=== PATIENT | male | born 1955 | race Caucasian/White ===

== ENCOUNTER 2021-03-26 06:19 | Outpatient (REF) | payer SELFPAY ==
[2021-03-26 07:21] LABS: Estimated Average Glucose 123 mg/dL; Hemoglobin A1c % 5.9 %
[2021-03-26 07:29] LABS: Alanine Aminotransferase 40 U/L (0-40); Albumin Level 4.6 g/dL (3.5-5.0); Alkaline Phosphatase 67 U/L (39-117); Anion Gap 14 (12-20); Aspartate Amino Transferase 27 U/L (5-37); Bilirubin Total 0.7 mg/dL (0.0-1.0); Blood Urea Nitrogen 27 mg/dL (9-16); Calcium 9.9 mg/dL (8.4-10.2); Carbon Dioxide 25 mmol/L (22-29); Chloride 106 mmol/L (96-108); Cholesterol 186 mg/dL; Estimated Glomerular Filt Rate > 60; Glucose Fasting 123 mg/dL (60-99); HDL Cholesterol 43 mg/dL; LDL Cholesterol Calculated 71 mg/dl; Potassium 4.5 mmol/L (3.3-5.1); Sodium 140 mmol/L (135-145); Total Protein 7.2 g/dL (6.5-8.0); Triglycerides 362 mg/dL
== END 2021-03-26 06:20 | disposition home or self-care (01) ==
LOC: HO.LAB 06:19
PROVIDERS: PCP Family Medicine; Visit Provider Family Medicine
DX: Z00.00 Encounter for general adult medical examination without abnormal findings (principal); R73.01 Impaired fasting glucose
CPT/HCPCS: 36415; 80053; 80061; 83036; 84443

== ENCOUNTER 2021-08-06 06:06 | Outpatient (REF) | payer OTHER, SELFPAY ==
[2021-08-06 07:59] LABS: Alanine Aminotransferase 39 U/L (0-40); Albumin Level 4.6 g/dL (3.5-5.0); Alkaline Phosphatase 79 U/L (39-117); Anion Gap 15 (12-20); Aspartate Amino Transferase 29 U/L (5-37); Bilirubin Total 0.3 mg/dL (0.0-1.0); Blood Urea Nitrogen 30 mg/dL (9-16); Calcium 10.2 mg/dL (8.4-10.2); Carbon Dioxide 24 mmol/L (22-29); Chloride 105 mmol/L (96-108); Cholesterol 193 mg/dL; Estimated Glomerular Filt Rate 56; Glucose Fasting 115 mg/dL (60-99); HDL Cholesterol 44 mg/dL; Sodium 139 mmol/L (135-145); Total Protein 6.9 g/dL (6.5-8.0); Triglycerides 540 mg/dL
[2021-08-06 08:12] LABS: Estimated Average Glucose 123 mg/dL; Hemoglobin A1c % 5.9 %
== END 2021-08-06 06:07 | disposition home or self-care (01) ==
LOC: HO.LAB 06:06
PROVIDERS: PCP Family Medicine; Visit Provider Family Medicine
DX: Z00.00 Encounter for general adult medical examination without abnormal findings (principal); R73.01 Impaired fasting glucose
CPT/HCPCS: 36415; 80053; 80061; 83036

== ENCOUNTER 2021-10-08 06:08 | Outpatient (REF) | payer OTHER, SELFPAY ==
[2021-10-08 07:33] LABS: Cholesterol 194 mg/dL; HDL Cholesterol 43 mg/dL; LDL Cholesterol Calculated 84 mg/dl; Triglycerides 338 mg/dL
== END 2021-10-08 06:09 | disposition home or self-care (01) ==
LOC: HO.LAB 06:08
PROVIDERS: PCP Family Medicine; Visit Provider Family Medicine
DX: Z00.00 Encounter for general adult medical examination without abnormal findings (principal); E78.5 Hyperlipidemia, unspecified
CPT/HCPCS: 36415; 80061

== ENCOUNTER 2022-02-14 06:09 | Outpatient (REF) | payer OTHER, SELFPAY ==
[2022-02-14 08:12] LABS: Cholesterol 189 mg/dL; HDL Cholesterol 41 mg/dL; Triglycerides 404 mg/dL
== END 2022-02-14 06:10 | disposition home or self-care (01) ==
LOC: HO.LAB 06:09
PROVIDERS: PCP Family Medicine; Visit Provider Family Medicine
DX: Z00.00 Encounter for general adult medical examination without abnormal findings (principal); E78.5 Hyperlipidemia, unspecified
CPT/HCPCS: 36415; 80061

== ENCOUNTER 2022-05-27 06:06 | Outpatient (REF) | payer OTHER, SELFPAY ==
[2022-05-27 08:35] LABS: Cholesterol 178 mg/dL; HDL Cholesterol 43 mg/dL; LDL Cholesterol Calculated 94 mg/dl; Triglycerides 206 mg/dL
== END 2022-05-27 06:07 | disposition home or self-care (01) ==
LOC: HO.LAB 06:06
PROVIDERS: PCP Family Medicine; Visit Provider Family Medicine
DX: Z00.00 Encounter for general adult medical examination without abnormal findings (principal); E78.5 Hyperlipidemia, unspecified
CPT/HCPCS: 36415; 80061

== ENCOUNTER 2022-10-07 06:05 | Outpatient (REF) | payer OTHER, SELFPAY ==
[2022-10-07 06:16] LABS: MANUAL DIFF FLAG NO
[2022-10-07 07:41] LABS: Basophils Absolute Auto 0.1 X10*3/uL (0.0-0.2); Basophils Percent Auto 0.9 % (0-2); Eosinophils Absolute Auto 0.2 X10*3/uL (0.0-0.4); Eosinophils Percent Auto 2.8 % (0-4); Hematocrit 36.4 % (42.0-52.0); Hemoglobin 12.1 g/dl (14.0-18.0); Imm Gran Abs Auto 0.04 X10*3/uL (0.00-0.03); Imm Gran Pct Auto 0.6 % (0.0-0.4); Lymphocytes Absolute Auto 1.1 X10*3/uL (1.2-4.9); Lymphocytes Percent Auto 16.1 % (20-40); Mean Corpuscular HGB Conc 33.2 g/dl (31.0-36.0); Mean Corpuscular Hemoglobin 31.8 pg (27.0-33.0); Mean Corpuscular Volume 95.5 fL (80.0-98.0); Mean Platelet Volume 10.4 fL (9.4-12.4); Monocytes Absolute Auto 0.6 X10*3/uL (0.1-1.2); Monocytes Percent Auto 8.1 % (2-11); Neutrophils Absolute Auto 4.8 x10*3/uL (2.0-8.3); Neutrophils Percent Auto 71.5 % (45-73); Platelet Count 291 X10*3/uL (160-400); Red Blood Count 3.81 X10*6/uL (4.60-5.80); Red Cell Distribution Width 12.7 % (11.0-16.0); White Blood Count 6.8 X10*3/uL (4.8-10.8)
[2022-10-07 08:11] LABS: Alanine Aminotransferase 30 U/L (0-40); Albumin Level 4.5 g/dL (3.5-5.0); Alkaline Phosphatase 42 U/L (39-117); Anion Gap 18 (12-20); Aspartate Amino Transferase 28 U/L (5-37); Bilirubin Total 0.3 mg/dL (0.0-1.0); Blood Urea Nitrogen 38 mg/dL (9-16); Carbon Dioxide 18 mmol/L (22-29); Chloride 111 mmol/L (96-108); Cholesterol 197 mg/dL (<200); Estimated Glomerular Filt Rate 39; Glucose Fasting 119 mg/dL (60-99); HDL Cholesterol 46 mg/dL (>40); LDL Cholesterol Calculated 109 mg/dL (<100); Potassium 4.7 mmol/L (3.3-5.1); Sodium 142 mmol/L (135-145); Total Protein 6.9 g/dL (6.5-8.0); Triglycerides 210 mg/dL (<150)
[2022-10-07 08:17] LABS: TSH reflex Free T4 1.59 uIU/mL (0.32-4.0)
[2022-10-07 08:19] LABS: Prostate Specific Antigen Scr 1.55 ng/mL (<0.05-4.0)
[2022-10-07 12:14] LABS: Appearance Urine Clear; Color Urine Dark Yellow; Glucose Urine UA Negative (Negative); Leukocyte Esterase Urine Negative (Negative); Nitrite Urine Negative (Negative); PH 5.5 (5.0-9.0); Urine Blood Negative (Negative); Urine Ketones Negative (Negative); Urine Protein Negative (Neg-Trace)
[2022-10-07 13:04] LABS: Microalbum/Creatinine Ratio Ur 8.5 ug/mg cr (<30)
== END 2022-10-07 06:06 | disposition home or self-care (01) ==
LOC: HO.LAB 06:05
PROVIDERS: PCP Family Medicine; Visit Provider Family Medicine
DX: Z00.00 Encounter for general adult medical examination without abnormal findings (principal); Z12.5 Encounter for screening for malignant neoplasm of prostate; I10 Essential (primary) hypertension
CPT/HCPCS: 36415; 80053; 80061; 81003; 82043; 82570; 84153; 84443; 85025

== ENCOUNTER 2022-10-13 08:25 | Outpatient (AMB) | payer OTHER, SELFPAY ==
--- NOTE | 2022-10-13 08:30 | MHC.OFFVIS ---
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 Pt reports sleep disturbance. He does not have difficultly falling asleep but wakes up frequently at night. He can't sleep 4 hours straight. Pt reports family hx of sleep apnea. He drinks 2 cans of beer in the evening almost every day. He has left shoulder pain and it also bothersome and it wakes him too. He uses Aleve or PM tylenol sometimes. Sleep questionnaire: Have you ever been diagnosed with a sleep disorder? No. Have you ever had a sleep study in the past? No. Have you ever been treated for a sleep disorder? No. Do you take medications for a sleep disorder? Tried melatonin and OTC sleep aids. but did not help him maintaining sleep and made him groggy and dry mouth in the morning. He tried lunesta and ambien as needed. Do you snore? Yes. Do you wake up gasping at night? No. Do you have episodes of apneas? No. If yes, are they witnessed? No. Do you have episodes of nocturnal chest pain or dyspnea? No. Do you have difficulty initiating sleep? No. Do you have difficulty maintaining sleep? Yes. Do you wake up tired? Yes. Do you have headaches upon awakening? No. Do you wake up with dry mouth or throat? Yes. Do you have GERD? No. Do you have nocturia? Yes, 2-3 times. Do you have nocturnal leg cramps? No. Do you have symptoms of restless legs? No. Do you act out your dreams? No. Sleep hygiene questionnaire: What is your usual sleep routine? Usual bedtime is at 10 pm; Usual wake up time is at 6 am. Do you take naps? No. Is your sleep environment cool, dark, and quiet? Yes. Do you exercise? No. Do you take caffeine or other stimulants? 2 cups of coffee in the morning. Do you use electronics in bed? Yes. What is your work schedule? 7 am to 6 pm. Hypersomnolence questionnaire: Do you have daytime tiredness or fatigue? Yes. Do you easily fall asleep when inactive? No. Have you ever had episodes of sudden weakness? No. Have you ever had episodes of sudden weakness associated with strong emotions? No. PFSH Surgical History History of hernia repair Family History (Updated 10/13/22 @ 08:35 by Catrina Quick [facility]) Father Kidney failure Mother Congenital heart disease Brother No problems noted. Sister No problems noted. Sister No problems noted. Sister No problems noted. Son No problems noted. Daughter No problems noted. Social History (Updated 10/13/22 @ 08:36 by Cartina Quick [facility]) Housing: House Alcohol intake: current Alcohol intake frequency: 0-2 drinks per day Patient Tobacco Use Status: Former Tobacco user Quit Date: 2020 service: No Current occupational status: employed Cognitive needs: No Hearing needs: No Vision needs: Yes Review of Systems Const All systems reviewed & are unremarkable except as noted in HPI and below ENT Reports Normal hearing present Neuro Reports Normal hearing present Physical Exam Vital Signs: Last Vital Signs Pulse 62 10/13/22 08:36 BP 130/86 10/13/22 08:36 Pulse Ox 98 10/13/22 08:36 Oxygen Delivery Method Room Air 10/13/22 08:36 BMI result Body Mass Index 34.9 Const General: cooperative Nutritional Appearance: obese Orientation/consciousness: patient oriented x3 Limitations: no limitations Neck Neck: Yes full ROM Resp Effort & Inspection: normal respiratory effort and able to speak in complete sentences Neuro General: patient oriented x3, gait normal and moves all extremities Cranial nerves: Yes Bilaterally intact EOM present, Yes Normal facial strength present, Yes Midline tongue present, Yes Normal gag reflex present, Yes Symmetric palate elevation present, Yes Normal hearing present, Yes Ability to bilaterally rotate head present and Yes Ability to bilaterally elevate shoulders present Cognition (Neuro): normal cognition Gait exam (Neuro): Normal gait present Motor exam (neuro): 5/5 motor strength present throughout, Pronator motor function not present and no tremor noted Psych Appearance: grossly normal Mental Status: mental status grossly normal Speech and movement: Normal speech and movement present Affect: normal affect Attitude: cooperative Assessment & Plan Assessment & Plan (1) Hypersomnia: Code(s): G47.10 - Hypersomnia, unspecified (2) Difficulty sleeping: Code(s): G47.9 - Sleep disorder, unspecified (3) Snoring: Code(s): R06.83 - Snoring Plan Pt is advised to undergo in lab sleep study to assess for sleep apnea. Will f/u with pt after study to discuss results and appropriate treatment options. Sleep hygiene education provided. Advised patient to reduce alcohol intake in the evening, and limit screen time before bedtime. Pt to call with any worsening concerns or questions. Orders: Orders RT PSG in-lab sleep study Today E66.9 - Obesity, unspecified, G47.00 - Insomnia, unspecified, G47.10 - Hypersomnia, unspecified, I10 - Essential (primary) hypertension, R73.01 - Impaired fasting glucose Coding Level of Care Code New Pt Level 4 (82300) Diagnoses Hypersomnia G47.10 Difficulty sleeping G47.9 Snoring R06.83
[2022-10-13 08:36] VITALS: BP 130/86; PULSE 62; O2SAT 98; BMI 34.9
== END 2022-10-13 09:16 | disposition home or self-care (01) ==
PROVIDERS: PCP Family Medicine; Visit Provider Nurse Practitioner Family
DX: G47.10 Hypersomnia, unspecified (principal); G47.9 Sleep disorder, unspecified; R06.83 Snoring
CPT/HCPCS: 99204

== ENCOUNTER → 2022-10-13 08:25 | Outpatient (BNVA) | payer OTHER, SELFPAY | PROVIDERS: PCP Family Medicine; Visit Provider Nurse Practitioner Family ==

== ENCOUNTER 2022-10-14 15:50 | Outpatient (AMB) | payer OTHER, SELFPAY ==
--- NOTE | 2022-10-14 15:46 | MHC.PC.OV ---
Vital Signs 10/14/22 16:03 10/14/22 16:34 Height 5 ft 10 in Weight 242 lb BMI 34.7 BP 98/64 124/72 Blood Pressure Location Rt brachial Rt brachial Position Sitting Sitting Respiration 12 Pulse 92 Pulse Source Pulse Oximeter Temp 97.9 F Temp Source Temporal Artery Scan Pulse Oximetry (%) 98 Oxygen Delivery Method Room Air Intake Visit Reasons: CPE with f/u labs and health maint Intake Note: Patient states that he may have liquid in ear and sometimes he hears the crackle. 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 Allergies vitamin E (d-alpha tocopherol) Allergy (Unknown, Verified 10/14/22 16:08) rash Medication List - Last Reconciled 10/14/22 by Ricky Iverson MD amlodipine-benazepril 5-40 mg 1 cap PO DAILY 90 days aspirin (Adult Aspirin Regimen) 81 mg PO DAILY atorvastatin 80 mg PO DAILY ezetimibe 10 mg PO DAILY fenofibrate 160 mg PO DAILY 30 days hydrochlorothiazide 25 mg PO DAILY spironolactone 25 mg PO DAILY Tobacco use date assessed: 07/15/22 Fall risk assessment: No Falls in past year Last assessed Fall Risk: 10/14/22 Dental Screening Dental Screen Date: 10/14/22 Did you have a dental visit in the last 12 months?: Yes Did you have a dental problem in the last 6 months where you did not have access to dental care?: No Was dental information given to patient?: Patient has dentist HPI CPE with f/u labs and health maint HPI Details 67 y/o male presents for a CPE with f/u labs and health maintenance. Labs were drawn 10/07/22. Reviewed labs with pt. Mild anemia. Elevated creatinine of 1.77. Elevated triglycerides 210. TC 197. LDL 109. HDL 46. Blood pressure today is 98/64. He is on hydrochlorothiazide 25mg and spirinolactone 25mg daily. A1c today 10/14/22 is 6.2% and had risen. [facility] Medical History No pertinent past medical history Surgical History History of hernia repair Family History Father Kidney failure Mother Congenital heart disease Brother No problems noted. Sister No problems noted. Sister No problems noted. Sister No problems noted. Son No problems noted. Daughter No problems noted. Social History Housing: House Alcohol intake: current Alcohol intake frequency: 0-2 drinks per day Patient Tobacco Use Status: Former Tobacco user Quit Date: 2020 e-Cigarette/Vaping Use: Never Used service: No Current occupational status: employed Cognitive needs: No Hearing needs: No Vision needs: Yes Questionnaire PHQ-9 Over the last 2 weeks, how often have you been bothered by any of the following problems? 1. Little interest or pleasure in doing things: several days 2. Feeling down, depressed, or hopeless: not at all 3. Trouble falling or staying asleep, or sleeping too much: more than half the days 4. Feeling tired or having little energy: several days 5. Poor appetite or overeating: several days 6. Feeling bad about yourself - or that you are a failure or have let yourself or your family down: not at all 7. Trouble concentrating on things, such as reading the newspaper or watching television: not at all 8. Moving or speaking so slowly that other people could have noticed. Or the opposite - being so fidgety or restless that you have been moving around a lot more than usual: not at all 9. Thoughts that you would be better off or of hurting yourself in some way: not at all Total score: 5 Depression Screening Interpretation: Positive Source: Developed by Drs. Leopoldo Pacheco, Skye Clarke, Charlie Funk and colleagues, with an educational baldomero from [employer]. Thrive Questionnaire Date Thrive assessed: 10/14/22 I am a: Patient What is your living situation today?: I have a steady place to live Within the past 12 months, did the food you bought not last and you didn't have the money to get more?: Never true Within the past 12 months, did you worry whether your food would run out before you got money to buy more?: Never true Do you have trouble paying for medicines?: No Do you have trouble getting transportation to medical appointments?: No Do you have trouble paying your heating and electricity bill?: No Do you have trouble taking care of your child, family member or friend?: No Do you have trouble with day-to-day activities such as bathing, preparing meals, shopping, managing finances, etc.?: No Are you currently unemployed and looking for a job?: No Are you interested in more education?: No Please select the resources that you would like help with: None Currently or been in a relationship where the following occur: no concerns reported AUDIT C Alcohol Use Questionnaire (AUDIT-C) 1. How often do you have a drink containing alcohol?: 4 or more times a week 2. How many drinks containing alcohol do you have on a typical day when you are drinking?: 1 or 2 3. How often do you have six or more drinks on one occasion?: Never Total Score: 4 TONA-7 AMB Questionnaire TONA-7 Date TONA - 7 assessed: 10/14/22 Feeling nervous, anxious, or on edge: 0 = Not at all Not being able to stop or control worryin = Not at all Worrying too much about different things: 0 = Not at all Trouble relaxin = Not at all Being so restless that it is hard to sit still: 0 = Not at all Becoming easily annoyed or irritable: 1 = Several days Feeling afraid as if something awful might happen: 0 = Not at all Total TONA-7 score (0-4 normal; 5-9 mild; 10-14 moderate; 15-21 severe): 1 Source: Developed by Drs. Leopoldo Pahceco, Skye Clarke, Cahrlie Funk and colleagues, with an educational baldomero from [employer]. Review of Systems Const Denies chills, Denies fatigue, Denies fever(s), Denies headache(s) and Denies weakness Eyes Denies change in vision ENT Denies dizziness and Denies headache(s) Card Denies chest pain, Denies lightheadedness, Denies dyspnea and Denies other (Palpitations) Resp Denies cough, Denies dyspnea, Denies wheezing and Denies other ( shortness of breath) GI Denies abdominal pain, Denies melena, Denies hematochezia, Denies change in bowel habits, Denies dyspepsia and Denies nausea Denies hematuria and Denies dysuria Musc Denies numbness and Denies tingling Skin/Breast Denies rash, Denies unusual bruising and Denies wounds Neuro Denies dizziness, Denies headache(s), Denies numbness, Denies Sensory deficit (Neuro), Denies tingling, Denies paresthesias and Denies weakness Psych Denies anxiety and Denies depression Endo Denies fatigue Eugene/Lymph Denies easy bleeding and Denies easy bruising Aller/Immun Denies wheezing Physical exam (Primary Care) Vital Signs: Last Vital Signs Temp 97.9 F 10/14/22 16:03 Pulse 92 10/14/22 16:03 Resp 12 10/14/22 16:03 BP 98/64 10/14/22 16:03 Pulse Ox 98 10/14/22 16:03 Oxygen Delivery Method Room Air 10/14/22 16:03 BMI result Body Mass Index 34.7 Tobacco/Smoking Status: Tobacco use Status Tobacco use date assessed 07/15/22 10/14/22 15:46 Patient Tobacco Use Status Former Tobacco user 10/14/22 15:46 e-Cigarette/Vaping Use Never Used 10/14/22 16:14 PHQ-9: PHQ-9 Score PHQ-9: Total score 5 10/14/22 16:32 Depression Screening Interpretation: Positive Thrive Assessment: Date of Thrive Assessment Date Thrive assessed 10/14/22 10/14/22 16:18 Currently or been in a relationship where the following occur: no concerns reported Const General: no acute distress and well developed Nutritional Appearance: well nourished Orientation/consciousness: patient oriented x3 HENMT Head: Yes normocephalic and Yes atraumatic Ears: hearing grossly normal bilaterally and TM's normal bilaterally General nose exam: Normal external nose present and Normal nares present Mouth: Normal oral and palatal mucosa present and moist mucous membranes Teeth and gingiva: dentition normal Throat: Yes posterior oropharynx normal Eyes General: appearance normal, both eyes and all related structures Pupils: Equal, round and reactive pupils present EOM: EOMs intact bilaterally Neck Neck: Yes normal visual inspection, Yes no lymphadenopathy and Yes trachea midline Thyroid: Thyroid normal Carotids: no bruits Lymphatic: no lymphadenopathy noted Chest Chest palpation & inspection: normal inspection of the chest Resp Effort & Inspection: normal respiratory effort Auscultation: clear to auscultation bilaterally Cardio Rate: regular rate Rhythm: regular rhythm Heart sounds: S1 normal heart sound present, S2 normal heart sound present, no gallops, no murmurs and no rubs Bruits: no abdominal aortic bruits and no carotid bruits GI Palpation (GI): No Abdominal aortic bruit present, Soft to palpation, nontender, No hepatosplenomegaly present and No Rebound tenderness present Auscultation: normal bowel sounds General: Yes no CVA tenderness Back/Spine/Pelvis Back: no CVA tenderness Cervical Spine: cervical ROM normal and No Cervical spine tenderness Thoracic/Lumbar Spine: thoraco-lumbar ROM normal, No pain with thoraco-lumbar ROM, No thoracic spinal tenderness and No lumbar spinal tenderness Skin Other: .75 by .5 cm melanotic macule on the R side of his neck with irregular borders Rashes: no rashes Trauma: no lacerations or abrasions Wounds: no wounds Nails: normal Neuro General: patient oriented x3 and gait normal Cranial nerves: Yes Equal, round and reactive pupils present Cognition (Neuro): normal cognition Gait exam (Neuro): Normal gait present Motor exam (neuro): 5/5 motor strength present throughout Sensory Exam: No Sensory deficit (Neuro) Deep tendon reflexes (DTR's): Right patellar reflex intensity grade: 2+ and Left patellar reflex intensity grade: 2+ Extrem General: Yes normal to inspection and No edema Psych Appearance: grossly normal Affect: normal affect Attitude: cooperative Thought process: Normal thought process present Results AMB Hemoglobin A1c AMB Hemoglobin A1c 6.2 % Last Edit by Sharmin Talbert on 10/14/22 16:33 Assessment and Plan Assessment & Plan (1) Annual physical exam: Code(s): Z00.00 - Encounter for general adult medical examination without abnormal findings Plan: 67-year-old male presents for complete physical exam Encouraged healthy diet with active lifestyle and plenty of exercise (2) Essential hypertension: Code(s): I10 - Essential (primary) hypertension Plan: Blood pressure is controlled. Goal is less than 140/90 However, patient's creatinine level has risen significantly so I am discontinuing his hydrochlorothiazide and will use metoprolol No other changes to his blood pressure medications at this time (3) Elevated serum creatinine: Code(s): R79.89 - Other specified abnormal findings of blood chemistry Plan: As above, significantly elevated creatinine level Stop hydrochlorothiazide Will repeat creatinine level and follow-up next week Hydrate well (4) Hyperlipidemia: Code(s): E78.5 - Hyperlipidemia, unspecified Plan: Encouraged a diet lower in saturated fats and cholesterol (5) Anemia: Code(s): D64.9 - Anemia, unspecified Plan: Mild anemia Repeat labs (6) Screening for colon cancer: Code(s): Z12.11 - Encounter for screening for malignant neoplasm of colon Plan: Colonoscopy this year in February. Recommended follow-up in 5 years. He has a history of polyps. Up today (7) Pre-diabetes: Code(s): R73.03 - Prediabetes Plan: A1c has risen and now at 6.2%. Encouraged diet lower in sugars and starches Encouraged exercise (8) Ear discomfort: Code(s): H92.09 - Otalgia, unspecified ear Plan: Likely some mild eustachian tube dysfunction He can use Flonase (9) Screening for prostate cancer: Code(s): Z12.5 - Encounter for screening for malignant neoplasm of prostate Plan: Her PSA was within normal limits (10) Neoplasm of uncertain behavior of skin: Code(s): D48.5 - Neoplasm of uncertain behavior of skin Plan: Melanotic macule on the right side of his neck with irregular borders and mild caller irregularity Referred to Dermatology Orders: Orders Comprehensive Met. Panel Today R79.89 - Other specified abnormal findings of blood chemistry Complete Blood Count Auto Diff Today D64.9 - Anemia, unspecified, Z00.00 - Encounter for general adult medical examination without abnormal findings Reticulocyte Count Today D64.9 - Anemia, unspecified IRON PROFILE Today D64.9 - Anemia, unspecified Vitamin B12 and Folate Today D64.9 - Anemia, unspecified Medications: New metoprolol succinate ER 25 mg PO DAILY 30 days 30 tabs 1RF fluticasone propionate 50 mcg/actuation (Flonase Allergy Relief) administer into each nostril 1 spray intranasal Q12H 30 days 16 grams 2RF D64.9 - Anemia, unspecified Coding Level of Care Code Est Pt Level 3 (24549) Est Pt Prev Care >65y(07194) Diagnoses Annual physical exam Z00.00 Essential hypertension I10 Elevated serum creatinine R79.89 Hyperlipidemia E78.5 Anemia D64.9 Screening for colon cancer Z12.11 Pre-diabetes R73.03 Ear discomfort H92.09 Screening for prostate cancer Z12.5 Neoplasm of uncertain behavior of skin D48.5
[2022-10-14 16:03] VITALS: BP 98/64; PULSE 92; RESP 12; TEMP 36.6; O2SAT 98; BMI 34.7
[2022-10-14 16:34] VITALS: BP 124/72
== END 2022-10-14 16:55 ==
PROVIDERS: PCP Family Medicine; Visit Provider Family Medicine
DX: Z00.00 Encounter for general adult medical examination without abnormal findings (principal); R73.03 Prediabetes; I10 Essential (primary) hypertension; E78.5 Hyperlipidemia, unspecified; R79.89 Other specified abnormal findings of blood chemistry; D64.9 Anemia, unspecified; H92.09 Otalgia, unspecified ear; D48.5 Neoplasm of uncertain behavior of skin
CPT/HCPCS: 99397

== ENCOUNTER 2022-10-18 06:14 | Outpatient (REF) | payer OTHER, SELFPAY ==
[2022-10-18 06:27] LABS: MANUAL DIFF FLAG NO
[2022-10-18 06:58] LABS: Basophils Absolute Auto 0.1 X10*3/uL (0.0-0.2); Basophils Percent Auto 0.9 % (0-2); Eosinophils Absolute Auto 0.2 X10*3/uL (0.0-0.4); Eosinophils Percent Auto 2.8 % (0-4); Hematocrit 36.7 % (42.0-52.0); Hemoglobin 12.4 g/dl (14.0-18.0); Imm Gran Abs Auto 0.05 X10*3/uL (0.00-0.03); Imm Gran Pct Auto 0.7 % (0.0-0.4); Immature Retic Fraction 12.7 % (2.3-13.4); Lymphocytes Absolute Auto 1.4 X10*3/uL (1.2-4.9); Mean Corpuscular HGB Conc 33.8 g/dl (31.0-36.0); Mean Corpuscular Hemoglobin 32.1 pg (27.0-33.0); Mean Corpuscular Volume 95.1 fL (80.0-98.0); Mean Platelet Volume 10.3 fL (9.4-12.4); Monocytes Absolute Auto 0.5 X10*3/uL (0.1-1.2); Monocytes Percent Auto 7.2 % (2-11); Neutrophils Absolute Auto 4.5 x10*3/uL (2.0-8.3); Neutrophils Percent Auto 67.4 % (45-73); Platelet Count 303 X10*3/uL (160-400); Red Blood Count 3.86 X10*6/uL (4.60-5.80); Red Cell Distribution Width 12.7 % (11.0-16.0); Retic HGB Equivalent 37.3 pg (30.0-35.0); Reticulocytes Absolute 0.078 X10*6/uL (0.026-0.095); White Blood Count 6.7 X10*3/uL (4.8-10.8)
[2022-10-18 07:21] LABS: Alanine Aminotransferase 24 U/L (0-40); Albumin Level 4.6 g/dL (3.5-5.0); Alkaline Phosphatase 40 U/L (39-117); Anion Gap 14 (12-20); Aspartate Amino Transferase 22 U/L (5-37); Bilirubin Total 0.4 mg/dL (0.0-1.0); Blood Urea Nitrogen 32 mg/dL (9-16); Calcium 10.4 mg/dL (8.4-10.2); Carbon Dioxide 22 mmol/L (22-29); Chloride 111 mmol/L (96-108); Estimated Glomerular Filt Rate 33; Glucose Random 127 mg/dL (60-115); Iron 85 mcg/dL (45-160); Percent Iron Saturation 23 % (15-50); Potassium 5.2 mmol/L (3.3-5.1); Sodium 142 mmol/L (135-145); Total Iron Binding Capacity 362 mcg/dL (228-428); Total Protein 7.3 g/dL (6.5-8.0); Unsaturated Iron Binding 277 ug/dL
[2022-10-18 07:53] LABS: Vitamin B12 > 2000 pg/mL (200-900)
== END 2022-10-18 06:15 | disposition home or self-care (01) ==
LOC: HO.LAB 06:14
PROVIDERS: PCP Family Medicine; Visit Provider Family Medicine
DX: Z00.00 Encounter for general adult medical examination without abnormal findings (principal); R79.89 Other specified abnormal findings of blood chemistry; D64.9 Anemia, unspecified
CPT/HCPCS: 36415; 80053; 82607; 82746; 83540; 85025; 85045

== ENCOUNTER → 2022-10-30 19:30 | Outpatient (REF) | payer OTHER, SELFPAY | LOC: HO.SL 19:30 | PROVIDERS: PCP Family Medicine; Visit Provider Nurse Practitioner Family | DX: G47.33 Obstructive sleep apnea (adult) (pediatric) (principal); G47.10 Hypersomnia, unspecified; G47.00 Insomnia, unspecified; I10 Essential (primary) hypertension; R73.01 Impaired fasting glucose; E66.9 Obesity, unspecified | CPT/HCPCS: 95810 ==

== ENCOUNTER → 2022-10-30 22:42 | Outpatient (BNV) | payer OTHER, SELFPAY | PROVIDERS: PCP Family Medicine; Visit Provider Psychiatry & Neurology Neurology | DX: G47.33 Obstructive sleep apnea (adult) (pediatric) (principal) | CPT/HCPCS: 95810 ==

== ENCOUNTER 2022-11-30 14:38 | Outpatient (AMB) | payer MEDICARE, SELFPAY ==
[2022-11-30 14:46] VITALS: BP 124/76; PULSE 84; RESP 13; TEMP 36.6; O2SAT 99; BMI 35.5
--- NOTE | 2022-11-30 14:46 | MHC.PC.OV ---
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 Have discontinued his hydrochlorothiazide and replaced it with metoprolol. Labs were drawn 10/18/22. Reviewed labs with pt. Anemia. Creatinine level worsened from 1.77 to 2.01. Blood pressure today 124/76. He is on amlodipine-benazepril 5-40mg PFSH Medical History No pertinent past medical history Surgical History History of hernia repair Family History Father Kidney failure Mother Congenital heart disease Brother No problems noted. Sister No problems noted. Sister No problems noted. Sister No problems noted. Son No problems noted. Daughter No problems noted. 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 Leopoldo Pacheco, Skye Clarke, Charlie Funk and colleagues, with an educational baldomero from [employer]. Review of Systems Const Denies chills, Denies fatigue, Denies fever(s), Denies headache(s) and Denies weakness ENT Denies dizziness and Denies headache(s) Card Denies dyspnea Resp Denies cough, Denies dyspnea, Denies wheezing and Denies other (shortness of breath) Musc Denies numbness and Denies tingling Neuro Denies dizziness, Denies headache(s), Denies numbness, Denies tingling and Denies weakness Psych Denies anxiety and Denies depression Endo Denies fatigue Aller/Immun Denies wheezing Physical exam (Primary Care) Vital Signs: Last Vital Signs Temp 98 F 11/30/22 14:46 Pulse 84 11/30/22 14:46 Resp 13 11/30/22 14:46 BP 124/76 11/30/22 14:46 Pulse Ox 99 11/30/22 14:46 Oxygen Delivery Method Room Air 11/30/22 14:46 BMI result Body Mass Index 35.5 Tobacco/Smoking Status: Tobacco use Status Tobacco use date assessed 07/15/22 11/30/22 14:57 Patient Tobacco Use Status Former Tobacco user 11/30/22 14:57 e-Cigarette/Vaping Use Never Used 11/30/22 14:57 Thrive Assessment: Date of Thrive Assessment Date Thrive assessed 10/14/22 11/30/22 14:57 Const General: well developed; No acute distress Nutritional Appearance: well nourished Orientation/consciousness: patient oriented x3 [facility]: Yes normocephalic and Yes atraumatic Eyes General: appearance normal, both eyes and all related structures Pupils: Equal, round and reactive pupils present EOM: EOMs intact bilaterally Resp Effort & Inspection: normal respiratory effort Auscultation: clear to auscultation bilaterally Cardio Rate: regular rate Rhythm: regular rhythm Heart sounds: S1 normal heart sound present, S2 normal heart sound present, no gallops, no murmurs and no rubs Neuro General: patient oriented x3 and gait normal Cranial nerves: Yes Equal, round and reactive pupils present Psych Affect: normal affect Assessment and Plan Assessment & Plan (1) Essential hypertension: Code(s): I10 - Essential (primary) hypertension Plan: Blood?pressure?is?controlled. Had?started?him?on?metoprolol?and?continued?spironolactone?and?his?amlodipine-benazepril?as?prescribed.??Had?discontinued?hydrochlorothiazide?as?possible?culprit?of?his?creatinine?elevations,?however?patient?notes?today?that?he?had?already?been?off?t his?medication. For?now?he?will?continue?metoprolol,?spironolactone?and?amlodipine-benazepril Will?follow-up?on?kidney?function-see?below (2) Elevated serum creatinine: Code(s): R79.89 - Other specified abnormal findings of blood chemistry Plan: Creatinine?level?has?been?rising Had?intended?to?discontinue?his?hydrochlorothiazide?as?a?possible?culprit?but?patient?notes?today?that?he?had?already?been?off?this?medicine He?will?get?his?renal?function?lab?work?repeated?and?we?will?follow-up?in?a?week?or?2 Advised?he?hydrate?well. If?creatinine?level?has?risen?further?or?is?the?same?and?not?lower,?will?consider?discontinuing?spironolactone?or?benazepril?in?his?combo?pill?and?increasing?metoprolol?to?accommodate?this Would?also?refer?him?to?Nephrology Orders: Orders Comprehensive Met. Panel Today R79.89 - Other specified abnormal findings of blood chemistry Coding Level of Care Code Est Pt Level 3 (70768) Diagnoses Essential hypertension I10 Elevated serum creatinine R79.89
== END 2022-11-30 15:41 | disposition home or self-care (01) ==
PROVIDERS: PCP Family Medicine; Visit Provider Family Medicine
DX: I10 Essential (primary) hypertension (principal); R79.89 Other specified abnormal findings of blood chemistry; Z23 Encounter for immunization
CPT/HCPCS: 90471; 90686; 99213

== ENCOUNTER 2022-12-13 06:11 | Outpatient (REF) | payer MEDICARE, SELFPAY ==
[2022-12-13 07:43] LABS: Alanine Aminotransferase 26 U/L (0-40); Albumin Level 4.6 g/dL (3.5-5.0); Alkaline Phosphatase 38 U/L (39-117); Anion Gap 14 (12-20); Aspartate Amino Transferase 26 U/L (5-37); Bilirubin Total 0.4 mg/dL (0.0-1.0); Blood Urea Nitrogen 42 mg/dL (9-16); Calcium 9.6 mg/dL (8.4-10.2); Carbon Dioxide 21 mmol/L (22-29); Chloride 111 mmol/L (96-108); Estimated Glomerular Filt Rate 30; Glucose Random 113 mg/dL (60-115); Potassium 5.7 mmol/L (3.3-5.1); Sodium 140 mmol/L (135-145); Total Protein 7.2 g/dL (6.5-8.0)
== END 2022-12-13 06:12 | disposition home or self-care (01) ==
LOC: HO.LAB 06:11
PROVIDERS: PCP Family Medicine; Visit Provider Family Medicine
DX: R79.89 Other specified abnormal findings of blood chemistry (principal)
CPT/HCPCS: 36415; 80053

== ENCOUNTER 2022-12-15 09:38 | Outpatient (AMB) | payer MEDICARE, SELFPAY ==
--- NOTE | 2022-12-15 09:48 | MHC.PC.OV ---
Vital Signs 12/15/22 09:49 Height 5 ft 10 in Weight 245 lb BMI 35.2 BP 130/68 Blood Pressure Location Lt brachial Position Sitting Pulse 111 H Pulse Source Pulse Oximeter Pulse Oximetry (%) 98 Oxygen Delivery Method Room Air Intake Visit Reasons: f/u labs Intake Note: Patient is here to follow up on labs today. Allergies vitamin E (d-alpha tocopherol) Allergy (Unknown, Verified 12/15/22 09:50) rash Tobacco use date assessed: 12/15/22 Fall risk assessment: No Falls in past year Last assessed Fall Risk: 12/15/22 HPI f/u labs HPI Details 67 y/o male presents to f/u rising creatinine levels. Creatinine level had been rising. Pt had discontinued hydrochlorothiazide. Labs were drawn 12/13/22. Reviewed labs with pt. Creatinine level worsened from 2.01 to 2.18. Blood pressure today 130/68. He is on metorpolol 25mg, spironolactone 25mg daily. Pt reports he has not been emptying his bladder well. [facility] Medical History No pertinent past medical history Surgical History History of hernia repair Family History Father Kidney failure Mother Congenital heart disease Brother No problems noted. Sister No problems noted. Sister No problems noted. Sister No problems noted. Son No problems noted. Daughter No problems noted. 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 Leopoldo Pacheco, Skye Clarke, Charlie Funk and colleagues, with an educational baldomero from [employer] Review of Systems Const Denies chills, Denies fatigue, Denies fever(s), Denies headache(s) and Denies weakness ENT Denies dizziness and Denies headache(s) Card Denies dyspnea Resp Denies cough, Denies dyspnea, Denies wheezing and Denies other (shortness of breath) Musc Denies numbness and Denies tingling Neuro Denies dizziness, Denies headache(s), Denies numbness, Denies tingling and Denies weakness Psych Denies anxiety and Denies depression Endo Denies fatigue Aller/Immun Denies wheezing Physical exam (Primary Care) Vital Signs: Last Vital Signs Pulse 111 H 12/15/22 09:49 BP 130/68 12/15/22 09:49 Pulse Ox 98 12/15/22 09:49 Oxygen Delivery Method Room Air 12/15/22 09:49 BMI result Body Mass Index 35.2 Tobacco/Smoking Status: Tobacco use Status Tobacco use date assessed 12/15/22 12/15/22 09:56 Patient Tobacco Use Status Former Tobacco user 12/15/22 09:56 e-Cigarette/Vaping Use Never Used 12/15/22 09:56 Thrive Assessment: Date of Thrive Assessment Date Thrive assessed 10/14/22 12/15/22 09:56 Const General: well developed; No acute distress Nutritional Appearance: well nourished Orientation/consciousness: [facility]3 [facility]: Yes normocephalic and Yes atraumatic Eyes General: appearance normal, both eyes and all related structures Pupils: Equal, round and reactive pupils present EOM: EOMs intact bilaterally Resp Effort & Inspection: normal respiratory effort Auscultation: clear to auscultation bilaterally Cardio Rate: regular rate Rhythm: regular rhythm Heart sounds: S1 normal heart sound present, S2 normal heart sound present, no gallops, no murmurs and no rubs Neuro General: patient oriented x3 and gait normal Cranial nerves: Yes Equal, round and reactive pupils present Psych Affect: normal affect Assessment and Plan Assessment & Plan (1) Renal failure: Code(s): N19 - Unspecified kidney failure Plan: Ongoing?renal?failure?with?rising?creatinine?level Will?decrease?benazepril?in?his,?pill?and?increase?metoprolol?to?compensate?for?blood?pressure?control. Will?likely?need?to?further?decrease?benazepril?or?discontinue?it. Will?continue?to?watch?his?renal?function?and?consider?decreasing/discontinuing?benazepril?as?well?as?spironolactone?as?needed. I?am?referring?him?to?Nephrology He?also?notes?some?urinary?hesitancy?and?I?am?referring?him?to?urology.??Doubt?that?renal?failure?is?due?to?urinary?obstruction?but?he?is?symptomatic?so?this?is?possible. (2) Essential hypertension: Code(s): I10 - Essential (primary) hypertension Plan: Decreasing?benazepril?and?increasing?metoprolol. Patient's?heart?rate?is?mildly?elevated?and?metoprolol?will?help?to?control?this?as?well. Followed?by?cardiology?in?[place]?and?I?have?requested?there?note (3) Feeling of incomplete bladder emptying: Code(s): R39.14 - Feeling of incomplete bladder emptying Plan: As?above,?referred?to?Urology. He?can?also?trial?tamsulosin Orders: Referrals Nephrology Referral N19 - Unspecified kidney failure Urology Referral N19 - Unspecified kidney failure, R39.14 - Feeling of incomplete bladder emptying Medications: New amlodipine-benazepril 5-20 mg 1 cap PO DAILY 30 caps 1RF 30 days tamsulosin 0.4 mg PO DAILY 30 caps 0RF 30 days Changed From metoprolol succinate ER 25 mg PO DAILY 30 days 30 tabs 1RF To metoprolol succinate ER 50 mg PO DAILY 30 tabs 1RF 30 days Discontinued amlodipine-benazepril 5-40 mg Discontinued Reason: Doctor's Order 1 cap PO DAILY 90 caps 3RF 90 days Coding Level of Care Code Est Pt Level 4 (93611) Diagnoses Renal failure N19 Essential hypertension I10 Feeling of incomplete bladder emptying R39.14
[2022-12-15 09:49] VITALS: BP 130/68; PULSE 111; O2SAT 98; BMI 35.2
== END 2022-12-15 10:31 | disposition home or self-care (01) ==
PROVIDERS: PCP Family Medicine; Visit Provider Family Medicine
DX: N19 Unspecified kidney failure (principal); I10 Essential (primary) hypertension; R39.14 Feeling of incomplete bladder emptying
CPT/HCPCS: 99214

== ENCOUNTER 2022-12-16 10:54 | Outpatient (AMB) | payer MEDICARE, SELFPAY ==
[2022-12-16 10:56] VITALS: BP 118/60; PULSE 113; BMI 35.4
--- NOTE | 2022-12-16 10:56 | HO.NEPHOV ---
HPI HPI Comments History of Present Illness Details Suzan is a pleasant middle-aged man with a history of hypertension for more than 30 years. Overall blood pressure has been well controlled. He was on amlodipine benazepril 5/40 once a day. He was on hydrochlorothiazide which was discontinued about a year ago. He is still on spironolactone 25 mg a day. In August 2021 serum creatinine was 1.29 mg/dL and this was probably his baseline. In October of 2022 serum creatinine was 1.77 and a repeat creatinine was 2.01 and further increased to 2.18 Amlodipine-benazepril has been decreased to 5/20 once a day as of 12/15/2022 and has been referred for further evaluation. Of note he was also found to have hyperkalemia depression 5.7. Suzan tells me that his blood pressure has been well controlled he has no specific complaints today. He has had difficulty urination for quite some time. Last digital examination of the prostate was few years ago. He has been recently diagnosed with obstructive sleep apnea and he uses CPAP. He does wake up in the middle of the night once or twice to urinate. No hematuria. No line pain. No shortness of breath. No cough no hemoptysis. No diarrhea constipation. No rash no fever no weight loss. No joint pain or swelling. [facility] Medical History No pertinent past medical history Surgical History History of hernia repair Family History Father Kidney failure Mother Congenital heart disease Brother No problems noted. Sister No problems noted. Sister No problems noted. Sister No problems noted. Son No problems noted. Daughter No problems noted. 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 Cognitive needs: No Hearing needs: No Vision needs: Yes Vital Signs 12/16/22 10:56 Height 5 ft 10 in Weight 246 lb 8 oz BMI 35.4 BP 118/60 Blood Pressure Location Rt brachial Position Sitting Pulse 113 H Pulse Source Pulse Oximeter Physical Exam Vital Signs: Last Vital Signs Pulse 113 H 12/16/22 10:56 BP 118/60 12/16/22 10:56 BMI result Body Mass Index 35.4 Const General: comfortable Nutritional Appearance: well nourished and obese Orientation/consciousness: patient oriented x3 HEENT Head: No normal to inspection Mouth: moist mucous membranes Neck Neck: Yes supple and Yes no JVD Resp Auscultation: clear to auscultation bilaterally, no rales and rub present Cardio Jugular venous distension: no JVD Palpation: no palpable S3 and no palpable S4 Heart sounds: no rubs GI Palpation (GI): Soft to palpation and nontender Percussion: No Fluid wave present General: Yes no CVA tenderness Back/Spine/Pelvis Back: no CVA tenderness Skin General skin exam: no rashes or lesions noted Neuro General: patient oriented x3 Extrem General: Yes no pedal edema and No clubbing Results Reviewed Results Reviewed: Labs Stephen on 08/28 sodium 140 potassium 5.7 BUN 42 creatinine 2.18. Calcium 9.6 Hemoglobin 12.4 Urinalysis did not reveal any blood or protein back in October 2022. Assessment & Plan Assessment & Plan (1) Renal failure: Code(s): N19 - Unspecified kidney failure Plan: Middle-aged man with acute kidney injury superimposed on chronic kidney disease. Suzan has chronic kidney disease with a baseline creatinine 1.29 with a EGFR of 56 mL/minute as of August 2021. No lab results are available between August 2021 and October 2022. However he has sustained acute kidney injury with the creatinine bumping up to 2.18. The differential diagnosis for acute kidney injury would include Hypoperfusion, vs obstruction. No reason to believe he has any active glomerular or interstitial disease at this time based on the bland urinary sediments. Plan Agree with lowering benazepril-amlodipine to 5/20. Hold off on diuretics. Check renal ultrasonogram to rule out obstruction. Increase p.o. fluid intake Workup as outlined below including urine studies. Repeat renal panel in the next few days. Further workup will be based on the outcome of the above baseline investigations. (2) Hyperkalemia: Code(s): E87.5 - Hyperkalemia Plan: Significant Hyperkalemia in the setting of acute kidney injury while he was on an JOSSELYN inhibitor and spironolactone. Clearly obstructive uropathy should be ruled out. Plan is to discontinue spironolactone. Discussed low-potassium diet. Recheck serum potassium in the next few days and if there is no improvement I will order Lokelma. (3) Anemia: Code(s): D64.9 - Anemia, unspecified Plan: Mild anemia. This may be related to CKD. Other causes need to be ruled out. Shall watch hemoglobin for now. (4) HTN (hypertension): Code(s): I10 - Essential (primary) hypertension Plan: Blood pressure is well controlled. Stay on low-sodium diet. Agree with current medications. Discussed weight loss. Orders: Orders Blood Urea Nitrogen 2 Days E87.5 - Hyperkalemia, N19 - Unspecified kidney failure UA and rflx microscopic 2 Days E87.5 - Hyperkalemia, N19 - Unspecified kidney failure US renal BI 2 Days E87.5 - Hyperkalemia, N19 - Unspecified kidney failure Electrolytes 2 Days E87.5 - Hyperkalemia, N19 - Unspecified kidney failure Creatinine 2 Days E87.5 - Hyperkalemia, N19 - Unspecified kidney failure Calcium 2 Days E87.5 - Hyperkalemia, N19 - Unspecified kidney failure Creatinine Urine 2 Days E87.5 - Hyperkalemia, N19 - Unspecified kidney failure Total Protein Urine Random 2 Days E87.5 - Hyperkalemia, N19 - Unspecified kidney failure Coding Level of Care Code Est Pt Level 5 (98056) Diagnoses Renal failure N19 Hyperkalemia E87.5 Anemia D64.9 HTN (hypertension) I10
== END 2022-12-16 11:29 | disposition home or self-care (01) ==
PROVIDERS: PCP Family Medicine; Visit Provider Internal Medicine Hypertension Specialist
DX: N17.9 Acute kidney failure, unspecified (principal); I12.9 Hypertensive chronic kidney disease with stage 1 through stage 4 chronic kidney disease, or unspecified chronic kidney disease; N18.2 Chronic kidney disease, stage 2 (mild); D63.1 Anemia in chronic kidney disease; E87.5 Hyperkalemia
CPT/HCPCS: 99204

== ENCOUNTER → 2022-12-16 10:54 | Outpatient (BNVA) | payer MEDICARE, SELFPAY | PROVIDERS: PCP Family Medicine; Visit Provider Internal Medicine Hypertension Specialist | DX: N19 Unspecified kidney failure (principal); I10 Essential (primary) hypertension; D64.9 Anemia, unspecified; E87.5 Hyperkalemia | CPT/HCPCS: 99202 ==

== ENCOUNTER 2022-12-19 06:11 | Outpatient (REF) | payer MEDICARE, SELFPAY ==
--- NOTE | ~2022-12-19 | US_ITS ---
EXAMINATION: US RETROPERITONEAL LIMITED (RENAL ONLY) CLINICAL INFORMATION: Unspecified kidney failure. COMPARISON: None available. TECHNIQUE: Real-time imaging of the kidneys. FINDINGS: RIGHT KIDNEY: 10.9 x 5.8 x 7.2 cm (SAG x AP x TRV). The kidney is normal in size, contour, and echogenicity. Renal cortical thickness is normal. No renal calculi or hydronephrosis. There are multiple small simple cysts, the largest include a 1.5 x 1.6 x 1.6 cm upper pole and 1.7 x 1.7 x 1.7 cm lower pole cyst. No imaging follow-up is recommended. LEFT KIDNEY: 12.1 x 5.5 x 5.3 cm (SAG x AP x TRV). The kidney is normal in size, contour, and echogenicity. Renal cortical thickness is normal. No renal calculi or hydronephrosis. There are multiple small simple cysts throughout the kidney, the largest include a 2.9 x 2.8 x 3.0 cm lower pole exophytic cyst, 1.4 x 1.8 x 1.5 cm mid renal exophytic cyst, 1.7 x 1.7 x 1.6 cm upper pole exophytic cyst and 2.4 x 2.3 x 2.4 cm upper pole partially exophytic cyst. No imaging follow-up is recommended. US/US renal BI IMPRESSION: No significant abnormality of the kidneys.
[2022-12-19 08:07] LABS: Anion Gap 12 (12-20); Blood Urea Nitrogen 42 mg/dL (9-16); Calcium 9.9 mg/dL (8.4-10.2); Carbon Dioxide 23 mmol/L (22-29); Chloride 110 mmol/L (96-108); Estimated Glomerular Filt Rate 27; Potassium 5.2 mmol/L (3.3-5.1); Sodium 140 mmol/L (135-145)
[2022-12-19 09:43] LABS: Appearance Urine Clear; Color Urine Yellow; Glucose Urine UA Negative (Negative); Leukocyte Esterase Urine Negative (Negative); Nitrite Urine Negative (Negative); PH 5.5 (5.0-9.0); Urine Blood Negative (Negative); Urine Ketones Negative (Negative); Urine Protein Negative (Neg-Trace)
[2022-12-19 09:51] LABS: Creatinine Urine 149.73 mg/dL; Total Protein Urine Random < 7 mg/dL (<12)
== END 2022-12-19 06:12 | disposition home or self-care (01) ==
LOC: HO.US 06:11
PROVIDERS: PCP Family Medicine; Visit Provider Internal Medicine Hypertension Specialist
DX: N19 Unspecified kidney failure (principal); E87.5 Hyperkalemia
CPT/HCPCS: 36415; 76775; 80051; 81003; 82310; 82565; 82570; 84156; 84520

== ENCOUNTER 2022-12-28 11:42 | Outpatient (AMB) | payer MEDICARE, SELFPAY ==
--- NOTE | 2022-12-28 12:00 | HO.NEPHOV_ITS ---
HPI HPI Comments History of Present Illness Details Suzan is a pleasant middle-aged man with a history of hypertension for more than 30 years. Overall blood pressure has been well controlled. He was on amlodipine benazepril 5/40 once a day. He was on hydrochlorothiazide which was discontinued about a year ago. He is still on spironolactone 25 mg a day. In August 2021 serum creatinine was 1.29 mg/dL and this was probably his baseline. In October of 2022 serum creatinine was 1.77 and a repeat creatinine was 2.01 and further increased to 2.18 Amlodipine-benazepril has been decreased to 5/20 once a day as of 12/15/2022 and has been referred for further evaluation. Of note he was also found to have hyperkalemia depression 5.7. Suzan tells me that his blood pressure has been well controlled he has no specific complaints today. He has had difficulty urination for quite some time. Last digital examination of the prostate was few years ago. He has been recently diagnosed with obstructive sleep apnea and he uses CPAP. He does wake up in the middle of the night once or twice to urinate. No hematuria. No line pain. No shortness of breath. No cough no hemoptysis. No diarrhea constipation. No rash no fever no weight loss. No joint pain or swelling. 12/28/2022 During his last visit spironolactone was discontinued due to hyperkalemia. He is on a lower dose of benazepril amlodipine. He had a renal ultrasonogram which was unremarkable except for some simple cysts bilaterally and no further reviewed radiological follow-up was recommended. There was no obstruction. Today he is feeling fine without any complaints no shortness of breath no nausea vomiting no urinary symptoms no edema. [facility] Medical History No pertinent past medical history Surgical History History of hernia repair Family History Father Kidney failure Mother Congenital heart disease Brother No problems noted. Sister No problems noted. Sister No problems noted. Sister No problems noted. Son No problems noted. Daughter No problems noted. 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 Cognitive needs: No Hearing needs: No Vision needs: Yes Vital Signs 12/28/22 12:06 Height 5 ft 10 in Weight 256 lb BMI 36.7 BP 126/78 Blood Pressure Location Lt brachial Position Sitting Pulse 87 Pulse Source Pulse Oximeter Pulse Oximetry (%) 96 Oxygen Delivery Method Room Air Physical Exam Vital Signs: Last Vital Signs Pulse 87 12/28/22 12:06 BP 126/78 12/28/22 12:06 Pulse Ox 96 12/28/22 12:06 Oxygen Delivery Method Room Air 12/28/22 12:06 BMI result Body Mass Index 36.7 Const General: comfortable Nutritional Appearance: well nourished Orientation/consciousness: patient oriented x3 HEENT Head: No normal to inspection Mouth: moist mucous membranes Neck Neck: Yes supple and Yes no JVD Resp Auscultation: clear to auscultation bilaterally, no rales and rub present Cardio Jugular venous distension: no JVD Palpation: no palpable S3 and no palpable S4 Heart sounds: no rubs GI Palpation (GI): Soft to palpation and nontender Percussion: No Fluid wave present General: Yes no CVA tenderness Back/Spine/Pelvis Back: no CVA tenderness Skin General skin exam: no rashes or lesions noted Neuro General: patient oriented x3 Extrem General: No clubbing and Yes edema (Trace lower extremity- bilaterally) Results Reviewed Results Reviewed: Renal ultrasonogram was reviewed. Bilateral cysts were seen. No hydronephrosis no calculi. Recent creatinine was still 2.3 Assessment & Plan Assessment & Plan (1) Renal failure: Code(s): N19 - Unspecified kidney failure Plan: Middle-aged man with acute kidney injury superimposed on chronic kidney disease. Suzan has chronic kidney disease with a baseline creatinine 1.29 with a EGFR of 56 mL/minute as of August 2021. No lab results are available between August 2021 and October 2022. However he has sustained acute kidney injury with the creatinine bumping up to 2.18 and 2.3. The differential diagnosis for acute kidney injury would include Hypoperfusion, No evidence of obstruction based on renal ultrasonogram. No evidence of any active glomerular or interstitial disease at this time based on the bland urinary sediments. Plan Keep on lower dose of benazepril-amlodipine to 06/25. Continue to Hold off on diuretics. Increase p.o. fluid intake Repeat renal panel ordered for today. Expect creatinine and potassium to improve. (2) Hyperkalemia: Code(s): E87.5 - Hyperkalemia Plan: Hyperkalemia in the setting of acute kidney injury while he was on an JOSSELYN inhibitor and spironolactone. Continue to hold spironolactone. Discussed low-potassium diet. Recheck serum potassium -ordered (3) Anemia: Code(s): D64.9 - Anemia, unspecified Plan: Mild anemia. This may be related to CKD. Shall watch hemoglobin for now. (4) HTN (hypertension): Code(s): I10 - Essential (primary) hypertension Plan: Blood pressure is well controlled this time. We will continue to monitor blood pressure and if possible I would lower antihypertensive is based on the blood pressure. I encouraged him to stand low-sodium diet. Discussed weight loss. Orders: Orders Electrolytes 2 Days N17.9 - Acute kidney failure, unspecified, N18.9 - Chronic kidney disease, unspecified Blood Urea Nitrogen 2 Days N17.9 - Acute kidney failure, unspecified, N18.9 - Chronic kidney disease, unspecified Calcium 2 Days N17.9 - Acute kidney failure, unspecified, N18.9 - Chronic kidney disease, unspecified Creatinine 2 Days N17.9 - Acute kidney failure, unspecified, N18.9 - Chronic kidney disease, unspecified Medications: Discontinued spironolactone Discontinued Reason: Doctor's Order 25 mg PO DAILY 30 tabs 0RF Coding Level of Care Code Est Pt Level 4 (88699) Diagnoses Renal failure N19 Hyperkalemia E87.5 Anemia D64.9 HTN (hypertension) I10
[2022-12-28 12:06] VITALS: BP 126/78; PULSE 87; O2SAT 96; BMI 36.7
== END 2022-12-28 12:30 | disposition home or self-care (01) ==
PROVIDERS: PCP Family Medicine; Visit Provider Internal Medicine Hypertension Specialist
DX: N17.9 Acute kidney failure, unspecified (principal); I12.9 Hypertensive chronic kidney disease with stage 1 through stage 4 chronic kidney disease, or unspecified chronic kidney disease; N18.31 Chronic kidney disease, stage 3a; E87.5 Hyperkalemia; D63.1 Anemia in chronic kidney disease
CPT/HCPCS: 99214

== ENCOUNTER → 2022-12-28 11:42 | Outpatient (BNVA) | payer MEDICARE, SELFPAY | PROVIDERS: PCP Family Medicine; Visit Provider Internal Medicine Hypertension Specialist | DX: I12.9 Hypertensive chronic kidney disease with stage 1 through stage 4 chronic kidney disease, or unspecified chronic kidney disease (principal); N19 Unspecified kidney failure; E87.5 Hyperkalemia; D64.9 Anemia, unspecified | CPT/HCPCS: 99212 ==

== ENCOUNTER 2022-12-30 09:29 | Outpatient (REF) | payer MEDICARE, SELFPAY ==
[2022-12-30 10:22] LABS: Anion Gap 11 (12-20); Blood Urea Nitrogen 28 mg/dL (9-16); Calcium 9.6 mg/dL (8.4-10.2); Carbon Dioxide 27 mmol/L (22-29); Chloride 110 mmol/L (96-108); Estimated Glomerular Filt Rate 35; Potassium 4.7 mmol/L (3.3-5.1); Sodium 143 mmol/L (135-145)
== END 2022-12-30 09:30 | disposition home or self-care (01) ==
LOC: HO.LAB 09:29
PROVIDERS: PCP Family Medicine; Visit Provider Internal Medicine Hypertension Specialist
DX: N17.9 Acute kidney failure, unspecified (principal); N18.9 Chronic kidney disease, unspecified
CPT/HCPCS: 36415; 80051; 82310; 82565; 84520

== ENCOUNTER 2023-02-02 09:23 | Outpatient (AMB) | payer MEDICARE, SELFPAY ==
--- NOTE | 2023-02-02 09:27 | MHC.PC.OV ---
Vital Signs 02/02/23 09:28 Height 5 ft 10 in Weight 254 lb BMI 36.4 BP 158/80 H Blood Pressure Location Lt brachial Position Sitting Respiration 13 Pulse 96 Pulse Source Pulse Oximeter Pulse Oximetry (%) 96 Oxygen Delivery Method Room Air Intake Visit Reasons: f/u renal failure and hypertension Intake Note: Patient is here to follow up with renal failure and hypertension. Patient has an upcoming appointment with urology on 02/13/23. Patient has seen nephrology twice in December. Patient believes his blood pressure is not his normal today. Patient reports he has been battling a cold x7 days and he feels like his ears have been affected by this cold. 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 Blood pressure today 158/80. He is on amlodipine-benazepril 5-20mg. Pt notes he has been taking pseudofed the last couple days for a cold. Pt also reports ear discomfort. Labs drawn 12/30/22. Creatinine level improved from 2.39 to 1.93. [facility] Medical History No pertinent past medical history Surgical History History of hernia repair Family History Father Kidney failure Mother Congenital heart disease Brother No problems noted. Sister No problems noted. Sister No problems noted. Sister No problems noted. Son No problems noted. Daughter No problems noted. 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 1. Little interest or pleasure in doing things: not at all 2. Feeling down, depressed, or hopeless: not at all 3. Trouble falling or staying asleep, or sleeping too much: nearly every day 4. Feeling tired or having little energy: not at all 5. Poor appetite or overeating: not at all 6. Feeling bad about yourself - or that you are a failure or have let yourself or your family down: not at all 7. Trouble concentrating on things, such as reading the newspaper or watching television: not at all 8. Moving or speaking so slowly that other people could have noticed. Or the opposite - being so fidgety or restless that you have been moving around a lot more than usual: not at all 9. Thoughts that you would be better off or of hurting yourself in some way: not at all Total score: 3 Depression Screening Interpretation: Negative (Patient is stable) Depression Screening Done: Yes 71739 - PHQ-9 Billing: Yes Source: Developed by Drs. Leopoldo Pacheco, Skye Clarke, Charlie Funk and colleagues, with an educational baldomero from [employer]. Thrive Questionnaire Date Thrive assessed: 10/14/22 TONA-7 AMB Questionnaire TONA-7 Date TONA - 7 assessed: 10/14/22 Source: Developed by Drs. Leopoldo Pacheco, Skye Clarke, Charlie Funk and colleagues, with an educational baldomero from [employer]. Physical exam (Primary Care) Vital Signs: Last Vital Signs Pulse 96 02/02/23 09:28 Resp 13 02/02/23 09:28 BP 158/80 H 02/02/23 09:28 Pulse Ox 96 02/02/23 09:28 Oxygen Delivery Method Room Air 02/02/23 09:28 BMI result Body Mass Index 36.4 Tobacco/Smoking Status: Tobacco use Status Tobacco use date assessed 12/15/22 02/02/23 09:27 Patient Tobacco Use Status Former Tobacco user 02/02/23 09:27 e-Cigarette/Vaping Use Never Used 02/02/23 09:27 PHQ-9: PHQ-9 Score PHQ-9: Total score 3 02/02/23 10:09 Depression Screening Interpretation: Negative (Patient is stable) Thrive Assessment: Date of Thrive Assessment Date Thrive assessed 10/14/22 02/02/23 09:27 Office Procedures Cerumen Removal Details: 2 chunks of cerumen removed, ears cleaned, bilaterally. From which ear canal was the cerumen removed: bilateral Removal: irrigation Notes: patient tolerated procedure well and no complications [id number] Irrigation/Lavage Assessment and Plan Assessment & Plan (1) HTN (hypertension): Code(s): I10 - Essential (primary) hypertension Plan: Blood?pressure?is?high?today?but?he?has?been?dealing?with?a?cold?and?has?used?some?pseudoephedrine. He?says?the?pseudoephedrine?has?not?helped?much?so?he?is?going?to?discontinue?this. Taking?his?antihypertensive?medications?as?prescribed Will?give?him?a?script?for?a?blood?pressure?cuff?so?he?can?check?his?blood?pressures?at?home?and?if?he?is?running?consistently?high?he?will?let?me?know. No?changes?to?his?blood?pressure?medications?today. (2) CKD (chronic kidney disease): Code(s): N18.9 - Chronic kidney disease, unspecified Plan: Has?seen?Nephrology?and?creatinine?baseline?considered?around?1.86. Most?recent?creatinine?level?1.93; close?to?baseline Nephrology?felt?there?is?some?acute?kidney?injury?from?prior?medications?superimposed?on?chronic?renal?disease?and?agreed?with?decreasing?benazepril?and?stopping?diuretic. No?changes?to?his?medications?today?and?I?encouraged?good?hydration. Will?follow-up?in?about?3?months (3) Ear discomfort: Code(s): H92.09 - Otalgia, unspecified ear Plan: Had?tried?pseudoephedrine?without?improvement?and?he?has?discontinued?this. Has?some?cerumen?impaction. After?ear?lavage _ Orders: Orders AMB Cerumen Removal Today H61.23 - Impacted cerumen, bilateral Comprehensive Met. Panel Today N18.9 - Chronic kidney disease, unspecified Medications: New blood pressure monitor Automatic, Digital. Dx: I10. Daily As directed, 999 days/lifetime 1 ea 0RF I10 - Essential (primary) hypertension Coding Level of Care Code Est Pt Level 3 (44940) Diagnoses HTN (hypertension) I10 CKD (chronic kidney disease) N18.9 Ear discomfort H92.09 CPT Codes Office Procedure - CPT: 91997-Zuf Irrigation/Lavage ([id number])
[2023-02-02 09:28] VITALS: BP 158/80; PULSE 96; RESP 13; O2SAT 96; BMI 36.4
== END 2023-02-02 10:29 | disposition home or self-care (01) ==
PROVIDERS: PCP Family Medicine; Visit Provider Family Medicine
DX: I12.9 Hypertensive chronic kidney disease with stage 1 through stage 4 chronic kidney disease, or unspecified chronic kidney disease (principal); N18.9 Chronic kidney disease, unspecified; H92.03 Otalgia, bilateral; H61.23 Impacted cerumen, bilateral
CPT/HCPCS: 69209; 99213

== ENCOUNTER → 2023-02-13 10:53 | Outpatient (BNVA) | payer MEDICARE, SELFPAY | PROVIDERS: PCP Family Medicine; Visit Provider Urology ==

== ENCOUNTER 2023-02-15 09:43 | Outpatient (AMB) | payer OTHER, SELFPAY ==
--- NOTE | 2023-02-15 09:45 | MHC.OFFVIS ---
Intake Vital Signs 02/15/23 09:49 Height 5 ft 10 in Weight 254 lb 8 oz BMI 36.5 BP 150/90 H Blood Pressure Location Lt brachial Position Sitting Pulse 97 Pulse Source Pulse Oximeter Pulse Oximetry (%) 97 Oxygen Delivery Method Room Air Intake Visit Reasons: 4m follow up Hypersomnia-VM not set up Allergies No Known Allergies Allergy (Verified 02/15/23 09:52) HPI HPI Comments History of Present Illness Details 67 y/o male patient presents for follow up of sleep study. Pt underwent split night sleep study. The baseline portion of the study was significant for a severe degree of sleep apnea. The AHI was 33/hr and oxygen lakshmi was 87%. Pt tried CPAP at 4-11 cmH2O and the breathing and oxygenation stabilized with CPAP at [id number]. He started CPAP at [id number]. Pt states that he still has hard time to get used to it. It wakes him up in the middle of night, needs to adjust the mask. He also had a cold and could not use some days. The CPAP compliance and therapy response (12/01/22-02/15/23) reviewed. The usage days 88% and the average usage hours 4 hrs. The residual AHI was 5.4 /hr. [facility] Medical History No pertinent past medical history Surgical History History of hernia repair Family History Father Kidney failure Mother Congenital heart disease Brother No problems noted. Sister No problems noted. Sister No problems noted. Sister No problems noted. Son No problems noted. Daughter No problems noted. 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 Cognitive needs: No Hearing needs: No Vision needs: Yes Review of Systems Const All systems reviewed & are unremarkable except as noted in HPI and below ENT Reports Normal hearing present Neuro Reports Normal hearing present Physical Exam Vital Signs: Last Vital Signs Pulse 97 02/15/23 09:49 BP 150/90 H 02/15/23 09:49 Pulse Ox 97 02/15/23 09:49 Oxygen Delivery Method Room Air 02/15/23 09:49 BMI result Body Mass Index 36.5 Const General: cooperative Nutritional Appearance: obese Orientation/consciousness: patient oriented x3 Limitations: no limitations Neck Neck: Yes full ROM Resp Effort & Inspection: normal respiratory effort and able to speak in complete sentences Neuro General: patient oriented x3, gait normal and moves all extremities Cranial nerves: Yes Bilaterally intact EOM present, Yes Normal facial strength present, Yes Midline tongue present, Yes Normal gag reflex present, Yes Symmetric palate elevation present, Yes Normal hearing present, Yes Ability to bilaterally rotate head present and Yes Ability to bilaterally elevate shoulders present Cognition (Neuro): normal cognition Gait exam (Neuro): Normal gait present Motor exam (neuro): 5/5 motor strength present throughout, Pronator motor function not present and no tremor noted Psych Appearance: grossly normal Mental Status: mental status grossly normal Speech and movement: Normal speech and movement present Affect: normal affect Attitude: cooperative Assessment & Plan Assessment & Plan (1) ANJALI on CPAP: Comment: Severe degree of sleep apnea. The AHI was 33/hr and oxygen lakshmi was 87%. Code(s): G47.33 - Obstructive sleep apnea (adult) (pediatric) (2) Obese: Code(s): E66.9 - Obesity, unspecified Plan Advised patient to continue to use CPAP at [id number]. Stressed compliance, use CPAP nightly and more than 4hrs. Wt reduction advised and refer patient to wt management for consultaion. Orders: Referrals Medical Weight Management Referral E66.9 - Obesity, unspecified, G47.33 - Obstructive sleep apnea (adult) (pediatric) Coding Level of Care Code Est Pt Level 4 (90339) Diagnoses ANJALI on CPAP G47.33 Obese E66.9
[2023-02-15 09:49] VITALS: BP 150/90; PULSE 97; O2SAT 97; BMI 36.5
== END 2023-02-15 10:19 | disposition home or self-care (01) ==
PROVIDERS: PCP Family Medicine; Visit Provider Nurse Practitioner Family
DX: G47.33 Obstructive sleep apnea (adult) (pediatric) (principal); E66.9 Obesity, unspecified
CPT/HCPCS: 99214

== ENCOUNTER → 2023-02-15 09:43 | Outpatient (BNVA) | payer OTHER, SELFPAY | PROVIDERS: PCP Family Medicine; Visit Provider Nurse Practitioner Family | DX: G47.10 Hypersomnia, unspecified (principal); G47.00 Insomnia, unspecified; I10 Essential (primary) hypertension; R73.01 Impaired fasting glucose; E66.9 Obesity, unspecified ==

== ENCOUNTER 2023-03-01 11:03 | Outpatient (AMB) | payer MEDICARE, SELFPAY ==
--- NOTE | 2023-03-01 11:13 | HO.NEPHOV ---
HPI HPI Comments History of Present Illness Details Suzan is a pleasant middle-aged man with a history of hypertension for more than 30 years. Overall blood pressure has been well controlled. He was on amlodipine benazepril 5/40 once a day. He was on hydrochlorothiazide which was discontinued about a year ago. He is still on spironolactone 25 mg a day. In August 2021 serum creatinine was 1.29 mg/dL and this was probably his baseline. In October of 2022 serum creatinine was 1.77 and a repeat creatinine was 2.01 and further increased to 2.18 Amlodipine-benazepril has been decreased to 5/20 once a day as of 12/15/2022 and has been referred for further evaluation. Of note he was also found to have hyperkalemia depression 5.7. Suzan tells me that his blood pressure has been well controlled he has no specific complaints today. He has had difficulty urination for quite some time. Last digital examination of the prostate was few years ago. He has been recently diagnosed with obstructive sleep apnea and he uses CPAP. He does wake up in the middle of the night once or twice to urinate. No hematuria. No line pain. No shortness of breath. No cough no hemoptysis. No diarrhea constipation. No rash no fever no weight loss. No joint pain or swelling. 12/28/2022 During his last visit spironolactone was discontinued due to hyperkalemia. He is on a lower dose of benazepril amlodipine. He had a renal ultrasonogram which was unremarkable except for some simple cysts bilaterally and no further reviewed radiological follow-up was recommended. There was no obstruction. Today he is feeling fine without any complaints no shortness of breath no nausea vomiting no urinary symptoms no edema. 03/01/2023. Doing well today Complained of sinus issues [facility] Medical History No pertinent past medical history Surgical History History of hernia repair Family History Father Kidney failure Mother Congenital heart disease Brother No problems noted. Sister No problems noted. Sister No problems noted. Sister No problems noted. Son No problems noted. Daughter No problems noted. 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 Cognitive needs: No Hearing needs: No Vision needs: Yes Vital Signs 03/01/23 11:14 Height 5 ft 10 in Weight 254 lb BMI 36.4 BP 122/70 Blood Pressure Location Lt brachial Position Sitting Pulse 93 Pulse Source Pulse Oximeter Pulse Oximetry (%) 97 Oxygen Delivery Method Room Air Physical Exam Vital Signs: Last Vital Signs Pulse 93 03/01/23 11:14 BP 122/70 03/01/23 11:14 Pulse Ox 97 03/01/23 11:14 Oxygen Delivery Method Room Air 03/01/23 11:14 BMI result Body Mass Index 36.4 Const General: comfortable Nutritional Appearance: well nourished Orientation/consciousness: patient oriented x3 HEENT Head: No normal to inspection Mouth: moist mucous membranes Neck Neck: Yes supple and Yes no JVD Resp Auscultation: clear to auscultation bilaterally, no rales and rub present Cardio Jugular venous distension: no JVD Palpation: no palpable S3 and no palpable S4 Heart sounds: no rubs GI Palpation (GI): Soft to palpation and nontender Percussion: No Fluid wave present General: Yes no CVA tenderness Back/Spine/Pelvis Back: no CVA tenderness Skin General skin exam: no rashes or lesions noted Neuro General: patient oriented x3 Extrem General: Yes no pedal edema and No clubbing Assessment & Plan Assessment & Plan (1) Renal failure: Code(s): N19 - Unspecified kidney failure Plan: Middle-aged man with acute kidney injury superimposed on chronic kidney disease. Suzan has chronic kidney disease with a baseline creatinine 1.29 with a EGFR of 56 mL/minute as of August 2021. No lab results are available between August 2021 and October 2022. However he has sustained acute kidney injury with the creatinine bumping up to 2.18 and 2.3. The differential diagnosis for acute kidney injury would include Hypoperfusion, No evidence of obstruction based on renal ultrasonogram. No evidence of any active glomerular or interstitial disease at this time based on the bland urinary sediments. Plan Keep on lower dose of benazepril-amlodipine to 06/25. Continue to Hold off on diuretics. Increase p.o. fluid intake (2) Hyperkalemia: Code(s): E87.5 - Hyperkalemia Plan: Hyperkalemia in the setting of acute kidney injury while he was on an JOSSELYN inhibitor and spironolactone. Continue to hold spironolactone. Discussed low-potassium diet. (3) Anemia: Code(s): D64.9 - Anemia, unspecified Plan: Mild anemia. This may be related to CKD. Shall watch hemoglobin for now. (4) HTN (hypertension): Code(s): I10 - Essential (primary) hypertension Plan: Blood pressure is well controlled this time. We will continue to monitor blood pressure and if possible I would lower antihypertensive is based on the blood pressure. I encouraged him to stand low-sodium diet. Discussed weight loss. Plan At his request I will refer him to weight loss clinic as well as ENT evaluation. Orders: Referrals Ear/Nose/Throat Referral H92.09 - Otalgia, unspecified ear Medical Weight Management Referral E66.9 - Obesity, unspecified Coding Level of Care Code Est Pt Level 4 (43068) Diagnoses Renal failure N19 Hyperkalemia E87.5 Anemia D64.9 HTN (hypertension) I10 Results Reviewed Nephrology Results: Sodium 143 mmol/L (135-145) 12/30/22 Potassium 4.7 mmol/L (3.3-5.1) 12/30/22 Chloride 110 mmol/L (96-108) H 12/30/22 Carbon Dioxide 27 mmol/L (22-29) 12/30/22 BUN 28 mg/dL (9-16) H 12/30/22 Creatinine 1.93 mg/dL (0.5-1.4) H 12/30/22 Calcium 9.6 mg/dL (8.4-10.2) 12/30/22 Urine Protein Negative mg/dL (Neg-Trace) 12/19/22 Urine Creatinine 149.73 mg/dL 12/19/22 Renal US 12/19/22
[2023-03-01 11:14] VITALS: BP 122/70; PULSE 93; O2SAT 97; BMI 36.4
== END 2023-03-01 11:28 | disposition home or self-care (01) ==
PROVIDERS: PCP Family Medicine; Visit Provider Internal Medicine Hypertension Specialist
DX: N19 Unspecified kidney failure (principal); E87.5 Hyperkalemia; D64.9 Anemia, unspecified; I10 Essential (primary) hypertension
CPT/HCPCS: 99214

== ENCOUNTER → 2023-03-01 11:03 | Outpatient (BNVA) | payer MEDICARE, SELFPAY | PROVIDERS: PCP Family Medicine; Visit Provider Internal Medicine Hypertension Specialist | DX: N19 Unspecified kidney failure (principal); E87.5 Hyperkalemia; D64.9 Anemia, unspecified; I10 Essential (primary) hypertension | CPT/HCPCS: 99212 ==

== ENCOUNTER 2023-04-07 10:39 | Outpatient (REF) | payer MEDICARE, SELFPAY ==
[2023-04-07 11:56] LABS: Alanine Aminotransferase 21 U/L (0-40); Albumin Level 4.4 g/dL (3.5-5.0); Alkaline Phosphatase 43 U/L (39-117); Anion Gap 14 (12-20); Aspartate Amino Transferase 20 U/L (5-37); Bilirubin Total 0.4 mg/dL (0.0-1.0); Blood Urea Nitrogen 24 mg/dL (9-16); Calcium 10.1 mg/dL (8.4-10.2); Carbon Dioxide 27 mmol/L (22-29); Chloride 109 mmol/L (96-108); Estimated Glomerular Filt Rate 40; Glucose Random 110 mg/dL (60-115); Potassium 4.9 mmol/L (3.3-5.1); Sodium 145 mmol/L (135-145); Total Protein 6.9 g/dL (6.5-8.0)
== END 2023-04-07 10:40 | disposition home or self-care (01) ==
LOC: HO.LAB 10:39
PROVIDERS: PCP Family Medicine; Visit Provider Family Medicine
DX: N18.9 Chronic kidney disease, unspecified (principal)
CPT/HCPCS: 36415; 80053

== ENCOUNTER 2023-04-13 14:25 | Outpatient (AMB) | payer MEDICARE, SELFPAY ==
[2023-04-13 14:32] VITALS: BP 124/80; PULSE 74; O2SAT 98; BMI 36.6
--- NOTE | 2023-04-13 14:32 | MHC.PC.OV ---
Vital Signs 04/13/23 14:32 Height 5 ft 10 in Weight 255 lb BMI 36.6 BP 124/80 Blood Pressure Location Lt brachial Position Sitting Pulse 74 Pulse Source Pulse Oximeter Pulse Oximetry (%) 98 Oxygen Delivery Method Room Air Intake Visit Reasons: f/u hypertension, CRF Intake Note: Patient is here to follow up with hypertension, and CRF. Allergies No Known Allergies Allergy (Verified 04/13/23 14:34) Medication List - Last Reconciled 04/13/23 by Ricky Iverson MD amlodipine-benazepril 5-20 mg 1 cap PO DAILY 30 days aspirin (Adult Aspirin Regimen) 81 mg PO DAILY atorvastatin 80 mg PO DAILY blood pressure monitor Automatic, Digital. Dx: I10. Daily As directed, 999 days/lifetime ezetimibe 10 mg PO DAILY fenofibrate 160 mg PO DAILY 30 days fluticasone propionate 50 mcg/actuation (Flonase Allergy Relief) 1 spray intranasal Q12H 30 days metoprolol succinate ER 50 mg PO DAILY 30 days tamsulosin 0.4 mg PO DAILY 30 days Tobacco use date assessed: 04/13/23 Dental Screening Dental Screen Date: 04/13/23 Did you have a dental visit in the last 12 months?: Yes Did you have a dental problem in the last 6 months where you did not have access to dental care?: No Was dental information given to patient?: Patient has dentist HPI f/u hypertension, CRF HPI Details 67 y/o male presents to f/u hypertension, CRF. Blood pressure today 124/80. He is on amlodipine-benazepril 5-20mg, metoprolol 50mg daily. Labs were drawn 04/07/23. Reviewed labs with pt. Creatinine improved from 1.93 to 1.71. He follows up with nephrology. Potassium levels within the normal limits. Pt reports L shoulder pain. Pt has complaints of ear discomfort. Recurrent cerumen impaction. Pt notes he is on a CPAP machine for sleep apnea but states it does not seem to do much for him. [facility] Medical History No pertinent past medical history Surgical History History of hernia repair Family History Father Kidney failure Mother Congenital heart disease Brother No problems noted. Sister No problems noted. Sister No problems noted. Sister No problems noted. Son No problems noted. Daughter No problems noted. 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 Leopoldo Pacheco, Skye Clarke, Charlie Funk and colleagues, with an educational baldomero from [employer]. Review of Systems Const Denies chills, Denies fatigue, Denies fever(s), Denies headache(s) and Denies weakness ENT Denies dizziness and Denies headache(s) Card Denies chest pain, Denies lightheadedness, Denies dyspnea and Denies other (Palpitations) Resp Denies cough, Denies dyspnea, Denies wheezing and Denies other ( shortness of breath) Musc Denies numbness and Denies tingling Neuro Denies dizziness, Denies headache(s), Denies numbness, Denies tingling, Denies paresthesias and Denies weakness Psych Denies anxiety and Denies depression Endo Denies fatigue Aller/Immun Denies wheezing Physical exam (Primary Care) Vital Signs: Last Vital Signs Pulse 74 04/13/23 14:32 BP 124/80 04/13/23 14:32 Pulse Ox 98 04/13/23 14:32 Oxygen Delivery Method Room Air 04/13/23 14:32 BMI result Body Mass Index 36.6 Tobacco/Smoking Status: Tobacco use Status Tobacco use date assessed 04/13/23 04/13/23 14:36 Patient Tobacco Use Status Former Tobacco user 04/13/23 14:36 e-Cigarette/Vaping Use Never Used 04/13/23 14:36 Thrive Assessment: Date of Thrive Assessment Date Thrive assessed 10/14/22 04/13/23 14:36 Const General: no acute distress and well developed Nutritional Appearance: well nourished Orientation/consciousness: patient oriented x3 HENMT Other: Cerumen R ear canal Head: Yes normocephalic and Yes atraumatic Eyes General: appearance normal, both eyes and all related structures Pupils: Equal, round and reactive pupils present EOM: EOMs intact bilaterally Resp Effort & Inspection: normal respiratory effort Auscultation: clear to auscultation bilaterally Cardio Rate: regular rate Rhythm: regular rhythm Heart sounds: S1 normal heart sound present, S2 normal heart sound present, no gallops, no murmurs and no rubs Neuro General: patient oriented x3 and gait normal Cranial nerves: Yes Equal, round and reactive pupils present Psych Affect: normal affect Assessment and Plan Assessment & Plan (1) Left shoulder pain: Code(s): M25.512 - Pain in left shoulder Plan: Start?physical?therapy (2) Cerumen impaction: Code(s): H61.20 - Impacted cerumen, unspecified ear Plan: Referred?to?ENT?for?recurrent?cerumen?impactions (3) Mild anemia: Code(s): D64.9 - Anemia, unspecified Plan: Likely?secondary?to?CRF (4) Obese: Code(s): E66.9 - Obesity, unspecified Plan: Encouraged?weight?loss He?has?begun?a?weight?loss?program (5) Otitis media: Code(s): H66.90 - Otitis media, unspecified, unspecified ear Plan: Right?otitis?media Amoxicillin?b.i.d. (6) Sleep apnea: Code(s): G47.30 - Sleep apnea, unspecified Plan: Follow-up?with?sleep?medicine?as?recommended (7) HTN (hypertension): Code(s): I10 - Essential (primary) hypertension Plan: Blood?pressure?is?controlled Continue?current?medication?regimen Orders: Orders PT Evaluation and Treatment Today M25.512 - Pain in left shoulder Coding Level of Care Code Est Pt Level 4 (67542) Diagnoses Left shoulder pain M25.512 Cerumen impaction H61.20 Mild anemia D64.9 Obese E66.9 Otitis media H66.90 Sleep apnea G47.30 HTN (hypertension) I10
== END 2023-04-13 15:18 | disposition home or self-care (01) ==
PROVIDERS: PCP Family Medicine; Visit Provider Family Medicine
DX: M25.512 Pain in left shoulder (principal); E66.9 Obesity, unspecified; H61.21 Impacted cerumen, right ear; Z68.36 Body mass index [BMI] 36.0-36.9, adult; D64.9 Anemia, unspecified; H66.91 Otitis media, unspecified, right ear; G47.30 Sleep apnea, unspecified; I10 Essential (primary) hypertension
CPT/HCPCS: 99214

== ENCOUNTER → 2023-04-25 10:54 | Outpatient (BNVA) | payer MEDICARE, SELFPAY | PROVIDERS: PCP Family Medicine; Visit Provider Physician Assistant Surgical ==

== ENCOUNTER 2023-05-08 13:54 | Outpatient (AMB) | payer MEDICARE, SELFPAY ==
--- NOTE | 2023-05-08 13:55 | MHC.OFFVISWM ---
Intake VS Expanded 05/08/23 14:02 BP 177/88 H Blood Pressure Location Rt brachial Blood Pressure Position Sitting Pulse 80 Pulse Source Pulse Oximeter Temp 97.9 F Temperature Source Temporal Artery Scan Pulse Oximetry 94 Oxygen Delivery Method Room Air Height 5 ft 9.5 in Weight 252 lb 9.6 oz BMI 36.8 Body Fat % 30.9 Body Fat Mass 78.0 Fat Free Mass 174.4 Visceral Fat Rating 20.0 Body Water % 51.3 Body Water Mass 129.4 Muscle Mass/Score 165.8 Basal Metabolic Rate/Score 2,360 Intake Visit Reasons: (OV) PRECISE WINDER BMI 36.6 MWL Allergies No Known Allergies Allergy (Verified 05/08/23 14:00) HPI HPI Comments History of Present Illness Details Pt is here to start the [facility] loss program. 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 His goal is to lose weight and achieve a healthy lifestyle as well as to improve, if not resolve, obesity related medical conditions, including htn, soraida. He reports first being concerned about his weight 10 years, highest weight to date was 252. Current weight is 252.6 pounds with a BMI of 36.8. He has tried multiple methods of weight loss including fad diets without permanent results. He lives with his and son. He does not work He wakes at:?7am, and goes to bed at?9 pm. Dinner is at 6 pm. Breakfast: 1 egg sandwich on rye or grenadian muffin +/- cheese or bauer or cheerios or oatmeal AM snack: skip Lunch: skip or sandwich or leftovers PM snack: chips and salsa Dinner: pasta, chicken, pork chops, hamburger, potato, rice, veggies After dinner: skip Other snacks: rare ice cream Liquids: 32 oz water, no soda, 1 c OJ, cranberry juice on weekends. Alcohol/marijuana/tobacco intake: 2 beers daily, 1 nip whiskey daily, no cannabis, no tobacco Exercise: waking outside, joined [employer]. GERD score: 0 JOSSELYN score: 0 ESS score: 2 QOL score: 34 PFSH Medical History No pertinent past medical history Surgical History History of hernia repair Family History Father Kidney failure Mother Congenital heart disease Brother No problems noted. Sister No problems noted. Sister No problems noted. Sister No problems noted. Son No problems noted. Daughter No problems noted. 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 ? Adequate sleep of 7-8 hours per night discussed, awakening at 7 am and going to bed at 9 pm ? Purchase body composition analyzer scale (Renmarikao recommended) and check weight weekly. The best time to do this is first thing in the morning after going to the bathroom. 1. Nutritional counseling: Be sure to careful read the number of scoops per shake Start with 2 Celebrate rebuild shakes ([facility] Etohum, [employer], Sphere 3d) First shake (2 scoops in 12 oz unsweetened almond milk) at 8am-10am, Second shake (1 scoop in 8 oz unsweetened almond milk) at 11am-1pm 2 protein bars ([employer] bars at [facility] Etohum, [employer], Sphere 3d) First bar at 2pm-4pm. Dinner at 6pm (9 forks of protein and 9 forks of salad/vegetables). Meal to include lean meat (beef, fish, pork, turkey, chicken), cooked vegetables or a salad with olive oil and/or fruits (berries, pears, apples, kiwi). Avoid salt, breads, potatoes, rice, pasta, desserts. Second bar at 7pm-9pm. Try to drink 64 oz of water daily and avoid soda and juices. ?2. Each shake would be drunk slowly, like coffee in a period of 2 hours. ?3. Cut each bar in 4 pieces and eat each piece in 30 min ?to make each bar last 2 hours. ?4. I emphasized the importance of measuring accurately the food portion and measure it carefully when serving the food on the plate ?5. The meal portions include 9 full-size forks of meat and 9 full-size forks of salad. You always eat the meat portion but you can replace up to half of the forks of salad/vegetables with rice, potatoes or pasta, or a fruit ?if you like. The less you do it the better weight loss will be. ?6. One full-size fork is what can be scooped on the fork without falling aside and not what can be bit with the fork. Use regular forks like those you find in a typical restaurant. ?7.? Please send me weight measurements as soon as possible and then once a week. Always include your diet and exercise plan. Alternatively come weekly at the office for weight checks and send me the measurements. ?8. Exercise counseling: Begin by watching a stretching for beginners video. Start slowly and begin to stretch your muscles. You should do this before and after each exercise session to prevent injury. Please go to [facility] [facility] gym near your home. Ask the manager perioperative or one of the trainers how to use the machines if you are unfamiliar with them. Start elliptical with a resistance of 1. Increase resistance by 1 every 3 min to your most comfortable resistance with a max resistance of 6. Reduce the resistance by 1 every 3 minutes back down to 1 and repeat cycles for 300 calories. Alternatively, start treadmill with a speed of 2.8 and incline of 0, increasing incline by 1 every 3 minutes to the highest comfortable level (max 6 for now) then decrease in the same fashion. Repeat process to a goal of 300 calories. Goal of 2000 calories burned or more weekly. You may also consider use of the stationary bike. The easiest would be to chose the fat-burn or interval training program on the machine and do this until you reach the 300 calorie goal. Alternatively, you can manually adjust the resistance in a similar fashion as mentioned above, (resistance of 2-8 with a goal speed of 12 mph). Tracking calories is essential. 9. Alternatively start walking outside daily, tracking calories with a goal of 300 calories per day, daily. You can download the [employer] which can track your time, distance and calories while walking outside. You press start in the delmar when you start and then stop when you are finished. 10.? It is important to communicate by text weekly with your weight and if you are having any problems with plans. 11. Discussed and answered all questions regarding?obtained consent to participate in the [place] [facility]?Registry. 12. Please follow the diet plan exactly, without any change. If you do not like something about the plan or you feel hungry, you need to communicate with me so I can help you revise the plan. You should not change the plan yourself. Text me at [phone] 13. Goal is to lose at least 8-10 pounds in the first month Patient is morbidly obese and is not considered stable at this time.?I spent a total of 70 minutes reviewing/updating records, examining the patient and counseling the patient on weight management as detailed above. Coding Level of Care Code New Pt Level 5 (54970) Diagnoses Obesity (BMI 30-39.9) E66.9 Time Spent (min) 70
[2023-05-08 14:02] VITALS: BP 177/88; PULSE 80; TEMP 36.6; O2SAT 94; BMI 36.8
== END 2023-05-08 17:21 | disposition home or self-care (01) ==
PROVIDERS: PCP Family Medicine; Visit Provider Physician Assistant Surgical
DX: E66.9 Obesity, unspecified (principal); Z68.36 Body mass index [BMI] 36.0-36.9, adult
CPT/HCPCS: 99205

== ENCOUNTER → 2023-05-08 13:54 | Outpatient (BNVA) | payer MEDICARE, SELFPAY | PROVIDERS: PCP Family Medicine; Visit Provider Physician Assistant Surgical | DX: E66.9 Obesity, unspecified (principal); Z68.36 Body mass index [BMI] 36.0-36.9, adult | CPT/HCPCS: 99202 ==

== ENCOUNTER 2023-05-31 09:33 | Outpatient (AMB) | payer OTHER, SELFPAY ==
--- NOTE | 2023-05-31 09:35 | MHC.OFFVIS ---
Vital Signs 05/31/23 09:43 Height 5 ft 9.5 in Weight 237 lb 2 oz BMI 34.5 BP 134/64 Blood Pressure Location Lt brachial Position Sitting Pulse 43 L Pulse Source Pulse Oximeter Pulse Oximetry (%) 97 Oxygen Delivery Method Room Air Intake Visit Reasons: 4 mnts f/u ANJALI on CPAP-CONF Intake Note: Patient presents for 4 month f/u. Allergies No Known Allergies Allergy (Verified 05/31/23 09:42) HPI Comments Details: 67 y/o male patient presents for follow up of ANJALI on CPAP. The CPAP compliance and therapy response (03/02/23-05/30/23) reviewed. He is on CPAP at [id number]. The usage days 100% and the average usage hours 5 hrs. The residual AHI was 3.3/hr. He sleeps better, not waking up in the middle of night. However, the CPAP mask is very uncomfortable, getting moisture inside of mask, causes skin irritation, and it keep moving. He cut down alcohol to once a week, and goes to gym. He lost about 20 lb. [facility] Medical History No pertinent past medical history Surgical History History of hernia repair Family History Father Kidney failure Mother Congenital heart disease Brother No problems noted. Sister No problems noted. Sister No problems noted. Sister No problems noted. Son No problems noted. Daughter No problems noted. 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 Cognitive needs: No Hearing needs: No Vision needs: Yes Review of Systems Const All systems reviewed & are unremarkable except as noted in HPI and below ENT Reports Normal hearing present Neuro Reports Normal hearing present Physical Exam Vital Signs: Last Vital Signs Pulse 43 L 05/31/23 09:43 BP 134/64 05/31/23 09:43 Pulse Ox 97 05/31/23 09:43 Oxygen Delivery Method Room Air 05/31/23 09:43 BMI result Body Mass Index 34.5 Const General: cooperative Nutritional Appearance: obese Orientation/consciousness: patient oriented x3 Limitations: no limitations Neck Neck: Yes full ROM Resp Effort & Inspection: normal respiratory effort and able to speak in complete sentences Neuro General: patient oriented x3, gait normal and moves all extremities Cranial nerves: Yes Bilaterally intact EOM present, Yes Normal facial strength present, Yes Midline tongue present, Yes Normal gag reflex present, Yes Symmetric palate elevation present, Yes Normal hearing present, Yes Ability to bilaterally rotate head present and Yes Ability to bilaterally elevate shoulders present Cognition (Neuro): normal cognition Gait exam (Neuro): Normal gait present Motor exam (neuro): 5/5 motor strength present throughout, Pronator motor function not present and no tremor noted Psych Appearance: grossly normal Mental Status: mental status grossly normal Speech and movement: Normal speech and movement present Affect: normal affect Attitude: cooperative Assessment & Plan Assessment & Plan (1) ANJALI on CPAP: Comment: Severe degree of sleep apnea. The AHI was 33/hr and oxygen lakshmi was 87%. Code(s): G47.33 - Obstructive sleep apnea (adult) (pediatric) Category: Medical (2) Obese: Code(s): E66.9 - Obesity, unspecified Category: Medical Plan Advised patient to continue to use CPAP at [id number] as patient experiences good clinical effects. Stressed compliance, use CPAP nightly and more than 4hrs. Advised patient to try different CPAP mask. CPAP mask fitting prescription given to patient with C walk in information. Continue to practice good sleep hygiene. Coding Level of Care Code Est Pt Level 3 (07540) Diagnoses ANJALI on CPAP G47.33 Obese E66.9
[2023-05-31 09:43] VITALS: BP 134/64; PULSE 43; O2SAT 97; BMI 34.5
== END 2023-05-31 10:12 | disposition home or self-care (01) ==
PROVIDERS: PCP Family Medicine; Visit Provider Nurse Practitioner Family
DX: G47.33 Obstructive sleep apnea (adult) (pediatric) (principal); E66.9 Obesity, unspecified
CPT/HCPCS: 99213

== ENCOUNTER → 2023-05-31 09:33 | Outpatient (BNVA) | payer OTHER, SELFPAY | PROVIDERS: PCP Family Medicine; Visit Provider Nurse Practitioner Family ==

== ENCOUNTER 2023-06-06 08:00 | Outpatient (RCR) | payer MEDICARE, SELFPAY | END 2023-12-18 07:45 | disposition home or self-care (01) | LOC: HO.PTWFD 08:00 | PROVIDERS: PCP Family Medicine; Visit Provider Family Medicine | DX: M25.512 Pain in left shoulder (principal) | CPT/HCPCS: 97110; 97140; 97161 ==

== ENCOUNTER 2023-06-12 14:15 | Outpatient (AMB) | payer MEDICARE, SELFPAY ==
--- NOTE | 2023-06-12 14:18 | MHC.OFFVISWM ---
VS Expanded 06/12/23 14:26 BP 129/77 Blood Pressure Location Rt brachial Blood Pressure Position Sitting Pulse 90 Pulse Source Pulse Oximeter Temp 96.6 F L Temperature Source Tympanic Pulse Oximetry 98 Oxygen Delivery Method Room Air Height 5 ft 9.5 in Weight 228 lb 9.6 oz BMI 33.3 Body Fat % 29.1 Body Fat Mass 66.4 Fat Free Mass 162.0 Visceral Fat Rating 18.0 Body Water % 50.4 Body Water Mass 115.0 Muscle Mass/Score 154.2 Basal Metabolic Rate/Score 2,167 Intake Visit Reasons: (ov) f/u MWL Allergies No Known Allergies Allergy (Verified 06/12/23 14:31) HPI Comments Details: 67-year-old male returns to the office today in follow-up for the medical weight loss program. He was initially seen on 05/08/2023 with a weight of 252.6 lb and a BMI of 36.8. Weight today is 228.6 lb with a BMI of 33.3. He has lost 24 lb to date or 9.5% total body weight loss. He states that he had made some minor adjustments to the meal plan from time to time. He additionally did not exercise as much over the last week or so as he had been doing a lot of outdoor yd work. He returned to exercise this morning. He states he would skip the second shake over the last 2 weeks. skips the second bar 5/7 days of the week. Meal plan: 2 Celebrate rebuild shakes First shake (2 scoops in 12 oz unsweetened almond milk) at 8am-10am, Second shake (1 scoop in 8 oz unsweetened almond milk) at 11am-1pm 2 protein bars (Celebrate bars) First bar at 2pm-4pm. Dinner at 6pm (9 forks of protein and 9 forks of salad/vegetables). Second bar at 7pm-9pm. Exercise plan: gym 3 x per week treadmill and bike, 300 calories total walking outside 2 x per week, not tracking calories. [facility] Medical History No pertinent past medical history Surgical History History of hernia repair Family History Father Kidney failure Mother Congenital heart disease Brother No problems noted. Sister No problems noted. Sister No problems noted. Sister No problems noted. Son No problems noted. Daughter No problems noted. 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 Celebrate rebjesus manuelld, 2 scoops in 12 oz of almond milk Meal 9 forks of protein and 9 forks of vegetables x2 Increase exercise, 5 days per week, 350 calories to 400 calories per session. Return to office 1 month
[2023-06-12 14:26] VITALS: BP 129/77; PULSE 90; TEMP 35.9; O2SAT 98; BMI 33.3
== END 2023-06-12 14:52 | disposition home or self-care (01) ==
PROVIDERS: PCP Family Medicine; Visit Provider Physician Assistant Surgical
DX: E66.9 Obesity, unspecified (principal); Z68.33 Body mass index [BMI] 33.0-33.9, adult
CPT/HCPCS: 99213

== ENCOUNTER → 2023-06-12 14:15 | Outpatient (BNVA) | payer MEDICARE, SELFPAY | PROVIDERS: PCP Family Medicine; Visit Provider Physician Assistant Surgical | DX: E66.9 Obesity, unspecified (principal); Z68.33 Body mass index [BMI] 33.0-33.9, adult | CPT/HCPCS: 99212 ==

== ENCOUNTER 2023-07-13 11:27 | Outpatient (AMB) | payer MEDICARE, SELFPAY ==
[2023-07-13 11:33] VITALS: BP 128/80; PULSE 62; O2SAT 98; BMI 33.5
--- NOTE | 2023-07-13 11:33 | A.OFFPC_ITS ---
Vital Signs 07/13/23 11:33 Height 5 ft 9.5 in Weight 230 lb 6 oz BMI 33.5 BP 128/80 Blood Pressure Location Rt brachial Position Sitting Pulse 62 Pulse Source Pulse Oximeter Pulse Oximetry (%) 98 Oxygen Delivery Method Room Air Intake Visit Reasons: f/u hypertension Allergies No Known Allergies Allergy (Verified 06/12/23 14:31) Medication List - Last Reconciled 07/13/23 by Ricky Iverson MD amlodipine-benazepril 5-20 mg 1 cap PO DAILY 30 days aspirin (Adult Aspirin Regimen) 81 mg PO DAILY atorvastatin 80 mg PO DAILY blood pressure monitor Automatic, Digital. Dx: I10. Daily As directed, 999 days/lifetime ezetimibe 10 mg PO DAILY fenofibrate 160 mg PO DAILY 30 days fluticasone propionate 50 mcg/actuation (Flonase Allergy Relief) 1 spray intranasal Q12H 30 days metoprolol succinate ER 50 mg PO DAILY 30 days tamsulosin 0.4 mg PO DAILY 30 days trazodone 50 mg PO BEDTIME PRN 30 days Tobacco use date assessed: 07/13/23 Dental Screening Dental Screen Date: 07/13/23 HPI f/u hypertension HPI Details 68 y/o male presents to f/u hypertension . Blood pressure today 128/80. He is on amlodipine-benazepril 5-20mg daily, metoprolol 50mg daily. A1c today 07/13/23 6.3%. Pt notes he has been working on watching his sugars and exercising daily. Pt reports some anxiety. REPLACED BY [facility] Medical History No pertinent past medical history Surgical History History of hernia repair Family History Father Kidney failure Mother Congenital heart disease Brother No problems noted. Sister No problems noted. Sister No problems noted. Sister No problems noted. Son No problems noted. Daughter No problems noted. 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 Leopoldo Pacheco, Skye Clarke, Charlie Funk and colleagues, with an educational baldomero from [employer]. Review of Systems Const Denies chills, Denies fatigue, Denies fever(s), Denies headache(s) and Denies weakness ENT Denies dizziness and Denies headache(s) Card Denies dyspnea Resp Denies cough, Denies dyspnea, Denies wheezing and Denies other (shortness of breath) Musc Denies numbness and Denies tingling Neuro Denies dizziness, Denies headache(s), Denies numbness, Denies tingling and Denies weakness Psych Reports anxiety Endo Denies fatigue Aller/Immun Denies wheezing Physical exam (Primary Care) Vital Signs: Last Vital Signs Pulse 62 07/13/23 11:33 BP 128/80 07/13/23 11:33 Pulse Ox 98 07/13/23 11:33 Oxygen Delivery Method Room Air 07/13/23 11:33 BMI result Body Mass Index 33.5 Tobacco/Smoking Status: Tobacco use Status Tobacco use date assessed 07/13/23 07/13/23 11:41 Patient Tobacco Use Status Former Tobacco user 07/13/23 11:37 e-Cigarette/Vaping Use Never Used 07/13/23 11:37 Thrive Assessment: Date of Thrive Assessment Date Thrive assessed 10/14/22 07/13/23 11:37 Const General: well developed; No acute distress Nutritional Appearance: well nourished Orientation/consciousness: patient oriented x3 HENMT Head: Yes normocephalic and Yes atraumatic Eyes General: appearance normal, both eyes and all related structures Pupils: Equal, round and reactive pupils present EOM: EOMs intact bilaterally Resp Effort & Inspection: normal respiratory effort Neuro General: patient oriented x3 and gait normal Cranial nerves: Yes Equal, round and reactive pupils present Psych Affect: normal affect Results AMB Hemoglobin A1c AMB Hemoglobin A1c 6.3 % Last Edit by Rowena Amaya CMA on 07/13/23 12:35 Results Reviewed Results Reviewed: Laboratory Last Values Hgb A1c (Clinic) 6.3 % (4.0-6.0) H 07/13/23 12:34 Assessment and Plan Assessment & Plan (1) Essential hypertension: Code(s): I10 - Essential (primary) hypertension Plan: Blood?pressure?is?controlled.??Goal?is?less?than?130/80 Continue?current?medication?regimen.??He?has?no?longer?on?s pironolactone?and?renal?function?has?improved?somewhat?as?well?as?blood?pressure ?is?still?okay?and?that?is?largely?due?to?weight?loss Continue?weight?loss?and?watch?salt/sodium Avoid?NSAIDs (2) Pre-diabetes: Code(s): R73.03 - Prediabetes Plan: A1c?has?risen?against?slightly?despite?significant?weight?loss?and?healthy?diet Continue?to?work?at?diet?and?we?will?continue?to?monitor (3) CKD (chronic kidney disease): Code(s): N18.9 - Chronic kidney disease, unspecified Plan: Creatinine?level?had?risen?to?as?high?as?2.39?and?is?now?down?to?1.71?which?is?l ikely?baseline Continue?to?control?blood?pressure,?blood?sugar?and?lipids Avoid?NSAIDs Low-salt?diet Follow-up?with?nephrology (4) Anxiety: Code(s): F41.9 - Anxiety disorder, unspecified Plan: Patient?notes?increased?frustration?and?anxiety?and?stressors Referred?to?the?nurse?navigator?to?connect?him?with?a?therapist Orders: Orders Comprehensive [place]. Panel Fast Today Z00.00 - Encounter for general adult medical examination without abnormal findings Complete Blood Count Auto Diff Today Z00.00 - Encounter for general adult medical examination without abnormal findings Microalbumin, Random (w Creat) Today I10 - Essential (primary) hypertension Lipid Panel Today Z00.00 - Encounter for general adult medical examination without abnormal findings Prostate Specific Antigen Scr Today Z12.5 - Encounter for screening for malignant neoplasm of prostate TSH reflex Free T4 Today Z00.00 - Encounter for general adult medical examination without abnormal findings UA and rflx microscopic Today Z00.00 - Encounter for general adult medical examination without abnormal findings AMB Hemoglobin A1c Today Z13.9 - Encounter for screening, unspecified Referrals Nurse Navigator Referral F41.9 - Anxiety disorder, unspecified Coding Level of Care Code Est Pt Level 4 (72174) Diagnoses Essential hypertension I10 Pre-diabetes R73.03 CKD (chronic kidney disease) N18.9 Anxiety F41.9
== END 2023-07-13 14:07 | disposition home or self-care (01) ==
PROVIDERS: PCP Family Medicine; Visit Provider Family Medicine
DX: I12.9 Hypertensive chronic kidney disease with stage 1 through stage 4 chronic kidney disease, or unspecified chronic kidney disease (principal); R73.03 Prediabetes; N18.9 Chronic kidney disease, unspecified; F41.9 Anxiety disorder, unspecified
CPT/HCPCS: 83036; 99214

== ENCOUNTER 2023-08-01 09:58 | Outpatient (REF) | payer MEDICARE, SELFPAY ==
[2023-08-01 18:01] LABS: MANUAL DIFF FLAG NO
[2023-08-01 18:30] LABS: Alanine Aminotransferase 21 U/L (0-40); Albumin Level 4.4 g/dL (3.5-5.0); Alkaline Phosphatase 45 U/L (39-117); Anion Gap 12 (12-20); Aspartate Amino Transferase 21 U/L (5-37); Bilirubin Total 0.4 mg/dL (0.0-1.0); Blood Urea Nitrogen 23 mg/dL (9-16); Calcium 9.7 mg/dL (8.4-10.2); Carbon Dioxide 25 mmol/L (22-29); Chloride 110 mmol/L (96-108); Estimated Glomerular Filt Rate 50; Glucose Random 111 mg/dL (60-115); Potassium 4.7 mmol/L (3.3-5.1); Sodium 142 mmol/L (135-145); Total Protein 6.7 g/dL (6.5-8.0)
[2023-08-01 18:50] LABS: Basophils Absolute Auto 0.1 X10*3/uL (0.0-0.2); Basophils Percent Auto 1.1 % (0-2); Eosinophils Absolute Auto 0.2 X10*3/uL (0.0-0.4); Eosinophils Percent Auto 2.5 % (0-4); Hematocrit 34.8 % (42.0-52.0); Hemoglobin 11.8 g/dl (14.0-18.0); Imm Gran Abs Auto 0.02 X10*3/uL (0.00-0.03); Imm Gran Pct Auto 0.3 % (0.0-0.4); Lymphocytes Percent Auto 15.7 % (20-40); Mean Corpuscular HGB Conc 33.9 g/dl (31.0-36.0); Mean Corpuscular Hemoglobin 31.9 pg (27.0-33.0); Mean Corpuscular Volume 94.1 fL (80.0-98.0); Mean Platelet Volume 10.7 fL (9.4-12.4); Monocytes Absolute Auto 0.4 X10*3/uL (0.1-1.2); Monocytes Percent Auto 7.2 % (2-11); Neutrophils Absolute Auto 4.5 x10*3/uL (2.0-8.3); Neutrophils Percent Auto 73.2 % (45-73); Platelet Count 292 X10*3/uL (160-400); Red Cell Distribution Width 13.6 % (11.0-16.0); White Blood Count 6.1 X10*3/uL (4.8-10.8)
== END 2023-08-01 09:59 | disposition home or self-care (01) ==
LOC: HO.HKASLDS 09:58
PROVIDERS: Visit Provider Internal Medicine Hypertension Specialist
DX: I10 Essential (primary) hypertension (principal)
CPT/HCPCS: 36415; 80053; 85025

== ENCOUNTER 2023-08-02 08:45 | Outpatient (AMB) | payer MEDICARE, SELFPAY ==
--- NOTE | 2023-08-02 08:47 | HO.NEPHOV_ITS ---
Vital Signs 08/02/23 08:48 Height 5 ft 9.5 in Weight 233 lb BMI 33.9 BP 146/88 H Blood Pressure Location Lt brachial Position Sitting Pulse 76 Pulse Source Pulse Oximeter Pulse Oximetry (%) 96 Oxygen Delivery Method Room Air Intake Visit Reasons: July follow up/ Conf Accompanied by: Self / Same As Patient Allergies No Known Allergies Allergy (Verified 08/02/23 08:50) Medication List - Last Reconciled 08/02/23 by Bill Lopez MD amlodipine-benazepril 5-20 mg 1 cap PO DAILY 30 days aspirin (Adult Aspirin Regimen) 81 mg PO DAILY atorvastatin 80 mg PO DAILY blood pressure monitor Automatic, Digital. Dx: I10. Daily As directed, 999 days/lifetime ezetimibe 10 mg PO DAILY fenofibrate 160 mg PO DAILY 30 days fluticasone propionate 50 mcg/actuation (Flonase Allergy Relief) 1 spray intranasal Q12H 30 days metoprolol succinate ER 50 mg PO DAILY 30 days HPI Comments Details: Suzan is a pleasant middle-aged man with a history of hypertension for more than 30 years. Overall blood pressure has been well controlled. He was on amlodipine benazepril 5/40 once a day. He was on hydrochlorothiazide which was discontinued about a year ago. He is still on spironolactone 25 mg a day. In August 2021 serum creatinine was 1.29 mg/dL and this was probably his baseline. In October of 2022 serum creatinine was 1.77 and a repeat creatinine was 2.01 and further increased to 2.18 Amlodipine-benazepril has been decreased to 5/20 once a day as of 12/15/2022 and has been referred for further evaluation. Of note he was also found to have hyperkalemia depression 5.7. Suzan tells me that his blood pressure has been well controlled he has no specific complaints today. He has had difficulty urination for quite some time. Last digital examination of the prostate was few years ago. He has been recently diagnosed with obstructive sleep apnea and he uses CPAP. He does wake up in the middle of the night once or twice to urinate. No hematuria. No line pain. No shortness of breath. No cough no hemoptysis. No diarrhea constipation. No rash no fever no weight loss. No joint pain or swelling. 12/28/2022 During his last visit spironolactone was discontinued due to hyperkalemia. He is on a lower dose of benazepril amlodipine. He had a renal ultrasonogram which was unremarkable except for some simple cysts bilaterally and no further reviewed radiological follow-up was recommended. There was no obstruction. Today he is feeling fine without any complaints no shortness of breath no nausea vomiting no urinary symptoms no edema. 03/01/2023. Doing well today ;Complained of sinus issues 08/02/2023. From renal standpoint he is doing well. Spironolactone has been restarted. No specific issues today. He is lost about 25 lb with dieting. [facility] Medical History No pertinent past medical history Surgical History History of hernia repair Family History Father Kidney failure Mother Congenital heart disease Brother No problems noted. Sister No problems noted. Sister No problems noted. Sister No problems noted. Son No problems noted. Daughter No problems noted. 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 Cognitive needs: No Hearing needs: No Vision needs: Yes Physical Exam Vital Signs: Last Vital Signs Pulse 76 08/02/23 08:48 BP 146/88 H 08/02/23 08:48 Pulse Ox 96 08/02/23 08:48 Oxygen Delivery Method Room Air 08/02/23 08:48 BMI result Body Mass Index 33.9 Const General: comfortable Nutritional Appearance: well nourished Orientation/consciousness: patient oriented x3 HEENT Head: No normal to inspection Mouth: moist mucous membranes Eyes General: appearance normal, both eyes and all related structures Visual Maddox: normal visual maddox by confrontation Neck Neck: Yes supple and Yes no JVD Resp Effort & Inspection: normal respiratory effort and respiratory effort not decreased Auscultation: clear to auscultation bilaterally, no rales and rub present Cardio Jugular venous distension: no JVD Palpation: no palpable S3 and no palpable S4 Heart sounds: no rubs GI Inspection: Yes normal to inspection Palpation (GI): Soft to palpation and nontender Percussion: No Fluid wave present Auscultation: normal bowel sounds General: Yes no CVA tenderness Back/Spine/Pelvis Back: no CVA tenderness Skin General skin exam: no rashes or lesions noted Neuro General: patient oriented x3 Extrem General: Yes no pedal edema and No clubbing Results Reviewed Nephrology Results: Hgb 11.8 g/dl (14.0-18.0) L 08/01/23 WBC 6.1 X10*3/uL (4.8-10.8) 08/01/23 Plt Count 292 X10*3/uL (160-400) 08/01/23 Sodium 142 mmol/L (135-145) 08/01/23 Potassium 4.7 mmol/L (3.3-5.1) 08/01/23 Chloride 110 mmol/L (96-108) H 08/01/23 Carbon Dioxide 25 mmol/L (22-29) 08/01/23 BUN 23 mg/dL (9-16) H 08/01/23 Creatinine 1.40 mg/dL (0.5-1.4) 08/01/23 Calcium 9.7 mg/dL (8.4-10.2) 08/01/23 Assessment & Plan Assessment & Plan (1) Renal failure: Code(s): N19 - Unspecified kidney failure Category: Medical Plan: Middle-aged man with acute kidney injury superimposed on chronic kidney disease. Suzan has chronic kidney disease with a baseline creatinine 1.29 with a EGFR of 56 mL/minute as of August 2021. No lab results are available between August 2021 and October 2022. However he has sustained acute kidney injury with the creatinine bumping up to 2.18 and 2.3. The differential diagnosis for acute kidney injury would include Hypoperfusion, No evidence of obstruction based on renal ultrasonogram. No evidence of any active glomerular or interstitial disease at this time based on the bland urinary sediments. Creatinine has improved Plan Keep on lower dose of benazepril-amlodipine to 5/20. Increase p.o. fluid intake (2) Hyperkalemia: Code(s): E87.5 - Hyperkalemia Category: Medical Plan: Hyperkalemia in the setting of acute kidney injury while he was on an JOSSELYN inhibitor and spironolactone. Potassium is under control Discussed low-potassium diet. (3) Anemia: Code(s): D64.9 - Anemia, unspecified Category: Medical Plan: Mild anemia. This may be related to CKD. Shall watch hemoglobin for now. (4) HTN (hypertension): Code(s): I10 - Essential (primary) hypertension Category: Medical Plan: Blood pressure is well controlled this time. We will continue to monitor blood pressure and if possible I would lower antihypertensive is based on the blood pressure. I encouraged him to stand low-sodium diet. Discussed weight loss. Orders: Orders Complete Blood Count Auto Diff 4 Months I10 - Essential (primary) hypertension, N18.9 - Chronic kidney disease, unspecified Comprehensive Met. Panel 4 Months I10 - Essential (primary) hypertension, N18.9 - Chronic kidney disease, unspecified Coding Level of Care Code Est Pt Level 4 (38428) Diagnoses Renal failure N19 Hyperkalemia E87.5 Anemia D64.9 HTN (hypertension) I10
[2023-08-02 08:48] VITALS: BP 146/88; PULSE 76; O2SAT 96; BMI 33.9
== END 2023-08-02 09:05 | disposition home or self-care (01) ==
PROVIDERS: PCP Family Medicine; Visit Provider Internal Medicine Hypertension Specialist
DX: N19 Unspecified kidney failure (principal); E87.5 Hyperkalemia; D64.9 Anemia, unspecified; I10 Essential (primary) hypertension
CPT/HCPCS: 99214

== ENCOUNTER → 2023-08-02 08:45 | Outpatient (BNVA) | payer MEDICARE, SELFPAY | PROVIDERS: PCP Family Medicine; Visit Provider Internal Medicine Hypertension Specialist | DX: I12.9 Hypertensive chronic kidney disease with stage 1 through stage 4 chronic kidney disease, or unspecified chronic kidney disease (principal); E87.5 Hyperkalemia; N18.9 Chronic kidney disease, unspecified; D63.1 Anemia in chronic kidney disease | CPT/HCPCS: 99212 ==

== ENCOUNTER 2023-10-31 09:32 | Outpatient (REF) | payer MEDICARE, SELFPAY ==
[2023-10-31 18:06] LABS: MANUAL DIFF FLAG NO
[2023-10-31 18:38] LABS: Basophils Absolute Auto 0.1 X10*3/uL (0.0-0.2); Eosinophils Absolute Auto 0.2 X10*3/uL (0.0-0.4); Eosinophils Percent Auto 2.9 % (0-4); Hematocrit 38.6 % (42.0-52.0); Hemoglobin 13.6 g/dl (14.0-18.0); Imm Gran Abs Auto 0.03 X10*3/uL (0.00-0.03); Imm Gran Pct Auto 0.4 % (0.0-0.4); Lymphocytes Absolute Auto 1.1 X10*3/uL (1.2-4.9); Lymphocytes Percent Auto 16.4 % (20-40); Mean Corpuscular HGB Conc 35.2 g/dl (31.0-36.0); Mean Corpuscular Hemoglobin 32.3 pg (27.0-33.0); Mean Corpuscular Volume 91.7 fL (80.0-98.0); Monocytes Absolute Auto 0.5 X10*3/uL (0.1-1.2); Monocytes Percent Auto 6.9 % (2-11); Neutrophils Absolute Auto 4.9 x10*3/uL (2.0-8.3); Neutrophils Percent Auto 72.4 % (45-73); Platelet Count 261 X10*3/uL (160-400); Red Blood Count 4.21 X10*6/uL (4.60-5.80); Red Cell Distribution Width 12.6 % (11.0-16.0); White Blood Count 6.8 X10*3/uL (4.8-10.8)
[2023-10-31 18:46] LABS: Creatinine Urine 140.91 mg/dL; Microalbum/Creatinine Ratio Ur 87.2 ug/mg cr (<30)
[2023-10-31 18:56] LABS: Alanine Aminotransferase 22 U/L (0-40); Albumin Level 4.5 g/dL (3.5-5.0); Alkaline Phosphatase 47 U/L (39-117); Anion Gap 12 (12-20); Aspartate Amino Transferase 20 U/L (5-37); Bilirubin Total 0.4 mg/dL (0.0-1.0); Blood Urea Nitrogen 29 mg/dL (9-16); Carbon Dioxide 24 mmol/L (22-29); Chloride 109 mmol/L (96-108); Cholesterol 200 mg/dL (<200); Estimated Glomerular Filt Rate 47; Glucose Fasting 118 mg/dL (60-99); Glucose Random 117 mg/dL (60-115); HDL Cholesterol 54 mg/dL (>40); LDL Cholesterol Calculated 103 mg/dL (<100); Potassium 4.1 mmol/L (3.3-5.1); Sodium 141 mmol/L (135-145); Triglycerides 215 mg/dL (<150)
[2023-10-31 19:08] LABS: Prostate Specific Antigen Scr 1.97 ng/mL (<0.05-4.0)
[2023-10-31 19:10] LABS: Appearance Urine Cloudy; Color Urine Yellow; Glucose Urine UA Negative (Negative); Leukocyte Esterase Urine Negative (Negative); Nitrite Urine Negative (Negative); UMIC TRIGGER UA YES; Urine Blood Negative (Negative); Urine Ketones Negative (Negative); Urine Protein 30 (1+) mg/dL (Neg-Trace)
[2023-10-31 19:14] LABS: Bacteria Urine None Seen (None Seen); Hyaline Casts Urine 0-2 /LPF (0-2); RBC Urine 0-2 /HPF (0-2); Squamous Epithelial Cell Urine 0-2 /HPF (0-2); WBC Urine 0-5 /HPF (0-5)
[2023-10-31 19:15] LABS: TSH reflex Free T4 1.77 uIU/mL (0.32-4.0)
== END 2023-10-31 09:33 | disposition home or self-care (01) ==
LOC: HO.HKASLDS 09:32
PROVIDERS: Visit Provider Family Medicine
DX: Z00.00 Encounter for general adult medical examination without abnormal findings (principal); I10 Essential (primary) hypertension; Z12.5 Encounter for screening for malignant neoplasm of prostate
CPT/HCPCS: 36415; 80053; 80061; 81001; 81003; 82043; 82570; 84153; 84443; 85025

== ENCOUNTER 2023-11-03 15:56 | Outpatient (AMB) | payer MEDICARE, SELFPAY ==
--- NOTE | 2023-11-03 16:11 | MHC.PC.OV ---
Vital Signs 11/03/23 16:15 Height 5 ft 9.5 in Weight 249 lb BMI 36.2 BP 150/60 H Blood Pressure Location Lt brachial Position Sitting Respiration 12 Pulse 84 Pulse Source Pulse Oximeter Temp 98.9 F Temp Source Oral Pulse Oximetry (%) 97 Oxygen Delivery Method Room Air Intake Visit Reasons: CPE plus labs and health maintenance Intake Note: CPE Allergies No Known Allergies Allergy (Verified 11/03/23 16:12) Medication List - Last Reconciled 11/03/23 by Ricky Iverson MD amlodipine-benazepril 5-20 mg 1 cap PO DAILY 30 days aspirin (Adult Aspirin Regimen) 81 mg PO DAILY atorvastatin 80 mg PO DAILY blood pressure monitor Automatic, Digital. Dx: I10. Daily As directed, 999 days/lifetime ezetimibe 10 mg PO DAILY fenofibrate 160 mg PO DAILY 30 days fluticasone propionate 50 mcg/actuation (Flonase Allergy Relief) 1 spray intranasal Q12H 90 days metoprolol succinate ER 50 mg PO DAILY 30 days Tobacco use date assessed: 07/13/23 Dental Screening Dental Screen Date: 07/13/23 HPI CPE plus labs and health maintenance HPI Details 68 y/o male presents for an extended exam with f/u labs and health maintenance. Labs drawn 10/31/23. Reviewed labs with pt. Ongoing mild anemia, improving. Creatinine level worsened from 1.40 to 1.48. Triglycerides 215. TC 200. LDL 103. HDL 54. Blood pressure today 150/60, 84p. He is on amlodipine-benazepril 5-20mg, metoprolol 50mg daily. He notes he thinks colonoscopy was with [facility]. He is unsure of the details. Notes of an ongoing umbilical hernia. HPI Comments History of Present Illness Details Documentation assistance for Ricky Iverson MD, was provided by Colin Luu,? Paediatrician on 11/03/2023 at 5:00 PM EST. I, Dr. Iverson, have read, observed, and verified documentation. [facility] Medical History No pertinent past medical history Surgical History History of hernia repair Family History Father Kidney failure Mother Congenital heart disease Brother No problems noted. Sister No problems noted. Sister No problems noted. Sister No problems noted. Son No problems noted. Daughter No problems noted. 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 1. Little interest or pleasure in doing things: not at all 2. Feeling down, depressed, or hopeless: not at all 3. Trouble falling or staying asleep, or sleeping too much: more than half the days 4. Feeling tired or having little energy: not at all 5. Poor appetite or overeating: not at all 6. Feeling bad about yourself - or that you are a failure or have let yourself or your family down: not at all 7. Trouble concentrating on things, such as reading the newspaper or watching television: not at all 8. Moving or speaking so slowly that other people could have noticed. Or the opposite - being so fidgety or restless that you have been moving around a lot more than usual: not at all 9. Thoughts that you would be better off or of hurting yourself in some way: not at all Total score: 2 Depression Screening Interpretation: Negative Depression Screening Done: Yes 31589 - PHQ-9 Billing: Yes Source: Developed by Drs. Leopoldo Pacheco, Skye Clarke, Charlie Funk and colleagues, with an educational baldomero from [employer]. Thrive Questionnaire Date Thrive assessed: 11/03/23 I am a: Patient What is your living situation today?: I have a steady place to live Within the past 12 months, did the food you bought not last and you didn't have the money to get more?: Never true Within the past 12 months, did you worry whether your food would run out before you got money to buy more?: Never true Do you have trouble paying for medicines?: No Do you have trouble getting transportation to medical appointments?: No Do you have trouble paying your heating and electricity bill?: No Do you have trouble taking care of your child, family member or friend?: No Do you have trouble with day-to-day activities such as bathing, preparing meals, shopping, managing finances, etc.?: No Are you currently unemployed and looking for a job?: No Are you interested in more education?: No Please select the resources that you would like help with: None Currently or been in a relationship where the following occur: No concerns reported THRIVE Score: 0 AUDIT C Alcohol Use Questionnaire (AUDIT-C) 1. How often do you have a drink containing alcohol?: 2-3 times a week 2. How many drinks containing alcohol do you have on a typical day when you are drinking?: 1 or 2 3. How often do you have six or more drinks on one occasion?: Less than monthly Total Score: 4 TONA-7 AMB Questionnaire TONA-7 Date TONA - 7 assessed: 11/03/23 Feeling nervous, anxious, or on edge: 0 = Not at all Not being able to stop or control worryin = Not at all Worrying too much about different things: 0 = Not at all Trouble relaxin = Not at all Being so restless that it is hard to sit still: 0 = Not at all Becoming easily annoyed or irritable: 0 = Not at all Feeling afraid as if something awful might happen: 0 = Not at all Total TONA-7 score (0-4 normal; 5-9 mild; 10-14 moderate; 15-21 severe): 0 Source: Developed by Drs. Leopoldo Pacheco, Skye Clarke, Charlie Funk and colleagues, with an educational baldomero from [employer]. TONA-7 Assessment Billing TONA-7 Assessment Tool: TONA-7 Assessment 48646 Review of Systems Const Denies chills, Denies fatigue, Denies fever(s), Denies headache(s) and Denies weakness Eyes Denies change in vision ENT Denies dizziness, Denies headache(s), Denies hearing loss, Denies nasal congestion, Denies sinus pain, Denies sinus pressure and Denies sore throat Card Denies chest pain, Denies lightheadedness, Denies dyspnea and Denies other (palpitations) Resp Denies cough, Denies dyspnea and Denies wheezing GI Denies abdominal pain, Denies melena, Denies hematochezia, Denies change in bowel habits, Denies dyspepsia and Denies nausea Denies hematuria and Denies dysuria Musc Denies abnormal gait, Denies myalgias, Denies arthralgias, Denies numbness and Denies tingling Skin/Breast Denies rash, Denies unusual bruising and Denies wounds Neuro Denies abnormal gait, Denies dizziness, Denies headache(s), Denies memory loss, Denies numbness, Denies Sensory deficit (Neuro), Denies tingling and Denies weakness Psych Denies anxiety, Denies depression and Denies memory loss Endo Denies cold intolerance, Denies fatigue, Denies heat intolerance, Denies polydipsia and Denies polyuria Eugene/Lymph Denies easy bleeding and Denies easy bruising Aller/Immun Denies wheezing Physical exam (Primary Care) Vital Signs: Last Vital Signs Temp 98.9 F 11/03/23 16:15 Pulse 84 11/03/23 16:15 Resp 12 11/03/23 16:15 BP 150/60 H 11/03/23 16:15 Pulse Ox 97 11/03/23 16:15 Oxygen Delivery Method Room Air 11/03/23 16:15 BMI result Body Mass Index 36.2 Tobacco/Smoking Status: Tobacco use Status Tobacco use date assessed 07/13/23 11/03/23 16:19 Patient Tobacco Use Status Former Tobacco user 11/03/23 16:19 e-Cigarette/Vaping Use Never Used 11/03/23 16:19 PHQ-9: PHQ-9 Score PHQ-9: Total score 2 11/03/23 16:31 Depression Screening Interpretation: Negative Thrive Assessment: Date of Thrive Assessment Date Thrive assessed 11/03/23 11/03/23 16:19 Currently or been in a relationship where the following occur: No concerns reported Const General: no acute distress, well developed, alert and awake Nutritional Appearance: well nourished and obese Orientation/consciousness: patient oriented x3 HENMT Head: Yes normocephalic and Yes atraumatic Ears: hearing grossly normal bilaterally and TM's normal bilaterally General nose exam: Normal external nose present and Normal nares present Mouth: Normal oral and palatal mucosa present and moist mucous membranes Teeth and gingiva: dentition normal Throat: Yes posterior oropharynx normal Eyes General: appearance normal, both eyes and all related structures Pupils: Equal, round and reactive pupils present and Pupil accommodation reflex normal EOM: EOMs intact bilaterally Neck Neck: Yes normal visual inspection, Yes no lymphadenopathy and Yes trachea midline Thyroid: Thyroid normal Carotids: no bruits Lymphatic: no lymphadenopathy noted Chest Chest palpation & inspection: normal inspection of the chest Resp Effort & Inspection: normal respiratory effort Auscultation: clear to auscultation bilaterally Cardio Rate: regular rate Rhythm: regular rhythm Heart sounds: S1 normal heart sound present, S2 normal heart sound present, no gallops, no murmurs and no rubs Bruits: no abdominal aortic bruits and no carotid bruits GI Palpation (GI): No Abdominal aortic bruit present, Soft to palpation, nontender, No hepatosplenomegaly present and No Rebound tenderness present Auscultation: normal bowel sounds General: Yes no CVA tenderness Back/Spine/Pelvis Back: no CVA tenderness Cervical Spine: cervical ROM normal and No Cervical spine tenderness Thoracic/Lumbar Spine: thoraco-lumbar ROM normal, No pain with thoraco-lumbar ROM, No thoracic spinal tenderness and No lumbar spinal tenderness Skin Lesions: no lesions Rashes: no rashes Trauma: no lacerations or abrasions Wounds: no wounds Nails: normal Neuro General: patient oriented x3 Cranial nerves: Yes Equal, round and reactive pupils present Cognition (Neuro): normal cognition Gait exam (Neuro): Normal gait present Motor exam (neuro): 5/5 motor strength present throughout Sensory Exam: No Sensory deficit (Neuro) Deep tendon reflexes (DTR's): Right patellar reflex intensity grade: 2+ and Left patellar reflex intensity grade: 2+ Extrem General: Yes normal to inspection and No edema Psych Appearance: grossly normal Affect: normal affect Attitude: cooperative Thought process: Normal thought process present Assessment and Plan Assessment & Plan (1) Hyperlipidemia: Code(s): E78.5 - Hyperlipidemia, unspecified Plan: LDL?cholesterol?is?a?little?above?goal?of?less?than?100 Encouraged?diet?exercise?and?weight?loss Continue?atorvastatin?and?Zetia (2) Essential hypertension: Code(s): I10 - Essential (primary) hypertension Plan: Blood?pressure?is?too?high. Will?increase?the?amlodipine?in?his?amlodipine-benazepril?combo?pill. Renal?recommending?continuing?a?small?dose?of?benazepril?but?would?not?increase. Continue?metoprolol (3) CKD (chronic kidney disease): Code(s): N18.9 - Chronic kidney disease, unspecified Plan: Doing?fairly?well,?per?Nephrology. Recent?microalbumin?is?rather?high.??He?is?on?benazepril. Encouraged?improve?blood?pressure?control?with?diet?exercise?and?weight?loss?and?I?am?increasing?his?amlodipine?as?above Encouraged?good?hydration Avoid?NSAIDs Follow-up?with?nephrology?as?recommended (4) Pre-diabetes: Code(s): R73.03 - Prediabetes Plan: A1c?has?been?rising?though?still?in?pre?diabetes?range?at?last?check?a?few?months?ago. Will?recheck?this?at?his?next?visit Encouraged?diet?exercise?weight?loss?and?encouraged?decreasing?sugars?and?starches (5) Screening for prostate cancer: Code(s): Z12.5 - Encounter for screening for malignant neoplasm of prostate Plan: PSA?within?normal?range Continue?annual?screening (6) Hernia: Code(s): K46.9 - Unspecified abdominal hernia without obstruction or gangrene Plan: Umbilical?hernia He?can?let?me?know?if?he?wants?a?referral?to?surgery?for?correction. Discussed?with?patient?that?if?he?is?having?pain,?nausea,?vomiting,?anorexia?or?other?concerning?symptoms?he?should?be?seen?immediately. (7) Screening for colon cancer: Code(s): Z12.11 - Encounter for screening for malignant neoplasm of colon Plan: Patient?says?prior?colonoscopy?was?likely?at?[facility].??Somewhat?vague Will?try?to?get?records?so?I?can?advise?patient?when?he?should?have?follow-up. (8) Adult general medical exam: Code(s): Z00.00 - Encounter for general adult medical examination without abnormal findings Medications: New amlodipine-benazepril 10-20 mg 1 cap PO DAILY 90 caps 0RF zolpidem (Ambien) 5 mg PO BEDTIME 30 days PRN 12 tabs 0RF sleep Discontinued amlodipine-benazepril 5-20 mg Discontinued Reason: Doctor's Order 1 cap PO DAILY 30 days 30 caps 1RF Coding Level of Care Code Est Pt Level 4 (77235) Diagnoses Hyperlipidemia E78.5 Essential hypertension I10 CKD (chronic kidney disease) N18.9 Pre-diabetes R73.03 Screening for prostate cancer Z12.5 Hernia K46.9 Screening for colon cancer Z12.11 Adult general medical exam Z00.00 Additional Codes TONA-7 Assessment Billing - TONA-7 Assessment Tool: TOAN-7 Assessment 19011 ([id number])
[2023-11-03 16:15] VITALS: BP 150/60; PULSE 84; RESP 12; TEMP 37.2; O2SAT 97; BMI 36.2
== END 2023-11-03 16:58 | disposition home or self-care (01) ==
PROVIDERS: PCP Family Medicine; Visit Provider Family Medicine
DX: E78.5 Hyperlipidemia, unspecified (principal); I12.9 Hypertensive chronic kidney disease with stage 1 through stage 4 chronic kidney disease, or unspecified chronic kidney disease; N18.9 Chronic kidney disease, unspecified; R73.03 Prediabetes; Z12.5 Encounter for screening for malignant neoplasm of prostate; K46.9 Unspecified abdominal hernia without obstruction or gangrene; Z12.11 Encounter for screening for malignant neoplasm of colon; Z00.00 Encounter for general adult medical examination without abnormal findings

== ENCOUNTER → 2023-11-03 15:56 | Outpatient (BNVA) | payer MEDICARE, SELFPAY | PROVIDERS: PCP Family Medicine; Visit Provider Family Medicine | DX: I12.9 Hypertensive chronic kidney disease with stage 1 through stage 4 chronic kidney disease, or unspecified chronic kidney disease (principal); N18.9 Chronic kidney disease, unspecified; E78.5 Hyperlipidemia, unspecified; R73.03 Prediabetes; K46.9 Unspecified abdominal hernia without obstruction or gangrene | CPT/HCPCS: 96127; 99212 ==

== ENCOUNTER 2023-12-06 09:00 | Outpatient (AMB) | payer OTHER, SELFPAY ==
--- NOTE | 2023-12-06 09:11 | A.OFFVIS_ITS ---
Vital Signs 12/06/23 09:14 Height 5 ft 9.5 in Weight 251 lb BMI 36.5 Intake Visit Reasons: 6 month F/U Intake Note: Patient presents for 6 month. Allergies No Known Allergies Allergy (Verified 12/06/23 09:14) Medication List - Last Reconciled 12/19/23 by FREIDA Echevarria amlodipine-benazepril 10-20 mg 1 cap PO DAILY aspirin (Adult Aspirin Regimen) 81 mg PO DAILY atorvastatin 80 mg PO DAILY blood pressure monitor Automatic, Digital. Dx: I10. Daily As directed, 999 days/lifetime ezetimibe 10 mg PO DAILY fenofibrate 160 mg PO DAILY 30 days fluticasone propionate 50 mcg/actuation (Flonase Allergy Relief) 1 spray intranasal Q12H 90 days metoprolol succinate ER 50 mg PO DAILY 30 days zolpidem (Ambien) 5 mg PO BEDTIME PRN 30 days HPI Comments Details: 67 year old male with h/o HTN and ANJALI presents today for a 6 mos f/u visit. He says sleep has improved averaging 5-6 hours per night, feeling more restful in the mornings. Denies trouble falling asleep, wakes up to use the bathroom, and goes back to sleep. Denies fogginess, forgetfulness, headaches, snoring, parasomnias, vision changes. He does report burning, tingling sensation in his legs bilaterally however after moving his legs it subsides. He is active and works in the yard, but trying to get back into the gym to lose weight. He uses the CPAP nightly as tolerable, stopped using it when he started having some seasonal allergy issues with cold like symptoms, sometimes he pulls off the mask in his sleep unconsciously. He drinks 2 beers per night, 3x a week, and is mindful of his alcohol intake. CPAP compliance: Average use is >4 hours a night = 69% Average usage for days used = 5 hours and 21 minutes Pressure autoset to [id number] EPR daytime babysitter at level 2 AHI is 2.3 Leaks 3.5 to 45.2 PFSH Medical History No pertinent past medical history Surgical History History of hernia repair Family History Father Kidney failure Mother Congenital heart disease Brother No problems noted. Sister No problems noted. Sister No problems noted. Sister No problems noted. Son No problems noted. Daughter No problems noted. 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 Cognitive needs: No Hearing needs: No Vision needs: Yes Review of Systems Const Details: General: Cooperative Reports as per HPI Physical Exam Vital Signs: BMI result Body Mass Index 36.5 Const General: cooperative, healthy appearing and no acute distress Nutritional Appearance: average body habitus Orientation/consciousness: patient oriented x3 HEENT Head: Yes normal to inspection Neck Neck: Yes full ROM Resp Effort & Inspection: normal respiratory effort and able to speak in complete sentences Neuro General: patient oriented x3 and moves all extremities Gait exam (Neuro): Normal gait present Psych Appearance: grossly normal Speech and movement: Normal speech and movement present Affect: normal affect Attitude: cooperative Assessment & Plan Assessment & Plan (1) Sleep apnea: Code(s): G47.30 - Sleep apnea, unspecified Category: Medical Qualifiers: Sleep apnea type: obstructive Qualified Code(s): G47.33 - Obstructive sleep apnea (adult) (pediatric) (2) Muscle cramps: Code(s): R25.2 - Cramp and spasm Category: Medical Plan ANJALI on CPAP Reviewed Compliance Report, advised patient to wear mask at night daily for over 4 hours at minimum or more as tolerable. Clean and wash mask and tubing daily. Use only distilled water to avoid contamination of filter and reservoir. Use Pressurized Saline Rinse as needed for allergies and colds to avoid infections. For leg cramps at night, can take OTC magnesium 200mg at bedtime, if cramps worsen follow up with us. Monitor night time RLS like activity such as restless legs, cramping, burning or tingling. Magnesium 200 mg at bedtime for relaxation of muscles. Pt seen by Pat [facility]SE in coordination w/ myself FREIDA Echevarria- BC, I agree with the above documentation and plan. Coding Level of Care Code Est Pt Level 3 (27634) Diagnoses Obstructive sleep apnea syndrome G47.33 Sleep apnea type: obstructive Muscle cramps R25.2
[2023-12-06 09:14] VITALS: BMI 36.5
== END 2023-12-06 10:31 | disposition home or self-care (01) ==
LOC: HO.HSMS 09:01
PROVIDERS: PCP Family Medicine; Visit Provider Nurse Practitioner Family
DX: G47.33 Obstructive sleep apnea (adult) (pediatric) (principal); R25.2 Cramp and spasm
CPT/HCPCS: 99213

== ENCOUNTER → 2023-12-06 09:00 | Outpatient (BNVA) | payer OTHER, SELFPAY | PROVIDERS: PCP Family Medicine; Visit Provider Nurse Practitioner Family ==

== ENCOUNTER 2024-01-16 09:45 | Outpatient (REF) | payer OTHER, SELFPAY ==
[2024-01-16 09:56] LABS: MANUAL DIFF FLAG NO
[2024-01-16 11:15] LABS: Appearance Urine Clear; Color Urine Yellow; Glucose Urine UA Negative (Negative); Leukocyte Esterase Urine Negative (Negative); Nitrite Urine Negative (Negative); Urine Blood Negative (Negative); Urine Ketones Negative (Negative); Urine Protein Trace mg/dL (Neg-Trace)
[2024-01-16 11:19] LABS: Basophils Absolute Auto 0.1 X10*3/uL (0.0-0.2); Basophils Percent Auto 0.8 % (0-2); Eosinophils Absolute Auto 0.3 X10*3/uL (0.0-0.4); Eosinophils Percent Auto 4.2 % (0-4); Hematocrit 37.9 % (42.0-52.0); Hemoglobin 12.9 g/dl (14.0-18.0); Imm Gran Abs Auto 0.03 X10*3/uL (0.00-0.03); Imm Gran Pct Auto 0.5 % (0.0-0.4); Lymphocytes Absolute Auto 1.2 X10*3/uL (1.2-4.9); Mean Corpuscular Hemoglobin 32.4 pg (27.0-33.0); Mean Corpuscular Volume 95.2 fL (80.0-98.0); Mean Platelet Volume 10.3 fL (9.4-12.4); Monocytes Absolute Auto 0.5 X10*3/uL (0.1-1.2); Monocytes Percent Auto 8.1 % (2-11); Neutrophils Absolute Auto 4.1 x10*3/uL (2.0-8.3); Neutrophils Percent Auto 66.4 % (45-73); Platelet Count 305 X10*3/uL (160-400); Red Blood Count 3.98 X10*6/uL (4.60-5.80); Red Cell Distribution Width 13.3 % (11.0-16.0); White Blood Count 6.2 X10*3/uL (4.8-10.8)
[2024-01-16 11:46] LABS: Alanine Aminotransferase 31 U/L (0-40); Albumin Level 4.4 g/dL (3.5-5.0); Alkaline Phosphatase 45 U/L (39-117); Anion Gap 16 (12-20); Aspartate Amino Transferase 38 U/L (5-37); Bilirubin Total 0.5 mg/dL (0.0-1.0); Blood Urea Nitrogen 22 mg/dL (9-16); Calcium 9.2 mg/dL (8.4-10.2); Carbon Dioxide 26 mmol/L (22-29); Chloride 107 mmol/L (96-108); Estimated Glomerular Filt Rate 47; Glucose Random 103 mg/dL (60-115); Potassium 4.6 mmol/L (3.3-5.1); Sodium 144 mmol/L (135-145); Total Protein 6.9 g/dL (6.5-8.0)
[2024-01-16 11:48] LABS: Creatinine Urine 134.55 mg/dL; Microalbum/Creatinine Ratio Ur 63.1 ug/mg cr (<30)
--- OUTSIDE RECORDS SUMMARY | 2024-01-17 19:33 | XMS_ITS | Continuity of Care Document ---
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 He has tympanic membrane retraction affecting the right ear greater than left. Given the chronicity of the patient's eustachian tube dysfunction, patient is a good candidate for balloon dilation of the bilateral eustachian tube. Alternative treatment options including continued observation and myringotomy with tube placement were discussed as well. I explained the procedure in detail. We discussed the 70-75% success rate in improving or reversing eustachian tube dysfunction. We discussed that there is good three year data showing the valve mechanic success as well. We discussed the risks of surgery, including bleeding, infection, anesthetic risks, patulous eustachian tube, and the small potential for damage to the carotid artery. Nasopharyngoscopy today has ruled out any intranasal or nasopharyngeal contraindications to balloon dilation on either side. After full discussion, the patient would like to proceed with bilateral balloon dilation of eustachian tube with concurrent placement of pressure equalization tube bilaterally. After full discussion, the patient would like to proceed with surgery. I have provided patient with the contact information for my certified surgical assistant. We will begin the scheduling process and see the patient back at the time of surgery. Patient will not require medical clearance from their primary care provider preoperatively. [email or web address] Not available 12/07/2023 13:53:21 Plan of Treatment Reminders Order Date Submit Date Provider Last Modified By Organization Details Last Modified Time Details Appointments Hearing Test 2023 02:30P M Hearing Test Not available Not available Not available Establish ed 30 2023 03:00P M KIM DRUMMOND PA-C Not available Not available Not available Establish ed 60 2024 02:00P M KIM DRUMMOND PA-C Not available Not available Not available Lab None recorded. Referral None recorded. Procedures None recorded. Surgeries nasophary ngoscopy, surgical, with dilation of eustachia n tube; bilateral (SURG) 2023 024 [email or web address] Not available 12/07/2023 16:27:18 Imaging None recorded. Medication Orders None recorded. Patient TargetsNo targets recorded. Patient InstructionsNo instructions recorded. Reason for Referral None Reported. Problems Name Problem SNOMED Code Status Onset Date Resolution Date Notes Provider Name and Address Organization Details Recorded Time Impacted cerumen of bilateral ears [id number] 96619 Active 2018 Impacted cerumen, bilateral ; Note: Date Diagnosed : 07/31/2018 10:13 AM (H61.23) Not Available [facility] 4 02:47:52 Otitis externa of right ear 95526768265 52925 Active 2016 Other otitis externa, right ear; Note: Date Diagnosed : 7 9:51 AM (H60.8X1) Not Available [facility] 4 02:47:48 Acute sinusitis 44345999 Active 2017 Acute sinusitis , unspecifi ed; Note: Date Diagnosed : 12/12/2017 9:57 AM (J01.90) Not Available [facility] 4 02:47:45 Impacted cerumen in left ear 45633338934 02082 Active 2016 Impacted cerumen, left ear; Note: Date Diagnosed : 04/05/2016 11:17 AM (H61.22) Not Available [facility] 4 02:47:52 Disorder of left Eustachia n tube 71415269402 67895 Active 2016 Other specified disorders of Eustachia n tube, left ear; Note: Date Diagnosed : 03/08/2016 10:00 AM (H69.82) Not Available [facility] 4 02:47:47 Bilateral disorder of Eustachia n tubes 32152241471 78587 Active 2018 Other specified disorders of Eustachia n tube, bilateral ; Note: Date Diagnosed : 07/31/2018 10:14 AM (H69.83) Not Available [facility] 4 02:47:53 Snoring 15061338 Active 2016 Snoring; Note: Date Diagnosed : 7 10:09 AM (R06.83) Not Available [facility] 4 02:47:52 Abnormal auditory perceptio n 76733543 Active 2018 Other abnormal auditory perceptio ns, bilateral ; Note: Date Diagnosed : 07/31/2018 10:15 AM (H93.293) Not Available [facility] 4 02:47:45 Mixed conductiv e and sensorine ural hearing loss, bilateral 083056291 Active 2023 SHARON HOOD [address] [address], [facility] [place], [address] , [facility] - [facility] 4 12:05:14 Bilateral adhesive otitis media of middle ears 98605414275 97886 Active 2023 KATI OBANDO MD [address] [place] [address], [place], [address] , [facility] - [facility] 4 13:46:05 Sensorine ural hearing loss of bilateral ears 339472299 Active 2023 Paola walters [place] - [facility] 4 15:09:55 Problem Notes None recorded. Procedures Surgical History Date Name Laterality Status Provider Name and Address Organization Details Recorded Time Comp Audio with Tymps (46160 & 45104) completed Paola Ramsay [place] - [facility] 01/17/2024 15:09:47 NASOPHARYNGOSCOPY, SURGICAL, WITH DILATION OF EUSTACHIAN TUBE; BILATERAL (SURG) completed Philip Nance [place] - [facility] 12/22/2023 15:46:47 10/31/2 024 Fiberoptic Nasopharyngoscopy completed KATI OBANDO MD [address] [facility], [place], [address], [facility] 12/07/2023 13:52:03 024 Comp Audio with Tymps (69202 & 23469) completed SHARON HOOD [address] [facility], [place], [address], [facility] - [facility] 09/20/2023 12:04:29 024 Cerumen removal without microscope bilat completed SHAYE GUIDRY PA-C [address] [facility], [place], [address], [facility] 09/20/2023 11:33:24 Imaging Results None recorded. Procedure Notes None recorded. Medical Equipment None Reported. Allergies No known drug allergies Medications Name Sig Start Date Stop Date Status Note LastModified by Organization Details LastModified Time atorvasta tin 80 mg tablet TAKE 1 TABLET BY MOUTH DAILY active Not Available Not Available No t Available trazodone 50 mg tablet TAKE 1 TABLET BY MOUTH AT BEDTIME NEEDED FOR SLEEP FOR 30 DAYS 09/19 completed Not Available Not Available Not Available ofloxacin 0.3 % eye drops PLACE 10 DROPS IN AFFECTED EAR DAILY 09/19 completed Not Available Not Available Not Available metoprolo l succinate ER 50 mg tablet,ex tended release 24 hr TAKE 1 TABLET BY MOUTH EVERY DAY active Not Available Not Available No t Available Medrol (Corey) 4 mg tablets in a dose pack 07/31 completed Medicati on ID: [id number] Cassandra shaw By Name: Adi Ewing nd Name: Medrol (Corey) Se nd Method: E-Prescr ibed Sub s Allowed: subs OK Speci al Instruct ion: take as instruct ed Medic ationGen ericName : Medrol (Corey) Not Available Not Available Not Available bisoprolo l 5 mg-hydroc hlorothia zide 6.25 mg tablet 12/12 completed Medicati on ID: [id number] D uration Value: 90 Reason: () Brand Name: bisoprol ol-hydro chloroth iazide S end Method: E-Prescr ibed Sub s Allowed: subs OK Medic ationGen ericName : bisoprol ol-hydro chloroth iazide Not Available Not Available Not Available Ciloxan 0.3 % eye drops 09/19 completed Medicati on ID: [id number] D uration Value: 5 Prescri bed By Name: Adi Ewing nd Name: Ciloxan Send Method: E-Prescr ibed Sub s Allowed: subs OK Speci al Instruct ion: Instill 4 drops twice a day into the affected ear Medi cationGe nericNam e: Ciloxan Not Available Not Available Not Available spironola ctone 25 mg tablet TAKE 1 TABLET BY MOUTH DAILY 09/19 completed Not Available Not Available Not Available amoxicill in 500 mg tablet TAKE 1 TABLET BY MOUTH EVERY 12 HOURS FOR 10 DAYS 09/19 completed Not Available Not Available Not Available ofloxacin 0.3 % ear drops INSTILL 4 DROPS INTO BOTH EARS TWICE A DAY FOR 3 DAYS 01/16 completed Not Available Not Available Not Available tamsulosi n 0.4 mg capsule TAKE 1 CAPSULE BY MOUTH DAILY FOR 30 DAYS 09/19 completed Not Available Not Available Not Available amlodipin e 5 mg-benaze pril 20 mg capsule TAKE 1 CAPSULE BY MOUTH EVERY DAY 12/06 completed Not Available Not Available Not Available moexipril 15 mg tablet 12/06 completed Medicati on ID: [id number] D uration Value: 90 Reason: () Brand Name: moexipri l Send Method: E-Prescr ibed Sub s Allowed: subs OK Medic ationGen ericName : moexipri l Not Available Not Available Not Available clotrimaz ole 1 % topical solution 12/12 completed Medicati on ID: [id number] P wilbert d By Name: Adi Ewing nd Name: clotriarmond Neri d Method: E-Prescr ibed Sub s Allowed: subs OK Speci al Instruct ion: 5 drops to affected ear twice a day Medi cationGe nericNam e: clotrima zole Not Available Not Available Not Available hydrochlo rothiazid e 25 mg tablet 09/19 completed Medicati on ID: [id number] D uration Value: 30 Brand Name: hydrochl orothiaz leonardo Send Method: E-Prescr ibed Sub s Allowed: subs OK Medic ationGen ericName : hydrochl orothiaz leonardo Not Available Not Available Not Available zolpidem 5 mg tablet TAKE 1 TABLET BY MOUTH AT BEDTIME NEEDED FOR SLEEP (TO LAST 30 DAYS) active Not Available Not Available No t Available metoprolo l succinate ER 25 mg tablet,ex tended release 24 hr TAKE 1 TABLET BY MOUTH DAILY 09/19 completed Not Available Not Available Not Available Aspir-81 mg tablet,de layed release 2016 active Medicati on ID: [id number] B rand Name: Aspir-81 Send Method: E-Prescr ibed Sub s Allowed: subs OK Medic ationGen ericName : Aspir-81 Not Available Not Available Not Available fluticaso ne propionat e 50 mcg/actua tion nasal spray,ghislaine pension SPRAY 1 SPRAY INTO EACH NOSTRIL EVERY 12 HOURS active Not Available Not Available No t Available amlodipin e 10 mg-benaze pril 20 mg capsule TAKE 1 CAPSULE BY MOUTH EVERY DAY active Not Available Not Available No t Available ezetimibe 10 mg tablet TAKE 1 TABLET BY MOUTH DAILY active Not Available Not Available No t Available fenofibra te 160 mg tablet TAKE 1 TABLET BY MOUTH EVERY DAY active Not Available Not Available No t Available amlodipin e 5 mg-benaze pril 40 mg capsule 09/19 completed Medicati on ID: [id number] D uration Value: 90 Brand Name: amlodipi ne-benaz epril Se nd Method: E-Prescr ibed Sub s Allowed: subs OK Speci al Instruct ion: TAKE 1 CAPSULE BY MOUTH ONCE DAILY Me dication GenericN zaki: amlodipi ne-benaz epril Not Available Not Available Not Available icosapent ethyl 1 gram capsule 09/19 completed Not Available Not Available Not Available Vitals Date Recorded Body height Body weight Body mass index (BMI) Provider Name and Address Organization Details Last Updated DateTime 12/07/2023 177.8 cm 454490.25 g 33 kg/m2 Nayla Mckinney [place] - [facility] 12/07/2023 13:03:59 Social History None recorded. Functional Status None recorded. Mental Status None recorded. Family History Nothing Reported. Medical History Condition Response Hypertension Y Past Encounters Encounter ID Performer Location Encounter Start Date Encounter Closed Date Diagnosis/Indication Diagnosis SNOMED-CT Code Diagnosis ICD10 Code [id number] KATI OBANDO MD [facility] [address] [address] 12/07/2023 12:56:27 12/07/2023 13:54:32 Bilateral disorder of Eustachian tubes [id number] 970519 H69.83 Bilateral adhesive otitis media of middle ears 5322208353 318929 H74.13 Health Concerns Section Related Observation LastModified by Organization Detai ls LastModified Time None Recorded Concern Status LastModified by Organization Details LastModified Time None Recorded Payers Encounter Date Sequence Insurance Name Policy Number Policy Murillo Covered Member ID Murillo Member ID Guarantor Name 12/07/2023 1 [employer] - MEDICARE ADVANTAGE PLAN (MEDICARE REPLACEMENT HMO) [id number] Suzan Min [id number] Suzan Min Notes Date Note Type Note Provider Name and Address Organization Details Recorded Time 4 text/html 60-year-old male, former patient of Dr. Gunn who underwent left-sided tympanostomy tube placement with her in the past T-tube placed in the office twice in 2017 which extruded in late 2017. Patient recently seen by Shaye Guidry PA-C who noted tympanic membrane retraction bilaterally so he was sent to me for further evaluation. Patient has a hearing aid evaluation coming up in January. Recent audiometric testing showed bilateral mixed hearing loss in the presence of somewhat abnormal tympanometryPatient reports having many years of chronic issues with his ears becoming blocked up with middle ear effusions. He will be particularly symptomatic in the springtime, and after upper respiratory infections. He has not had any recent pain or discharge. Patient has tried fluticasone nasal spray in the past without any improvement in symptoms. KATI OBANDO MD [address] [place] [address], [phone], [facility] - [facility] 12/07/2023 13:54:37
--- OUTSIDE RECORDS SUMMARY | 2024-01-17 19:33 | XMS_ITS | Data Portability ---
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 On examination he has cerumen bilaterally which was removed. He has mild centralized retraction of the left drum and appears to have well aerated middle ear space on that side. The right side however has more significant centralized retraction, worse near the attic. No debris collection or sign of active cholesteatoma. Appears to be fluid in the middle ear space as well. Recommended updated audiometric testing today. Results show mixed hearing loss bilaterally, interestingly worse on the left side than on the right. He may benefit from tube placement or eustachian tube dilation. Will make referral to Dr. Obando for evaluation. In the meantime, he would be an excellent candidate for amplification. Was provided a copy of his hearing test and clearance for bilateral aids. Will arrange for hearing aid evaluation. All questions were answered. [email or web address] Not available 09/20/2023 12:21:08 12/07/2023 12/07/2023 Both ears are showing signs [...] is good three year data showing the fdc success as well. We discussed the risks [...] patient with the contact information for my surgical assist. We will begin the scheduling process and see the patient back at the time of surgery. Patient will not require medical clearance from their primary care provider preoperatively. [email or web address] Not available 12/07/2023 13:53:21 01/17/2024 01/17/2024 68 year old male presents s/p BMT with bilateral balloon dilation with Dr. Obando on 12/20/2023. Physical exam demonstrates well placed and patent PE tubes. Confirmed with tympanometry. Audiometric testing demonstrates symmetric SNHL hearing loss bilaterally. He is in the process of getting hearing aids. Reviewed that tubes remain in place 6-18 months on average and we will check the ears every six months until they extrude. When the tubes do extrude, we will re-examine to determine whether the tympanic membrane healed and whether or not the fluid re-accumulated. Recommend follow up in 6 months for tube check. [email or web address] Not available 01/17/2024 15:42:08 Plan of Treatment Reminders Order Date Submit [...] eustachia n tube; bilateral (SURG) 2023 024 [email or web address] Not available 12/07/2023 16:27:18 Imaging None recorded. Medication Orders None recorded. Patient TargetsNo targets recorded. Patient InstructionsNo instructions recorded. Reason for Referral None Reported. Results Created Date Observation Date Name Description Value Unit Range Abnormal Flag Note LastModifiedBy Organization Detail LastModifiedTime 09/21/19 24 audio gram No observ ation record ed. BARCODE Not Available 2023 12:23:19 Result Notes None recorded. Problems Name Problem SNOMED Code Status Onset Date Resolution Date Notes Provider Name and Address Organization Details Recorded Time Impacted cerumen of bilateral ears 47289726209 60574 Active 2018 Impacted cerumen, bilateral ; Note: Date Diagnosed : 07/31/2018 10:13 AM (H61.23) Not Available [facility] 4 02:47:52 Otitis externa of right ear 08634752799 09442 Active 2016 Other otitis externa, right ear; Note: Date Diagnosed : 7 9:51 AM (H60.8X1) Not Available [facility] 4 02:47:48 Acute sinusitis 60103588 Active 2017 Acute sinusitis , unspecifi ed; Note: Date Diagnosed : 12/12/2017 9:57 AM (J01.90) Not Available [facility] 4 02:47:45 Impacted cerumen in left ear 54912310999 91156 Active 2016 Impacted cerumen, left ear; Note: Date Diagnosed : 04/05/2016 11:17 AM (H61.22) Not Available [facility] 4 02:47:52 Disorder of left Eustachia n tube 06097001311 30589 Active 2016 Other specified disorders of Eustachia n tube, left ear; Note: Date Diagnosed : 03/08/2016 10:00 AM (H69.82) Not Available [facility] 4 02:47:47 Bilateral disorder of Eustachia n tubes 41858641680 13154 Active 2018 Other specified disorders of Eustachia n tube, bilateral ; Note: Date Diagnosed : 07/31/2018 10:14 AM (H69.83) Not Available [facility] 4 02:47:53 Snoring 87970637 Active 2016 Snoring; Note: Date Diagnosed : 7 10:09 AM (R06.83) Not Available [facility] 4 02:47:52 Abnormal auditory perceptio n 26878846 Active 2018 Other abnormal auditory perceptio ns, bilateral ; Note: Date Diagnosed : 07/31/2018 10:15 AM (H93.293) Not Available [facility] 4 02:47:45 Mixed conductiv e and sensorine ural hearing loss, bilateral 542602384 Active 2023 KIA TOPETE, SHARON 100 [facility] [address],[place] [address], [facility] [place], [address] , [place] - [facility] 4 12:05:14 Bilateral adhesive otitis media of middle ears 83277509307 42768 Active 2023 KATI OBANDO MD 100 [facility],[place] [facility] [place], [address] , [place] - [facility] 4 13:46:05 Sensorine ural hearing loss of bilateral ears 296475964 Active 2023 Paola walters [place] - [facility] 4 15:09:55 Problem Notes None recorded. Procedures Surgical History Date Name Laterality Status Provider Name and Address Organization Details Recorded Time Comp Audio with Tymps (63512 & 39178) completed Paola Ramsay [place] - [facility] 01/17/2024 15:09:47 NASOPHARYNGOSCOPY, SURGICAL, WITH DILATION OF EUSTACHIAN TUBE; BILATERAL (SURG) completed Philip Nance [place] - [facility] 12/22/2023 15:46:47 Fiberoptic Nasopharyngoscopy completed KATI OBANDO MD [address], [place], [address], [place] - [facility] 12/07/2023 13:52:03 Comp Audio with Tymps (13345 & 22922) completed KIA TOPETE, SHARON 100 [facility],[address], [place], [address], [facility] - [facility] 09/20/2023 12:04:29 024 Cerumen removal without microscope bilat completed SHAYE GUIDRY PA-C 100 [facility], [place], [address], [facility] - [facility] 09/20/2023 11:33:24 Imaging Results Imaging Date Name Status LastModified by Organiz ation Details LastModified Time 09/21/2023 audiogram completed BARCODE Information no t available 09/21/2023 12:23:19 Procedure Notes None recorded. Medical Equipment None [...] dose pack 07/31 completed Medicati on ID: [id number] P rescribe d By Name: Enid Gunn M.D. Bra nd Name: Medrol (Corey) Se nd Method: E-Prescr ibed Sub s Allowed: subs OK Speci al Instruct ion: take as instruct ed Medic ationGen ericName : Medrol (Corey) Not Available Not Available Not Available bisoprolo l 5 mg-hydroc hlorothia zide 6.25 mg tablet 12/12 completed Medicati on ID: [id number] D uration Value: 90 Reason: () Brand Name: bisoprol ol-hydro chloroth iazide S end Method: E-Prescr ibed Sub s Allowed: subs OK Medic ationGen ericName : bisoprol ol-hydro chloroth iazide Not Available Not Available Not Available Ciloxan 0.3 % eye drops 09/19 completed Medicati on ID: [id number] D uration Value: 5 Prescri bed By [...] mg tablet 12/06 completed Medicati on ID: [id number] D uration Value: 90 Reason: () Brand Name: moexipri l Send Method: E-Prescr ibed Sub s Allowed: subs OK Medic ationGen ericName : moexipri l Not Available Not Available Not Available clotrimaz ole 1 % topical solution 12/12 completed Medicati on ID: [id number] P rescribe d By Name: Adi Ewing nd Name: clotrima zol[place] Sen d Method: E-Prescr ibed Sub s Allowed: subs OK Speci al Instruct ion: 5 drops to affected ear twice a day Medi cationGe nericNam e: clotrima zole Not Available Not Available Not Available hydrochlo rothiazid e 25 mg tablet 09/19 completed Medicati on ID: [id number] D uration Value: 30 Brand Name: hydrochl [...] layed release 2016 active Medicati on ID: [id number] B rand Name: Aspir-81 Send Method: E-Prescr [...] mg capsule 09/19 completed Medicati on ID: [id number] D uration Value: 90 Brand Name: amlodipi ne-benaz epril Se nd Method: E-Prescr ibed Sub s Allowed: subs OK Speci al Instruct ion: TAKE 1 CAPSULE BY MOUTH ONCE DAILY Me dication GenericN zaki: amlodipi ne-benaz epril Not Available Not Available Not Available icosapent ethyl 1 gram capsule 09/19 completed Not Available Not Available Not Available Vitals Date Recorded Body height Body mass index (BMI) Body weight Provider Name and Address Organization Details Last Updated DateTime 09/20/2023 177.8 cm 33.3 kg/m2 818644.43 g Teri Ferrer [place] - [facility] 09/20/2023 11:08:31 Date Recorded Body height Body weight Body mass index (BMI) Provider Name and Address Organization Details Last Updated DateTime 12/07/2023 177.8 cm 484695.25 g 33 kg/m2 Nayla Hnak [place] - [facility] 12/07/2023 13:03:59 Date Recorded Body height Body mass index (BMI) Body weight Provider Name and Address Organization Details Last Updated DateTime 01/17/2024 177.8 cm 36.2 kg/m2 565967.28 g Joanie Krishnamurthyrenée [place] - [facility] 01/17/2024 15:21:34 Social History None recorded. Functional Status None recorded. Mental Status None recorded. Family History Nothing Reported. Medical History Condition Response Hypertension Y Past Encounters Encounter ID Performer Location Encounter Start Date Encounter Closed Date Diagnosis/Indication Diagnosis SNOMED-CT Code Diagnosis ICD10 Code [id number] SHAYE GUIDRY PA-C [facility] [address] [address] 09/20/2023 10:45:58 09/20/2023 12:16:15 Bilateral disorder of Eustachian tubes [id number] 042106 H69.83 Impacted c erumen of bilateral ears 5755096546 649561 H61.23 Mixed cond uctive and sensorineural hearing loss, bilateral 429372031 H90.6 [id number] KATI OBANDO MD [facility] [address] [address] 12/07/2023 12:56:27 12/07/2023 13:54:32 Bilateral disorder of Eustachian tubes 0614173857 124463 H69.83 Bilateral adhesive otitis media of middle ears 5202765731 373603 H74.13 [id number] SHARON GEE [place] [facility] [place] [address] [place] [address] [address] 12/29/2023 09:05:09 01/01/2024 06:57:56 Mixed conductive and sensorineural hearing loss, bilateral 790472308 H90.6 [id number] MIKAEL JACQUES MD [facility] [address] [address] 01/17/2024 14:22:08 01/17/2024 16:27:24 Bilateral disorder of Eustachian tubes 2760953031 464764 H69.83 Sensorineu ral hearing loss of bilateral ears 970304600 H90.3 Health Concerns Section Related Observation LastModified by Organization Detai ls LastModified Time None Recorded Concern Status LastModified by Organization Details LastModified Time None Recorded Advance Directives Directive None Recorded Payers Encounter Date Sequence Insurance Name Policy Number Policy Murillo Covered Member ID Murillo Member ID Guarantor Name 09/20/2023 1 [employer] MEDICARE ADVANTAGE PLAN (MEDICARE REPLACEMENT HMO) [id number] [employer] [id number] Suzan [place] 12/07/2023 1 [employer] MEDICARE ADVANTAGE PLAN (MEDICARE REPLACEMENT HMO) [id number] Suzan [place]ster [employer] [id number] Suzan [employer] 12/29/2023 1 [employer] MED[employer] ADVANTAGE PLAN (MEDICARE REPLACEMENT HMO) [id number] Suzan Winchester [employer] [id number] Suzan Winchester [employer] 01/17/2024 1 [employer] MEDIC[employer] ADVANTAGE PLAN (MEDICARE REPLACEMENT HMO) [id number] Suzan [employer] [id number] [employer]an[employer]velens Notes Date Note Type Note Provider Name and Address Organization Details Recorded Time 4 text/html 68-year-old male presents for evaluation of blocked ears. Longstanding history of eustachian tube dysfunction with prior BMT with Dr. Gunn. 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 More recently he has been having occasional yellow to clear drainage from his right ear which comes and goes. He has been having blocked hearing on that side as well that responds fairly well to auto insufflation. The left ear has also been bothersome but not as much. SHAYE GUIDRY PA-C [address] [place] [address], [address], [facility] - [facility] 09/20/2023 12:21:42 4 text/html 60-year-old male, former patient of Dr. Gunn who underwent left-sided tympanostomy tube placement with her in the past T-tube placed in the office twice in 2017 which extruded in late 2018. Patient recently seen by Shaye Guidry PA-C [...] any improvement in symptoms. KATI OBANDO MD 100 [facility],[address], [address], [facility] 12/07/2023 13:54:37 4 text/html Pt is {{a* an}} {{new* experienced}} user of hearing aids. Here today due to difficulty {{ with muffled hearing. Recently had tubes placed, feels his ears may be worse but he is getting a HT again January 17 along with seeing hte doctor. Would want an updated test before fitting the hearing aids.#}} Lifestyle: {{ He is retired and mainly does projects around the house. He will go out with friends occasionally but in small groups. He also enjoys family gatherings.#}} Discussed type, technology levels, and manufacturers of hearing aids. Understands that his insurance is through [employer] and that he cannot use his benefit at this office. Continuing here would mean that he will be paying out of pocket and will not be reimbursed. Type of phone: {{iphone android (galaxy) android (off brand) no smart phone no smart phone. But is about to get a smartphone. Informed him of the different types of phones and connectivity levels that come with it.#}} If continueing through this office he will be ordering:{{Oticon phonak * Widex}} {{ or #}}[employer]: {{ 2M#}}Domes: {{ medium open#}} He need sto do some research, but will let me know what he would like to do. SHARON GEE 100 [facility],[address], [address], [facility] - [facility] 12/29/2023 10:28:21 4 text/html 68 year old male presents s/p BMT with bilateral balloon dilation with Dr. Obando on 12/20/2023. He is doing well post-operatively without concerns. He denies otalgia, otorrhea, or hearing changes. He did have a hearing aid consult with one of our audiologists and is in the process of getting amplification. MIKAEL MCKEON MD [address] [place] [address], [address], [facility] - [facility] 01/17/2024 16:43:22
--- OUTSIDE RECORDS SUMMARY | 2024-01-17 19:33 | XMS_ITS ---
Author Name [facility] Organization Unknown History of Medication Use Medication Directions Dispensed Refills Start Date End Date Stat bisoprolol-hydroCHLORO thiazide (ZIAC) 5-6.25 MG per tablet Take 1 tablet by mouth 2 (two) times a day. 2023 aborted Magnesium Oxide 400 (241.3 Mg) MG TABS tablet Take 1 tablet (400 mg total) by mouth daily. 2023 aborted aspirin EC 81 MG tablet Take 1 tablet (81 mg total) by mouth daily. 06/10/2023 active fenofibrate (TRIGLIDE) 160 MG tablet Take 1 tablet (160 mg total) by mouth daily. 06/10/2023 active traZODone (DESYREL) 100 MG tablet Take 1 tablet (100 mg total) by mouth every night at bedtime as needed. for sleepo 06/10/2023 aborted Misc Natural Products (GLUCOSAMINE CHOND COMPLEX/MSM PO) Take by mouth daily. 06/10/2023 active atorvastatin (LIPITOR) tablet 80 mg TAKE 1 TABLET BY MOUTH AT BEDTIME 06/10/2023 active Coenzyme Q10 100 MG capsule Take 200 mg by mouth daily. 06/10/2023 active spironolactone (ALDACTONE) tablet 25 mg Take 1 tablet (25 mg total) by mouth daily. 06/10/2023 active metoprolol succinate (TOPROL-XL) 24 hr tablet 25 mg Take 1 tablet (25 mg total) by mouth daily. 06/10/2023 active ezetimibe (ZETIA) tablet 10 mg take 1 tablet by mouth once daily 06/10/2023 active amLODIPine-benazepril (LOTREL) 5-40 MG per capsule Take 1 capsule by mouth daily. 06/10/2023 active icosapent (VASCEPA) capsule 1 g Take 1 capsule (1 g total) by mouth 2 (two) times a day. 06/10/2023 aborted Problems Problem Status Onset Date Problem Type Date of Resolution Source Metabolic syndrome active 2016-03-31 ProblemAct CTTHNEMG Essential hypertension active EncounterDiagnosisAct CTTHNE MG
--- OUTSIDE RECORDS SUMMARY | 2024-01-17 19:33 | XMS_ITS | Continuity of Care Document ---
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 Plan of Treatment Reminders Order Date Submit [...] Referral None recorded. Procedures None recorded. Surgeries None recorded. Imaging None recorded. Medication Orders None recorded. Patient TargetsNo targets recorded. Patient InstructionsNo instructions recorded. Reason for Referral None Reported. Problems Name Problem SNOMED Code Status Onset Date Resolution Date Notes Provider Name and Address Organization Details Recorded Time Impacted cerumen of bilateral ears 50280365756 91581 Active 2018 Impacted cerumen, bilateral ; Note: Date Diagnosed : 07/31/2018 10:13 AM (H61.23) Not Available [facility] 4 02:47:52 Otitis externa of right ear 45406541179 21766 Active 2016 Other otitis externa, right ear; Note: Date Diagnosed : 7 9:51 AM (H60.8X1) Not Available [facility] 4 02:47:48 Acute sinusitis 63973366 Active 2017 Acute sinusitis , unspecifi ed; Note: Date Diagnosed : 12/12/2017 9:57 AM (J01.90) Not Available [facility] 4 02:47:45 Impacted cerumen in left ear 57680294658 57194 Active 2016 Impacted cerumen, left ear; Note: Date Diagnosed : 04/05/2016 11:17 AM (H61.22) Not Available [facility] 4 02:47:52 Disorder of left Eustachia n tube 50441045838 89418 Active 2016 Other specified disorders of Eustachia n tube, left ear; Note: Date Diagnosed : 03/08/2016 10:00 AM (H69.82) Not Available [facility] 4 02:47:47 Bilateral disorder of Eustachia n tubes 87554578447 07227 Active 2018 Other specified disorders of Eustachia n tube, bilateral ; Note: Date Diagnosed : 07/31/2018 10:14 AM (H69.83) Not Available [facility] 4 02:47:53 Snoring 56894372 Active 2016 Snoring; Note: Date Diagnosed : 7 10:09 AM (R06.83) Not Available [facility] 4 02:47:52 Abnormal auditory perceptio n 15974758 Active 2018 Other abnormal auditory perceptio ns, bilateral ; Note: Date Diagnosed : 07/31/2018 10:15 AM (H93.293) Not Available [facility] 4 02:47:45 Mixed conductiv e and sensorine ural hearing loss, bilateral 599544665 Active 2023 SHARON HOOD [address] [address], [place], [address] , [facility] - [facility] 4 12:05:14 Bilateral adhesive otitis media of middle ears 84718769636 47412 Active 2023 KATI OBANDO MD 100 [facility] 100, [place], [address] , [facility] - [facility] 4 13:46:05 Sensorine ural hearing loss of bilateral ears 916485949 Active 2023 Paola walters [facility] [place] 15:09:55 Problem Notes None recorded. Procedures Surgical History Date Name Laterality Status Provider Name and Address Organization Details Recorded Time Comp Audio with Tymps (09284 & 71771) completed Paola Ramsay [place] - [facility] 01/17/2024 15:09:47 NASOPHARYNGOSCOPY, SURGICAL, WITH DILATION OF EUSTACHIAN TUBE; BILATERAL (SURG) completed Philip Nance [facility] 12/22/2023 15:46:47 Fiberoptic Nasopharyngoscopy completed KATI OBANDO MD [address], [address], [facility] - [facility] 12/07/2023 13:52:03 024 Comp Audio with Tymps (61186 & 95999) completed SHARON HOOD [address], [address], [facility] 09/20/2023 12:04:29 024 Cerumen removal without microscope bilat completed SHAYE SERRANO PA-C [address], [address], [facility] [place] [facility] 09/20/2023 11:33:24 Imaging Results None recorded. Procedure [...] dose pack 07/31 completed Medicati on ID: [id number] P rescribe d By Name: Adi Ewing nd Name: Medrol (Corey) Se nd Method: E-Prescr ibed Sub s Allowed: subs OK Speci al Instruct ion: take as instruct ed [facility] Medrol (Corey) Not Available Not Available Not Available bisoprolo l 5 mg-hydroc hlorothia zide 6.25 mg tablet 12/12 completed Medicati on ID: [id number] D uration Value: 90 Reason: () Brand Name: bisoprol ol-hydro chloroth iazide S end Method: E-Prescr ibed Sub s Allowed: subs OK Medic ationGen ericName : bisoprol ol-hydro chloroth iazide Not Available Not Available Not Available Ciloxan 0.3 % eye drops 09/19 completed Medicati on ID: [id number] D uration Value: 5 Prescri bed By [...] mg tablet 12/06 completed Medicati on ID: [id number] D uration Value: 90 Reason: () Brand Name: moexipri l Send Method: E-Prescr ibed Sub s Allowed: subs OK Medic ationGen ericName : moexipri l Not Available Not Available Not Available clotrimaz ole 1 % topical solution 12/12 completed Medicati on ID: [id number] P rescribe d By Name: Adi Ewing nd Name: clotriarmond darling Sen d Method: E-Prescr ibed Sub s Allowed: subs OK Speci al Instruct ion: 5 drops to affected ear twice a day Medi cationGe nericNam e: clotrima zole Not Available Not Available Not Available hydrochlo rothiazid e 25 mg tablet 09/19 completed Medicati on ID: [id number] D uration Value: 30 Brand Name: hydrochl [...] layed release 2016 active Medicati on ID: [id number] B rand Name: Aspir-81 Send Method: E-Prescr [...] mg capsule 09/19 completed Medicati on ID: [id number] D uration Value: 90 Brand Name: amlodipi ne-benaz epril Se nd Method: E-Prescr ibed Sub s Allowed: subs OK Speci al Instruct ion: TAKE 1 CAPSULE BY MOUTH ONCE DAILY Me dication GenericN zaki: hedy severino-leroy epril Not Available Not Available Not Available icosapent ethyl 1 gram capsule 09/19 completed Not Available Not Available Not Available Vitals None Recorded Social History None recorded. Functional Status None recorded. Mental Status None recorded. Family History Nothing Reported. Medical History Condition Response Hypertension Y Past Encounters Encounter ID Performer Location Encounter Start Date Encounter Closed Date Diagnosis/Indication Diagnosis SNOMED-CT Code Diagnosis ICD10 Code [id number] KATI OBANDO MD [facility] [address] [address] 12/07/2023 12:56:27 12/07/2023 13:54:32 Bilateral disorder of Eustachian tubes 8748136184 302394 H69.83 Bilateral adhesive otitis media of middle ears 3679770457 627750 H74.13 [id number] SHARON GEE [place] [address] [place] [address] [place] [address] 12/29/2023 09:05:09 01/01/2024 06:57:56 Mixed conductive and sensorineural hearing loss, bilateral 820830596 H90.6 Health Concerns Section Related Observation LastModified by Organization Detai ls LastModified Time None Recorded Concern Status LastModified by Organization Details LastModified Time None Recorded Payers Encounter Date Sequence Insurance Name Policy Number Policy Murillo Covered Member ID Murillo Member ID Guarantor Name 12/29/2023 1 [employer] - MEDICARE ADVANTAGE PLAN (MEDICARE REPLACEMENT HMO) [id number] Suzan Min [id number] Suzan Min Notes Date Note Type Note Provider Name and Address Organization Details Recorded Time 12/29/2023 text/html Pt is {{a* an}} {{new* experienced} } user of hearing aids. Here today due [...] aids. Understands that his insurance is through [employer] and that he cannot use his benefit [...] through this office he will be ordering:{{Oticon p honak* Widex}} {{ or nhrjazq86#}}Receive r: {{ 2M#}}Domes: {{ medium open#}} He need sto do some research, but will let me know what he would like to do. ROZINA MULLINS, [facility] 100 [facility],[address] [address], [place], [address], [facility] - [facility] 12/29/2023 10:28:21
== END 2024-01-16 09:46 | disposition home or self-care (01) ==
LOC: HO.LAB 09:45
PROVIDERS: PCP Family Medicine; Visit Provider Internal Medicine Hypertension Specialist
DX: I12.9 Hypertensive chronic kidney disease with stage 1 through stage 4 chronic kidney disease, or unspecified chronic kidney disease (principal); N18.9 Chronic kidney disease, unspecified; Z00.00 Encounter for general adult medical examination without abnormal findings
CPT/HCPCS: 36415; 80053; 81003; 82043; 82570; 85025

== ENCOUNTER 2024-01-22 15:43 | Outpatient (AMB) | payer MEDICARE, SELFPAY ==
--- OUTSIDE RECORDS SUMMARY | 2024-01-22 15:44 | XMS_ITS | Continuity of Care Document ---
Author Organization [place] - [facility] [place], [facility] Address [address] [place] [address] Care Team Providers Care Sustainability Executive Director Name Role Phone CAPRI POLANCO Primary Care Provider Assessment Encounter Date Assessment Date Assessment LastModified by Organization Details LastModified Time 01/17/2024 01/17/2024 68 year old male presents s/p BMT with bilateral balloon dilation with Dr. Thompson on 12/20/2023. Physical exam demonstrates well placed [...] Organization Details Last Modified Time Details Appointments Establish ed 60 2024 02:00P M KIM [...] Abnormal Flag Note LastModifiedBy Organization Detail LastModifiedTime 01/18/20 24 audio gram No observ ation record ed. BARCODE Not Available 2023 09:28:00 Result Notes None recorded. Problems Name Problem SNOMED Code Status Onset Date Resolution Date Notes Provider Name and Address Organization Details Recorded Time Impacted cerumen of bilateral ears 13499089648 96237 Active 2018 Impacted cerumen, bilateral ; Note: Date Diagnosed : 07/31/2018 10:13 AM (H61.23) Not Available [facility] 4 02:47:52 Otitis externa of right ear 70170551226 39825 Active 2016 Other otitis externa, right ear; Note: Date Diagnosed : 7 9:51 AM (H60.8X1) Not Available [facility] 4 02:47:48 Acute sinusitis 42459442 Active 2017 Acute sinusitis , unspecifi ed; Note: Date Diagnosed : 12/12/2017 9:57 AM (J01.90) Not Available [facility] 4 02:47:45 Impacted cerumen in left ear 59811074759 34881 Active 2016 Impacted cerumen, left ear; Note: Date Diagnosed : 04/05/2016 11:17 AM (H61.22) Not Available [facility] 4 02:47:52 Disorder of left Eustachia n tube 40058565259 02634 Active 2016 Other specified disorders of Eustachia n tube, left ear; Note: Date Diagnosed : 03/08/2016 10:00 AM (H69.82) Not Available [facility] 4 02:47:47 Bilateral disorder of Eustachia n tubes 83376441508 56665 Active 2018 Other specified disorders of Eustachia n tube, bilateral ; Note: Date Diagnosed : 07/31/2018 10:14 AM (H69.83) Not Available [facility] 4 02:47:53 Snoring 09777973 Active 2016 Snoring; Note: Date Diagnosed : 7 10:09 AM (R06.83) Not Available [facility] 4 02:47:52 Abnormal auditory perceptio n 32517454 Active 2018 Other abnormal auditory perceptio ns, bilateral ; Note: Date Diagnosed : 07/31/2018 10:15 AM (H93.293) Not Available [facility] 4 02:47:45 Mixed conductiv e and sensorine ural hearing loss, bilateral 949506201 Active 2023 SHARON HOOD 100 [facility] 100, [place], [address] , [facility] - [facility] [place] 4 12:05:14 Bilateral adhesive otitis media of middle ears 04371127287 55466 Active 2023 KATI THOMPSON MD 100 [facility] 100, [facility] [place], [address] , [facility] - [facility] [place] 4 13:46:05 Sensorine ural hearing loss of bilateral ears 905995166 Active 2023 Paola walters [place] - [facility] [place] 15:09:55 Problem Notes None recorded. Procedures Surgical History Date Name Laterality Status Provider Name and Address Organization Details Recorded Time Comp Audio with Tymps (60877 & 42316) completed Paola Ramsay [place] - [facility] [place] 01/17/2024 15:09:47 024 NASOPHARYNGOSCOPY, SURGICAL, WITH DILATION OF EUSTACHIAN TUBE; BILATERAL (SURG) completed Philip Nance [place] - [facility] [place] 12/22/2023 15:46:47 024 Fiberoptic Nasopharyngoscopy completed KATI THOMPSON MD 100 [facility],[address] [address], [place], [address], [facility] - [facility] 12/07/2023 13:52:03 024 Comp Audio with Tymps (05619 & 14668) completed SHARON HOOD 100 [facility],[address] [address], [place], [address], [facility] - [facility] [place] 09/20/2023 12:04:29 024 Cerumen removal without microscope bilat completed SHAYE SERRANO PA-C 100 [facility],[address] [address], [place], [address], [facility] - [facility] 09/20/2023 11:33:24 Imaging Results None recorded. Procedure [...] dose pack 07/31 completed Medicati on ID: [id number] P corineribe d By Name: Adi Ewing nd Name: Medrol (Corey) Se nd Method: E-Prescr ibed Sub s Allowed: subs OK Speci al Instruct ion: take as instruct ed Medic [facility] ericName : Medrol (Corey) Not Available Not Available Not Available bisoprolo l 5 mg-hydroc hlorothia zide 6.25 mg tablet 12/12 completed Medicati on ID: [id number] D uration Value: 90 Reason: () Brand Name: bisoprol ol-hydro chloroth iazide S end Method: E-Prescr ibed Sub s Allowed: subs OK Medic ationGen ericName : bisoprol ol-hydro chloroth iazide Not Available Not Available Not Available Ciloxan 0.3 % eye drops 09/19 completed Medicati on ID: [id number] D uration Value: 5 Prescri bed By [...] mg tablet 12/06 completed Medicati on ID: [id number] D uration Value: 90 Reason: () Brand Name: moexipri l Send Method: E-Prescr ibed Sub s Allowed: subs OK Medic ationGen ericName : moexipri l Not Available Not Available Not Available clotrimaz ole 1 % topical solution 12/12 completed Medicati on ID: [id number] P rescribe d By Name: Adi Ewing nd Name: clotrima zole Sen d Method: E-Prescr ibed Sub s Allowed: subs OK Speci al Instruct ion: 5 drops to affected ear twice a day Medi cationGe nericNam e: clotrima zole Not Available Not Available Not Available hydrochlo rothiazid e 25 mg tablet 09/19 completed Medicati on ID: [id number] D uration Value: 30 Brand Name: hydrochl [...] layed release 2016 active Medicati on ID: [id number] B rand Name: Aspir-81 Send Method: E-Prescr [...] mg capsule 09/19 completed Medicati on ID: [id number] D uration Value: 90 Brand Name: amlodipi [...] Updated DateTime 01/17/2024 177.8 cm 36.2 kg/m2 667334.28 g Joanie Cancino [place] - [facility] 01/17/2024 15:21:34 Social History None recorded. Functional Status None recorded. Mental Status None recorded. Family History Nothing Reported. Medical History Condition Response Hypertension Y Past Encounters Encounter ID Performer Location Encounter Start Date Encounter Closed Date Diagnosis/Indication Diagnosis SNOMED-CT Code Diagnosis ICD10 Code [id number] ROZINAHANNAH MULLINSSHARON [place] 100 [facility] [place] [address] 12/29/2023 09:05:09 01/01/2024 06:57:56 Mixed conductive and sensorineural hearing loss, bilateral 105293808 H90.6 [id number] MIKAEL JACQUES MD [facility] 100 [facility] [place] [address] 01/17/2024 14:22:08 01/17/2024 16:27:24 Bilateral disorder of Eustachian tubes 6487688733 490119 H69.83 Sensorineu ral hearing loss of bilateral ears 528388563 H90.3 Health Concerns Section Related Observation LastModified by Organization Detai ls LastModified Time None Recorded Concern Status LastModified by Organization Details LastModified Time None Recorded Payers Encounter Date Sequence Insurance Name Policy Number Policy Murillo Covered Member ID Murillo Member ID Guarantor Name 01/17/2024 1 [employer] - MEDICARE ADVANTAGE PLAN (MEDICARE REPLACEMENT HMO) [id number] [employer] [id number] [place] Notes Date Note Type Note Provider Name and Address Organization Details Recorded Time 01/17/2024 text/html 68 year old male presents s/p BMT with bilateral balloon dilation with Dr. Thompson on 12/20/2023. He is doing well post-operatively without concerns. He denies otalgia, otorrhea, or hearing changes. He did have a hearing aid consult with one of our audiologists and is in the process of getting amplification. MIKAEL MCKEON MD [address] [place] [address], [address], [facility] - [facility] 01/17/2024 16:43:22
--- OUTSIDE RECORDS SUMMARY | 2024-01-22 15:44 | XMS_ITS | Data Portability ---
Author Organization [place] - [facility], Allergy Address [address] [address] Care Team Providers Care Grocery Deliverer Name Role Phone COLLIN CAPRI Primary Care [...] hearing aid evaluation. All questions were answered. [email or web address] Not available 09/20/2023 12:21:08 12/07/2023 12/07/2023 Both [...] is good three year data showing the fci success as well. We discussed the risks [...] patient with the contact information for my spares scheduler. We will begin the scheduling process and see the patient back at the time of surgery. Patient will not require medical clearance from their primary care provider preoperatively. [email or web address] Not available 12/07/2023 13:53:21 01/17/2024 01/17/2024 68 [...] Details Appointments Establish ed 60 2024 02:00P Isrrael DRUMMOND PA-C Not available Not available Not available Lab None recorded. Referral None recorded. Procedures None recorded. Surgeries nasophary ngoscopy, surgical, with dilation of eustachia n tube; bilateral (SURG) 2023 024 [email or web address] Not available 12/07/2023 16:27:18 Imaging None recorded. Medication Orders None recorded. Patient TargetsNo targets recorded. Patient InstructionsNo instructions recorded. Reason for Referral None Reported. Results Created Date Observation Date Name Description Value Unit Range Abnormal Flag Note LastModifiedBy Organization Detail LastModifiedTime 09/21/19 24 audio gram No observ ation record ed. BARCODE Not Available 2023 12:23:19 01/18/20 24 audio gram No observ ation record ed. BARCODE Not Available 2023 09:28:00 Result Notes None recorded. Problems Name Problem SNOMED Code Status Onset Date Resolution Date Notes Provider Name and Address Organization Details Recorded Time Impacted cerumen of bilateral ears 28548697267 08746 Active 2018 Impacted cerumen, bilateral ; Note: Date Diagnosed : 07/31/2018 10:13 AM (H61.23) Not Available Pending sale to [facility] 4 02:47:52 Otitis externa of right ear 21499817521 21649 Active 2016 Other otitis externa, right ear; Note: Date Diagnosed : 7 9:51 AM (H60.8X1) Not Available Pending sale to [facility] 4 02:47:48 Acute sinusitis 62378760 Active 2017 Acute sinusitis , unspecifi ed; Note: Date Diagnosed : 12/12/2017 9:57 AM (J01.90) Not Available Pending sale to [facility] 4 02:47:45 Impacted cerumen in left ear 13460939144 29906 Active 2016 Impacted cerumen, left ear; Note: Date Diagnosed : 04/05/2016 11:17 AM (H61.22) Not Available Pending sale to [facility] 4 02:47:52 Disorder of left Eustachia n tube 51378469136 83174 Active 2016 Other specified disorders of Eustachia n tube, left ear; Note: Date Diagnosed : 03/08/2016 10:00 AM (H69.82) Not Available Pending sale to [facility] 4 02:47:47 Bilateral disorder of Eustachia n tubes 26106902347 76194 Active 2018 Other specified disorders of Eustachia n tube, bilateral ; Note: Date Diagnosed : 07/31/2018 10:14 AM (H69.83) Not Available Pending sale to [facility] 4 02:47:53 Snoring 51480394 Active 2016 Snoring; Note: Date Diagnosed : 7 10:09 AM (R06.83) Not Available Pending sale to [facility] 4 02:47:52 Abnormal auditory perceptio n 03613312 Active 2018 Other abnormal auditory perceptio ns, bilateral ; Note: Date Diagnosed : 07/31/2018 10:15 AM (H93.293) Not Available Pending sale to [facility] 4 02:47:45 Mixed conductiv e and sensorine ural hearing loss, bilateral 184416616 Active 2023 KIA TOPETE, SHARON [facility], [facility] [place], [address] , [place] - [facility] 4 12:05:14 Bilateral adhesive otitis media of middle ears 26595013101 93617 Active 2023 KATI OBANDO MD [address] [facility],[place] [address], [facility] [place], [address] , [place] - [facility] 4 13:46:05 Sensorine ural hearing loss of bilateral ears 896143020 Active 2023 Paola walters [place] - [facility] 4 15:09:55 Problem Notes None recorded. Procedures Surgical History Date Name Laterality Status Provider Name and Address Organization Details Recorded Time Comp Audio with Tymps (90631 & 15262) completed Paola aRmsay [place] - [facility] 01/17/2024 15:09:47 NASOPHARYNGOSCOPY, SURGICAL, WITH DILATION OF EUSTACHIAN TUBE; BILATERAL (SURG) completed Philip Nance [place] - [facility] [place] [facility] 12/22/2023 15:46:47 Fiberoptic Nasopharyngoscopy completed KATI OBANDO MD [address] [facility],[place] [address], [place], [address], [place] - [facility] 12/07/2023 13:52:03 024 Comp Audio with Tymps (84515 & 14000) completed KIA TOPETE, SHARON [address] [facility],[place] [address], [place], [address], [place] - [facility] 09/20/2023 12:04:29 024 Cerumen removal without microscope bilat completed SHAYE GUIDRY PA-C [address] [place] [address],[place] [address], [place], [address], [place] - [facility] 09/20/2023 11:33:24 Imaging Results Imaging Date Name Status LastModified by Organiz ation Details LastModified Time 09/21/2023 audiogram completed BARCODE Information no t available 09/21/2023 12:23:19 01/18/2024 audiogram completed BARCODE Information no t available 01/18/2024 09:28:00 Procedure Notes None recorded. Medical Equipment None [...] dose pack 07/31 completed Medicati on ID: [id number] P wilbert d By Name: Adi Ewing nd Name: Medrol (Corey) Se nd Method: E-Prescr ibed Sub s Allowed: subs OK Speci al Instruct ion: take as instruct ed Medic ationGen ericName : Medrol (Corey) Not Available Not Available Not Available bisoprolo l 5 mg-hydroc hlorothia zide 6.25 mg tablet 12/12 completed Medicati on ID: [id number] D uration Value: 90 Reason: () Brand Name: bisoprol ol-hydro chloroth iazide S end Method: E-Prescr ibed Sub s Allowed: subs OK Medic ationGen ericName : bisoprol ol-hydro chloroth iazide Not Available Not Available Not Available Ciloxan 0.3 % eye drops 09/19 completed Medicati on ID: [id number] D uration Value: 5 Prescri bed By [...] mg tablet 12/06 completed Medicati on ID: [id number] D uration Value: 90 Reason: () Brand Name: moexipri l Send Method: E-Prescr ibed Sub s Allowed: subs OK Medic ationGen ericName : moexipri l Not Available Not Available Not Available clotrimaz ole 1 % topical solution 12/12 completed Medicati on ID: [id number] P rescribe d By Name: Adi Ewing nd Name: clotrima zole Sen d Method: E-Prescr ibed Sub s Allowed: subs OK Speci al Instruct ion: 5 drops to affected ear twice a day Medi cationGe nericNam e: clotrima zole Not Available Not Available Not Available hydrochlo rothiazid e 25 mg tablet 09/19 completed Medicati on ID: [id number] D uration Value: 30 Brand Name: hydrochl [...] layed release 2016 active Medicati on ID: [id number] B rand Name: Aspir-81 Send Method: E-Prescr [...] mg capsule 09/19 completed Medicati on ID: [id number] D uration Value: 90 Brand Name: amlodipi [...] Updated DateTime 09/20/2023 177.8 cm 33.3 kg/m2 949339.43 g Teri Ferrer [place] - [facility] 09/20/2023 11:08:31 Date Recorded Body height Body weight Body mass index (BMI) Provider Name and Address Organization Details Last Updated DateTime 12/07/2023 177.8 cm 199839.25 g 33 kg/m2 Nayla Hank [place] - [facility] 12/07/2023 13:03:59 Date Recorded Body height Body mass index (BMI) Body weight Provider Name and Address Organization Details Last Updated DateTime 01/17/2024 177.8 cm 36.2 kg/m2 300403.28 g Joanie Krishnamurthyrenée [place] - [facility] 01/17/2024 15:21:34 Social History None recorded. Functional Status None recorded. Mental Status None recorded. Family History Nothing Reported. Medical History Condition Response Hypertension Y Past Encounters Encounter ID Performer Location Encounter Start Date Encounter Closed Date Diagnosis/Indication Diagnosis SNOMED-CT Code Diagnosis ICD10 Code [id number] SHAYE GUIDRY PA-C [facility] [address] [address] 09/20/2023 10:45:58 09/20/2023 12:16:15 Bilateral disorder of Eustachian tubes 6619880264 087756 H69.83 Impacted c erumen of bilateral ears 4574812766 315622 H61.23 Mixed cond uctive and sensorineural hearing loss, bilateral 267697636 H90.6 [id number] KATI OBANDO MD [facility] [address] [address] 12/07/2023 12:56:27 12/07/2023 13:54:32 Bilateral disorder of Eustachian tubes 7942028403 759803 H69.83 Bilateral adhesive otitis media of middle ears 1196550969 287178 H74.13 [id number] SHARON GEE PLUN[place] [address] [place] [address] [address] 12/29/2023 09:05:09 01/01/2024 06:57:56 Mixed conductive and sensorineural hearing loss, bilateral 342048739 H90.6 [id number] MIKAEL JACQUES MD [facility] [address] [address] 01/17/2024 14:22:08 01/17/2024 16:27:24 Bilateral disorder of Eustachian tubes 9985374966 825911 H69.83 Sensorineu ral hearing loss of bilateral ears 743540220 H90.3 Health Concerns Section Related Observation LastModified by Organization Detai ls LastModified Time None Recorded Concern Status LastModified by Organization Details LastModified Time None Recorded Advance Directives Directive None Recorded Payers Encounter Date Sequence Insurance Name Policy Number Policy Murillo Covered Member ID Murillo Member ID Guarantor Name 09/20/2023 1 [employer] MEDICARE ADVANTAGE PLAN (MEDICARE REPLACEMENT HMO) [id number] 12 Suzan Movile [id number] Szuan W[employer] 12/07/2023 1 [employer] MEDICARE ADVANTAGE PLAN (MEDICARE REPLACEMENT HMO) [id number] Suzan Winchester [employer] [id number] Suzan Winchester [employer] 12/29/2023 1 [employer] MEDICARE ADVANTAGE PLAN (MEDICARE REPLACEMENT HMO) [id number] Suzan Winchester [employer] [id number] Suzan Winchester [employer] 01/17/2024 1 [employer] MEDICARE ADVANTAGE PLAN (MEDICARE REPLACEMENT HMO) [id number] 12 Suzan Movile [id number] SuzanHealios K.K Notes Date Note Type Note Provider Name and Address Organization Details Recorded Time 4 text/html 68-year-old male presents for evaluation of blocked ears. Longstanding history of eustachian tube dysfunction with prior BMT with Dr. Gunn. 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 More recently he has been having occasional yellow to clear drainage from his right ear which comes and goes. He has been having blocked hearing on that side as well that responds fairly well to auto insufflation. The left ear has also been bothersome but not as much. SHAYE GUIDRY PA-C [address] [place] [address], [address], [facility] - [facility] 09/20/2023 12:21:42 4 text/html 60-year-old male, former [...] improvement in symptoms. KATI OBANDO MD [address] [facility],[address], [address], [facility] 12/07/2023 13:54:37 4 text/html Pt is {{a* [...] will be ordering:{{Oticon phonak * Widex}} {{ ahbdur11 or yzjxqbd16#}}Agricultural Systems Specialist: {{ 2M#}}Domes: {{ medium open#}} He need sto do some research, but will let me know what he would like to do. SHARON GEE [address] [facility],[place] [address], [place], [address], [place] - [facility] 12/29/2023 10:28:21 4 text/html 68 year old male presents s/p BMT with bilateral balloon dilation with Dr. Obando on 12/20/2023. He is doing well post-operatively without concerns. He denies otalgia, otorrhea, or hearing changes. He did have a hearing aid consult with one of our audiologists and is in the process of getting amplification. MIKAEL MCKEON MD [address] [place] [address], [place], [address], [facility] - [facility] 01/17/2024 16:43:22
--- OUTSIDE RECORDS SUMMARY | 2024-01-22 15:45 | XMS_ITS | Continuity of Care Document ---
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 We discussed the risks [...] with the contact information for my surgical manager. We will begin the scheduling process and see the patient back at the time of surgery. Patient will not require medical clearance from their primary care provider preoperatively. [email or web address] Not available 12/07/2023 13:53:21 Plan of Treatment Reminders Order Date Submit Date Provider Last Modified By Organization Details Last Modified Time Details Appointments Establish ed 60 2024 02:00P M KIM DRUMMOND PA-C Not available Not available Not available Lab None recorded. Referral None recorded. Procedures None recorded. Surgeries nasophary ngoscopy, surgical, with dilation of eustachia n tube; bilateral (SURG) 2023 024 [email or web address] Not available 12/07/2023 16:27:18 Imaging None recorded. [...] Recorded Time Impacted cerumen of bilateral ears 00157508493 11614 Active 2018 Impacted cerumen, bilateral ; Note: Date Diagnosed : 07/31/2018 10:13 AM (H61.23) Not Available [facility] 4 02:47:52 Otitis externa of right ear 46139146868 61385 Active 2016 Other otitis externa, right ear; Note: Date Diagnosed : 7 9:51 AM (H60.8X1) Not Available [facility] 4 02:47:48 Acute sinusitis 78968680 Active 2017 Acute sinusitis , unspecifi ed; Note: Date Diagnosed : 12/12/2017 9:57 AM (J01.90) Not Available [facility] 4 02:47:45 Impacted cerumen in left ear 84058857137 05563 Active 2016 Impacted cerumen, left ear; Note: Date Diagnosed : 04/05/2016 11:17 AM (H61.22) Not Available [facility] 4 02:47:52 Disorder of left Eustachia n tube 76345612084 00994 Active 2016 Other specified disorders of Eustachia n tube, left ear; Note: Date Diagnosed : 03/08/2016 10:00 AM (H69.82) Not Available [facility] 4 02:47:47 Bilateral disorder of Eustachia n tubes 28538415568 06792 Active 2018 Other specified disorders of Eustachia n tube, bilateral ; Note: Date Diagnosed : 07/31/2018 10:14 AM (H69.83) Not Available [facility] 4 02:47:53 Snoring 49881263 Active 2016 Snoring; Note: Date Diagnosed : 7 10:09 AM (R06.83) Not Available [facility] 4 02:47:52 Abnormal auditory perceptio n 05822076 Active 2018 Other abnormal auditory perceptio ns, bilateral ; Note: Date Diagnosed : 07/31/2018 10:15 AM (H93.293) Not Available [facility] 4 02:47:45 Mixed conductiv e and sensorine ural hearing loss, bilateral 137536259 Active 2023 SHARON HOOD [address] [place] [address], [facility] [place], [address] , [facility] - [facility] 4 12:05:14 Bilateral adhesive otitis media of middle ears 87806001087 54498 Active 2023 KATI OBANDO MD [address] [place] [address], [facility] [place], [address] , [facility] - [facility] 4 13:46:05 Sensorine ural hearing loss of bilateral ears 517038599 Active 2023 Paola walters [place] - [facility] 4 15:09:55 Problem Notes None recorded. Procedures Surgical History Date Name Laterality Status Provider Name and Address Organization Details Recorded Time Comp Audio with Tymps (10442 & 02626) completed Paola Ramsay [place] - [facility] 01/17/2024 15:09:47 NASOPHARYNGOSCOPY, SURGICAL, WITH DILATION OF EUSTACHIAN TUBE; BILATERAL (SURG) completed Philip Nance [place] - [facility] 12/22/2023 15:46:47 024 Fiberoptic Nasopharyngoscopy completed KATI OBANDO MD 100 [facility],[place] [address], [place], [address], [facility] 12/07/2023 13:52:03 024 Comp Audio with Tymps (07478 & 22607) completed SHARON HOOD 100 [facility] 100, [place], [address], [facility] - [facility] 09/20/2023 12:04:29 024 Cerumen removal without microscope bilat completed SHAYE GUIDRY PA-C 100 [facility],[place] [address], [place], [address], [facility] 09/20/2023 11:33:24 Imaging Results None recorded. [...] dose pack 07/31 completed Medicati on ID: [id number] P rescriester d By Name: Adi Ewing nd Name: Medrol (Corey) Se nd Method: E-Prescr ibed Sub s Allowed: subs OK Speci al Instruct ion: take as instruct ed Medic ationGen ericName : Medrol (Corey) Not Available Not Available Not Available bisoprolo l 5 mg-hydroc hlorothia zide 6.25 mg tablet 12/12 completed Medicati on ID: [id number] D uration Value: 90 Reason: () Brand Name: bisoprol ol-hydro chloroth iazide S end Method: E-Prescr ibed Sub s Allowed: subs OK Medic ationGen ericName : bisoprol ol-hydro chloroth iazide Not Available Not Available Not Available Ciloxan 0.3 % eye drops 09/19 completed Medicati on ID: [id number] D uration Value: 5 Prescri bed By [...] mg tablet 12/06 completed Medicati on ID: [id number] D uration Value: 90 Reason: () Brand Name: moexipri l Send Method: E-Prescr ibed Sub s Allowed: subs OK Medic ationGen ericName : moexipri l Not Available Not Available Not Available clotrimaz ole 1 % topical solution 12/12 completed Medicati on ID: [id number] P rescribe d By Name: Adi Ewing nd Name: clotrima zole Sen d Method: E-Prescr ibed Sub s Allowed: subs OK Speci al Instruct ion: 5 drops to affected ear twice a day Medi cationGe nericNam e: clotrima zole Not Available Not Available Not Available hydrochlo rothiazid e 25 mg tablet 09/19 completed Medicati on ID: [id number] D uration Value: 30 Brand Name: jerome orothiaz leonardo Send Method: E-Prescr ibed Sub [...] layed release 2016 active Medicati on ID: [id number] B rand Name: Aspir-81 Send Method: E-Prescr [...] mg capsule 09/19 completed Medicati on ID: [id number] D uration Value: 90 Brand Name: amlodipi [...] Details Last Updated DateTime 12/07/2023 177.8 cm 592124.25 g 33 kg/m2 Nayla Mckinney [place] - [facility] 12/07/2023 13:03:59 Social History None recorded. Functional Status None recorded. Mental Status None recorded. Family History Nothing Reported. Medical History Condition Response Hypertension Y Past Encounters Encounter ID Performer Location Encounter Start Date Encounter Closed Date Diagnosis/Indication Diagnosis SNOMED-CT Code Diagnosis ICD10 Code [id number] KATI OBANDO MD [facility] [address] [address] 12/07/2023 12:56:27 12/07/2023 13:54:32 Bilateral disorder of Eustachian tubes 1000687872 099406 H69.83 Bilateral adhesive otitis media of middle ears 2488288225 434803 H74.13 Health Concerns Section Related Observation LastModified by Organization Detai ls LastModified Time None Recorded Concern Status LastModified by Organization Details LastModified Time None Recorded Payers Encounter Date Sequence Insurance Name Policy Number Policy Murillo Covered Member ID Murillo Member ID Guarantor Name 12/07/2023 1 [employer] MEDICARE ADVANTAGE PLAN (MEDICARE REPLACEMENT HMO) [id number] Suzan Winchester Min [id number] Suzan Winchester Min Notes Date Note Type Note Provider [...] any improvement in symptoms. KATI OBANDO MD [address] [place] [address], [address], [place] - [facility] 12/07/2023 13:54:37
--- OUTSIDE RECORDS SUMMARY | 2024-01-22 15:45 | XMS_ITS | Continuity of Care Document ---
Author Organization [place] - [facility] Address [address] [address] Care Team Providers Care Account Support Associate Name Role Phone CAPRI POLANCO Primary Care Provider [phone] Assessment No assessment recorded. Plan of Treatment [...] Recorded Time Impacted cerumen of bilateral ears [id number] 48014 Active 2018 Impacted cerumen, bilateral ; Note: Date Diagnosed : 07/31/2018 10:13 AM (H61.23) Not Available [facility] 4 02:47:52 Otitis externa of right ear [id number] 78783 Active 2016 Other otitis externa, right ear; Note: Date Diagnosed : 7 9:51 AM (H60.8X1) Not Available [facility] 4 02:47:48 Acute sinusitis 82900536 Active 2017 Acute sinusitis , unspecifi ed; Note: Date Diagnosed : 12/12/2017 9:57 AM (J01.90) Not Available [facility] 4 02:47:45 Impacted cerumen in left ear [id number] 07586 Active 2016 Impacted cerumen, left ear; Note: Date Diagnosed : 04/05/2016 11:17 AM (H61.22) Not Available [facility] 4 02:47:52 Disorder of left Eustachia n tube 16741319769 17008 Active 2016 Other specified disorders of Eustachia n tube, left ear; Note: Date Diagnosed : 03/08/2016 10:00 AM (H69.82) Not Available [facility] 4 02:47:47 Bilateral disorder of Eustachia n tubes 41415378320 40819 Active 2018 Other specified disorders of Eustachia n tube, bilateral ; Note: Date Diagnosed : 07/31/2018 10:14 AM (H69.83) Not Available [facility] 4 02:47:53 Snoring 89881238 Active 2016 Snoring; Note: Date Diagnosed : 7 10:09 AM (R06.83) Not Available [facility] 4 02:47:52 Abnormal auditory perceptio n 01869233 Active 2018 Other abnormal auditory perceptio ns, bilateral ; Note: Date Diagnosed : 07/31/2018 10:15 AM (H93.293) Not Available [facility] 4 02:47:45 Mixed conductiv e and sensorine ural hearing loss, bilateral 339220075 Active 2023 SHARON OHOD 100 [facility] 100, [place], [address] , [facility] - [facility] 4 12:05:14 Bilateral adhesive otitis media of middle ears 42710555842 27296 Active 2023 KATI OBANDO MD [address] [facility], [place], [phone] , [facility] - [facility] 4 13:46:05 Sensorine ural hearing loss of bilateral ears 447366622 Active 2023 Paola walters [facility] [place] 15:09:55 Problem Notes None recorded. Procedures Surgical History Date Name Laterality Status Provider Name and Address Organization Details Recorded Time Comp Audio with Tymps (14520 & 81154) completed Paola Ramsay [place] - [facility] 01/17/2024 15:09:47 NASOPHARYNGOSCOPY, SURGICAL, WITH DILATION OF EUSTACHIAN TUBE; BILATERAL (SURG) completed Philip Nance [facility] 12/22/2023 15:46:47 Fiberoptic Nasopharyngoscopy completed KATI OBANDO MD [address] [place] [address], [phone], [facility] 12/07/2023 13:52:03 Comp Audio with Tymps (83584 & 19113) completed SHARON HOOD [address] [place] [address], [phone], [facility] 09/20/2023 12:04:29 024 Cerumen removal without microscope bilat completed SHAYE SERRANO PA-C [address] [place] [address], [phone], [facility] 09/20/2023 11:33:24 Imaging Results None recorded. [...] dose pack 07/31 completed Medicati on ID: [id number] P rescribe d By Name: Adi Ewing nd Name: Medrol (Corey) Se nd Method: E-Prescr ibed Sub s Allowed: subs OK Speci al Instruct ion: take as instruct ed Medic ationGen ericName : Medrol (Corey) Not Available Not Available Not Available bisoprolo l 5 mg-hydroc hlorothia zide 6.25 mg tablet 12/12 completed Medicati on ID: [id number] D uration Value: 90 Reason: () Brand Name: bisoprol ol-hydro chloroth iazide S end Method: E-Prescr ibed Sub s Allowed: subs OK Medic ationGen ericName : bisoprol ol-hydro chloroth iazide Not Available Not Available Not Available Ciloxan 0.3 % eye drops 09/19 completed Medicati on ID: [id number] D uration Value: 5 Prescri bed By [...] mg tablet 12/06 completed Medicati on ID: [id number] D uration Value: 90 Reason: () Brand Name: moexipri l Send Method: E-Prescr ibed Sub s Allowed: subs OK Medic ationGen ericName : moexipri l Not Available Not Available Not Available clotrimaz ole 1 % topical solution 12/12 completed Medicati on ID: [id number] P rescribe d By Name: Adi Ewing nd Name: clotrima zole Sen d Method: E-Prescr ibed Sub s Allowed: subs OK Speci al Instruct ion: 5 drops to affected ear twice a day Medi cationGe nericNam e: clotrima zole Not Available Not Available Not Available hydrochlo rothiazid e 25 mg tablet 09/19 completed Medicati on ID: [id number] D uration Value: 30 Brand Name: hydrochl [...] layed release 2016 active Medicati on ID: [id number] B rand Name: Aspir-81 Send Method: E-Prescr [...] mg capsule 09/19 completed Medicati on ID: [id number] D uration Value: 90 Brand Name: hedy anguiano epril Se nd Method: E-Prescr ibed Sub s Allowed: subs OK Speci al Instruct ion: TAKE 1 CAPSULE BY MOUTH ONCE DAILY Me dication GenericN zaki: dagobertoodirakel severino-leroy epril Not Available Not Available Not [...] Diagnosis/Indication Diagnosis SNOMED-CT Code Diagnosis ICD10 Code [id number] KATI OBANDO MD [facility] [address] [address] 12/07/2023 12:56:27 12/07/2023 13:54:32 Bilateral disorder of Eustachian tubes [id number] 595841 H69.83 Bilateral adhesive otitis media of middle ears 8276455685 044863 H74.13 [id number] SHARON GEE [facility] [address] [place] [address] [place] [phone] 12/29/2023 09:05:09 01/01/2024 06:57:56 Mixed conductive and sensorineural hearing loss, bilateral [id number] H90.6 Health Concerns Section Related Observation LastModified by Organization Detai ls LastModified Time None Recorded Concern Status LastModified by Organization Details LastModified Time None Recorded Payers Encounter Date Sequence Insurance Name Policy Number Policy Murillo Covered Member ID Murillo Member ID Guarantor Name 12/29/2023 1 [employer] - MEDICARE ADVANTAGE PLAN (MEDICARE REPLACEMENT HMO) [id number] Suzan Min [id number] Suzan Min Notes Date Note Type Note [...] will be ordering:{{Oticon p honak* Widex}} {{ pldppe01 or tvwacgw80#}}Receive r: {{ 2M#}}Domes: {{ medium open#}} He need sto do some research, but will let me know what he would like to do. ROZINA MULLINS, [facility] [address] [facility],[place] [address], [place], [address], [facility] - [facility] 12/29/2023 10:28:21
--- NOTE | 2024-01-22 16:13 | A.OFFPC_ITS ---
Vital Signs 01/22/24 16:19 Height 5 ft 9.5 in Weight 248 lb 2 oz BMI 36.1 BP 116/66 Blood Pressure Location Rt brachial Position Sitting Respiration 16 Pulse 86 Pulse Source Pulse Oximeter Temp 98.0 F Temp Source Oral Pulse Oximetry (%) 98 Oxygen Delivery Method Room Air Intake Visit Reasons: 3 Months f/u a1c Intake Note: 3month f/u a1c Allergies No Known Allergies Allergy (Verified 01/22/24 16:18) Tobacco use date assessed: 07/13/23 Dental Screening Dental Screen Date: 07/13/23 HPI 3 Months f/u a1c HPI Details 68 y/o male presents to f/u pre-diabetes . Last A1c 6.3%. A1c today 01/22/24 5.7%. Labs drawn 01/16/24. Reviewed labs with pt. Ongoing anemia. Blood pressure today 116/66, 86p. He is on metoprolol 50mg, amlodipine-benazepril 10-25mg daily. [facility] Medical History No pertinent past medical history Surgical History History of hernia repair Family History Father Kidney failure Mother Congenital heart disease Brother No problems noted. Sister No problems noted. Sister No problems noted. Sister No problems noted. Son No problems noted. Daughter No problems noted. 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 1. Little interest or pleasure in doing things: not at all 2. Feeling down, depressed, or hopeless: not at all 3. Trouble falling or staying asleep, or sleeping too much: several days 4. Feeling tired or having little energy: not at all 5. Poor appetite or overeating: not at all 6. Feeling bad about yourself - or that you are a failure or have let yourself or your family down: not at all 7. Trouble concentrating on things, such as reading the newspaper or watching television: not at all 8. Moving or speaking so slowly that other people could have noticed. Or the opposite - being so fidgety or restless that you have been moving around a lot more than usual: not at all 9. Thoughts that you would be better off or of hurting yourself in some way: not at all Total score: 1 Source: Developed by Drs. Leopoldo Pacheco, Skye Clarke, Charlie Funk and colleagues, with an educational baldomero from [employer]. Thrive Questionnaire Date Thrive assessed: 11/03/23 I am a: Patient What is your living situation today?: I have a steady place to live Within the past 12 months, did the food you bought not last and you didn't have the money to get more?: Never true Within the past 12 months, did you worry whether your food would run out before you got money to buy more?: Never true Do you have trouble paying for medicines?: No Do you have trouble getting transportation to medical appointments?: No Do you have trouble paying your heating and electricity bill?: No Do you have trouble taking care of your child, family member or friend?: No Do you have trouble with day-to-day activities such as bathing, preparing meals, shopping, managing finances, etc.?: No Are you currently unemployed and looking for a job?: No Are you interested in more education?: No Please select the resources that you would like help with: None Currently or been in a relationship where the following occur: No concerns reported THRIVE Score: 0 AUDIT C Alcohol Use Questionnaire (AUDIT-C) 1. How often do you have a drink containing alcohol?: 2-3 times a week 2. How many drinks containing alcohol do you have on a typical day when you are drinking?: 1 or 2 3. How often do you have six or more drinks on one occasion?: Never Total Score: 3 TONA-7 AMB Questionnaire TONA-7 Date TONA - 7 assessed: 11/03/23 Feeling nervous, anxious, or on edge: 0 = Not at all Not being able to stop or control worryin = Not at all Worrying too much about different things: 0 = Not at all Trouble relaxin = Not at all Being so restless that it is hard to sit still: 0 = Not at all Becoming easily annoyed or irritable: 0 = Not at all Feeling afraid as if something awful might happen: 0 = Not at all Total TONA-7 score (0-4 normal; 5-9 mild; 10-14 moderate; 15-21 severe): 0 Source: Developed by Drs. Leopoldo Pacheco, Skye Clarke, Charlie Funk and colleagues, with an educational baldomero from [employer]. Review of Systems Const Denies chills, Denies fatigue, Denies fever(s), Denies headache(s) and Denies weakness ENT Denies dizziness and Denies headache(s) Card Denies dyspnea Resp Denies cough, Denies dyspnea, Denies wheezing and Denies other (shortness of breath) Musc Denies numbness and Denies tingling Neuro Denies dizziness, Denies headache(s), Denies numbness, Denies tingling and Denies weakness Psych Denies anxiety and Denies depression Endo Denies fatigue Aller/Immun Denies wheezing Physical exam (Primary Care) Vital Signs: Last Vital Signs Temp 98.0 F 01/22/24 16:19 Pulse 86 01/22/24 16:19 Resp 16 01/22/24 16:19 BP 116/66 01/22/24 16:19 Pulse Ox 98 01/22/24 16:19 Oxygen Delivery Method Room Air 01/22/24 16:19 BMI result Body Mass Index 36.1 Tobacco/Smoking Status: Tobacco use Status Tobacco use date assessed 07/13/23 01/22/24 16:15 Patient Tobacco Use Status Former Tobacco user 01/22/24 16:15 e-Cigarette/Vaping Use Never Used 01/22/24 16:15 PHQ-9: PHQ-9 Score PHQ-9: Total score 1 01/22/24 16:48 Thrive Assessment: Date of Thrive Assessment Date Thrive assessed 11/03/23 01/22/24 16:15 Currently or been in a relationship where the following occur: No concerns reported Const General: well developed; No acute distress Nutritional Appearance: well nourished Orientation/consciousness: patient oriented x3 HENMT Head: Yes normocephalic and Yes atraumatic Eyes General: appearance normal, both eyes and all related structures Pupils: Equal, round and reactive pupils present EOM: EOMs intact bilaterally Resp Effort & Inspection: normal respiratory effort Auscultation: clear to auscultation bilaterally Cardio Rate: regular rate Rhythm: regular rhythm Heart sounds: S1 normal heart sound present, S2 normal heart sound present, no gallops, no murmurs and no rubs Neuro General: patient oriented x3 and gait normal Cranial nerves: Yes Equal, round and reactive pupils present Psych Affect: normal affect Coding Level of Care Code Est Pt Level 4 (29499) Diagnoses Pre-diabetes R73.03 HTN (hypertension) I10 CKD (chronic kidney disease) N18.9 Hyperlipidemia E78.5 Mild anemia D64.9 Elevated liver enzymes R74.8 Immunization counseling Z71.85 Smoker F17.200 Assessment & Plan Assessment & Plan (1) Pre-diabetes: Code(s): R73.03 - Prediabetes Category: Medical Plan: A1c?5.7%. Still?in?pre?diabetes?range Encouraged?diet?lower?in?sugars?and?starches Encouraged?exercise?and?weight?loss (2) HTN (hypertension): Code(s): I10 - Essential (primary) hypertension Category: Medical Plan: Blood?pressure?is?well?controlled.??Goal?is?less?than?140/90 Continue?her?medications (3) CKD (chronic kidney disease): Code(s): N18.9 - Chronic kidney disease, unspecified Category: Medical Plan: Creatinine?level?is?still?mildly?elevated?but?stable Follow-up?with?nephrology (4) Hyperlipidemia: Code(s): E78.5 - Hyperlipidemia, unspecified Category: Medical Plan: Encouraged?patient?work?on?his?saturated?fats?and?cholesterol.??Encouraged?weigh t?loss?and?exercise (5) Mild anemia: Code(s): D64.9 - Anemia, unspecified Category: Medical Plan: Stable Will?continue?to?monitor (6) Elevated liver enzymes: Code(s): R74.8 - Abnormal levels of other serum enzymes Category: Medical Plan: Mildly?elevated?AST Encouraged?weight?loss?hydration?and?watch?alcohol?consumption Will?recheck?prior?to?next?visit (7) Immunization counseling: Code(s): Z71.85 - Encounter for immunization safety counseling Category: Medical Plan: Due?for?flu?shot.??Ordered (8) Smoker: Code(s): F17.200 - Nicotine dependence, unspecified, uncomplicated Category: Social Hx Plan: Patient?resumed?smoking?and?would?like?to?restart?Chantix Will?send?script Orders: Orders Comprehensive [place]. Panel Fast Today R74.8 - Abnormal levels of other serum enzymes, Z00.00 - Encounter for general adult medical examination without abnormal findings Lipid Panel Today E78.5 - Hyperlipidemia, unspecified, Z00.00 - Encounter for general adult medical examination without abnormal findings Influenza [id number] Immunization Today Z23 - Encounter for immunization Medications: New Fluarix Triv [id number] (PF) (flu vacc [id number] 6mos up(PF)) 0.5 mL IM ONCE 0.5 mL 0RF NS Z23 - Encounter for immunization varenicline PO PER PKG DIR 53 ea 0RF F17.200 - Nicotine dependence, unspecified, uncomplicated
[2024-01-22 16:19] VITALS: BP 116/66; PULSE 86; RESP 16; TEMP 36.7; O2SAT 98; BMI 36.1
== END 2024-01-22 16:59 | disposition home or self-care (01) ==
PROVIDERS: PCP Family Medicine; Visit Provider Family Medicine
DX: R73.03 Prediabetes (principal); I12.9 Hypertensive chronic kidney disease with stage 1 through stage 4 chronic kidney disease, or unspecified chronic kidney disease; N18.9 Chronic kidney disease, unspecified; E78.5 Hyperlipidemia, unspecified; D64.9 Anemia, unspecified; R74.8 Abnormal levels of other serum enzymes; Z71.85 Encounter for immunization safety counseling; F17.200 Nicotine dependence, unspecified, uncomplicated; Z23 Encounter for immunization

== ENCOUNTER → 2024-01-22 15:43 | Outpatient (BNVA) | payer MEDICARE, SELFPAY | PROVIDERS: PCP Family Medicine; Visit Provider Family Medicine | DX: Z23 Encounter for immunization (principal); R73.03 Prediabetes; I12.9 Hypertensive chronic kidney disease with stage 1 through stage 4 chronic kidney disease, or unspecified chronic kidney disease; N18.9 Chronic kidney disease, unspecified; E78.5 Hyperlipidemia, unspecified; D64.9 Anemia, unspecified; R74.8 Abnormal levels of other serum enzymes; F17.200 Nicotine dependence, unspecified, uncomplicated; Z71.85 Encounter for immunization safety counseling | CPT/HCPCS: 83036; 90471; 90656; 96127; 99212 ==

== ENCOUNTER 2024-01-24 08:54 | Outpatient (AMB) | payer MEDICARE, SELFPAY ==
[2024-01-24 08:57] VITALS: BP 160/78; PULSE 98; O2SAT 98; BMI 36.5
--- NOTE | 2024-01-24 08:57 | HO.NEPHOV_ITS ---
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 Dx: I10. Daily As directed, 999 days/lifetime ezetimibe 10 mg PO DAILY fenofibrate 160 mg PO DAILY 90 days fluticasone propionate 50 mcg/actuation (Flonase Allergy Relief) 1 spray intranasal Q12H 90 days metoprolol succinate ER 50 mg PO DAILY 30 days varenicline PO PER PKG DIR zolpidem (Ambien) 5 mg PO BEDTIME PRN 30 days HPI Comments Details: Suzan is a pleasant middle-aged man with a history of hypertension for more than 30 years. Overall blood pressure has been well controlled. He was on amlodipine benazepril 5/40 once a day. He was on hydrochlorothiazide which was discontinued about a year ago. He is still on spironolactone 25 mg a day. In August 2021 serum creatinine was 1.29 mg/dL and this was probably his baseline. In October of 2022 serum creatinine was 1.77 and a repeat creatinine was 2.01 and further increased to 2.18 Amlodipine-benazepril has been decreased to 5/20 once a day as of 12/15/2022 and has been referred for further evaluation. Of note he was also found to have hyperkalemia depression 5.7. Suzan tells me that his blood pressure has been well controlled he has no specific complaints today. He has had difficulty urination for quite some time. Last digital examination of the prostate was few years ago. He has been recently diagnosed with obstructive sleep apnea and he uses CPAP. He does wake up in the middle of the night once or twice to urinate. No hematuria. No line pain. No shortness of breath. No cough no hemoptysis. No diarrhea constipation. No rash no fever no weight loss. No joint pain or swelling. 12/28/2022 During his last visit spironolactone was discontinued due to hyperkalemia. He is on a lower dose of benazepril amlodipine. He had a renal ultrasonogram which was unremarkable except for some simple cysts bilaterally and no further reviewed radiological follow-up was recommended. The re was no obstruction. Today he is feeling fine without any complaints no shortness of breath no nausea vomiting no urinary symptoms no edema. 03/01/2023. Doing well today ;Complained of sinus issues 08/02/2023. From renal standpoint he is doing well. Spironolactone has been restarted. No specific issues today. He is lost about 25 lb with dieting. 01/24/24 OVerall doing well. Gained weight - stopped walking ! USes CPAP [facility] Medical History No pertinent past medical history Surgical History History of hernia repair Family History Father Kidney failure Mother Congenital heart disease Brother No problems noted. Sister No problems noted. Sister No problems noted. Sister No problems noted. Son No problems noted. Daughter No problems noted. 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 Cognitive needs: No Hearing needs: No Vision needs: Yes Physical Exam Vital Signs: Last Vital Signs Pulse 98 01/24/24 08:57 BP 160/78 H 01/24/24 08:57 Pulse Ox 98 01/24/24 08:57 Oxygen Delivery Method Room Air 01/24/24 08:57 BMI result Body Mass Index 36.5 Const General: comfortable Nutritional Appearance: well nourished Orientation/consciousness: patient oriented x3 HEENT Head: No normal to inspection Mouth: moist mucous membranes Eyes General: appearance normal, both eyes and all related structures Visual Maddox: normal visual maddox by confrontation Neck Neck: Yes supple and Yes no JVD Resp Effort & Inspection: normal respiratory effort and respiratory effort not decreased Auscultation: clear to auscultation bilaterally and no rales Cardio Jugular venous distension: no JVD Palpation: no palpable S3 and no palpable S4 Heart sounds: no rubs GI Inspection: Yes normal to inspection Palpation (GI): Soft to palpation and nontender Percussion: No Fluid wave present Auscultation: normal bowel sounds General: Yes no CVA tenderness Back/Spine/Pelvis Back: no CVA tenderness Skin General skin exam: no rashes or lesions noted Neuro General: patient oriented x3 Extrem General: Yes no pedal edema and No clubbing Results Reviewed Nephrology Results: Hgb 12.9 g/dl (14.0-18.0) L 01/16/24 WBC 6.2 X10*3/uL (4.8-10.8) 01/16/24 Plt Count 305 X10*3/uL (160-400) 01/16/24 Sodium 144 mmol/L (135-145) 01/16/24 Potassium 4.6 mmol/L (3.3-5.1) 01/16/24 Chloride 107 mmol/L (96-108) 01/16/24 Carbon Dioxide 26 mmol/L (22-29) 01/16/24 BUN 22 mg/dL (9-16) H 01/16/24 Creatinine 1.49 mg/dL (0.5-1.4) H 01/16/24 Calcium 9.2 mg/dL (8.4-10.2) 01/16/24 Urine Protein Trace mg/dL (Neg-Trace) 01/16/24 Urine Creatinine 134.55 mg/dL 01/16/24 Assessment & Plan Assessment & Plan (1) Renal failure: Code(s): N19 - Unspecified kidney failure Category: Medical Plan: Middle-aged man with acute kidney injury superimposed on chronic kidney disease. Suzan has chronic kidney disease with a baseline creatinine 1.29 with a EGFR of 56 mL/minute as of August 2021. No lab results are available between August 2021 and October 2022. However he has sustained acute kidney injury with the creatinine bumping up to 2.18 and 2.3. The differential diagnosis for acute kidney injury would include Hypoperfusion, No evidence of obstruction based on renal ultrasonogram. No evidence of any active glomerular or interstitial disease at this time based on the bland urinary sediments. Creatinine at baseline. Microalbuminuria in a setting of HTN/Obesity Obesity ANJALI Plan Keep on benazepril-amlodipine to 11/25. Increase p.o. fluid intake Needs weight loss- Increase physical activities (2) Hyperkalemia: Code(s): E87.5 - Hyperkalemia Category: Medical Plan: s/p Hyperkalemia in the setting of acute kidney injury while he was on an JOSSELYN inhibitor and spironolactone. Potassium is under control Discussed low-potassium diet. (3) Anemia: Code(s): D64.9 - Anemia, unspecified Category: Medical Plan: Mild anemia. This may be related to CKD. Shall watch hemoglobin for now. (4) HTN (hypertension): Code(s): I10 - Essential (primary) hypertension Category: Medical Plan: Blood pressure is suboptimal. Primarily due to weigh gain in a setting of ANJALI. I encouraged him to stand low-sodium diet. Discussed weight loss. 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
--- OUTSIDE RECORDS SUMMARY | 2024-01-24 09:02 | XMS_ITS | Continuity of Care Document ---
Author Organization [place] - [facility], [facility] Address [address] [place] [address] Care Team Providers Care Cigarette Tipper Name Role Phone CAPRI POLANCO Primary Care [...] Recorded Time Impacted cerumen of bilateral ears [id number] 94145 Active 2018 Impacted cerumen, bilateral ; Note: Date Diagnosed : 07/31/2018 10:13 AM (H61.23) Not Available [facility] 4 02:47:52 Otitis externa of right ear 17813355864 21766 Active 2016 Other otitis externa, right ear; Note: Date Diagnosed : 7 9:51 AM (H60.8X1) Not Available [facility] 4 02:47:48 Acute sinusitis 36508387 Active 2017 Acute sinusitis , unspecifi ed; Note: Date Diagnosed : 12/12/2017 9:57 AM (J01.90) Not Available [facility] 4 02:47:45 Impacted cerumen in left ear 03102287503 27566 Active 2016 Impacted cerumen, left ear; Note: Date Diagnosed : 04/05/2016 11:17 AM (H61.22) Not Available [facility] 4 02:47:52 Disorder of left Eustachia n tube 47209378272 93622 Active 2016 Other specified disorders of Eustachia n tube, left ear; Note: Date Diagnosed : 03/08/2016 10:00 AM (H69.82) Not Available [facility] 4 02:47:47 Bilateral disorder of Eustachia n tubes 62667260236 54687 Active 2018 Other specified disorders of Eustachia n tube, bilateral ; Note: Date Diagnosed : 07/31/2018 10:14 AM (H69.83) Not Available [facility] 4 02:47:53 Snoring 11161215 Active 2016 Snoring; Note: Date Diagnosed : 7 10:09 AM (R06.83) Not Available [facility] 4 02:47:52 Abnormal auditory perceptio n 22089266 Active 2018 Other abnormal auditory perceptio ns, bilateral ; Note: Date Diagnosed : 07/31/2018 10:15 AM (H93.293) Not Available [facility] 4 02:47:45 Mixed conductiv e and sensorine ural hearing loss, bilateral 756482611 Active 2023 SHARON HOOD [address] [facility], [place], [address] , [facility] - [facility] [place] 4 12:05:14 Bilateral adhesive otitis media of middle ears 55063470401 10246 Active 2023 KATI THOMPSON MD 100 [facility] 100, [facility] [place], [address] , [facility] - [facility] [place] 4 13:46:05 Sensorine ural hearing loss of bilateral ears 053078152 Active 2023 Paola walters [place] - [facility] [place] 15:09:55 Problem Notes None recorded. Procedures Surgical History Date Name Laterality Status Provider Name and Address Organization Details Recorded Time Comp Audio with Tymps (54679 & 67066) completed Paola Ramsay [place] - [facility] [place] 01/17/2024 15:09:47 024 NASOPHARYNGOSCOPY, SURGICAL, WITH DILATION OF EUSTACHIAN TUBE; BILATERAL (SURG) completed Philip Nance [place] - [facility] [place] 12/22/2023 15:46:47 024 Fiberoptic Nasopharyngoscopy completed KATI THOMPSON MD 100 [facility],[address] [address], [place], [address], [facility] - [facility] 12/07/2023 13:52:03 024 Comp Audio with Tymps (65255 & 23845) completed SHARON HOOD 100 [facility],[address] [address], [place], [address], [facility] - [facility] [place] 09/20/2023 12:04:29 024 Cerumen removal without microscope bilat completed SHAYE SERRANO PA-C 100 [facility],[address] [address], [place], [address], [facility] - [facility] 09/20/2023 11:33:24 Imaging Results None recorded. [...] dose pack 07/31 completed Medicati on ID: [id number] P corineribe d By Name: Adi Ewing nd Name: Medrol (Corey) Se nd Method: E-Prescr ibed Sub s Allowed: subs OK Speci al Instruct ion: take as instruct ed Medic [facility] ericName : Medrol (Corey) Not Available Not Available Not Available bisoprolo l 5 mg-hydroc hlorothia zide 6.25 mg tablet 12/12 completed Medicati on ID: [id number] D uration Value: 90 Reason: () Brand Name: bisoprol ol-hydro chloroth iazide S end Method: E-Prescr ibed Sub s Allowed: subs OK Medic ationGen ericName : bisoprol ol-hydro chloroth iazide Not Available Not Available Not Available Ciloxan 0.3 % eye drops 09/19 completed Medicati on ID: [id number] D uration Value: 5 Prescri bed By [...] mg tablet 12/06 completed Medicati on ID: [id number] D uration Value: 90 Reason: () Brand Name: moexipri l Send Method: E-Prescr ibed Sub s Allowed: subs OK Medic ationGen ericName : moexipri l Not Available Not Available Not Available clotrimaz ole 1 % topical solution 12/12 completed Medicati on ID: [id number] P rescribe d By Name: Adi Ewing nd Name: clotrima zole Sen d Method: E-Prescr ibed Sub s Allowed: subs OK Speci al Instruct ion: 5 drops to affected ear twice a day Medi cationGe nericNam e: clotrima zole Not Available Not Available Not Available hydrochlo rothiazid e 25 mg tablet 09/19 completed Medicati on ID: [id number] D uration Value: 30 Brand Name: hydrochl [...] layed release 2016 active Medicati on ID: [id number] B rand Name: Aspir-81 Send Method: E-Prescr [...] mg capsule 09/19 completed Medicati on ID: [id number] D uration Value: 90 Brand Name: amlodipi [...] Updated DateTime 01/17/2024 177.8 cm 36.2 kg/m2 831055.28 g Joanie Cancino [place] - [facility] 01/17/2024 15:21:34 Social History None recorded. Functional Status None recorded. Mental Status None recorded. Family History Nothing Reported. Medical History Condition Response Hypertension Y Past Encounters Encounter ID Performer Location Encounter Start Date Encounter Closed Date Diagnosis/Indication Diagnosis SNOMED-CT Code Diagnosis ICD10 Code [id number] ROZINAHANNAH MULLINSSHARON [place]T [place] 100 [facility] [place] [address] 12/29/2023 09:05:09 01/01/2024 06:57:56 Mixed conductive and sensorineural hearing loss, bilateral 400053142 H90.6 [id number] MIKAEL JACQUES MD [facility] of [facility] 100 [facility] [place] [address] 01/17/2024 14:22:08 01/17/2024 16:27:24 Bilateral disorder of Eustachian tubes [id number] 729150 H69.83 Sensorineu ral hearing loss of bilateral ears 719796237 H90.3 Health Concerns Section Related Observation LastModified by Organization Detai ls LastModified Time None Recorded Concern Status LastModified by Organization Details LastModified Time None Recorded Payers Encounter Date Sequence Insurance Name Policy Number Policy Murillo Covered Member ID Murillo Member ID Guarantor Name 01/17/2024 1 [employer] - MEDICARE ADVANTAGE PLAN (MEDICARE REPLACEMENT HMO) [id number] Ratio [id number] Uro Jock Notes Date Note Type Note Provider Name [...] process of getting amplification. MIKAEL MCKEON MD [address] [place] [address], [address], [facility] - [facility] 01/17/2024 16:43:22
--- OUTSIDE RECORDS SUMMARY | 2024-01-24 09:03 | XMS_ITS | Continuity of Care Document ---
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 We discussed the risks [...] patient with the contact information for my electron gun assembler. We will begin the scheduling process and see the patient back at the time of surgery. Patient will not require medical clearance from their primary care provider preoperatively. [email or web address] Not available 12/07/2023 13:53:21 Plan of Treatment Reminders Order Date Submit Date Provider Last Modified By Organization Details Last Modified Time Details Appointments Establish ed 60 2024 02:00P M KIM DRUMMOND PA-C Not available Not available Not available Lab None recorded. Referral None recorded. Procedures None recorded. Surgeries nasophary ngoscopy, surgical, with dilation of eustachia n tube; bilateral (SURG) 2023 024 [email or web address] Not available 12/07/2023 16:27:18 Imaging None recorded. [...] Recorded Time Impacted cerumen of bilateral ears [id number] 17496 Active 2018 Impacted cerumen, bilateral ; Note: Date Diagnosed : 07/31/2018 10:13 AM (H61.23) Not Available [facility] 4 02:47:52 Otitis externa of right ear 00222408222 30835 Active 2016 Other otitis externa, right ear; Note: Date Diagnosed : 7 9:51 AM (H60.8X1) Not Available [facility] 4 02:47:48 Acute sinusitis 94293036 Active 2017 Acute sinusitis , unspecifi ed; Note: Date Diagnosed : 12/12/2017 9:57 AM (J01.90) Not Available [facility] 4 02:47:45 Impacted cerumen in left ear 11996395321 76551 Active 2016 Impacted cerumen, left ear; Note: Date Diagnosed : 04/05/2016 11:17 AM (H61.22) Not Available [facility] 4 02:47:52 Disorder of left Eustachia n tube 18494914034 89598 Active 2016 Other specified disorders of Eustachia n tube, left ear; Note: Date Diagnosed : 03/08/2016 10:00 AM (H69.82) Not Available [facility] 4 02:47:47 Bilateral disorder of Eustachia n tubes 51961383398 54537 Active 2018 Other specified disorders of Eustachia n tube, bilateral ; Note: Date Diagnosed : 07/31/2018 10:14 AM (H69.83) Not Available [facility] 4 02:47:53 Snoring 81847381 Active 2016 Snoring; Note: Date Diagnosed : 7 10:09 AM (R06.83) Not Available [facility] 4 02:47:52 Abnormal auditory perceptio n 80607095 Active 2018 Other abnormal auditory perceptio ns, bilateral ; Note: Date Diagnosed : 07/31/2018 10:15 AM (H93.293) Not Available [facility] 4 02:47:45 Mixed conductiv e and sensorine ural hearing loss, bilateral 316815367 Active 2023 SHARON HOOD [address] [address], [facility] [place], [address] , [facility] - [facility] 4 12:05:14 Bilateral adhesive otitis media of middle ears 75440192779 52449 Active 2023 KATI OBANDO MD [address] [place] [address], [place], [address] , [facility] - [facility] 4 13:46:05 Sensorine ural hearing loss of bilateral ears 012991635 Active 2023 Paola walters [place] - [facility] [place] 4 15:09:55 Problem Notes None recorded. Procedures Surgical History Date Name Laterality Status Provider Name and Address Organization Details Recorded Time Comp Audio with Tymps (79586 & 47265) completed Paola Ramsay [place] - [facility] [place] 01/17/2024 15:09:47 NASOPHARYNGOSCOPY, SURGICAL, WITH DILATION OF EUSTACHIAN TUBE; BILATERAL (SURG) completed Philip Nance [place] - [facility] 12/22/2023 15:46:47 024 Fiberoptic Nasopharyngoscopy completed KATI OBANDO MD 100 [facility],[address] [address], [place], [address], [facility] 12/07/2023 13:52:03 024 Comp Audio with Tymps (48989 & 24591) completed SHARON HOOD 100 [facility] 100, [place], [address], [facility] - [facility] 09/20/2023 12:04:29 024 Cerumen removal without microscope bilat completed SHAYE GUIDRY PA-C 100 [facility],[address] [address], [place], [address], [facility] 09/20/2023 11:33:24 Imaging Results None recorded. [...] dose pack 07/31 completed Medicati on ID: [id number] P rescriester d By Name: Adi Ewing nd Name: Medrol (Corey) Se nd Method: E-Prescr ibed Sub s Allowed: subs OK Speci al Instruct ion: take as instruct ed Medic ationGen ericName : Medrol (Corey) Not Available Not Available Not Available bisoprolo l 5 mg-hydroc hlorothia zide 6.25 mg tablet 12/12 completed Medicati on ID: [id number] D uration Value: 90 Reason: () Brand Name: bisoprol ol-hydro chloroth iazide S end Method: E-Prescr ibed Sub s Allowed: subs OK Medic ationGen ericName : bisoprol ol-hydro chloroth iazide Not Available Not Available Not Available Ciloxan 0.3 % eye drops 09/19 completed Medicati on ID: [id number] D uration Value: 5 Prescri bed By [...] mg tablet 12/06 completed Medicati on ID: [id number] D uration Value: 90 Reason: () Brand Name: moexipri l Send Method: E-Prescr ibed Sub s Allowed: subs OK Medic ationGen ericName : moexipri l Not Available Not Available Not Available clotrimaz ole 1 % topical solution 12/12 completed Medicati on ID: [id number] P rescribe d By Name: Adi Ewing nd Name: clotrima zole Sen d Method: E-Prescr ibed Sub s Allowed: subs OK Speci al Instruct ion: 5 drops to affected ear twice a day Medi cationGe nericNam e: clotrima zole Not Available Not Available Not Available hydrochlo rothiazid e 25 mg tablet 09/19 completed Medicati on ID: [id number] D uration Value: 30 Brand Name: jerome [...] layed release 2016 active Medicati on ID: [id number] B rand Name: Aspir-81 Send Method: E-Prescr [...] mg capsule 09/19 completed Medicati on ID: [id number] D uration Value: 90 Brand Name: amlodipi [...] Details Last Updated DateTime 12/07/2023 177.8 cm 151670.25 g 33 kg/m2 Nayla Mckinney [place] - [facility] 12/07/2023 13:03:59 Social History None recorded. Functional Status None recorded. Mental Status None recorded. Family History Nothing Reported. Medical History Condition Response Hypertension Y Past Encounters Encounter ID Performer Location Encounter Start Date Encounter Closed Date Diagnosis/Indication Diagnosis SNOMED-CT Code Diagnosis ICD10 Code [id number] KATI OBANDO MD ENTS of [address] [address] 12/07/2023 12:56:27 12/07/2023 13:54:32 Bilateral disorder of Eustachian tubes [id number] 773524 H69.83 Bilateral adhesive otitis media of middle ears 7752771389 024090 H74.13 Health Concerns Section Related Observation LastModified by Organization Detai ls LastModified Time None Recorded Concern Status LastModified by Organization Details LastModified Time None Recorded Payers Encounter Date Sequence Insurance Name Policy Number Policy Murillo Covered Member ID Murillo Member ID Guarantor Name 12/07/2023 1 [employer] - MEDICARE ADVANTAGE PLAN (MEDICARE REPLACEMENT HMO) [id number] Suzan Winchester Min [id number] Suzan Winchester Min Notes Date Note Type [...] any improvement in symptoms. KATI OBANDO MD [address] [place] [address], [address], [place] - [facility] 12/07/2023 13:54:37
--- OUTSIDE RECORDS SUMMARY | 2024-01-24 09:03 | XMS_ITS | Continuity of Care Document ---
Author Organization [place] - [facility] Address [address] [address] Care Team Providers Care Airport Guide Name Role Phone CAPRI POLANCO Primary Care [...] Recorded Time Impacted cerumen of bilateral ears 12294771165 45777 Active 2018 Impacted cerumen, bilateral ; Note: Date Diagnosed : 07/31/2018 10:13 AM (H61.23) Not Available [facility] 4 02:47:52 Otitis externa of right ear 53921105579 72881 Active 2016 Other otitis externa, right ear; Note: Date Diagnosed : 7 9:51 AM (H60.8X1) Not Available [facility] 4 02:47:48 Acute sinusitis 87871432 Active 2017 Acute sinusitis , unspecifi ed; Note: Date Diagnosed : 12/12/2017 9:57 AM (J01.90) Not Available [facility] 4 02:47:45 Impacted cerumen in left ear 01401578043 40240 Active 2016 Impacted cerumen, left ear; Note: Date Diagnosed : 04/05/2016 11:17 AM (H61.22) Not Available [facility] 4 02:47:52 Disorder of left Eustachia n tube 02968331062 46462 Active 2016 Other specified disorders of Eustachia n tube, left ear; Note: Date Diagnosed : 03/08/2016 10:00 AM (H69.82) Not Available [facility] 4 02:47:47 Bilateral disorder of Eustachia n tubes 43816156646 50049 Active 2018 Other specified disorders of Eustachia n tube, bilateral ; Note: Date Diagnosed : 07/31/2018 10:14 AM (H69.83) Not Available [facility] 4 02:47:53 Snoring 79698118 Active 2016 Snoring; Note: Date Diagnosed : 7 10:09 AM (R06.83) Not Available [facility] 4 02:47:52 Abnormal auditory perceptio n 26275474 Active 2018 Other abnormal auditory perceptio ns, bilateral ; Note: Date Diagnosed : 07/31/2018 10:15 AM (H93.293) Not Available [facility] 4 02:47:45 Mixed conductiv e and sensorine ural hearing loss, bilateral 139842141 Active 2023 SHARON HOOD 100 [facility] 100, [place], [address] , [facility] - [facility] 4 12:05:14 Bilateral adhesive otitis media of middle ears 17909769957 54880 Active 2023 KATI OBANDO MD 100 [facility] 100, [place], [address] , [facility] - [facility] 4 13:46:05 Sensorine ural hearing loss of bilateral ears 263794900 Active 2023 Paola walters [facility] [place] 15:09:55 Problem Notes None recorded. Procedures Surgical History Date Name Laterality Status Provider Name and Address Organization Details Recorded Time Comp Audio with Tymps (97141 & 70133) completed Paola Ramsay [place] - [facility] 01/17/2024 15:09:47 NASOPHARYNGOSCOPY, SURGICAL, WITH DILATION OF EUSTACHIAN TUBE; BILATERAL (SURG) completed Philip Nance [facility] 12/22/2023 15:46:47 Fiberoptic Nasopharyngoscopy completed KATI OBANDO MD [address] [place] [address], [address], [facility] 12/07/2023 13:52:03 Comp Audio with Tymps (46762 & 16625) completed SHARON HOOD [address] [place] [address], [address], [facility] 09/20/2023 12:04:29 024 Cerumen removal without microscope bilat completed SHAYE SERRANO PA-C [address] [place] [address], [address], [facility] 09/20/2023 11:33:24 Imaging Results None recorded. [...] dose pack 07/31 completed Medicati on ID: [id number] P rescribe d By Name: Adi Ewing nd Name: Medrol (Corey) Se nd Method: E-Prescr ibed Sub s Allowed: subs OK Speci al Instruct ion: take as instruct ed Medic ationGen ericName : Medrol (Corey) Not Available Not Available Not Available bisoprolo l 5 mg-hydroc hlorothia zide 6.25 mg tablet 12/12 completed Medicati on ID: [id number] D uration Value: 90 Reason: () Brand Name: bisoprol ol-hydro chloroth iazide S end Method: E-Prescr ibed Sub s Allowed: subs OK Medic ationGen ericName : bisoprol ol-hydro chloroth iazide Not Available Not Available Not Available Ciloxan 0.3 % eye drops 09/19 completed Medicati on ID: [id number] D uration Value: 5 Prescri bed By [...] mg tablet 12/06 completed Medicati on ID: [id number] D uration Value: 90 Reason: () Brand Name: moexipri l Send Method: E-Prescr ibed Sub s Allowed: subs OK Medic ationGen ericName : moexipri l Not Available Not Available Not Available clotrimaz ole 1 % topical solution 12/12 completed Medicati on ID: [id number] P rescribe d By Name: Adi Ewing nd Name: clotrima zole Sen d Method: E-Prescr ibed Sub s Allowed: subs OK Speci al Instruct ion: 5 drops to affected ear twice a day Medi cationGe nericNam e: clotrima zole Not Available Not Available Not Available hydrochlo rothiazid e 25 mg tablet 09/19 completed Medicati on ID: [id number] D uration Value: 30 Brand Name: hydrochl [...] layed release 2016 active Medicati on ID: [id number] B rand Name: Aspir-81 Send Method: E-Prescr [...] mg capsule 09/19 completed Medicati on ID: [id number] D uration Value: 90 Brand Name: hedy [...] Diagnosis/Indication Diagnosis SNOMED-CT Code Diagnosis ICD10 Code [id number] KATI OBANDO MD ENT[facility] of [address] [address] 12/07/2023 12:56:27 12/07/2023 13:54:32 Bilateral disorder of Eustachian tubes [id number] 686556 H69.83 Bilateral adhesive otitis media of middle ears 7305675981 490128 H74.13 [id number] SHARON GEE PLUNKETT [place] [address] [place] [address] [place] [address] 12/29/2023 09:05:09 01/01/2024 06:57:56 Mixed conductive and sensorineural hearing loss, bilateral 719524775 H90.6 Health Concerns Section Related Observation LastModified by Organization Detai ls LastModified Time None Recorded Concern Status LastModified by Organization Details LastModified Time None Recorded Payers Encounter Date Sequence Insurance Name Policy Number Policy Murlilo Covered Member ID Murillo Member ID Guarantor Name 12/29/2023 1 [employer] - MEDICARE ADVANTAGE PLAN (MEDICARE REPLACEMENT HMO) [id number] Suzan Min [id number] Suzan Min Notes Date Note Type Note [...] will be ordering:{{Oticon p honak* Widex}} {{ bsceyu67 or eoqafth27#}}Receive r: {{ 2M#}}Domes: {{ medium open#}} He need sto do some research, but will let me know what he would like to do. ROZINA MULLINS, [facility] 100 [facility],[address] [place] [address], [place], [address], [facility] - [facility] 12/29/2023 10:28:21
[2024-01-24 09:13] VITALS: BP 140/60
== END 2024-01-24 09:18 | disposition home or self-care (01) ==
PROVIDERS: PCP Family Medicine; Visit Provider Internal Medicine Hypertension Specialist
DX: N19 Unspecified kidney failure (principal); E87.5 Hyperkalemia; D64.9 Anemia, unspecified; I12.9 Hypertensive chronic kidney disease with stage 1 through stage 4 chronic kidney disease, or unspecified chronic kidney disease; N18.9 Chronic kidney disease, unspecified
CPT/HCPCS: 99214

== ENCOUNTER → 2024-01-24 08:54 | Outpatient (BNVA) | payer MEDICARE, SELFPAY | PROVIDERS: PCP Family Medicine; Visit Provider Internal Medicine Hypertension Specialist | DX: I12.9 Hypertensive chronic kidney disease with stage 1 through stage 4 chronic kidney disease, or unspecified chronic kidney disease (principal); N18.9 Chronic kidney disease, unspecified; D64.9 Anemia, unspecified; E87.5 Hyperkalemia; N19 Unspecified kidney failure | CPT/HCPCS: 99212 ==

== ENCOUNTER 2024-04-16 09:40 | Outpatient (REF) | payer MEDICARE, SELFPAY ==
--- OUTSIDE RECORDS SUMMARY | 2024-04-16 10:55 | XMS_ITS | Clinical Summary ---
Author Organization [facility] Address [address] [place] [address] Care Team Providers Care Examination Proctor Name Role Phone Ricky Iverson MD Primary Care Provider [phone] Allergies No known active allergies Medications Medication Sig Dispensed Refills Start Date End Date Status aspirin EC 81 MG tablet Take 1 tablet (81 mg total) by mouth daily. 0 Active Multiple Vitamins-Minerals (CENTRUM SILVER PO) Take by mouth daily. 0 Active ezetimibe (ZETIA) tablet 10 mg take 1 tablet by mouth once daily 90 tablet 3 02/08/2017 Active B Complex Vitamins (B COMPLEX PO) Take by mouth daily. 0 Active Coenzyme Q10 100 MG capsule Take 200 mg by mouth daily. 0 Active Misc Natural Products (GLUCOSAMINE CHOND COMPLEX/MSM PO) Take by mouth daily. 0 Active atorvastatin (LIPITOR) tablet 80 mg TAKE 1 TABLET BY MOUTH AT BEDTIME 90 tablet 0 05/14/2018 Active amLODIPine-benazepri l (LOTREL) 5-40 MG per capsule Take 1 capsule by mouth daily. 90 capsule 3 01/14/2019 Active fenofibrate (TRIGLIDE) 160 MG tablet Take 1 tablet (160 mg total) by mouth daily. 0 Active spironolactone (ALDACTONE) tablet 25 mg Take 1 tablet (25 mg total) by mouth daily. 0 Active metoprolol succinate (TOPROL-XL) 24 hr tablet 25 mg Take 1 tablet (25 mg total) by mouth daily. 0 11/12/2022 Active Active Problems Problem Noted Date Diagnosed Date Metabolic syndrome 03/31/2016 Overview: Obesity, hypertension, hyperlipidemia, 1/2 PPD x 30 yrs bernardo--03/15/16--55% EF, infeiror soft tissue Echo--03/04/16--mild LVH, ao4.1, EF>60 Family History Medical History Relation Name Comments Diabetes Brother Transient ischemic attack Father Heart disease Mother Peripheral vascular disease Mother Diabetes Sister Heart attack Sister Relation Name Status Comments Brother Father Mother Sister Social History Tobacco Use Types Packs/Day Years Used Date Smoking Tobacco: Former Cigarettes 0.5 30 Passive Smoke Exposure: Past Smokeless Tobacco: Never Tobacco Cessation:Counseling Given: Not Answered Alcohol Use Standard Drinks/Week Comments Yes 12 (1 standard drink = 0.6 oz pu re alcohol) Sex and Gender Information Value Date Recorded Sex Assigned at Not on file Gender Identity Not on file Sexual Orientation Not on file Job Start Date Occupation Industry Not on file Not on file Not on file Last Filed Vital Signs Vital Sign Reading Time Taken Comments Blood Pressure 138/82 06/08/2023 9:38 AM EDT Pulse 86 06/08/2023 9:38 AM EDT Temperature 36.7 ??C (98 ??F) 04/21/2022 4:01 PM EDT Respiratory Rate - - Oxygen Saturation 97% 06/08/2023 9:38 AM EDT Inhaled Oxygen Concentration - - Weight 104.8 kg (231 lb) 06/08/2023 9:38 AM EDT Height 177.8 cm (5' 10 ) 06/08/2023 9:38 AM EDT Body Mass Index 33.15 06/08/2023 9:38 AM EDT Plan of Treatment Health Maintenance Due Date Last Done Comments Hepatitis C Screening 1955 COVID-19 Vaccine (#1) 1955 Pneumococcal Vaccine (1 of 2 - PCV) 06/19/1961 Depression Screening 1967 BMI Counseling 06/19/1973 Preventative Health Evaluation 06/19/1973 DTap / Tdap / Td (1 - Tdap) 06/19/1974 Colon Cancer Screening (Colonoscopy) 06/19/2000 Shingrix-Zoster Vaccine (1 of 2) 06/19/2005 Fall Risk Assessment 06/19/2020 Influenza Vaccine (#1) 2023 RSV Adult > 60+ Yrs or Pregn ant (1 - 1-dose 75+ series) 06/19/2030 Hepatitis B Vaccines Aged Out No long er eligible based on patient's age to complete this topic RSV Ped < 20 months Aged Out No longe r eligible based on patient's age to complete this topic Care Teams Examination Proctor Relationship Specialty Start Date End Date Ricky Iverson MD [address] [place] [address] PCP - General Family Medicine 04/21/22
--- OUTSIDE RECORDS SUMMARY | 2024-04-16 10:56 | XMS_ITS | Clinical Summary ---
Author Organization [facility] Review Scheduling Coordinator [place] Address [address] [place] [address] Phone Care Team Providers Care Special Education Resource Teacher Name Role Phone Ricky Iverson MD Primary Care Provider Allergies No known active allergies Medications amLODIPine-sandra zepril (LOTREL) 5-40 mg per capsule Take 1 capsule by mouth daily. 01/14/2019 Active aspirin 81 mg EC tablet Take 1 tablet (81 mg total) by mouth daily. Active atorvastatin (LIPITOR) 80 mg tablet TAKE 1 TABLET BY MOUTH AT BEDTIME 05/14/2018 Active vit B complx/folic acid/lysine (B COMPLEX VITAMINS PO) Take by mouth daily. Active coenzyme [id number] [id number] 100-5 mg-unit capsule Take 200 mg by mouth daily. Active ezetimibe (ZETIA) 10 mg tablet take 1 tablet by mouth once daily 02/08/2017 Active fenofibrate (LOFIBRA) 160 mg tablet Take 1 tablet (160 mg total) by mouth daily. Active metoprolol succinate (TOPROL-XL) 25 mg 24 hr tablet Take 1 tablet (25 mg total) by mouth daily. 11/12/2022 Active glucosam/chond- msm1/C/keegan/bor (GLUCOSAMINE-CH OND-MSM COMPLEX ORAL) Take by mouth daily. Active folic acid/multivit-m in/lutein (CENTRUM SILVER ORAL) Take by mouth daily. Active icosapent ethyL (VASCEPA) 1 gram capsule Take 2 capsules (2 g total) by mouth 1 (one) time each day. Active vitamin A 2,400 mcg capsule Take 1 capsule (8,000 Units total) by mouth 1 (one) time each day. Active UNABLE TO FIND 1 (one) time each day. Super beets Active Active Problems Problem Noted Date Diagnosed Date Pure hypercholesterolemia 02/12/2024 Primary hypertension 02/12/2024 Family history of premature CAD 02/12/2024 ANJALI (obstructive sleep apnea) 02/12/2024 Metabolic syndrome 03/31/2016 Overview (11/28/2023): Obesity, hypertension, hyperlipidemia, 1/2 PPD x 30 yrs bernardo--03/15/16--55% EF, infeiror soft tissue Echo--03/04/16--mild LVH, ao4.1, EF>60 Encounters Date Type Department Care Team Description 02/12/2024 9:00 AM EST [facility] [place] [address] [place] [phone] Donal Adams MD Pure hypercholesterolemia (Primary Dx); Primary hypertension; Family history of premature CAD; ANJALI (obstructive sleep apnea) from Last 3 Months Surgical History Surgery Date Site/Laterality Comments HERNIA REPAIR 2009 PROCEDURE:HERNIA REPAIR Medical History Medical History Date Comments Hypertension DX:Hypertension Hyperlipidemia DX:Hyperlipidemi a COPD (chronic obstructive pu lmonary disease) ([facility]) DX:COPD (chronic obstructive pulmonary disease) ([facility]) Obesity DX:Obesity Family History Medical History Relation Name Comments Diabetes Brother Transient ischemic attack Father Heart disease Mother Peripheral vascular disease Mother Diabetes Sister Heart attack Sister Relation Name Status Comments Brother Father Mother Sister Social History Tobacco Use Types Packs/Day Years Used Date Smoking Tobacco: Former Cigarettes Passive Smoke Exposure: Past Smokeless Tobacco: Never Alcohol Use Standard Drinks/Week Comments Yes 12 (1 standard drink = 0.6 oz pu re alcohol) Sex and Gender Information Value Date Recorded Sex Assigned at Not on file Legal Sex Male 7:13 AM EST Gender Identity Not on file Sexual Orientation Not on file Obstetrics History Last Filed Vital Signs Vital Sign Reading Time Taken Comments Blood Pressure 128/72 02/12/2024 9:02 AM EST Pulse 72 02/12/2024 9:02 AM EST Temperature - - Respiratory Rate - - Oxygen Saturation 97% 02/12/2024 9:02 AM EST Inhaled Oxygen Concentration - - Weight 113 kg (249 lb) 02/12/2024 9:02 AM EST Height 177.8 cm (5' 10 ) 02/12/2024 9:02 AM EST Body Mass Index 35.73 02/12/2024 9:02 AM EST Plan of Treatment Upcoming Encounters Date Type Department Care Team (Late st Contact Info) Description 08/14/2024 9:30 AM EDT Ancillary Procedure [facility] [place] [address] [facility] [address] [place] [id number] 08/14/2024 10:00 AM EDT Office Visit [facility] [place] [address] [facility] [address] [place] [phone] Donal Adams MD [address] [place] [address] Health Maintenance Due Date Last Done Comments DTaP,Tdap,and Td Vaccines (1 - Tdap) 06/19/1974 Pneumococcal Vaccine: 50+ Ye ars (1 of 1 - PCV) 06/19/2005 Zoster Vaccines (1 of 2) 06/19/2005 Abdominal Aortic Aneurysm (A AA) Screen 01/15/2022 Cholesterol Screening (Lipid Panel) 01/15/2022 10/18/2016 Colorectal Cancer Screening: Colonoscopy 01/15/2022 Depression Screening 01/15/2022 Falls Risk Assessment 01/15/2022 Hepatitis C Screening 01/15/2022 Medicare Annual Wellness Visit 01/15/2022 Social Influencers of Health Screening 01/15/2022 Hypertension/CHF/CAD Annual BMP Blood Test 03/12/2023 10/18/2016 COVID-19 Vaccine (1 - 2023-2 5 season) 2023 Influenza Vaccine (#1) 2023 RSV Immunization Patients 60 + Years Old (1 - 1-dose 75+ series) 06/19/2030 HIB Vaccines Aged Out No longer eligi ble based on patient's age to complete this topic HPV Vaccines Aged Out No longer eligi ble based on patient's age to complete this topic Hepatitis A Vaccines Aged Out No long er eligible based on patient's age to complete this topic Hepatitis B Vaccines Aged Out No long er eligible based on patient's age to complete this topic IPV Vaccines Aged Out No longer eligi ble based on patient's age to complete this topic MMR Vaccines Aged Out No longer eligi ble based on patient's age to complete this topic Meningococcal ACWY Vaccine Aged Out N o longer eligible based on patient's age to complete this topic Meningococcal B Vacine Aged Out No lo nger eligible based on patient's age to complete this topic RSV Immunization Patients Un jeanette 20 months Aged Out No longer eligible b ased on patient's age to complete this topic Varicella Vaccines Aged Out No longer eligible based on patient's age to complete this topic Procedures Procedure Name Priority Date/Time Associated Diagnosis Comments ECG 12-LEAD Routine 02/12/2024 9:15 AM EST Pure hypercholesterolemia Primary hypertension ANNUAL BMP BLOOD TEST Routine 10/18/2016 LIPID PANEL Routine 10/18/2016 from Last 3 Months or Most Recently Relevant to Health Maintenance Results * ECG 12 lead (02/12/2024 9:15 AM EST) Narrative Donal Adams MD - 02/12/2024 9:15 AM EST Normal sinus rhythm at 81 bpm with occasional PVCs and left anterior fascicular block along with poor R wave progression across the early leads Donal Adams MD ECG ORDERABLES Final Result * Annual BMP Blood Test (10/18/2016) Annual BMP Blood Test Abstracted Historical Provider HEALTH MAINTENANCE Final Result * (ABNORMAL) Lipid panel (10/18/2016) LDL/HDL Ratio 4 <=5 Triglycerides 287(A) <=150 mg/dL Cholesterol 170 <=200 mg/dL HDL 42 >=40 mg/dL LDL Cholesterol 90 <=100 mg/dL Blood Venous blood specimen / Unknown Historical Provider LAB BLOOD ORDERABLES Lashae l Result from Last 3 Months or Most Recently Relevant to Health Maintenance Insurance [employer] Care Teams Special Education Resource Teacher Relationship Specialty Start Date End Date Ricky Iverson MD [address] [place] [address] Dr Blanchard [address] [place] [address] PCP - General 04/21/22
--- OUTSIDE RECORDS SUMMARY | 2024-04-16 10:56 | XMS_ITS | Data Portability ---
Author Organization [place] - [facility], Allergy Address [address] [facility] [address] [place] [address] Care Team Providers Care Medical Doctor Nuclear Medicine Name Role Phone CAPRI POLANCO Primary Care [...] hearing aid evaluation. All questions were answered. [email or web address] Not available 09/20/2023 12:21:08 12/07/2023 12/07/2023 Both [...] is good three year data showing the fpc success as well. We discussed the risks [...] with the contact information for my surgical services tech. We will begin the scheduling process and see the patient back at the time of surgery. Patient will not require medical clearance from their primary care provider preoperatively. [email or web address] Not available 12/07/2023 13:53:21 01/17/2024 01/17/2024 68 [...] eustachia n tube; bilateral (SURG) 2023 024 [email or web address] Not available 12/07/2023 16:27:18 Imaging None recorded. [...] Recorded Time Impacted cerumen of bilateral ears [id number] 39236 Active 2018 Impacted cerumen, bilateral ; Note: Date Diagnosed : 07/31/2018 10:13 AM (H61.23) Not Available [facility] 4 02:47:52 Otitis externa of right ear 83175876433 08838 Active 2016 Other otitis externa, right ear; Note: Date Diagnosed : 7 9:51 AM (H60.8X1) Not Available [facility] 4 02:47:48 Acute sinusitis 32048943 Active 2017 Acute sinusitis , unspecifi ed; Note: Date Diagnosed : 12/12/2017 9:57 AM (J01.90) Not Available [facility] 4 02:47:45 Impacted cerumen in left ear 32804349164 37637 Active 2016 Impacted cerumen, left ear; Note: Date Diagnosed : 04/05/2016 11:17 AM (H61.22) Not Available [facility] 4 02:47:52 Disorder of left Eustachia n tube 75108610953 06775 Active 2016 Other specified disorders of Eustachia n tube, left ear; Note: Date Diagnosed : 03/08/2016 10:00 AM (H69.82) Not Available [facility] 4 02:47:47 Bilateral disorder of Eustachia n tubes 90260037813 63841 Active 2018 Other specified disorders of Eustachia n tube, bilateral ; Note: Date Diagnosed : 07/31/2018 10:14 AM (H69.83) Not Available [facility] 4 02:47:53 Snoring 77152056 Active 2016 Snoring; Note: Date Diagnosed : 7 10:09 AM (R06.83) Not Available [facility] 4 02:47:52 Abnormal auditory perceptio n 20873255 Active 2018 Other abnormal auditory perceptio ns, bilateral ; Note: Date Diagnosed : 07/31/2018 10:15 AM (H93.293) Not Available [facility] 4 02:47:45 Mixed conductiv e and sensorine ural hearing loss, bilateral 179710667 Active 2023 KIA TOPETE, AUD [address] [facility],[address], [place], [address] , [facility] - [facility] 4 12:05:14 Bilateral adhesive otitis media of middle ears 56124200637 62001 Active 2023 KATI OBANDO MD [address] [facility],[place] [address], [facility] [place], [address] , [place] - [facility] 4 13:46:05 Sensorine ural hearing loss of bilateral ears 022443235 Active 2023 Paola walters [place] - [facility] 4 15:09:55 Problem Notes None recorded. Procedures Surgical History Date Name Laterality Status Provider Name and Address Organization Details Recorded Time Comp Audio with Tymps (72678 & 91392) completed Paola Ramsay [place] - [facility] 01/17/2024 15:09:47 NASOPHARYNGOSCOPY, SURGICAL, WITH DILATION OF EUSTACHIAN TUBE; BILATERAL (SURG) completed Philip Nance [place] - [facility] 12/22/2023 15:46:47 Fiberoptic Nasopharyngoscopy completed KATI OBANDO MD [address] [facility],[place] [address], [place], [address], [facility] - [facility] 12/07/2023 13:52:03 Comp Audio with Tymps (20057 & 56169) completed KIA TOPETE, SHARON [address] [facility],[address], [place], [address], [place] - [facility] 09/20/2023 12:04:29 024 Cerumen removal without microscope bilat completed SHAYE GUIDRY PA-C [address] [place] [address],[address], [address], [place] - [facility] 09/20/2023 11:33:24 Imaging Results Imaging Date Name [...] dose pack 07/31 completed Medicati on ID: [id number] P rescribe d By Name: Adi Ewing nd Name: Medrol (Corey) Se nd Method: E-Prescr ibed Sub s Allowed: subs OK Speci al Instruct ion: take as instruct ed Medic ationGen ericName : Medrol (Corey) Not Available Not Available Not Available bisoprolo l 5 mg-hydroc hlorothia zide 6.25 mg tablet 12/12 completed Medicati on ID: [id number] D uration Value: 90 Reason: () Brand Name: bisoprol ol-hydro chloroth iazide S end Method: E-Prescr ibed Sub s Allowed: subs OK Medic ationGen ericName : bisoprol ol-hydro chloroth iazide Not Available Not Available Not Available Ciloxan 0.3 % eye drops 09/19 completed Medicati on ID: [id number] D uration Value: 5 Prescri bed By [...] mg tablet 12/06 completed Medicati on ID: [id number] D uration Value: 90 Reason: () Brand Name: moexipri l Send Method: E-Prescr ibed Sub s Allowed: subs OK Medic ationGen ericName : moexipri l Not Available Not Available Not Available clotrimaz ole 1 % topical solution 12/12 completed Medicati on ID: [id number] P rescribe d By Name: Adi Ewing nd Name: clotrima zole Sen d Method: E-Prescr ibed Sub s Allowed: subs OK Speci al Instruct ion: 5 drops to affected ear twice a day Medi cationGe nericNam e: clotrima zole Not Available Not Available Not Available hydrochlo rothiazid e 25 mg tablet 09/19 completed Medicati on ID: [id number] D uration Value: 30 Brand Name: hydrochl [...] layed release 2016 active Medicati on ID: [id number] B rand Name: Aspir-81 Send Method: E-Prescr [...] mg capsule 09/19 completed Medicati on ID: [id number] D uration Value: 90 Brand Name: amlodipi [...] Updated DateTime 09/20/2023 177.8 cm 33.3 kg/m2 343542.43 g Teri Ferrer [place] - [facility] 09/20/2023 11:08:31 Date Recorded Body height Body weight Body mass index (BMI) Provider Name and Address Organization Details Last Updated DateTime 12/07/2023 177.8 cm 531368.25 g 33 kg/m2 Nayla Mckinney [place] - [facility] 12/07/2023 13:03:59 Date Recorded Body height Body mass index (BMI) Body weight Provider Name and Address Organization Details Last Updated DateTime 01/17/2024 177.8 cm 36.2 kg/m2 390157.28 g Joanie Krishnamurthyrenée [place] - [facility] 01/17/2024 15:21:34 Social History None recorded. Functional Status None recorded. Mental Status None recorded. Family History Nothing Reported. Medical History Condition Response Hypertension Y Past Encounters Encounter ID Performer Location Encounter Start Date Encounter Closed Date Diagnosis/Indication Diagnosis SNOMED-CT Code Diagnosis ICD10 Code Diagnosis Note [id number] SHAYE GUIDRY PA-C [facility] [address] [address] 09/20/2023 10:45:58 09/20/2023 12:16:15 Bilateral disorder of Eustachian tubes [id number] 854608 H69.83 Impacted c erumen of bilateral ears 9462735555 360033 H61.23 Mixed cond uctive and sensorineural hearing loss, bilateral 880176012 H90.6 Audiologic al evaluation results: Right ear: {{Normal N ormal through 2 kHz Mild* Moderate M oderately- severe Sev ere Profou nd}} {{hearing sloping to a mild slopi ng to a moderate s loping to moderately severe slo ping to severe* sl oping to profound f lat high frequency low frequency mid frequency cookie bite ignacio curve}} {{with sen sorineural hearing loss with condu ctive hearing loss with mixed hearing loss with*}} {{excellen t* good fa ir poor no measurable }} word recognitio n. Left ear: {{Normal N ormal through 2 kHz Mild M oderate* M oderately- severe Sev ere Profou nd}} {{hearing sloping to a mild slopi ng to a moderate s loping to moderately severe slo ping to severe* sl oping to profound f lat high frequency low frequency mid frequency cookie bite ignacio curve}} {{with sen sorineural hearing loss with condu ctive hearing loss with mixed hearing loss with*}} {{excellen t* good fa ir poor no measurable }} word recognitio n. Tympanomet ry: Right Ear:{{Type A Type As Type Ad Type C* Type C, shallow & rounded Ty pe B Type B with large volume Cou ld not maintain a hermetic seal}} Left Ear:{{Type A Type As Type Ad Type C* Type C, shallow & rounded Ty pe B Type B with large volume Cou ld not maintain a hermetic seal}} [id number] KATI OBANDO MD [facility] [address] [place] [address] 12/07/2023 12:56:27 12/07/2023 13:54:32 Bilateral disorder of Eustachian tubes [id number] 556602 H69.83 Bilateral adhesive otitis media of middle ears 8982226003 640251 H74.13 [id number] ROZINAHANNAH MULLINSSHARON [place] - [place] [address] [place] [address] [place] [address] 12/29/2023 09:05:09 01/01/2024 06:57:56 Mixed conductive and sensorineural hearing loss, bilateral 146560015 H90.6 [id number] MIKAEL JACQUES MD [facility] [address] [address] 01/17/2024 14:22:08 01/17/2024 16:27:24 Bilateral disorder of Eustachian tubes 5901297489 753737 H69.83 Sensorineu ral hearing loss of bilateral ears 002908274 H90.3 Audiologic al evaluation results:Ri ght ear:{{Norm al Normal through 2 kHz Mild M oderate Mo derately-s evere Micaela re Profoun d Essentia lly mild#}} {{hearing hearing. s loping to a mild slopi ng to a moderate s loping to moderately severe slo ping to severe* sl oping to profound f lat high frequency low frequency mid frequency cookie bite ignacio curve}} {{with sen sorineural hearing loss with* cond uctive hearing loss with mixed hearing loss with}} {{excellen t* good fa ir poor no measurable }} word recognitio n.Left ear:{{Norm al Normal through 2 kHz Mild M oderate Mo derately-s evere Micaela re Profoun d Essentia lly mild#}} {{hearing hearing. s loping to a mild slopi ng to a moderate s loping to moderately severe slo ping to severe* sl oping to profound f lat high frequency low frequency mid frequency cookie bite ignacio curve}} {{with sen sorineural hearing loss with* cond uctive hearing loss with mixed hearing loss with}} {{excellen t* good fa ir poor no measurable }} word recognitio n. Tympanomet ry:Right Ear:{{Type A Type As Type Ad Type C Type C, shallow & rounded Ty pe B Type B with large volume* Co uld not maintain a hermetic seal}}Left Ear:{{Type A Type As Type Ad Type C Type C, shallow & rounded Ty pe B Type B with large volume* Co uld not maintain a hermetic seal}} Health Concerns Section Related Observation LastModified by Organization Detai ls LastModified Time None Recorded Concern Status LastModified by Organization Details LastModified Time None Recorded Advance Directives Directive None Recorded Payers Encounter Date Sequence Insurance Name Policy Number Policy Murillo Covered Member ID Murillo Member ID Guarantor Name 09/20/2023 1 [employer] - MEDICARE ADVANTAGE PLAN (MEDICARE REPLACEMENT HMO) [id number] Suzan Winchester Min [id number] Suzan Winchester Min 12/07/2023 1 [employer] - MEDICARE ADVANTAGE PLAN (MEDICARE REPLACEMENT HMO) [id number] Suzan Min [id number] Suzan Winchester Min 12/29/2023 1 [employer] - MEDICARE ADVANTAGE PLAN (MEDICARE REPLACEMENT HMO) [id number] Suzan Winchester Min [id number] Suzan Winchester Min 01/17/2024 1 [employer] - MEDICARE ADVANTAGE PLAN (MEDICARE REPLACEMENT HMO) [id number] 12 Suzan Winchester [employer] [id number] Suzan Winchester Min Notes Date Note Type Note Provider Name and Address Organization Details Recorded Time 4 text/html 68-year-old male presents for evaluation of blocked ears. Longstanding history of eustachian tube dysfunction with prior BMT with Dr. Gunn. 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 More recently he has been having occasional yellow to clear drainage from his right ear which comes and goes. He has been having blocked hearing on that side as well that responds fairly well to auto insufflation. The left ear has also been bothersome but not as much. SHAYE GUIDRY PA-C [address] [facility] [address], [place], [address], [facility] 09/20/2023 12:21:42 4 text/html 60-year-old male, [...] improvement in symptoms. KATI OBANDO MD [address] [facility],[place] [address], [place], [address], [facility] 12/07/2023 13:54:37 4 text/html Pt is [...] will be ordering:{{Oticon phonak * Widex}} {{ [id number] or fbygzgx28#}}Roll Bucker: {{ 2M#}}Domes: {{ medium open#}} He need sto do some research, but will let me know what he would like to do. SHARON GEE [address] [facility],[address], [address], [place] - [facility] 12/29/2023 10:28:21 4 text/html 68 year old male presents s/p BMT with bilateral balloon dilation with Dr. Obando on 12/20/2023. He is doing well post-operatively without concerns. He denies otalgia, otorrhea, or hearing changes. He did have a hearing aid consult with one of our audiologists and is in the process of getting amplification. MIKAEL MCKEON MD [address] [facility],[place] [address], [place], [address], [place] - [facility] 01/17/2024 16:43:22
[2024-04-16 19:43] LABS: Alanine Aminotransferase 34 U/L (0-40); Albumin Level 4.3 g/dL (3.5-5.0); Alkaline Phosphatase 47 U/L (39-117); Anion Gap 14 (12-20); Aspartate Amino Transferase 30 U/L (5-37); Bilirubin Total 0.5 mg/dL (0.0-1.0); Blood Urea Nitrogen 25 mg/dL (9-16); Calcium 9.7 mg/dL (8.4-10.2); Carbon Dioxide 24 mmol/L (22-29); Chloride 110 mmol/L (96-108); Cholesterol 154 mg/dL (<200); Estimated Glomerular Filt Rate 47; Glucose Fasting 109 mg/dL (60-99); HDL Cholesterol 37 mg/dL (>40); LDL Cholesterol Calculated 88 mg/dL (<100); Potassium 4.6 mmol/L (3.3-5.1); Sodium 143 mmol/L (135-145); Triglycerides 146 mg/dL (<150)
== END 2024-04-16 09:41 | disposition home or self-care (01) ==
LOC: HO.HKASLDS 09:40
PROVIDERS: Visit Provider Family Medicine
DX: Z00.00 Encounter for general adult medical examination without abnormal findings (principal); R74.8 Abnormal levels of other serum enzymes; E78.5 Hyperlipidemia, unspecified
CPT/HCPCS: 36415; 80053; 80061

== ENCOUNTER 2024-04-22 08:44 | Outpatient (AMB) | payer MEDICARE, SELFPAY ==
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
[2024-04-22 09:01] VITALS: BP 150/90; PULSE 81; RESP 16; TEMP 36.9; O2SAT 96; BMI 36.7
[2024-04-22 09:42] VITALS: BP 150/70
== END 2024-04-22 09:42 | disposition home or self-care (01) ==
LOC: HO.HMCFM 08:45
PROVIDERS: PCP Family Medicine; Visit Provider Family Medicine
DX: E11.9 Type 2 diabetes mellitus without complications (principal); I10 Essential (primary) hypertension; E66.9 Obesity, unspecified; Z68.36 Body mass index [BMI] 36.0-36.9, adult; H60.331 Swimmer's ear, right ear; Z71.85 Encounter for immunization safety counseling

== ENCOUNTER → 2024-04-22 08:44 | Outpatient (BNVA) | payer MEDICARE, SELFPAY | PROVIDERS: PCP Family Medicine; Visit Provider Family Medicine | DX: I10 Essential (primary) hypertension (principal); E11.9 Type 2 diabetes mellitus without complications; E66.9 Obesity, unspecified; H60.339 Swimmer's ear, unspecified ear | CPT/HCPCS: 83036; 99212 ==

== ENCOUNTER → 2024-05-02 09:57 | Outpatient (BNVA) | payer MEDICARE, SELFPAY | PROVIDERS: PCP Family Medicine ==

== ENCOUNTER → 2024-05-21 09:27 | Outpatient (BNVA) | payer MEDICARE, SELFPAY | PROVIDERS: PCP Family Medicine; Visit Provider Surgery ==

== ENCOUNTER 2024-05-29 08:04 | Outpatient (AMB) | payer MEDICARE, SELFPAY ==
--- OUTSIDE RECORDS SUMMARY | 2024-05-29 08:12 | XMS_ITS | Clinical Summary ---
Author Organization [facility] Address [address] [place] [address] Care Team Providers Care Turner Machine Operator Name Role Phone Ricky Iverson MD Primary Care Provider [phone] Allergies No known active allergies Medications Medication [...] age to complete this topic Care Teams Turner Machine Operator Relationship Specialty Start Date End Date Ricky Iverson MD [address] [place] [address] PCP - General Family Medicine 04/21/22
--- OUTSIDE RECORDS SUMMARY | 2024-05-29 08:12 | XMS_ITS | Data Portability ---
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 All questions were answered. [email or web address] Not available 09/20/2023 12:21:08 12/07/2023 12/07/2023 Both [...] is good three year data showing the nursing home success as well. We discussed the risks [...] with the contact information for my surgical technologist. We will begin the scheduling process and see the patient back at the time of surgery. Patient will not require medical clearance from their primary care provider preoperatively. [email or web address] Not available 12/07/2023 13:53:21 01/17/2024 01/17/2024 68 [...] Time Details Appointments Establish ed 60 2024 09:00A M KIM DRUMMOND PA-C Not available Not available Not available Lab None recorded. Referral None recorded. Procedures None recorded. Surgeries nasophary ngoscopy, surgical, with dilation of eustachia n tube; bilateral (SURG) 2023 024 [email or web address] Not available 12/07/2023 16:27:18 Imaging None recorded. [...] Recorded Time Impacted cerumen of bilateral ears [id number] 74828 Active 2018 Impacted cerumen, bilateral ; Note: Date Diagnosed : 07/31/2018 10:13 AM (H61.23) Not Available [facility] 4 02:47:52 Otitis externa of right ear [id number] 63544 Active 2016 Other otitis externa, right ear; Note: Date Diagnosed : 7 9:51 AM (H60.8X1) Not Available [facility] 4 02:47:48 Acute sinusitis 03002166 Active 2017 Acute sinusitis , unspecifi ed; Note: Date Diagnosed : 12/12/2017 9:57 AM (J01.90) Not Available [facility] 4 02:47:45 Impacted cerumen in left ear 07802651930 77169 Active 2016 Impacted cerumen, left ear; Note: Date Diagnosed : 04/05/2016 11:17 AM (H61.22) Not Available [facility] 4 02:47:52 Disorder of left Eustachia n tube 51742441811 58613 Active 2016 Other specified disorders of Eustachia n tube, left ear; Note: Date Diagnosed : 03/08/2016 10:00 AM (H69.82) Not Available [facility] 4 02:47:47 Bilateral disorder of Eustachia n tubes 62225840843 80024 Active 2018 Other specified disorders of Eustachia n tube, bilateral ; Note: Date Diagnosed : 07/31/2018 10:14 AM (H69.83) Not Available [facility] 4 02:47:53 Snoring 56397913 Active 2016 Snoring; Note: Date Diagnosed : 7 10:09 AM (R06.83) Not Available [facility] 4 02:47:52 Abnormal auditory perceptio n 62712928 Active 2018 Other abnormal auditory perceptio ns, bilateral ; Note: Date Diagnosed : 07/31/2018 10:15 AM (H93.293) Not Available [facility] 4 02:47:45 Mixed conductiv e and sensorine ural hearing loss, bilateral 888555551 Active 2023 KIA TOPETE, AUD [address] [facility] [place],[address], [place], [address] , [facility] 4 12:05:14 Bilateral adhesive otitis media of middle ears 49116998239 08391 Active 2023 KATI OBANDO MD [address] [facility],[place] [address], [facility] [place], [address] , [place] - [facility] 4 13:46:05 Sensorine ural hearing loss of bilateral ears 458105691 Active 2023 Paola walters [place] - [facility] 4 15:09:55 Problem Notes None recorded. Procedures Surgical History Date Name Laterality Status Provider Name and Address Organization Details Recorded Time Comp Audio with Tymps (06629 & 30333) completed Paola Ramsay [place] - [facility] 01/17/2024 15:09:47 NASOPHARYNGOSCOPY, SURGICAL, WITH DILATION OF EUSTACHIAN TUBE; BILATERAL (SURG) completed Philip Nance [place] - [facility] 12/22/2023 15:46:47 Fiberoptic Nasopharyngoscopy completed KATI OBANDO MD [address] [facility],[place] [address], [place], [address], [facility] - [facility] 12/07/2023 13:52:03 Comp Audio with Tymps (89490 & 65588) completed KIA TOPETE, SHARON [address] [facility] [place],[address], [place], [address], [place] - [facility] 09/20/2023 12:04:29 024 Cerumen removal without microscope bilat completed SHAYE GUIDRY PA-C [address] [place] [address],[address], [address], [place] - [facility] 09/20/2023 11:33:24 Imaging Results Imaging Date Name [...] dose pack 07/31 completed Medicati on ID: [id number] P rescribe d By Name: Adi Ewing nd Name: Medrol (Corey) Se nd Method: E-Prescr ibed Sub s Allowed: subs OK Speci al Instruct ion: take as instruct ed Medic ationGen ericName : Medrol (Corey) Not Available Not Available Not Available bisoprolo l 5 mg-hydroc hlorothia zide 6.25 mg tablet 12/12 completed Medicati on ID: [id number] D uration Value: 90 Reason: () Brand Name: bisoprol ol-hydro chloroth iazide S end Method: E-Prescr ibed Sub s Allowed: subs OK Medic ationGen ericName : bisoprol ol-hydro chloroth iazide Not Available Not Available Not Available Ciloxan 0.3 % eye drops 09/19 completed Medicati on ID: [id number] D uration Value: 5 Prescri bed By [...] mg tablet 12/06 completed Medicati on ID: [id number] D uration Value: 90 Reason: () Brand Name: moexipri l Send Method: E-Prescr ibed Sub s Allowed: subs OK Medic ationGen ericName : moexipri l Not Available Not Available Not Available clotrimaz ole 1 % topical solution 12/12 completed Medicati on ID: [id number] P rescribe d By Name: Adi Ewing nd Name: clotrima zole Sen d Method: E-Prescr ibed Sub s Allowed: subs OK Speci al Instruct ion: 5 drops to affected ear twice a day Medi cationGe nericNam e: clotrima zole Not Available Not Available Not Available hydrochlo rothiazid e 25 mg tablet 09/19 completed Medicati on ID: [id number] D uration Value: 30 Brand Name: hydrochl [...] layed release 2016 active Medicati on ID: [id number] B rand Name: Aspir-81 Send Method: E-Prescr [...] mg capsule 09/19 completed Medicati on ID: [id number] D uration Value: 90 Brand Name: amlodipi [...] Updated DateTime 09/20/2023 177.8 cm 33.3 kg/m2 784302.43 g Teri Ferrer [place] - [facility] 09/20/2023 11:08:31 Date Recorded Body height Body weight Body mass index (BMI) Provider Name and Address Organization Details Last Updated DateTime 12/07/2023 177.8 cm 847679.25 g 33 kg/m2 Nayla Mckinney [place] - [facility] 12/07/2023 13:03:59 Date Recorded Body height Body mass index (BMI) Body weight Provider Name and Address Organization Details Last Updated DateTime 01/17/2024 177.8 cm 36.2 kg/m2 477313.28 g Joanie Krishnamurthyrenée [place] - [facility] 01/17/2024 15:21:34 Social History None recorded. Functional Status None recorded. Mental Status None recorded. Family History Nothing Reported. Medical History Condition Response Hypertension Y Past Encounters Encounter ID Performer Location Encounter Start Date Encounter Closed Date Diagnosis/Indication Diagnosis SNOMED-CT Code Diagnosis ICD10 Code Diagnosis Note [id number] SHAYE GUIDRY PA-C [facility] [address] [address] 09/20/2023 10:45:58 09/20/2023 12:16:15 Bilateral disorder of Eustachian tubes [id number] 940185 H69.83 Impacted c erumen of bilateral ears 1501091522 611700 H61.23 Mixed cond uctive and sensorineural hearing loss, bilateral 398189318 H90.6 Audiologic al evaluation results: Right ear: [...] Cou ld not maintain a hermetic seal}} [id number] KATI OBANDO MD [facility] [address] [place] [address] 12/07/2023 12:56:27 12/07/2023 13:54:32 Bilateral disorder of Eustachian tubes 7465404983 150623 H69.83 Bilateral adhesive otitis media of middle ears 7600018901 772361 H74.13 [id number] ROZINAHANNAH MULLINSSHARON [place] [address] [place] [address] [place] [address] 12/29/2023 09:05:09 01/01/2024 06:57:56 Mixed conductive and sensorineural hearing loss, bilateral 146029094 H90.6 [id number] MIKAEL JACQUES MD [facility] [address] [address] 01/17/2024 14:22:08 01/17/2024 16:27:24 Bilateral disorder of Eustachian tubes 7062562119 145348 H69.83 Sensorineu ral hearing loss of bilateral ears 943515226 H90.3 Audiologic al evaluation results:Ri ght ear:{{Norm [...] - MEDICARE ADVANTAGE PLAN (MEDICARE REPLACEMENT HMO) [id number] 12 Suzan Winchester Min [id number] Suzan Winchester Min 12/07/2023 1 [employer] - MEDICARE ADVANTAGE PLAN (MEDICARE REPLACEMENT HMO) [id number] 12 Suzan Min [id number] Suzan Winchester Min 12/29/2023 1 [employer] - MEDICARE ADVANTAGE PLAN (MEDICARE REPLACEMENT HMO) [id number] 12 Suzan Winchester Min [id number] Suzan Winchester Min 01/17/2024 1 [employer] - MEDICARE ADVANTAGE PLAN (MEDICARE REPLACEMENT HMO) [id number] 12 Suzan Winchester [employer] [id number] Suzan Winchester Min Notes Date Note Type Note Provider Name and Address Organization Details Recorded Time 4 text/html 68-year-old male presents for evaluation of blocked ears. Longstanding history of eustachian tube dysfunction with prior BMT with Dr. Gunn. 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 More recently he has been having occasional yellow to clear drainage from his right ear which comes and goes. He has been having blocked hearing on that side as well that responds fairly well to auto insufflation. The left ear has also been bothersome but not as much. SHAYE GUIDRY PA-C [address] [facility] [address], [place], [address], [facility] 09/20/2023 12:21:42 4 text/html 60-year-old male, [...] improvement in symptoms. KATI OBANDO MD [address] [facility],[place] [address], [place], [address], [facility] 12/07/2023 13:54:37 4 text/html Pt is [...] will be ordering:{{Oticon phonak * Widex}} {{ qopsng85 or meyfslg05#}}Junior Underwriter: {{ 2M#}}Domes: {{ medium open#}} He need sto do some research, but will let me know what he would like to do. SHARON GEE [address] [facility],[address], [address], [place] - [facility] 12/29/2023 10:28:21 4 text/html 68 year old male presents s/p BMT with bilateral balloon dilation with Dr. Obando on 12/20/2023. He is doing well post-operatively without concerns. He denies otalgia, otorrhea, or hearing changes. He did have a hearing aid consult with one of our audiologists and is in the process of getting amplification. MIKAEL MCKEON MD [address] [facility],[place] [address], [place], [address], [place] [facility] 01/17/2024 16:43:22
--- OUTSIDE RECORDS SUMMARY | 2024-05-29 08:12 | XMS_ITS | Clinical Summary ---
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 Active coenzyme L34-bemnkez E 100-5 mg-unit capsule Take 200 mg [...] infeiror soft tissue Echo--03/04/16--mild LVH, ao4.1, EF>60 Surgical History Surgery Date Site/Laterality Comments HERNIA REPAIR 2009 PROCEDURE:HERNIA REPAIR Medical History Medical History Date Comments Hypertension DX:Hypertension Hyperlipidemia DX:Hyperlipidemi a COPD (chronic obstructive pu lmonary disease) ([facility] V24, [facility] V28) DX:COPD (chronic o bstructive pulmonary disease) ([facility]) Obesity DX:Obesity Family History Medical History [...] EDT Ancillary Procedure [facility] [place] [address] [facility] [address] [place] [address] 08/14/2024 10:00 AM EDT Office Visit [facility] [place] [address] [facility] [address] [place] [address] Donal Adams MD [address] [facility] [address] [place] [address] Health Maintenance Due Date Last Done Comments [...] BMP Blood Test 03/12/2023 10/18/2016 COVID-19 Vaccine ( - 2023-2 5 season) 2023 Influenza Vaccine (Season Ended) 2024 RSV Immunization Adult Patie nts (1 - 1-dose 75+ series) 06/19/2030 HIB [...] age to complete this topic Meningococcal B Vaccine Aged Out No l onger eligible based on patient's age to complete this topic RSV Immunization Patients Un jeanette 20 months Aged Out No longer eligible b ased on patient's age to complete this topic Varicella Vaccines Aged Out No longer eligible based on patient's age to complete this topic Procedures Procedure Name Priority Date/Time Associated Diagnosis Comments ANNUAL BMP BLOOD TEST Routine 10/18/2016 LIPID PANEL Routine 10/18/2016 from Last 3 Months or Most Recently Relevant to Health Maintenance Results * Annual BMP Blood Test (10/18/2016) Annual BMP Blood Test Abstracted Historical Provider MD HEALTH MAINTENANCE Final Result * (ABNORMAL) Lipid panel (10/18/2016) LDL/HDL Ratio 4 <=5 Triglycerides 287(A) <=150 mg/dL Cholesterol 170 <=200 mg/dL HDL 42 >=40 mg/dL LDL Cholesterol 90 <=100 mg/dL Blood Venous blood specimen / Unknown Historical Provider LAB BLOOD ORDERABLES Lashae l Result from Last 3 Months or Most Recently Relevant to Health Maintenance Insurance [employer] MEDIC[employer] ADVANTAGE Care Teams Inside Wirer Relationship Specialty Start Date End Date Ricky Iverson MD [address] [place] [address] Dr Bl[address] [place] - General 04/21/22
--- NOTE | 2024-05-29 10:00 | MHC.OFFVISWM ---
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 Dx: I10. Daily As directed, 999 days/lifetime ezetimibe 10 mg PO DAILY fenofibrate 160 mg PO DAILY 90 days fluticasone propionate 50 mcg/actuation (Flonase Allergy Relief) 1 spray intranasal Q12H 90 days glipizide 2.5 mg PO DAILY 90 days metoprolol succinate ER 100 mg (2 x 50 mg) PO DAILY 30 days HPI Comments Details: Previous weight loss efforts: [facility] (lost 20 lbs last year in 3 months) Wakes up: 6am, sleeps: 11pm Breakfast: 7am (eggs) Lunch: skips Dinner: 7pm (meat, vegetables and starch) Snack: 3-4pm (chips) Exercise: none Beverages: Coffee: (1 cup/d with creamer), tea: none, soda/juice: none, ETOH: 2 beers x 3/wk [facility] Medical History (Updated 05/29/24 @ 10:55 by Nelson Marquis MD) BMI 35.0-35.9,adult No pertinent past medical history Surgical History History of hernia repair Family History Father Kidney failure Mother Congenital heart disease Brother No problems noted. Sister No problems noted. Sister No problems noted. Sister No problems noted. Son No problems noted. Daughter No problems noted. 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 Cognitive needs: No Hearing needs: No Vision needs: Yes Physical Exam GI Inspection: Yes normal to inspection (Android), Yes incision (well healed) and Yes obesity Extrem Right lower extremity: normal to inspection Left lower extremity: normal to inspection Assessment & Plan Assessment & Plan (1) Obese: Code(s): E66.9 - Obesity, unspecified Category: Medical Qualifiers: Obesity type: due to excess calories Obesity classification: adult class 2 (BMI 35 - 39.9) Serious obesity comorbidity presence: with serious comorbidity Body mass index: BMI 35.0-35.9 Qualified Code(s): E66.812 - Obesity, class 2; E66.01 - Morbid (severe) obesity due to excess calories; Z68.35 - Body mass index [BMI] 35.0-35.9, adult Plan: 1. We discussed in detail the available therapeutic options: 1) our lifestyle intervention program that has an average weight loss of 10% in 3 months.? 2) Weight loss medications. 3) We also discussed about the lap sleeve gastrectomy. I emphasized the importance of close follow-up, adherence to instructions and good communication. The surgery does not replace the need to change your lifestlyle which is the cause of the obesity problem. The surgery provides the motivation to try again to change your lifestyle, it reduces the appetite and make the transition to a better lifestyle easier and doubles the amount of weight you would lose compared to doing the lifestyle change without the surgery. You will need to be on a liquid diet with protein shakes for 2 weeks before surgery to maximize weight loss and boost your nutritional status to recover better from surgery and also for the first two weeks after surgery to let the stomach heal before we introduce other foods. After the first 2 weeks we will introduce protein bars and soft foods like scrambled eggs, cottage cheese and yogurt and after the 6th week will introduce meat, fish and cooked vegetables in small amounts. Over time you should be able to eat everything in small amounts. Side effects like nausea, vomiting, heartburn or abdominal pain are not common in the practice unless you are not following in the practice. This operation requires lifetime commitment to following in our practice and communication with me. You will much less weight and experience side effects if you don?t communicate or not following in the practice. Complications are rare and in our practice is about 1/10 of the national average. The patient prefers to try the anti-obesity medications. She had an elevated blood pressure in my office of 140 / 68 and she has medically treated hypertension. I asked her to track her blood pressure daily in the morning the next few days and based on these reading we will decide which medication is most appropriate for her. 2. I will order a medication to help you with the weight loss and diabetes which is called Julio. My office will try to authorize it. Please let me know when you receive it so I can give you a meal and exercise plan. Common side effects include nausea, vomiting, constipation, diarrhea, abdominal pain. Please let me know if you develop any of these symptoms. The patient has participated in our lifestyle program last year and lost 24lbs. 3. Nutritional counseling. Start with 2 CELEBRATE REBUILD protein (buy at [facility]) shakes (HALF scoop EACH in 8oz low fat unsweetened almond milk each) at 7am-9am and 10am-12pm, 2 protein bars (CELEBRATE protein bars, buy at [facility]) at 1pm-3pm and 4pm-6pm, dinner at 7pm (10 forks of protein and 10 forks of salad/vegetables) AND one more protein bar after dinner at 9pm-11pm. So you do 2 protein shakes, 3 protein bars and one meal per day. Meal to include lean meat (beef, fish, pork, turkey, chicken), or sinhala yogurt, or egg whites, or beans with a salad with olive oil and fruits (berries, pears, apples, kiwi). Avoid salt, breads, potatoes, rice, pasta, desserts. 4. Each shake would be drunk slowly, like coffee in a period of 2 hours. 5. Cut each bar in 4 pieces and eat each piece in 30min ?to make each bar last 2 hours. 6. I emphasized the importance of measuring accurately the food portion and measure it when serving the food in plate 7. The meal portions include 10 full-size forks of meat and 10 full-size forks of salad. You always eat the meat portion but you can replace up to 5 forks for salad/vegetables with rice, potatoes or pasta, or a fruit ?if you like. The less you do it the better weight loss will be. 8. One full-size fork is what it can be scooped on the fork without falling aside and not what can be bit with the fork. Use regular forks like those you find in a typical restaurant. 9.? Please use your body composition scale we discussed and send me weight measurements as soon as possible and then once a week. Always include your diet and exercise plan. 9. Start walking outside daily, tracking calories with a goal of 300 calories per day, daily. Goal is to burn 2000 calories per week on exercise, which means either 300 calories daily, or 400 calories 5 days per week, or 500 calories 4 days per week, or 650 calories 3 days per week. 10. The best choice would be to purchase a stationary bike, elliptical or treadmill at home that can track calories. Let me know if you do so I can give you an exercise plan. 11. Goal is to lose at least 1.5-2lbs per week 12. Goal to lose 10% of your weight, which is about 24lbs. Minimum weight goal: 218lbs 13. Please follow the diet plan exactly without any change. If you don't like something about the plan or you feel hungry you need to communicate with me so I can help you revise the plan. You should not change the plan yourself Medications: New tirzepatide (Mounjaro) for 4 weeks 2.5 mg (0.5 mL) subcut QWEEK 2 mL 0RF E11.9 - Type 2 diabetes mellitus without complications, E66.01 - Morbid (severe) obesity due to excess calories, E66.812 - Obesity, class 2, Z68.35 - Body mass index [BMI] 35.0-35.9, adult
[2024-05-29 10:08] VITALS: BP 152/70; PULSE 82; TEMP 35.7; O2SAT 95; BMI 35.3
== END 2024-05-29 11:06 | disposition home or self-care (01) ==
PROVIDERS: PCP Family Medicine; Visit Provider Surgery
DX: E66.01 Morbid (severe) obesity due to excess calories (principal); E66.812 Obesity, class 2; Z68.35 Body mass index [BMI] 35.0-35.9, adult
CPT/HCPCS: 99214

== ENCOUNTER → 2024-05-29 08:04 | Outpatient (BNVA) | payer MEDICARE, SELFPAY | PROVIDERS: PCP Family Medicine; Visit Provider Surgery | DX: E66.812 Obesity, class 2 (principal); Z68.35 Body mass index [BMI] 35.0-35.9, adult | CPT/HCPCS: 99212 ==

== ENCOUNTER 2024-06-11 09:21 | Outpatient (REF) | payer MEDICARE, SELFPAY ==
--- OUTSIDE RECORDS SUMMARY | 2024-06-11 10:15 | XMS_ITS | Clinical Summary ---
Author Organization [facility] Address [address] [place] [address] Care Team Providers Care Marine Engineer Cpvec Name Role Phone Ricky Iverson MD Primary Care Provider [phone] Allergies No known active allergies Medications Medication [...] age to complete this topic Care Teams Marine Engineer Cpvec Relationship Specialty Start Date End Date Ricky Iverson MD [address] [place] [address] PCP - General Family Medicine 04/21/22
--- OUTSIDE RECORDS SUMMARY | 2024-06-11 10:16 | XMS_ITS | Data Portability ---
Author Organization [place] - [facility], Allergy Address [address] [facility] [address] [place] [address] Care Team Providers Care Television Equipment Operator Name Role Phone CAPRI POLANCO Primary [...] hearing aid evaluation. All questions were answered. 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 We discussed the risks [...] with the contact information for my surgical corsetier. We will begin the scheduling process and see the patient back at the time of surgery. Patient will not require medical clearance from their primary care provider preoperatively. [email or web address] Not available 12/07/2023 13:53:21 01/17/2024 01/17/2024 68 [...] eustachia n tube; bilateral (SURG) 2023 024 Not available 12/07/2023 16:27:18 Imaging None recorded. [...] Recorded Time Impacted cerumen of bilateral ears 94993059035 43384 Active 2018 Impacted cerumen, bilateral ; Note: Date Diagnosed : 07/31/2018 10:13 AM (H61.23) Not Available [facility] 4 02:47:52 Otitis externa of right ear 32572045503 62493 Active 2016 Other otitis externa, right ear; Note: Date Diagnosed : 7 9:51 AM (H60.8X1) Not Available [facility] 4 02:47:48 Acute sinusitis 92712786 Active 2017 Acute sinusitis , unspecifi ed; Note: Date Diagnosed : 12/12/2017 9:57 AM (J01.90) Not Available [facility] 4 02:47:45 Impacted cerumen in left ear 58272755578 66773 Active 2016 Impacted cerumen, left ear; Note: Date Diagnosed : 04/05/2016 11:17 AM (H61.22) Not Available [facility] 4 02:47:52 Disorder of left Eustachia n tube 46456308846 70156 Active 2016 Other specified disorders of Eustachia n tube, left ear; Note: Date Diagnosed : 03/08/2016 10:00 AM (H69.82) Not Available [facility] 4 02:47:47 Bilateral disorder of Eustachia n tubes 22809116572 40009 Active 2018 Other specified disorders of Eustachia n tube, bilateral ; Note: Date Diagnosed : 07/31/2018 10:14 AM (H69.83) Not Available [facility] 4 02:47:53 Snoring 35379616 Active 2016 Snoring; Note: Date Diagnosed : 7 10:09 AM (R06.83) Not Available [facility] 4 02:47:52 Abnormal auditory perceptio n 96742991 Active 2018 Other abnormal auditory perceptio ns, bilateral ; Note: Date Diagnosed : 07/31/2018 10:15 AM (H93.293) Not Available [facility] 4 02:47:45 Mixed conductiv e and sensorine ural hearing loss, bilateral 564625361 Active 2023 KIA TOPETE, AUD [address], [place], [address] , [place] - [facility] [place] 4 12:05:14 Bilateral adhesive otitis media of middle ears 67870304980 83200 Active 2023 KATI OBANDO MD [address] [facility],[place] [address], [facility] [place], [address] , [place] - [facility] 4 13:46:05 Sensorine ural hearing loss of bilateral ears 671628960 Active 2023 Paola walters [place] - [facility] 4 15:09:55 Problem Notes None recorded. Procedures Surgical History Date Name Laterality Status Provider Name and Address Organization Details Recorded Time Comp Audio with Tymps - 22767 & 25987 completed Paola Ramsay [place] - [facility] 01/17/2024 15:09:47 NASOPHARYNGOSCOPY, SURGICAL, WITH DILATION OF EUSTACHIAN TUBE; BILATERAL (SURG) completed Philip Nance [place] - [facility] 12/22/2023 15:46:47 Fiberoptic Nasopharyngoscopy completed KATI OBANDO MD [address] [facility],[place] [address], [place], [address], [place] [facility] 12/07/2023 13:52:03 Comp Audio with Tymps - 09151 & 51610 completed KIA TOPETE, AUD [address], [place], [address], [place] [facility] 09/20/2023 12:04:29 024 Cerumen removal without microscope bilat completed SHAEY GUIDRY PA-C [address] [place] [address], [place], [address], [place] [facility] 09/20/2023 11:33:24 Imaging Results Imaging Date [...] dose pack 07/31 completed Medicati on ID: [id number] P rescribe d By Name: Adi Ewing nd Name: Medrol (Corey) Se nd Method: E-Prescr ibed Sub s Allowed: subs OK Speci al Instruct ion: take as instruct ed Medic ationGen ericName : Medrol (Corey) Not Available Not Available Not Available bisoprolo l 5 mg-hydroc hlorothia zide 6.25 mg tablet 12/12 completed Medicati on ID: [id number] D uration Value: 90 Reason: () Brand Name: bisoprol ol-hydro chloroth iazide S end Method: E-Prescr ibed Sub s Allowed: subs OK Medic ationGen ericName : bisoprol ol-hydro chloroth iazide Not Available Not Available Not Available Ciloxan 0.3 % eye drops 09/19 completed Medicati on ID: [id number] D uration Value: 5 Prescri bed By [...] mg tablet 12/06 completed Medicati on ID: [id number] D uration Value: 90 Reason: () Brand Name: moexipri l Send Method: E-Prescr ibed Sub s Allowed: subs OK Medic ationGen ericName : moexipri l Not Available Not Available Not Available clotrimaz ole 1 % topical solution 12/12 completed Medicati on ID: [id number] P rescribe d By Name: Adi Ewing nd Name: clotrima zole Sen d Method: E-Prescr ibed Sub s Allowed: subs OK Speci al Instruct ion: 5 drops to affected ear twice a day Medi cationGe nericNam e: clotrima zole Not Available Not Available Not Available hydrochlo rothiazid e 25 mg tablet 09/19 completed Medicati on ID: [id number] D uration Value: 30 Brand Name: hydrochl [...] layed release 2016 active Medicati on ID: [id number] B rand Name: Aspir-81 Send Method: E-Prescr [...] mg capsule 09/19 completed Medicati on ID: [id number] D uration Value: 90 Brand Name: amlodipi [...] Updated DateTime 09/20/2023 177.8 cm 33.3 kg/m2 364656.43 g Teri Ferrer [place] - [facility] 09/20/2023 11:08:31 Date Recorded Body height Body weight Body mass index (BMI) Provider Name and Address Organization Details Last Updated DateTime 12/07/2023 177.8 cm 854980.25 g 33 kg/m2 Nayla Hank [place] - [facility] 12/07/2023 13:03:59 Date Recorded Body height Body mass index (BMI) Body weight Provider Name and Address Organization Details Last Updated DateTime 01/17/2024 177.8 cm 36.2 kg/m2 095888.28 g Joanie Krishnamurthyrenée [place] - [facility] 01/17/2024 15:21:34 Social History None recorded. Functional Status None recorded. Mental Status None recorded. Family History Nothing Reported. Medical History Condition Response Hypertension Y Past Encounters Encounter ID Performer Location Encounter Start Date Encounter Closed Date Diagnosis/Indication Diagnosis SNOMED-CT Code Diagnosis ICD10 Code Diagnosis Note [id number] SHAYE GUIDRY PA-C [facility] [address] [address] 09/20/2023 10:45:58 09/20/2023 12:16:15 Bilateral disorder of Eustachian tubes [id number] 686212 H69.83 Impacted c erumen of bilateral ears 2514906493 218951 H61.23 Mixed cond uctive and sensorineural hearing loss, bilateral 056050096 H90.6 Audiologic al evaluation results: Right ear: [...] Cou ld not maintain a hermetic seal}} [id number] KATI OBANDO MD [facility] [address] [place] [address] 12/07/2023 12:56:27 12/07/2023 13:54:32 Bilateral disorder of Eustachian tubes 6778204278 711443 H69.83 Bilateral adhesive otitis media of middle ears 9075775357 554312 H74.13 [id number] SHARON GEE [place] [address] [place] [address] [place] [address] 12/29/2023 09:05:09 01/01/2024 06:57:56 Mixed conductive and sensorineural hearing loss, bilateral 023025407 H90.6 [id number] KIM DRUMMOND PA-C [facility] [address] [address] 01/17/2024 14:22:08 01/17/2024 16:27:24 Bilateral disorder of Eustachian tubes 0094993600 511633 H69.83 Sensorineu ral hearing loss of bilateral ears 241303750 H90.3 Audiologic al evaluation results:Ri ght ear:{{Norm [...] - MEDICARE ADVANTAGE PLAN (MEDICARE REPLACEMENT HMO) [id number] 12 Suzan Winchester Min [id number] Suzan Winchester [employer] 12/07/2023 1 [employer] - MEDICARE ADVANTAGE PLAN (MEDICARE REPLACEMENT HMO) [id number] 12 Suzan Min [id number] Suzan [place] Min 12/29/2023 1 [employer] [place] - MEDICARE ADVANTAGE PLAN (MEDICARE REPLACEMENT HMO) [id number] 12 Suzan [place]ster Min [id number] Suzan [place] Min 01/17/2024 1 [employer] [place] - MEDICARE ADVANTAGE PLAN (MEDICARE REPLACEMENT HMO) [id number] 12 Suzan Winchester [employer] [id number] Suzan Winchester [employer] Notes Date Note Type Note Provider Name and Address Organization Details Recorded Time 4 text/html 68-year-old male presents for evaluation of blocked ears. Longstanding history of eustachian tube dysfunction with prior BMT with Dr. Gunn. 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 More recently he has been having occasional yellow to clear drainage from his right ear which comes and goes. He has been having blocked hearing on that side as well that responds fairly well to auto insufflation. The left ear has also been bothersome but not as much. SHAYE GUIDRY PA-C [address] [facility],[place] [address], [place], [address], [facility] 09/20/2023 12:21:42 4 text/html 60-year-old male, [...] improvement in symptoms. KATI OBANDO MD [address] [place] [address] [address], [place], [address], [facility] 12/07/2023 13:54:37 4 text/html Pt is [...] aids. Understands that his insurance is through [employer] and that he cannot use his benefit [...] will be ordering:{{Oticon phonak * Widex}} {{ [id number] or [id number]#}}Residential Building Inspector: {{ 2M#}}Domes: {{ medium open#}} He need sto do some research, but will let me know what he would like to do. SHARON GEE [address] [facility],[address], [address], [facility] - [facility] 12/29/2023 10:28:21 4 text/html 68 year old male presents s/p BMT with bilateral balloon dilation with Dr. Obando on 12/20/2023. He is doing well post-operatively without concerns. He denies otalgia, otorrhea, or hearing changes. He did have a hearing aid consult with one of our audiologists and is in the process of getting amplification. MIKAEL MCKEON MD [address] [facility],[place] [address], [place], [address], [facility] 01/17/2024 16:43:22
--- OUTSIDE RECORDS SUMMARY | 2024-06-11 10:16 | XMS_ITS | Clinical Summary ---
Author Organization [facility] [employer] [place] Address [address] [place] [address] Phone Care Team Providers Care Community Relations Police Lieutenant Name Role Phone Ricky Iverson MD Primary [...] PO) Take by mouth daily. Active coenzyme B12-ywrjgnz E 100-5 mg-unit capsule Take 200 mg [...] a COPD (chronic obstructive pu lmonary disease) ([facility] V24, [facility] V28) DX:COPD (chronic o bstructive pulmonary disease) ([facility]) Obesity DX:Obesity Family History Medical History [...] EDT Ancillary Procedure [facility] [place] [address] [facility] [address] [place] [address] 08/14/2024 10:00 AM EDT Office Visit [facility] [place] [address] [facility] [address] [place] [address] Donal Adams MD [address] [facility] [address] [place] [address] Health Maintenance Due Date Last Done Comments [...] [employer] [place] MEDICARE ADVANTAGE Care Teams Community Relations Police Lieutenant Relationship Specialty Start Date End Date Ricky Iverson MD [address] [place] [address] Dr Blanchard [address] PCP - General 04/21/22
[2024-06-11 18:07] LABS: Anion Gap 14 (12-20); Blood Urea Nitrogen 23 mg/dL (9-16); Calcium 9.8 mg/dL (8.4-10.2); Carbon Dioxide 24 mmol/L (22-29); Chloride 108 mmol/L (96-108); Estimated Glomerular Filt Rate 56; Glucose Random 83 mg/dL (60-115); Potassium 4.3 mmol/L (3.3-5.1); Sodium 142 mmol/L (135-145)
== END 2024-06-11 09:22 | disposition home or self-care (01) ==
LOC: HO.HKASLDS 09:21
PROVIDERS: Visit Provider Internal Medicine Hypertension Specialist
DX: N18.9 Chronic kidney disease, unspecified (principal)
CPT/HCPCS: 36415; 80048

== ENCOUNTER 2024-06-19 08:44 | Outpatient (AMB) | payer MEDICARE, SELFPAY ==
[2024-06-19 08:47] VITALS: BP 138/70; PULSE 73; O2SAT 96; BMI 35.1
--- NOTE | 2024-06-19 08:47 | HO.NEPHOV ---
Vital Signs 06/19/24 08:47 Height 5 ft 9.5 in Weight 241 lb BMI 35.1 BP 138/70 Blood Pressure Location Lt brachial Position Sitting Pulse 73 Pulse Source Pulse Oximeter Pulse Oximetry (%) 96 Oxygen Delivery Method Room Air Intake Visit Reasons: May follow up w/labs Conf Personnel Records Clerk Required: No Accompanied by: Self / Same As Patient Allergies No Known Allergies Allergy (Verified 06/19/24 08:48) Medication List - Last Reconciled 06/19/24 by Bill Lopez MD amlodipine-benazepril 10-20 mg 1 cap PO DAILY aspirin (Adult Aspirin Regimen) 81 mg PO DAILY atorvastatin 80 mg PO DAILY blood pressure monitor Automatic, Digital. Dx: I10. Daily As directed, 999 days/lifetime ezetimibe 10 mg PO DAILY fenofibrate 160 mg PO DAILY 90 days fluticasone propionate 50 mcg/actuation (Flonase Allergy Relief) 1 spray intranasal Q12H 90 days glipizide 2.5 mg PO DAILY 90 days metoprolol succinate ER 100 mg PO DAILY 30 days tirzepatide (Mounjaro) 2.5 mg (0.5 mL) subcut QWEEK HPI Comments Details: Suzan is a pleasant middle-aged man with a history of hypertension for more than 30 years. Overall blood pressure has been well controlled. He was on amlodipine benazepril 5/40 once a day. He was on hydrochlorothiazide which was discontinued about a year ago. He is still on spironolactone 25 mg a day. In August 2021 serum creatinine was 1.29 mg/dL and this was probably his baseline. In October of 2022 serum creatinine was 1.77 and a repeat creatinine was 2.01 and further increased to 2.18 Amlodipine-benazepril has been decreased to 5/20 once a day as of 12/15/2022 and has been referred for further evaluation. Of note he was also found to have hyperkalemia depression 5.7. Suzan tells me that his blood pressure has been well controlled he has no specific complaints today. He has had difficulty urination for quite some time. Last digital examination of the prostate was few years ago. He has been recently diagnosed with obstructive sleep apnea and he uses CPAP. He does wake up in the middle of the night once or twice to urinate. No hematuria. No line pain. No shortness of breath. No cough no hemoptysis. No diarrhea constipation. No rash no fever no weight loss. No joint pain or swelling. 12/28/2022 During his last visit spironolactone was discontinued due to hyperkalemia. He is on a lower dose of benazepril amlodipine. He had a renal ultrasonogram which was unremarkable except for some simple cysts bilaterally and no further reviewed radiological follow-up was recommended. There was no obstruction. Today he is feeling fine without any complaints no shortness of breath no nausea vomiting no urinary symptoms no edema. 03/01/2023. Doing well today ;Complained of sinus issues 08/02/2023. From renal standpoint he is doing well. Spironolactone has been restarted. No specific issues today. He is lost about 25 lb with dieting. 01/24/24; Overall doing well. Gained weight - stopped walking ! Uses CPAP 06/19/24: 69-year-old male presenting for a follow-up in managing chronic kidney disease, hypertension, and type 2 diabetes mellitus. His blood pressure shows occasional variations, generally improving with physical activity. The current antihypertensive regimen includes metoprolol, with spironolactone discontinued for unspecified reasons. The patient's diabetes management began with an adjustment to his medication regimen due to an increase in HbA1c percentage over the winter. He emphasizes a diet low in sugar by avoiding high-sugar foods and being conscious of sugar content in food labels. For obesity management, the patient has considered a gastric sleeve procedure, given the recent weight loss from dietary modifications. His weight reduction strategy involves lowering carbohydrate intake and utilizing a monitored diet. Kidney function has improved, with the functionality rising from 47% to 56% since prior assessments. [facility] Medical History (Updated 05/29/24 @ 10:55 by Nelson Marquis MD) BMI 35.0-35.9,adult No pertinent past medical history Surgical History History of hernia repair Family History Father Kidney failure Mother Congenital heart disease Brother No problems noted. Sister No problems noted. Sister No problems noted. Sister No problems noted. Son No problems noted. Daughter No problems noted. 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 Cognitive needs: No Hearing needs: No Vision needs: Yes Physical Exam Vital Signs: Last Vital Signs Pulse 73 06/19/24 08:47 BP 138/70 06/19/24 08:47 Pulse Ox 96 06/19/24 08:47 Oxygen Delivery Method Room Air 06/19/24 08:47 BMI result Body Mass Index 35.1 Const General: comfortable Nutritional Appearance: well nourished Orientation/consciousness: patient oriented x3 HEENT Head: No normal to inspection Mouth: moist mucous membranes Eyes General: appearance normal, both eyes and all related structures Visual Maddox: normal visual maddox by confrontation Neck Neck: Yes supple and Yes no JVD Resp Effort & Inspection: normal respiratory effort and respiratory effort not decreased Auscultation: clear to auscultation bilaterally and no rales Cardio Jugular venous distension: no JVD Palpation: no palpable S3 and no palpable S4 Heart sounds: no rubs GI Inspection: Yes normal to inspection Palpation (GI): Soft to palpation and nontender Percussion: No Fluid wave present Auscultation: normal bowel sounds General: Yes no CVA tenderness Back/Spine/Pelvis Back: no CVA tenderness Skin General skin exam: no rashes or lesions noted Neuro General: patient oriented x3 Extrem General: Yes no pedal edema and No clubbing Results Reviewed Nephrology Results: Sodium 142 mmol/L (135-145) 06/11/24 Potassium 4.3 mmol/L (3.3-5.1) 06/11/24 Chloride 108 mmol/L (96-108) 06/11/24 Carbon Dioxide 24 mmol/L (22-29) 06/11/24 BUN 23 mg/dL (9-16) H 06/11/24 Creatinine 1.27 mg/dL (0.5-1.4) 06/11/24 Calcium 9.8 mg/dL (8.4-10.2) 06/11/24 Assessment & Plan Assessment & Plan (1) Renal failure: Code(s): N19 - Unspecified kidney failure Category: Medical Plan: Middle-aged man with h/o acute kidney injury superimposed on chronic kidney disease. Suzan has chronic kidney disease with a baseline creatinine 1.29 with a EGFR of 56 mL/minute as of August 2021. No lab results are available between August 2021 and October 2022. However he has sustained acute kidney injury with the creatinine bumping up to 2.18 and 2.3. Cr is down to 1.27 The differential diagnosis for acute kidney injury would include Hypoperfusion, No evidence of obstruction based on renal ultrasonogram. No evidence of any active glomerular or interstitial disease at this time based on the bland urinary sediments. Microalbuminuria in a setting of HTN/Obesity Obesity ANJALI Plan Keep on benazepril-amlodipine to 11/25. Increase p.o. fluid intake Needs weight loss- Increase physical activities Continue to hold off on SPironolactone since BP is well controlled. (2) Hyperkalemia: Code(s): E87.5 - Hyperkalemia Category: Medical Plan: s/p Hyperkalemia in the setting of acute kidney injury while he was on an JOSSELYN inhibitor and spironolactone. Potassium is under control Discussed low-potassium diet. (3) Anemia: Code(s): D64.9 - Anemia, unspecified Category: Medical Plan: Mild anemia. This may be related to CKD. Shall watch hemoglobin for now. (4) HTN (hypertension): Code(s): I10 - Essential (primary) hypertension Category: Medical Plan: Blood pressure is acceptable I encouraged him to stay on low-sodium diet. Discussed weight loss. 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 eGFR is about 50 -54ml/mt Orders: Orders Basic Metabolic Panel 6 Months I10 - Essential (primary) hypertension, N18.9 - Chronic kidney disease, unspecified Total Protein Urine Random 6 Months I10 - Essential (primary) hypertension, N18.9 - Chronic kidney disease, unspecified UA and rflx microscopic 6 Months I10 - Essential (primary) hypertension, N18.9 - Chronic kidney disease, unspecified Creatinine Urine 6 Months I10 - Essential (primary) hypertension, N18.9 - Chronic kidney disease, unspecified Coding Level of Care Code Est Pt Level 4 (25552) Diagnoses Renal failure N19 Hyperkalemia E87.5 Anemia D64.9 HTN (hypertension) I10 CKD (chronic kidney disease) N18.9
--- OUTSIDE RECORDS SUMMARY | 2024-06-19 09:04 | XMS_ITS | Clinical Summary ---
Author Organization [facility] [employer] [place] Address [address] [place] [address] Phone Care Team Providers Care Lab Courier Name Role Phone Ricky Iverson MD Primary [...] PO) Take by mouth daily. Active coenzyme S75-xjznaac E 100-5 mg-unit capsule Take 200 mg [...] a COPD (chronic obstructive pu lmonary disease) ([facility] V24, [facility] V28) DX:COPD (chronic o bstructive pulmonary disease) ([facility]) Obesity DX:Obesity Family History Medical History Relation [...] EDT Ancillary Procedure [facility] [place] [address] [facility] [address] [place] [address] 08/14/2024 10:00 AM EDT [facility] Visit [facility] [place] [address] [facility] [address] [place] [address] Donal Adams MD 19 [facility] [address] [place] [address] Health Maintenance Due Date Last Done Comments [...] [employer] [place] MED[employer]VANT[employer] Care Teams Lab Courier Relationship Specialty Start Date End Date Ricky Iverson MD [address] [place] [address] Dr Blanchard [address] [place] PCP - General 04/21/22
--- OUTSIDE RECORDS SUMMARY | 2024-06-19 09:04 | XMS_ITS | Clinical Summary ---
Author Organization [facility] Address [address] [place] [address] Care Team Providers Care Union Contract Representative Name Role Phone Ricky Iverson MD Primary Care Provider [phone] Allergies No known active allergies Medications Medication [...] age to complete this topic Care Teams Union Contract Representative Relationship Specialty Start Date End Date Ricky Iverson MD [address] [place] [address] PCP - General Family Medicine 04/21/22
--- OUTSIDE RECORDS SUMMARY | 2024-06-19 09:05 | XMS_ITS | Data Portability ---
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 All questions were answered. [email or web address] Not available 09/20/2023 12:21:08 12/07/2023 12/07/2023 Both [...] is good three year data showing the shelter success as well. We discussed the risks [...] patient with the contact information for my central scheduler. We will begin the scheduling process and see the patient back at the time of surgery. Patient will not require medical clearance from their primary care provider preoperatively. [email or web address] Not available 12/07/2023 13:53:21 01/17/2024 01/17/2024 68 [...] eustachia n tube; bilateral (SURG) 2023 024 [email or web address] Not available 12/07/2023 16:27:18 Imaging None recorded. [...] Recorded Time Impacted cerumen of bilateral ears 66241672518 75319 Active 2018 Impacted cerumen, bilateral ; Note: Date Diagnosed : 07/31/2018 10:13 AM (H61.23) Not Available [facility] 4 02:47:52 Otitis externa of right ear 53736487693 18109 Active 2016 Other otitis externa, right ear; Note: Date Diagnosed : 7 9:51 AM (H60.8X1) Not Available [facility] 4 02:47:48 Acute sinusitis 21852413 Active 2017 Acute sinusitis , unspecifi ed; Note: Date Diagnosed : 12/12/2017 9:57 AM (J01.90) Not Available [facility] 4 02:47:45 Impacted cerumen in left ear 09553926723 11906 Active 2016 Impacted cerumen, left ear; Note: Date Diagnosed : 04/05/2016 11:17 AM (H61.22) Not Available [facility] 4 02:47:52 Disorder of left Eustachia n tube 54958397779 14289 Active 2016 Other specified disorders of Eustachia n tube, left ear; Note: Date Diagnosed : 03/08/2016 10:00 AM (H69.82) Not Available [facility] 4 02:47:47 Bilateral disorder of Eustachia n tubes 87580929566 28315 Active 2018 Other specified disorders of Eustachia n tube, bilateral ; Note: Date Diagnosed : 07/31/2018 10:14 AM (H69.83) Not Available [facility] 4 02:47:53 Snoring 81969077 Active 2016 Snoring; Note: Date Diagnosed : 7 10:09 AM (R06.83) Not Available [facility] 4 02:47:52 Abnormal auditory perceptio n 01071893 Active 2018 Other abnormal auditory perceptio ns, bilateral ; Note: Date Diagnosed : 07/31/2018 10:15 AM (H93.293) Not Available [facility] 4 02:47:45 Mixed conductiv e and sensorine ural hearing loss, bilateral 950266056 Active 2023 KIA TOPETE, AUD [address], [place], [address] , [place] - [facility] 4 12:05:14 Bilateral adhesive otitis media of middle ears 86455342198 97275 Active 2023 KATI OBANDO MD [address] [facility],[place] [address], [facility] [place], [address] , [place] - [facility] 4 13:46:05 Sensorine ural hearing loss of bilateral ears 492020498 Active 2023 Paola walters [place] - [facility] 4 15:09:55 Problem Notes None recorded. Procedures Surgical History Date Name Laterality Status Provider Name and Address Organization Details Recorded Time Comp Audio with Tymps - 31502 & 98179 completed Paola Ramsay [place] - [facility] 01/17/2024 15:09:47 NASOPHARYNGOSCOPY, SURGICAL, WITH DILATION OF EUSTACHIAN TUBE; BILATERAL (SURG) completed Philip Nance [place] - [facility] 12/22/2023 15:46:47 Fiberoptic Nasopharyngoscopy completed KATI OBANDO MD [address] [facility],[place] [address], [place], [address], [place] - [facility] 12/07/2023 13:52:03 Comp Audio with Tymps - 96606 & 68878 completed KIA TOPETE, AUD [address] [facility] [address], [place], [address], [place] - [facility] 09/20/2023 12:04:29 024 Cerumen removal without microscope bilat completed SHAYE GUIDRY PA-C [address] [place] [address], [place], [address], [place] [facility] 09/20/2023 11:33:24 Imaging Results Imaging Date Name [...] dose pack 07/31 completed Medicati on ID: [id number] P rescribe d By Name: Adi Ewing nd Name: Medrol (Corey) Se nd Method: E-Prescr ibed Sub s Allowed: subs OK Speci al Instruct ion: take as instruct ed Medic ationGen ericName : Medrol (Corey) Not Available Not Available Not Available bisoprolo l 5 mg-hydroc hlorothia zide 6.25 mg tablet 12/12 completed Medicati on ID: [id number] D uration Value: 90 Reason: () Brand Name: bisoprol ol-hydro chloroth iazide S end Method: E-Prescr ibed Sub s Allowed: subs OK Medic ationGen ericName : bisoprol ol-hydro chloroth iazide Not Available Not Available Not Available Ciloxan 0.3 % eye drops 09/19 completed Medicati on ID: [id number] D uration Value: 5 Prescri bed By [...] mg tablet 12/06 completed Medicati on ID: [id number] D uration Value: 90 Reason: () Brand Name: moexipri l Send Method: E-Prescr ibed Sub s Allowed: subs OK Medic ationGen ericName : moexipri l Not Available Not Available Not Available clotrimaz ole 1 % topical solution 12/12 completed Medicati on ID: [id number] P rescribe d By Name: Adi Ewing nd Name: clotrima zole Sen d Method: E-Prescr ibed Sub s Allowed: subs OK Speci al Instruct ion: 5 drops to affected ear twice a day Medi cationGe nericNam e: clotrima zole Not Available Not Available Not Available hydrochlo rothiazid e 25 mg tablet 09/19 completed Medicati on ID: [id number] D uration Value: 30 Brand Name: hydrochl [...] layed release 2016 active Medicati on ID: [id number] B rand Name: Aspir-81 Send Method: E-Prescr [...] mg capsule 09/19 completed Medicati on ID: [id number] D uration Value: 90 Brand Name: amlodipi [...] Updated DateTime 09/20/2023 177.8 cm 33.3 kg/m2 285236.43 g Teri Ferrer [place] - [facility] 09/20/2023 11:08:31 Date Recorded Body height Body weight Body mass index (BMI) Provider Name and Address Organization Details Last Updated DateTime 12/07/2023 177.8 cm 898653.25 g 33 kg/m2 Nayla Hank [place] - [facility] 12/07/2023 13:03:59 Date Recorded Body height Body mass index (BMI) Body weight Provider Name and Address Organization Details Last Updated DateTime 01/17/2024 177.8 cm 36.2 kg/m2 700767.28 g Joanie Krishnamurthyrenée [place] - [facility] 01/17/2024 15:21:34 Social History None recorded. Functional Status None recorded. Mental Status None recorded. Family History Nothing Reported. Medical History Condition Response Hypertension Y Past Encounters Encounter ID Performer Location Encounter Start Date Encounter Closed Date Diagnosis/Indication Diagnosis SNOMED-CT Code Diagnosis ICD10 Code Diagnosis Note [id number] SHAYE GUIDRY PA-C [facility] [address] [address] 09/20/2023 10:45:58 09/20/2023 12:16:15 Bilateral disorder of Eustachian tubes [id number] 975246 H69.83 Impacted c erumen of bilateral ears 9143353769 554242 H61.23 Mixed cond uctive and sensorineural hearing loss, bilateral 402788213 H90.6 Audiologic al evaluation results: Right ear: [...] Cou ld not maintain a hermetic seal}} [id number] KATI OBANDO MD [facility] [address] [place] [address] 12/07/2023 12:56:27 12/07/2023 13:54:32 Bilateral disorder of Eustachian tubes 0456662163 081564 H69.83 Bilateral adhesive otitis media of middle ears 5589980260 223383 H74.13 [id number] SHARON GEE [place] - [facility] [address] [place] [address] [place] [address] 12/29/2023 09:05:09 01/01/2024 06:57:56 Mixed conductive and sensorineural hearing loss, bilateral 301162803 H90.6 [id number] KIM DRUMMOND PA-C [facility] [address] [address] 01/17/2024 14:22:08 01/17/2024 16:27:24 Bilateral disorder of Eustachian tubes 0983209870 627338 H69.83 Sensorineu ral hearing loss of bilateral ears 524246441 H90.3 Audiologic al evaluation results:Ri ght ear:{{Norm [...] Recorded Advance Directives Directive None Recorded Payers Insurance Date Sequence Insurance Name Policy Number Policy Murillo Covered Member ID Murillo Member ID Guarantor Name 01/17/2024 1 [employer] - MEDICARE ADVANTAGE PLAN (MEDICARE REPLACEMENT HMO) [id number] Suzan Min [id number] Suzan Min Notes Date Note Type Note Provider Name and Address Organization Details Recorded Time 4 text/html 68-year-old male presents for evaluation of blocked ears. Longstanding history of eustachian tube dysfunction with prior BMT with Dr. Gunn. 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 More recently he has been having occasional yellow to clear drainage from his right ear which comes and goes. He has been having blocked hearing on that side as well that responds fairly well to auto insufflation. The left ear has also been bothersome but not as much. SHAYE GUIDRY PA-C [address] [place] [address], [phone], [facility] - [facility] 09/20/2023 12:21:42 4 text/html 60-year-old male, former [...] any improvement in symptoms. KATI OBANDO MD [address] [place] [address], [phone], [facility] - [facility] 12/07/2023 13:54:37 4 text/html Pt is {{a* [...] will be ordering:{{Oticon phonak * Widex}} {{ dsclny19 or mxipulo64#}}Manufacturing Business Analyst: {{ 2M#}}Domes: {{ medium open#}} He need sto do some research, but will let me know what he would like to do. SHARON GEE [address] [facility],[address], [address], [facility] - [facility] 12/29/2023 10:28:21 4 text/html 68 year old male presents s/p BMT with bilateral balloon dilation with Dr. Obando on 12/20/2023. He is doing well post-operatively without concerns. He denies otalgia, otorrhea, or hearing changes. He did have a hearing aid consult with one of our audiologists and is in the process of getting amplification. MIKAEL MCKEON MD [address] [facility],[place] [address], [place], [address], [facility] - [facility] 01/17/2024 16:43:22
== END 2024-06-19 09:06 | disposition home or self-care (01) ==
LOC: HO.HKAS 08:45
PROVIDERS: PCP Family Medicine; Visit Provider Internal Medicine Hypertension Specialist
DX: I12.9 Hypertensive chronic kidney disease with stage 1 through stage 4 chronic kidney disease, or unspecified chronic kidney disease (principal); N18.9 Chronic kidney disease, unspecified; E87.5 Hyperkalemia; D64.9 Anemia, unspecified
CPT/HCPCS: 99214

== ENCOUNTER → 2024-06-19 08:44 | Outpatient (BNVA) | payer MEDICARE, SELFPAY | PROVIDERS: PCP Family Medicine; Visit Provider Internal Medicine Hypertension Specialist | DX: I12.9 Hypertensive chronic kidney disease with stage 1 through stage 4 chronic kidney disease, or unspecified chronic kidney disease (principal); N18.9 Chronic kidney disease, unspecified; N17.9 Acute kidney failure, unspecified; E87.5 Hyperkalemia; D64.9 Anemia, unspecified | CPT/HCPCS: 99212 ==

== ENCOUNTER 2024-06-26 13:52 | Outpatient (AMB) | payer OTHER, SELFPAY ==
[2024-06-26 14:10] VITALS: PULSE 66; O2SAT 97; BMI 35.1
--- NOTE | 2024-06-26 14:10 | A.OFFVIS_ITS ---
Vital Signs 06/26/24 14:10 Height 5 ft 9.5 in Weight 241 lb 6 oz BMI 35.1 Pulse 66 Pulse Source Pulse Oximeter Pulse Oximetry (%) 97 Oxygen Delivery Method Room Air Intake Visit Reasons: Follow Up 6mo Intake Note: Patient presents follow up ANJALI. Compliance in chart(90/90 days, >=4hrs-84 days, Median Leaks- 0.9, AHI-1.9). Allergies No Known Allergies Allergy (Verified 06/26/24 14:16) HPI Comments Details: 67 year old male with h/o HTN and ANJALI presents today for a 6 mos f/u visit. He says his sleep has improved now he is averaging 5-6 hours on a good night, and feeling more restful in the mornings. There are days still when he has trouble falling asleep after using the bathroom at night, however he has finally acclimated to using his cpap machine. The only time he no longer uses it is when he has an uri or some type of environmental allergy like symptoms. He denies morning headaches, snoring, and parasomnias. RLS symptoms, he has twitching bilaterally in his legs and it is an uncomfortable sensation, once he moves his legs it subsides. He denies cramps, spasms, pins and or needles. The symptoms never wake him up from sleep. He is active daily and works in the yard, he wants to lose weight, is followed by weight management. The braddisher also has been giving him good information regarding diet and lifestyle changes, was started on glipizide 2.5mg po daily as his A1c was elevated to greater than 6, but he did not start mounjaro due to insurance denials. He has lost 12 lbs. His memory is good, ocassionally he will forget things, and names but nothing that is noticeable. Most of the time he tends to be in a good mood, he drinks 2 beers a night, 3x a week. COUNTS INCLUDE 234 BEDS AT [facility] Medical History BMI 35.0-35.9,adult No pertinent past medical history Surgical History History of hernia repair Family History Father Kidney failure Mother Congenital heart disease Brother No problems noted. Sister No problems noted. Sister No problems noted. Sister No problems noted. Son No problems noted. Daughter No problems noted. 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 Cognitive needs: No Hearing needs: No Vision needs: Yes Physical Exam Vital Signs: Last Vital Signs Pulse 66 06/26/24 14:10 Pulse Ox 97 06/26/24 14:10 Oxygen Delivery Method Room Air 06/26/24 14:10 BMI result Body Mass Index 35.1 Const General: cooperative, comfortable and no acute distress Orientation/consciousness: patient oriented x3 HEENT Face and sinus: Yes face symmetric Eyes Pupils: Equal, round and reactive pupils present Neck Neck: Yes full ROM Resp Effort & Inspection: normal respiratory effort and able to speak in complete sentences Neuro General: patient oriented x3 and moves all extremities Cranial nerves: Yes Facial sensation intact/muscles of mastication intact, Yes Equal, round and reactive pupils present, Yes Normal accommodation reflex present, Yes Normal facial strength present, Yes Midline tongue present, Yes Ability to bilaterally rotate head present and Yes Ability to bilaterally elevate shoulders present Cognition (Neuro): normal cognition Gait exam (Neuro): Normal gait present Motor exam (neuro): 5/5 motor strength present throughout and Normal motor muscle tone present throughout Psych Thought process: Normal thought process present Thought content: Normal thought content present Results Reviewed Results Reviewed: ANJALI compliance report 03/20/2024 - 06/17/2024 Avg use >4 hours 84 days, 93% Avg usage total 7 hours and 8min Press [id number], Leaks median 0.9, and AHI is 1.9 Pressure autoset to [id number] Assessment & Plan Assessment & Plan (1) Sleep apnea: Code(s): G47.30 - Sleep apnea, unspecified Category: Medical Qualifiers: Sleep apnea type: obstructive Qualified Code(s): G47.33 - Obstructive sleep apnea (adult) (pediatric) (2) RLS (restless legs syndrome): Code(s): G25.81 - Restless legs syndrome Category: Medical (3) Muscle twitch: Code(s): R25.3 - Fasciculation Category: Medical Plan ANJALI reviewed compliance report with patient. Clean and wash mask and tubing daily. Use only distilled water to avoid contamination of filter and reservoir. Use Pressurized Saline Rinse as needed for allergies and colds to avoid infections. RLS Start 400mg magnesium at bedtime. Topically can apply magnalife cream, or rls cream, can hold magnesium every other day for loose stools. Start B6 daily 200mg at bedtime. Monitor night time RLS like activity such as restless legs, cramping, burning or tingling. Monitor a1c, and f/u with weight management as appropriate. F/U in 6 months. Patient Instructions: Sleep Hygiene provided: set a scheduled bedtime and wake time to help regulate the circadian rhythm and balance the release of pituitary hormones. Sleep in a dark room, temperatures below 68 degrees, and no devices n bed. Limit caffeinated products 6 hours prior to bed, and limit fluids 2-4 hours prior to bed. Gentle night yoga, diffusing essential oils, and playing soft music can be relaxing. Wash mask, tubing, replace filters and change water daily. Weight management f/u with braddisher and monitor a1c, with diet and lifestyle changes, swimming daily, walking for 15 min and drinking 60% of water accordingly to body weight. For RLS monitor legs, start magnesium 400mg PO daily at bedtme, and B6 200mg PO daily at bedtime. Coding Level of Care Code Est Pt Level 4 (74746) Diagnoses Obstructive sleep apnea syndrome G47.33 Sleep apnea type: obstructive RLS (restless legs syndrome) G25.81 Muscle twitch R25.3 Time Spent (min) 30
--- OUTSIDE RECORDS SUMMARY | 2024-06-26 14:26 | XMS_ITS | Clinical Summary ---
Author Organization [facility] Address [address] [place] [address] Care Team Providers Care Bpo Specialist Name Role Phone Ricky Iverson MD Primary Care Provider [phone] Allergies No known active allergies Medications Medication [...] age to complete this topic Care Teams Bpo Specialist Relationship Specialty Start Date End Date Ricky Iverson MD [address] [place] [address] PCP - General Family Medicine 04/21/22
--- OUTSIDE RECORDS SUMMARY | 2024-06-26 14:26 | XMS_ITS | Data Portability ---
Author Organization [place] - [facility], Allergy Address [address] [facility] [address] [place] [address] Care Team Providers Care Operations Vice President Name Role Phone CAPRI POLANCO Primary Care [...] hearing aid evaluation. All questions were answered. [email or web address] Not available 09/20/2023 12:21:08 12/07/2023 12/07/2023 Both [...] is good three year data showing the mcc success as well. We discussed the risks [...] patient with the contact information for my surgery scheduler. We will begin the scheduling process and see the patient back at the time of surgery. Patient will not require medical clearance from their primary care provider preoperatively. Not available 12/07/2023 13:53:21 01/17/2024 01/17/2024 68 [...] eustachia n tube; bilateral (SURG) 2023 024 [email or web address] Not available 12/07/2023 16:27:18 Imaging None recorded. [...] Recorded Time Impacted cerumen of bilateral ears [id number] 22438 Active 2018 Impacted cerumen, bilateral ; Note: Date Diagnosed : 07/31/2018 10:13 AM (H61.23) Not Available [facility] 4 02:47:52 Otitis externa of right ear 69449661268 45535 Active 2016 Other otitis externa, right ear; Note: Date Diagnosed : 7 9:51 AM (H60.8X1) Not Available On license of [facility] 4 02:47:48 Acute sinusitis 41921954 Active 2017 Acute sinusitis , unspecifi ed; Note: Date Diagnosed : 12/12/2017 9:57 AM (J01.90) Not Available On license of [facility] 4 02:47:45 Impacted cerumen in left ear 27102372335 77366 Active 2016 Impacted cerumen, left ear; Note: Date Diagnosed : 04/05/2016 11:17 AM (H61.22) Not Available On license of [facility] 4 02:47:52 Disorder of left Eustachia n tube 65203607143 87216 Active 2016 Other specified disorders of Eustachia n tube, left ear; Note: Date Diagnosed : 03/08/2016 10:00 AM (H69.82) Not Available On license of [facility] 4 02:47:47 Bilateral disorder of Eustachia n tubes 95106682899 31325 Active 2018 Other specified disorders of Eustachia n tube, bilateral ; Note: Date Diagnosed : 07/31/2018 10:14 AM (H69.83) Not Available On license of [facility] 4 02:47:53 Snoring 92629969 Active 2016 Snoring; Note: Date Diagnosed : 7 10:09 AM (R06.83) Not Available On license of [facility] 4 02:47:52 Abnormal auditory perceptio n 65283929 Active 2018 Other abnormal auditory perceptio ns, bilateral ; Note: Date Diagnosed : 07/31/2018 10:15 AM (H93.293) Not Available On license of [facility] 4 02:47:45 Mixed conductiv e and sensorine ural hearing loss, bilateral 271182249 Active 2023 KIA TOPETE, AUD [address], [place], [address] , [place] - [facility] 4 12:05:14 Bilateral adhesive otitis media of middle ears 63271078995 47541 Active 2023 KATI OBANDO MD [address] [facility],[place] [address], [facility] [place], [address] , [place] - [facility] 4 13:46:05 Sensorine ural hearing loss of bilateral ears 586761385 Active 2023 Paola walters [place] - [facility] 4 15:09:55 Problem Notes None recorded. Procedures Surgical History Date Name Laterality Status Provider Name and Address Organization Details Recorded Time Comp Audio with Tymps - 14829 & 11090 completed Paola Ramsay [place] - [facility] 01/17/2024 15:09:47 NASOPHARYNGOSCOPY, SURGICAL, WITH DILATION OF EUSTACHIAN TUBE; BILATERAL (SURG) completed Philip Nance [place] - [facility] 12/22/2023 15:46:47 Fiberoptic Nasopharyngoscopy completed KATI OBANDO MD [address] [facility],[place] [address], [place], [address], [place] - [facility] 12/07/2023 13:52:03 Comp Audio with Tymps - 50752 & 33119 completed KIA TOPETE, AUD [address], [place], [address], [place] - [facility] 09/20/2023 12:04:29 024 Cerumen removal without microscope bilat completed SHAYE GUIDRY PA-C [address] [place] [address], [place], [address], [place] - [facility] 09/20/2023 11:33:24 Imaging Results Imaging Date Name [...] dose pack 07/31 completed Medicati on ID: [id number] P rescribe d By Name: Adi Ewing nd Name: Medrol (Corey) Se nd Method: E-Prescr ibed Sub s Allowed: subs OK Speci al Instruct ion: take as instruct ed Medic ationGen ericName : Medrol (Corey) Not Available Not Available Not Available bisoprolo l 5 mg-hydroc hlorothia zide 6.25 mg tablet 12/12 completed Medicati on ID: [id number] D uration Value: 90 Reason: () Brand Name: bisoprol ol-hydro chloroth iazide S end Method: E-Prescr ibed Sub s Allowed: subs OK Medic ationGen ericName : bisoprol ol-hydro chloroth iazide Not Available Not Available Not Available Ciloxan 0.3 % eye drops 09/19 completed Medicati on ID: [id number] D uration Value: 5 Prescri bed By [...] mg tablet 12/06 completed Medicati on ID: [id number] D uration Value: 90 Reason: () Brand Name: moexipri l Send Method: E-Prescr ibed Sub s Allowed: subs OK Medic ationGen ericName : moexipri l Not Available Not Available Not Available clotrimaz ole 1 % topical solution 12/12 completed Medicati on ID: [id number] P rescribe d By Name: Adi Ewing nd Name: clotrima zole Sen d Method: E-Prescr ibed Sub s Allowed: subs OK Speci al Instruct ion: 5 drops to affected ear twice a day Medi cationGe nericNam e: clotrima zole Not Available Not Available Not Available hydrochlo rothiazid e 25 mg tablet 09/19 completed Medicati on ID: [id number] D uration Value: 30 Brand Name: hydrochl [...] layed release 2016 active Medicati on ID: [id number] B rand Name: Aspir-81 Send Method: E-Prescr [...] mg capsule 09/19 completed Medicati on ID: [id number] D uration Value: 90 Brand Name: amlodipi [...] Updated DateTime 09/20/2023 177.8 cm 33.3 kg/m2 512973.43 g Teri Ferrer [place] - [facility] 09/20/2023 11:08:31 Date Recorded Body height Body weight Body mass index (BMI) Provider Name and Address Organization Details Last Updated DateTime 12/07/2023 177.8 cm 683022.25 g 33 kg/m2 Nayla Hank [place] - [facility] 12/07/2023 13:03:59 Date Recorded Body height Body mass index (BMI) Body weight Provider Name and Address Organization Details Last Updated DateTime 01/17/2024 177.8 cm 36.2 kg/m2 325740.28 g Joanie Krishnamurthyrenée [place] - [facility] 01/17/2024 15:21:34 Social History None recorded. Functional Status None recorded. Mental Status None recorded. Family History Nothing Reported. Medical History Condition Response Hypertension Y Past Encounters Encounter ID Performer Location Encounter Start Date Encounter Closed Date Diagnosis/Indication Diagnosis SNOMED-CT Code Diagnosis ICD10 Code Diagnosis Note [id number] SHAYE GUIDRY PA-C [facility] [address] [address] 09/20/2023 10:45:58 09/20/2023 12:16:15 Bilateral disorder of Eustachian tubes [id number] 908285 H69.83 Impacted c erumen of bilateral ears 1927996498 194996 H61.23 Mixed cond uctive and sensorineural hearing loss, bilateral 070509220 H90.6 Audiologic al evaluation results: Right ear: [...] Cou ld not maintain a hermetic seal}} [id number] KATI OBANDO MD [facility] [address] [place] [address] 12/07/2023 12:56:27 12/07/2023 13:54:32 Bilateral disorder of Eustachian tubes 3018923811 497730 H69.83 Bilateral adhesive otitis media of middle ears 4763348571 958030 H74.13 [id number] SHARON GEE [place] [address] [place] [address] [place] [address] 12/29/2023 09:05:09 01/01/2024 06:57:56 Mixed conductive and sensorineural hearing loss, bilateral 276770833 H90.6 [id number] KIM DRUMMOND PA-C [facility] [address] [address] 01/17/2024 14:22:08 01/17/2024 16:27:24 Bilateral disorder of Eustachian tubes 2310629334 328710 H69.83 Sensorineu ral hearing loss of bilateral ears 615692000 H90.3 Audiologic al evaluation results:Ri ght ear:{{Norm [...] - MEDICARE ADVANTAGE PLAN (MEDICARE REPLACEMENT HMO) [id number] 12 Suzan Min [id number] Suzan Min Notes Date Note Type Note Provider Name and Address Organization Details Recorded Time 4 text/html 68-year-old male presents for evaluation of blocked ears. Longstanding history of eustachian tube dysfunction with prior BMT with Dr. Gunn. 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 More recently he has been having occasional yellow to clear drainage from his right ear which comes and goes. He has been having blocked hearing on that side as well that responds fairly well to auto insufflation. The left ear has also been bothersome but not as much. SHAYE GUIDRY PA-C [address] [place] [address], [phone], [facility] - [facility] 09/20/2023 12:21:42 4 text/html 60-year-old male, former [...] any improvement in symptoms. KATI OBANDO MD [address] [place] [address], [phone], [facility] - [facility] 12/07/2023 13:54:37 4 text/html Pt is {{a* [...] will be ordering:{{Oticon phonak * Widex}} {{ [id number] or #}}Supervisor Nurse: {{ 2M#}}Domes: {{ medium open#}} He need sto do some research, but will let me know what he would like to do. SHARON GEE [address] [facility],[address], [address], [facility] - [facility] 12/29/2023 10:28:21 4 text/html 68 year old male presents s/p BMT with bilateral balloon dilation with Dr. Obando on 12/20/2023. He is doing well post-operatively without concerns. He denies otalgia, otorrhea, or hearing changes. He did have a hearing aid consult with one of our audiologists and is in the process of getting amplification. MIKAEL MCKEON MD [address] [facility],[place] [address], [place], [address], [facility] - [facility] 01/17/2024 16:43:22
--- OUTSIDE RECORDS SUMMARY | 2024-06-26 14:26 | XMS_ITS | Clinical Summary ---
Author Organization [facility] [employer] [place] Address [address] [place] [address] Phone Care Team Providers Care Graphotype Operator Name Role Phone Ricky Iverson MD [...] PO) Take by mouth daily. Active coenzyme [id number] E 100-5 mg-unit capsule Take 200 mg [...] a COPD (chronic obstructive pu lmonary disease) ([facility] V24, [facility] V28) DX:COPD (chronic o bstructive pulmonary disease) ([facility]) Obesity DX:Obesity Family History Medical History [...] EDT Ancillary Procedure [facility] [place] [address] [facility] [address] [place] [address] 08/14/2024 10:00 AM EDT Office Visit [facility] [place] [address] [facility] [address] [place] [address] Donal Adams MD [address] [facility] [address] [place] [address] Health Maintenance Due Date Last Done Comments [...] [employer] [place] MEDICARE ADVANTAGE Care Teams Graphotype Operator Relationship Specialty Start Date End Date Ricky Iverson MD [address] [place] [address] Dr Blanchard [address] PCP - General 04/21/22
== END 2024-06-26 15:15 | disposition home or self-care (01) ==
LOC: HO.HSMS 13:55
PROVIDERS: PCP Family Medicine; Visit Provider Physician Assistant Medical
DX: G47.33 Obstructive sleep apnea (adult) (pediatric) (principal); G25.81 Restless legs syndrome; R25.3 Fasciculation
CPT/HCPCS: 99214

== ENCOUNTER → 2024-06-26 13:52 | Outpatient (BNVA) | payer OTHER, SELFPAY | PROVIDERS: PCP Family Medicine; Visit Provider Physician Assistant Medical ==

== ENCOUNTER 2024-07-22 09:47 | Outpatient (REF) | payer OTHER, SELFPAY ==
--- OUTSIDE RECORDS SUMMARY | 2024-07-22 10:45 | XMS_ITS | Clinical Summary ---
Author Organization [facility] Address [address] [place] [address] Care Team Providers Care Seed Tester Name Role Phone Ricky Iverson MD Primary Care Provider [phone]- [phone] Allergies No known active allergies Medications Medication [...] 06/19/2005 Fall Risk Assessment 06/19/2020 Influenza Vaccine (Season Ended) 2024 RSV Adult > 60+ Yrs or Pregn ant (1 - 1-dose 75+ series) 06/19/2030 Hepatitis B Vaccines Aged Out No long er eligible based on patient's age to complete this topic RSV Ped < 20 months Aged Out No longe r eligible based on patient's age to complete this topic Care Teams Seed Tester Relationship Specialty Start Date End Date Ricky Iverson MD [address] [place] [address] PCP - General Family Medicine 04/21/22
[2024-07-22 17:51] LABS: Appearance Urine Clear; Color Urine Yellow; Glucose Urine UA Negative (Negative); Leukocyte Esterase Urine Negative (Negative); Nitrite Urine Negative (Negative); Specific Gravity - Urine 1.015 (1.005-1.025); Urine Blood Negative (Negative); Urine Ketones Negative (Negative); Urine Protein Trace mg/dL (Neg-Trace)
[2024-07-22 18:03] LABS: Alanine Aminotransferase 28 U/L (0-40); Albumin Level 4.7 g/dL (3.5-5.0); Alkaline Phosphatase 44 U/L (39-117); Anion Gap 14 (12-20); Aspartate Amino Transferase 28 U/L (5-37); Bilirubin Total 0.5 mg/dL (0.0-1.0); Blood Urea Nitrogen 23 mg/dL (9-16); Calcium 10.1 mg/dL (8.4-10.2); Carbon Dioxide 26 mmol/L (22-29); Chloride 108 mmol/L (96-108); Estimated Glomerular Filt Rate 49; Glucose Fasting 90 mg/dL (60-99); Glucose Random 88 mg/dL (60-115); Sodium 143 mmol/L (135-145)
[2024-07-22 18:22] LABS: Creatinine Urine 97.44 mg/dL; Microalbum/Creatinine Ratio Ur 105.7 ug/mg cr (<30)
== END 2024-07-22 09:48 | disposition home or self-care (01) ==
LOC: HO.HKASLDS 09:47
PROVIDERS: Visit Provider Family Medicine
DX: Z00.00 Encounter for general adult medical examination without abnormal findings (principal); E11.9 Type 2 diabetes mellitus without complications; I10 Essential (primary) hypertension
CPT/HCPCS: 36415; 80053; 81003; 82043; 82570; 82947

== ENCOUNTER 2024-07-26 09:43 | Outpatient (AMB) | payer MEDICARE, SELFPAY ==
--- OUTSIDE RECORDS SUMMARY | 2024-07-26 09:54 | XMS_ITS | Clinical Summary ---
Author Organization [facility] Address [address] [place] [address] Care Team Providers Care Outside Sales Advertising Executive Name Role Phone Ricky Iverson MD Primary Care Provider +1- [phone] Allergies No known active allergies Medications Medication [...] 86 06/08/2023 9:38 AM EDT Temperature 36.7 C (98 F) 04/21/2022 4:01 PM EDT Respiratory Rate - [...] age to complete this topic Care Teams Outside Sales Advertising Executive Relationship Specialty Start Date End Date Ricky Iverson MD [address] [place] [address] PCP - General Family Medicine 04/21/22
--- NOTE | 2024-07-26 09:59 | A.OFFPC_ITS ---
Vital Signs 07/26/24 10:07 Height 5 ft 9.5 in Weight 237 lb 6 oz BMI 34.5 BP 130/70 Blood Pressure Location Lt brachial Position Sitting Respiration 14 Pulse 64 Pulse Source Pulse Oximeter Temp 98.0 F Temp Source Oral Pulse Oximetry (%) 95 Oxygen Delivery Method Room Air Intake Visit Reasons: f/u diabetes, HTN- see comments Intake Note: patient is scheduled to follow up on dm and htn Paleology Professor Required: No Allergies No Known Allergies Allergy (Verified 07/26/24 10:03) Medication List - Last Reconciled 07/26/24 by Ricky Iverson MD amlodipine-benazepril 10-20 mg 1 cap PO DAILY aspirin (Adult Aspirin Regimen) 81 mg PO DAILY atorvastatin 80 mg PO DAILY blood pressure monitor Automatic, Digital. Dx: I10. Daily As directed, 999 days/lifetime ezetimibe 10 mg PO DAILY fenofibrate 160 mg PO DAILY 90 days fluticasone propionate 50 mcg/actuation (Flonase Allergy Relief) 1 spray intranasal Q12H 90 days glipizide 2.5 mg PO DAILY 90 days metoprolol succinate ER 100 mg PO DAILY 30 days Tobacco use date assessed: 07/13/23 Dental Screening Dental Screen Date: 07/13/23 HPI f/u diabetes, HTN- see comments HPI Details 69 y/o male presents to f/u diabetes, HT N. Labs drawn 07/22/24. Reviewed labs with pt. Creatinine level 1.44 mg/dL. Blood pressure today 130/70, 64p. He is on metoprolol 100mg, amlodipine-benazepril 10-20mg daily. He is on glipizide 2.5mg daily for his diabetes. Last A1c 04/22/24 6.6%. A1c today 07/26/24 is 6.4%. Complaints of some psoriasis. [facility] Medical History BMI 35.0-35.9,adult No pertinent past medical history Surgical History History of hernia repair Family History Father Kidney failure Mother Congenital heart disease Brother No problems noted. Sister No problems noted. Sister No problems noted. Sister No problems noted. Son No problems noted. Daughter No problems noted. 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 Cognitive needs: No Hearing needs: No Vision needs: Yes Questionnaire Thrive Questionnaire Date Thrive assessed: 04/22/24 I am a: Patient What is your living situation today?: I have a steady place to live Within the past 12 months, did the food you bought not last and you didn't have the money to get more?: Never true Within the past 12 months, did you worry whether your food would run out before you got money to buy more?: Never true Do you have trouble paying for medicines?: No Do you have trouble getting transportation to medical appointments?: No Do you have trouble paying your heating and electricity bill?: No Do you have trouble taking care of your child, family member or friend?: No Do you have trouble with day-to-day activities such as bathing, preparing meals, shopping, managing finances, etc.?: No Are you currently unemployed and looking for a job?: No Are you interested in more education?: No Please select the resources that you would like help with: None Currently or been in a relationship where the following occur: No concerns reported THRIVE Score: 0 TONA-7 AMB Questionnaire TONA-7 Date TONA - 7 assessed: 11/03/23 Source: Developed by Drs. Leopoldo Pacheco, Skye Clarke, Charlie Funk and colleagues, with an educational baldomero from [employer]. Review of Systems Const Denies chills, Denies fatigue, Denies fever(s), Denies headache(s) and Denies weakness ENT Denies dizziness and Denies headache(s) Card Denies chest pain, Denies lightheadedness, Denies dyspnea and Denies other (Palpitations) Resp Denies cough, Denies dyspnea, Denies wheezing and Denies other ( shortness of breath) Musc Denies numbness and Denies tingling Neuro Denies dizziness, Denies headache(s), Denies numbness, Denies tingling, Denies paresthesias and Denies weakness Psych Denies anxiety and Denies depression Endo Denies fatigue Aller/Immun Denies wheezing Physical exam (Primary Care) Vital Signs: Last Vital Signs Temp 98.0 F 07/26/24 10:07 Pulse 64 07/26/24 10:07 Resp 14 07/26/24 10:07 BP 130/70 07/26/24 10:07 Pulse Ox 95 07/26/24 10:07 Oxygen Delivery Method Room Air 07/26/24 10:07 BMI result Body Mass Index 34.5 Tobacco/Smoking Status: Tobacco use Status Tobacco use date assessed 07/13/23 07/26/24 10:00 Patient Tobacco Use Status Former Tobacco user 07/26/24 10:00 e-Cigarette/Vaping Use Never Used 07/26/24 10:00 Thrive Assessment: Date of Thrive Assessment Date Thrive assessed 04/22/24 07/26/24 10:00 Currently or been in a relationship where the following occur: No concerns re ported Const General: no acute distress and well developed Nutritional Appearance: well nourished Orientation/consciousness: patient oriented x3 [facility]: Yes normocephalic and Yes atraumatic Eyes General: appearance normal, both eyes and all related structures Pupils: Equal, round and reactive pupils present EOM: EOMs intact bilaterally Resp Effort & Inspection: normal respiratory effort Auscultation: clear to auscultation bilaterally Cardio Rate: regular rate Rhythm: regular rhythm Heart sounds: S1 normal heart sound present, S2 normal heart sound present, no gallops, no murmurs and no rubs Neuro General: patient oriented x3 and gait normal Cranial nerves: Yes Equal, round and reactive pupils present Psych Affect: normal affect Coding Level of Care Code Est Pt Level 4 (61658) Diagnoses HTN (hypertension) I10 Diabetes E11.9 CKD (chronic kidney disease) N18.9 Rash R21 Assessment & Plan Assessment & Plan (1) HTN (hypertension): Code(s): I10 - Essential (primary) hypertension Category: Medical Plan: Blood?pressure?is?controlled.??Goal?is?less?than?130/80 Continue?current?medications (2) Diabetes: Code(s): E11.9 - Type 2 diabetes mellitus without complications Category: Medical Plan: A1c?5.9%.??Good?control Goal?is?less?than?7.0% Continue?current?medication?and?diabetic?diet (3) CKD (chronic kidney disease): Code(s): N18.9 - Chronic kidney disease, unspecified Category: Medical Plan: Renal?function?appears?stable Continue?good?hydration Control?blood?sugar?lipids?and?blood?pressure. Avoid?NSAIDs Follow-up?with?nephrology?as?recommended (4) Rash: Code(s): R21 - Rash and other nonspecific skin eruption Category: Medical Plan: 3?cm?rash?on?right?anterior?harrison Will?give?him?a?script?for clotrimazole-betamethasone?cream He?will?let?me?know?if?symptoms?not?improving?or?if?they?worsen. Orders: Orders AMB Hemoglobin A1c Today E11.9 - Type 2 diabetes mellitus without complications Medications: New clotrimazole-betamethasone 1-0.05 % 1 appl topical BID 45 grams 0RF 14 days
[2024-07-26 10:07] VITALS: BP 130/70; PULSE 64; RESP 14; TEMP 36.7; O2SAT 95; BMI 34.5
== END 2024-07-26 10:38 | disposition home or self-care (01) ==
LOC: HO.HMCFM 09:44
PROVIDERS: PCP Family Medicine; Visit Provider Family Medicine
DX: I12.9 Hypertensive chronic kidney disease with stage 1 through stage 4 chronic kidney disease, or unspecified chronic kidney disease (principal); E11.9 Type 2 diabetes mellitus without complications; N18.9 Chronic kidney disease, unspecified; R21 Rash and other nonspecific skin eruption

== ENCOUNTER → 2024-07-26 09:43 | Outpatient (BNVA) | payer MEDICARE, SELFPAY | PROVIDERS: PCP Family Medicine; Visit Provider Family Medicine | DX: E11.22 Type 2 diabetes mellitus with diabetic chronic kidney disease (principal); I12.9 Hypertensive chronic kidney disease with stage 1 through stage 4 chronic kidney disease, or unspecified chronic kidney disease; R21 Rash and other nonspecific skin eruption; N18.9 Chronic kidney disease, unspecified | CPT/HCPCS: 83036; 99212 ==

== ENCOUNTER 2024-11-01 08:25 | Outpatient (REF) | payer MEDICARE, SELFPAY ==
--- OUTSIDE RECORDS SUMMARY | 2024-11-01 10:06 | XMS_ITS | Continuity of Care Document ---
Author Organization [place] - [facility], [facility] Address [address] [place] [address] Care Team Providers Care Electrical Tryout Person Name Role Phone COLLIN CAPRI Primary Care Provider [phone] Assessment Encounter Date Assessment Date Assessment LastModified by Organization Details LastModified Time 10/29/2024 10/29/2024 69yo male with history of chronic ETD with bilateral tubes presents for reevaluation of otorrhea. Otorrhea resolved with topical Ciprodex. Otologic examination demonstrates PE tubes are adequately placed and patent. Patient reports hearing returned to baseline. Recommend routine follow-up for tube check in 6 months, sooner with concerns. [email or web address] Not available 10/29/2024 12:07:08 Plan of Treatment Reminders Order Date Submit Date Provider Last Modified By Organization Details Last Modified Time Details Appointments Establish ed 15 2025 09:45A M KIM DRUMMOND PA-C Not available Not available Not available Lab None recorded. Referral None recorded. Procedures None recorded. Surgeries None recorded. Imaging None recorded. Medication Orders None recorded. Patient TargetsNo targets recorded. Patient InstructionsNo instructions recorded. Reason for Referral None Reported. Problems Name Problem SNOMED Code Status Onset Date Resolution Date Notes Provider Name and Address Organization Details Recorded Time Disorder of left Eustachia n tube 99713251383 09821 Active 2016 Other specified disorders of Eustachia n tube, left ear; Note: Date Diagnosed : 03/08/2016 10:00 AM (H69.82) Not Available [facility] 02[facility] Impacted cerumen in left ear 16220575119 52467 Active 2016 Impacted cerumen, left ear; Note: Date Diagnosed : 04/05/2016 11:17 AM (H61.22) Not Available [facility] 4 02:47:52 Otitis externa of right ear 12241230503 07296 Active 2016 Other otitis externa, right ear; Note: Date Diagnosed : 7 9:51 AM (H60.8X1) Not Available [facility] 4 02:47:48 Snoring 06812864 Active 2016 Snoring; Note: Date Diagnosed : 7 10:09 AM (R06.83) Not Available [facility] 4 02:47:52 Acute sinusitis 59044970 Active 2017 Acute sinusitis , unspecifi ed; Note: Date Diagnosed : 12/12/2017 9:57 AM (J01.90) Not Available [facility] 4 02:47:45 Impacted cerumen of bilateral ears 78366504950 52798 Active 2018 Impacted cerumen, bilateral ; Note: Date Diagnosed : 07/31/2018 10:13 AM (H61.23) Not Available [facility] 4 02:47:52 Bilateral disorder of Eustachia n tubes 85795285097 69872 Active 2018 Other specified disorders of Eustachia n tube, bilateral ; Note: Date Diagnosed : 07/31/2018 10:14 AM (H69.83) KIM DRUMMOND PA-C [address] [address], [place], [address] , [facility] 5 12:07:16 Abnormal auditory perceptio n 04231777 Active 2018 Other abnormal auditory perceptio ns, bilateral ; Note: Date Diagnosed : 07/31/2018 10:15 AM (H93.293) Not Available [facility] 4 02:47:45 Mixed conductiv e and sensorine ural hearing loss, bilateral 041084376 Active 2023 SHARON HOOD [address] [address], [place], [address] , [facility] 4 12:05:14 Bilateral adhesive otitis media of middle ears 73078708010 29901 Active 2023 KATI OBANDO MD [address] [facility] [facility] [place] [address], [facility] [place], [address] , [facility] - [facility] 4 13:46:05 Sensorine ural hearing loss of bilateral ears 415233404 Active 2023 KIM DRUMMOND PA-C [address] [facility],[place] [address], [facility] [place], [address] , [place] - [facility] 5 12:07:29 Otorrhea of right ear 29841049619 Active 2024 SHAYE SERRANO PA-C [address] [facility] [place],[facility] [address], [facility] [place], [address] , [place] - [facility] 5 13:33:40 Otorrhea of bilateral ears 93955629572 Active 2024 SHAYE SERRANO PA-C 100 [facility] [address], [facility] [place], [address] , [place] - [facility] 5 13:50:52 Problem Notes None recorded. Procedures Surgical History Date Name Laterality Status Provider Name and Address Organization Details Recorded Time Comp Audio with Tymps - 74809 & 71221 completed Paola Ramsay [place] - [facility] 01/17/2024 15:09:47 024 NASOPHARYNGOSCOPY, SURGICAL, WITH DILATION OF EUSTACHIAN TUBE; BILATERAL (SURG) completed Philip Nance [place] - [facility] 12/22/2023 15:46:47 024 Fiberoptic Nasopharyngoscopy completed KATI OBANDO MD [address] [facility] [place] [address], [place], [address], [facility] - [facility] 12/07/2023 13:52:03 024 Comp Audio with Tymps - 45789 & 64731 completed SHARON HOOD [address] [facility] [place] [address], [place], [address], [facility] - [facility] 09/20/2023 12:04:29 024 Cerumen removal without microscope bilat completed HARSH VÁZQUEZ-Jame [address] [place] [address],[place] [address], [place], [address], [place] - [facility] 09/20/2023 11:33:24 Imaging Results None recorded. [...] hr TAKE 1 TABLET BY MOUTH DAILY active Not Available Not Available No t Available Medrol (Corey) 4 mg tablets in a dose pack 07/31 completed Medicati on ID: [id number] P rescribe d By Name: Enid Gunn M.D. Bra nd Name: Medrol (Corey) Se nd Method: E-Prescr ibed Sub s Allowed: subs OK Speci al Instruct ion: take as instruct ed Medic [facility] ericName : Medrol (Corey) Not Available Not Available Not Available metoprolo l succinate ER 100 mg tablet,ex tended release 24 hr TAKE 1 TABLET BY MOUTH EVERY DAY active Not Available Not Available No t Available bisoprolo l 5 mg-hydroc hlorothia zide 6.25 mg tablet 12/12 completed Medicati on ID: [id number] D uration Value: 90 Reason: () Brand Name: bisoprol ol-hydro chloroth iazide S end Method: E-Prescr ibed Sub s Allowed: subs OK [facility]rol [facility]-hydro chloroth iazide Not Available Not Available Not Available spironola ctone 25 mg tablet TAKE 1 TABLET BY MOUTH DAILY 09/19 completed Not Available Not Available Not Available amoxicill in 500 mg tablet TAKE 1 TABLET BY MOUTH EVERY 12 HOURS FOR 10 DAYS 09/19 completed Not Available Not Available Not Available ofloxacin 0.3 % ear drops active Not Available Not Available Not Available tamsulosi n 0.4 mg capsule TAKE 1 CAPSULE BY MOUTH DAILY FOR 30 DAYS 09/19 completed Not Available Not Available Not Available ciproflox acin 0.3 % eye drops INSTILL 4 DROPS INTO RIGHT EAR TWICE A DAY FOR 2 WEEKS active Not Available Not Available No t Available amlodipin e 5 mg-benaze pril 20 mg capsule TAKE 1 CAPSULE BY MOUTH EVERY DAY 12/06 completed Not Available Not Available Not Available moexipril 15 mg tablet 12/06 completed Medicati on ID: [id number] D uration Value: 90 Reason: () Brand Name: moexipri l Send Method: E-Prescr ibed Sub s Allowed: subs OK Medic [facility] ericName : moexipri l Not Available Not Available Not Available clotrimaz ole-betam ethasone 1 %-0.05 % topical cream APPLY TOPICALL Y 2 TIMES A DAY FOR 14 DAYS active Not Available Not Available No t Available clotrimaz ole 1 % topical solution 12/12 completed Medicati on ID: [id number] P wilbert [place] By Name: Adi Ewing nd Name: kodakarmond phong [place] Method: E-Prescr ibed Sub s Allowed: subs OK Speci al Instruct ion: 5 drops to affected ear twice a day Medi cationGe nericNam e: clotrima zole Not Available Not Available Not Available hydrochlo rothiazid e 25 mg tablet 09/19 completed Medicati on ID: [id number] D uration Value: 30 Brand Name: hydrochl [...] layed release 2016 active Medicati on ID: [id number] B rand Name: Aspir-81 Send Method: E-Prescr ibed Sub s Allowed: subs OK Medic at[facility] ericName : Aspir-81 Not Available Not Available Not Available fluticaso ne propionat e 50 mcg/actua tion nasal spray,ghislaine pension ADMINIST ER 1 SPRAY EACH NOSTRIL EVERY 12 HOURS FOR 90 DAYS active Not Available Not Available No t Available amlodipin e 10 mg-benaze pril 20 mg capsule TAKE 1 CAPSULE BY MOUTH EVERY DAY active Not Available Not Available No t Available ezetimibe 10 mg tablet TAKE 1 TABLET BY MOUTH EVERY DAY active Not Available Not Available No t Available ciproflox acin 0.3 %-dexamet hasone 0.1 % ear drops,ghislaine pension INSTILL 4 DROPS INTO AFFECTED EARS(S) TWICE DAILY FOR 2 WEEKS DIRECTED active Not Available Not Available No t Available fenofibra te 160 mg tablet TAKE 1 TABLET BY MOUTH DAILY active Not Available Not Available No t Available amlodipin e 5 mg-benaze pril 40 mg capsule 09/19 completed Medicati on ID: [id number] D uration Value: 90 Brand Name: amlodipi ne-benaz epril Se nd Method: E-Prescr ibed Sub s Allowed: subs OK Speci al Instruct ion: TAKE 1 CAPSULE BY MOUTH ONCE DAILY Me dication GenericN zaki: amlodipi ne-benaz epril Not Available Not Available Not Available varenicli ne tartrate 0.5 mg (11)-1 mg (42) tablets in a dose pack USE INSTRUCT ED ON PACKAGE active Not Available Not Available No t Available icosapent ethyl 1 gram capsule 09/19 completed Not Available Not Available Not Available glipizide 2.5 mg tablet TAKE 1 TABLET BY MOUTH EVERY DAY active Not Available Not Available No t Available Vitals Date Recorded Body height Body mass index (BMI) Body weight Provider Name and Address Organization Details Last Updated DateTime 10/29/2024 177.8 cm 34.4 kg/m2 852695.17 g Cherri Wolfe [place] - [facility] 10/29/2024 11:26:02 Social History None recorded. Functional Status None recorded. Mental Status None recorded. Family History Nothing Reported. Medical History Condition Response Hypertension Y Past Encounters Encounter ID Performer Location Encounter Start Date Encounter Closed Date Diagnosis/Indication Diagnosis SNOMED-CT Code Diagnosis ICD10 Code Diagnosis IMO Codes Diagnosis Note [id number] SHAYE SERRANO PA-C [facility] [address] [address] 09/30/2024 12:56:39 09/30/2024 13:23:14 Bilateral disorder of Eustachian tubes [id number] 432538 H69.83 Otorrhea o f bilateral ears 7312083230 087322 H92.13 [id number] KIM DRUMMOND PA-C [facility] [address] [address] 10/29/2024 11:18:40 10/29/2024 11:39:44 Bilateral disorder of Eustachian tubes 7680296534 485932 H69.83 Otorrhea o f bilateral ears 9344780139 662614 H92.13 [id number] Sensorineu ral hearing loss of bilateral ears 077333281 H90.3 Health Concerns Section Related Observation LastModified by Organization Detai ls LastModified Time None Recorded Concern Status LastModified by Organization Details LastModified Time None Recorded Payers Encounter Date Sequence Insurance Name Policy Number Policy Murillo Covered Member ID Murillo Member ID Guarantor Name 10/29/2024 1 [employer] - MEDICARE ADVANTAGE PLAN (MEDICARE REPLACEMENT HMO) [id number] Suzan Min [id number] Suzan Min Notes Date Note Type Note Provider Name and Address Organization Details Recorded Time 10/29/2024 text/html ROS as noted in the HPI 69-year-old male for reevaluation of the ears. He trialed topical Ciprodex in both ears for granulation and otorrhea after swimming. History of chronic ETD with bilateral tubes. KATI OBANDO MD [address] [place] [address], [address], [facility] - [facility] 10/30/2024 07:45:47
--- OUTSIDE RECORDS SUMMARY | 2024-11-01 10:06 | XMS_ITS | Data Portability ---
Author Organization [place] - [facility], Allergy Address [address] [place] [address] Care Team Providers Care Resourcing Consultant Name Role Phone CAPRI POLANCO Primary Care Provider [phone] Assessment Encounter Date Assessment Date Assessment LastModified [...] up in 6 months for tube check. [email or web address] Not available 01/17/2024 15:42:08 08/28/2024 08/28/2024 69-year-old male with chronic eustachian tube dysfunction presents for reevaluation. On examination left tube remains in place and patent. The right tube appears to be in place but there is granulation tissue at the inferior rim and purulent otorrhea which was cleared with suction. Recommended a course of Ciprodex and instructed him in proper use. Continue dry ear precaution. Follow-up in 3 to 4 weeks to ensure normalization of exam. All questions were answered. [email or web address] Not available 08/28/2024 13:33:28 09/30/2024 09/30/2024 69-year-old male presents for reevaluation. On examination bilateral tubes are in place and patent. There is persistent but improved granulation around the outer rim. Recommended 2 further weeks of Ciprodex. Left otologic exam reveals milky otorrhea from middle ear space. Recommended application of Ciprodex drops for 2 weeks to this year as well. Continue dry ear precautions and follow-up in 3 to 4 weeks. [email or web address] Not available 09/30/2024 13:50:27 10/29/2024 10/29/2024 69yo male with history of chronic ETD with bilateral tubes presents for reevaluation of otorrhea. Otorrhea resolved with topical Ciprodex. Otologic examination demonstrates PE tubes are adequately placed and patent. Patient reports hearing returned to baseline. Recommend routine follow-up for tube check in 6 months, sooner with concerns. [email or web address] Not available 10/29/2024 12:07:08 Plan of Treatment Reminders Order Date Submit Date Provider Last Modified By Organization Details Last Modified Time Details Appointments Establish ed 15 2025 09:45A M KIM DRUMMOND PA-C Not available Not available Not available Lab None recorded. Referral None recorded. Procedures None recorded. Surgeries None recorded. Imaging None recorded. Medication Orders Ciprodex 0.3 %-0.1 % ear drops,ghislaine pension 2024 025 [id number], [address] [place], [address], 09/30/2024 13:51:40 ciproflox acin 0.3 % eye drops 2024 025 [id number], [address] [place], [address], 08/28/2024 13:34:16 Patient TargetsNo targets recorded. Patient InstructionsNo instructions [...] Time Disorder of left Eustachia n tube 17439806708 04523 Active 2016 Other specified disorders of Eustachia n tube, left ear; Note: Date Diagnosed : 03/08/2016 10:00 AM (H69.82) Not Available [facility] 4 02:47:47 Impacted cerumen in left ear 34850811063 81705 Active 2016 Impacted cerumen, left ear; Note: Date Diagnosed : 04/05/2016 11:17 AM (H61.22) Not Available [facility] 4 02:47:52 Otitis externa of right ear 41347725460 18472 Active 2016 Other otitis externa, right ear; Note: Date Diagnosed : 7 9:51 AM (H60.8X1) Not Available [facility] 4 02:47:48 Snoring 21594009 Active 2016 Snoring; Note: Date Diagnosed : 7 10:09 AM (R06.83) Not Available [facility] 4 02:47:52 Acute sinusitis 41998007 Active 2017 Acute sinusitis , unspecifi ed; Note: Date Diagnosed : 12/12/2017 9:57 AM (J01.90) Not Available [facility] 4 02:47:45 Impacted cerumen of bilateral ears 56396460226 65578 Active 2018 Impacted cerumen, bilateral ; Note: Date Diagnosed : 07/31/2018 10:13 AM (H61.23) Not Available [facility] 4 02:47:52 Bilateral disorder of Eustachia n tubes 82502309547 11104 Active 2018 Other specified disorders of Eustachia n tube, bilateral ; Note: Date Diagnosed : 07/31/2018 10:14 AM (H69.83) KIM DRUMMOND PA-C [address] [place] [address], [place], [address] , [facility] - [facility] 5 12:07:16 Abnormal auditory perceptio n 57487470 Active 2018 Other abnormal auditory perceptio ns, bilateral ; Note: Date Diagnosed : 07/31/2018 10:15 AM (H93.293) Not Available [facility] 4 02:47:45 Mixed conductiv e and sensorine ural hearing loss, bilateral 977377809 Active 2023 KIA TOPETE, SHARON [address], [place], [address] , [place] - [facility] 4 12:05:14 Bilateral adhesive otitis media of middle ears 30730662640 36473 Active 2023 KATI OBANDO MD [address], [place], [place], [address] , [facility] - [facility] 4 13:46:05 Sensorine ural hearing loss of bilateral ears 863931937 Active 2023 KIM DRUMMOND PA-C [address], [place], [place], [address] , [place] - [facility] 5 12:07:29 Otorrhea of right ear 61548620827 57326 Active 2024 SHAYE SERRANO PA-C [address], [place], [address] , [place] - [facility] 5 13:33:40 Otorrhea of bilateral ears 73629914963 76441 Active 2024 SHAYE SERRANO PA-C [address], [place], [place], [address] , [place] - [facility] 5 13:50:52 Problem Notes None recorded. Procedures Surgical History Date Name Laterality Status Provider Name and Address Organization Details Recorded Time Comp Audio with Tymps - 02719 & 58137 completed Paola Ramsay [place] - [facility] 01/17/2024 15:09:47 NASOPHARYNGOSCOPY, SURGICAL, WITH DILATION OF EUSTACHIAN TUBE; BILATERAL (SURG) completed Philip Nance [place] - [facility] 12/22/2023 15:46:47 024 Fiberoptic Nasopharyngoscopy completed KATI OBANDO MD [address], [place], [address], [facility] - [facility] 12/07/2023 13:52:03 024 Comp Audio with Tymps - 21649 & 91702 completed SHARON HOOD [address] [facility], [place], [address], [facility] - [facility] 09/20/2023 12:04:29 024 Cerumen removal without microscope bilat completed SHAYE SERRANO PA-C [address] [facility] [address], [place], [address], [facility] - [facility] 09/20/2023 11:33:24 Imaging Results None recorded. Procedure [...] dose pack 07/31 completed Medicati on ID: [id number] P wilbert shaw By Name: Adi Ewing [...] mg tablet 12/12 completed Medicati on ID: [id number] D uration Value: 90 Reason: () Brand [...] mg tablet 12/06 completed Medicati on ID: [id number] D uration Value: 90 Reason: () Brand [...] topical solution 12/12 completed Medicati on ID: [id number] P [place]bert [place] By Name: Adi Ewing nd Name: anneriarmond Neri d Method: E-Prescr ibed Sub s Allowed: subs OK Speci al Instruct ion: 5 drops to affected ear twice a day Medi cationGe nericNam e: clotrima zole Not Available Not Available Not Available hydrochlo rothiazid e 25 mg tablet 09/19 completed Medicati on ID: [id number] D uration Value: 30 Brand Name: hydrochl [...] layed release 2016 active Medicati on ID: [id number] B rand Name: Aspir-81 Send Method: E-Prescr [...] mg capsule 09/19 completed Medicati on ID: [id number] D uration Value: 90 Brand Name: amlodipi [...] and Address Organization Details Last Updated DateTime 08/28/2024 177.8 cm 36.2 kg/m2 889991.28 g Corinna Ck [place] - [facility] 08/28/2024 13:03:13 Date Recorded Body height Body mass index (BMI) Body weight Provider Name and Address Organization Details Last Updated DateTime 09/30/2024 177.8 cm 34.4 kg/m2 382433.17 g Cherri Wolfe [place] - [facility] 09/30/2024 13:19:05 Date Recorded Body height Body mass index (BMI) Body weight Provider Name and Address Organization Details Last Updated DateTime 10/29/2024 177.8 cm 34.4 kg/m2 178598.17 g Cherri Wolfe [facility] 10/29/2024 11:26:02 Date Recorded Body height Body mass index (BMI) Body weight Provider Name and Address Organization Details Last Updated DateTime 01/17/2024 177.8 cm 36.2 kg/m2 371843.28 g Joanie Barak [facility] 01/17/2024 15:21:34 Social History None recorded. Functional Status None recorded. Mental Status None recorded. Family History Nothing Reported. Medical History Condition Response Hypertension Y Past Encounters Encounter ID Performer Location Encounter Start Date Encounter Closed Date Diagnosis/Indication Diagnosis SNOMED-CT Code Diagnosis ICD10 Code Diagnosis IMO Codes Diagnosis Note [id number] SHAYE SERRANO PA-C [facility] [address] [address] 09/20/2023 10:45:58 09/20/2023 12:16:15 Bilateral disorder of Eustachian tubes 6462152790 128593 H69.83 Impacted c erumen of bilateral ears 1392606826 926573 H61.23 Mixed cond uctive and sensorineural hearing loss, bilateral 370881157 H90.6 Audiologic al evaluation results: Right ear: Mild sloping to severe mixed hearing loss with excellent word recognitio n. Left ear: Moderate sloping to severe mixed hearing loss with excellent word recognitio n. Tympanomet ry: Right Ear:Type C Left Ear:Type C [id number] KATI OBANDO MD [facility] [address] [address] 12/07/2023 12:56:27 12/07/2023 13:54:32 Bilateral disorder of Eustachian tubes 9518408061 149686 H69.83 Bilateral adhesive otitis media of middle ears 3948753114 620296 H74.13 [id number] SHARON GEE PLUNKETT - [address] [address] 12/29/2023 09:05:09 01/01/2024 06:57:56 Mixed conductive and sensorineural hearing loss, bilateral 030524710 H90.6 [id number] KIM DRUMMOND PA-C [facility] [address] [address] 01/17/2024 14:22:08 01/17/2024 16:27:24 Bilateral disorder of Eustachian tubes 3088489163 161207 H69.83 Sensorineu ral hearing loss of bilateral ears 669604203 H90.3 Audiologic al evaluation results:Ri ght ear:Essent ially mild sloping to severe sensorineu ral hearing loss with excellent word recognitio n.Left ear:Essent ially mild sloping to severe sensorineu ral hearing loss with excellent word recognitio n. Tympanomet ry:Right Ear:Type B with large volumeLeft Ear:Type B with large volume [id number] SHAYE SERRANO PA-C [facility] [address] [address] 08/28/2024 12:56:18 08/28/2024 14:14:04 Bilateral adhesive otitis media of middle ears 8419537317 828449 H74.13 Otorrhea of right ear 10 35346394 323774 H92.11 4398047 [id number] SHAYE SERRANO PA-C [facility] [address] [address] 09/30/2024 12:56:39 09/30/2024 13:23:14 Bilateral disorder of Eustachian tubes 8430739621 461223 H69.83 Otorrhea o f bilateral ears 9538355960 025035 H92.13 [id number] IKM DRUMMOND PA-C [facility] [address] [place] [address] 10/29/2024 11:18:40 10/29/2024 11:39:44 Bilateral disorder of Eustachian tubes 0122630847 013401 H69.83 Otorrhea o f bilateral ears 4571828910 209397 H92.13 0226560 Sensorineu ral hearing loss of bilateral ears 654087110 H90.3 Health Concerns Section Related Observation LastModified by Organization Detai ls LastModified Time None Recorded Concern Status LastModified by Organization Details LastModified Time None Recorded Advance Directives Directive None Recorded Payers Insurance Date Sequence Insurance Name Policy Number Policy Murillo Covered Member ID Murillo Member ID Guarantor Name 10/29/2024 1 [employer] - MEDICARE ADVANTAGE PLAN (MEDICARE REPLACEMENT HMO) [id number] Suzan Min [id number] Suzan Min Notes Date Note Type Note Provider Name and Address Organization Details Recorded Time 12/29/2023 text/html Pt is a new user of hearing aids. Here today due to difficulty with muffled hearing. Recently had tubes placed, feels his ears may be worse but he is getting a HT again January 17 along with seeing hte doctor. Would want an updated test before fitting the hearing aids. Lifestyle: He is retired and mainly does projects around the house. He will go out with friends occasionally but in small groups. He also enjoys family gatherings. Discussed type, technology levels, and manufacturers of hearing aids. Understands that his insurance is through [employer] and that he cannot use his benefit at this office. Continuing here would mean that he will be paying out of pocket and will not be reimbursed. Type of phone: no smart phone. But is about to get a smartphone. Informed him of the different types of phones and connectivity levels that come with it. If continueing through this office he will be ordering:phonak [id number] or [id number]: 2MDomes: medium open He need sto do some research, but will let me know what he would like to do. ROZINA MULLINS, AUD [address] [facility],[address], [address], [facility] 12/29/2023 10:28:21 01/17/2024 text/html ROS as noted in the [facility] 68 year old male presents s/p BMT with bilateral balloon dilation with Dr. Obando on 12/20/2023. He is doing well post-operatively without concerns. He denies otalgia, otorrhea, or hearing changes. He did have a hearing aid consult with one of our audiologists and is in the process of getting amplification. MIKAEL MCKEON MD 100 [facility],[address], [address], [facility] 01/17/2024 16:43:22 08/28/2024 text/html ROS as noted in the [facility] 69-year-old male with chronic ETD presents for reevaluation. Status post eustachian tube dilation with Dr. Obando 1 year ago. He has been having some fullness of the right ear which is intermittent. Continues to maintain dry ear precaution. Has bilateral hearing aids which he uses with good effect. MALICK RODGERS MD [address] [facility],[address], [address], [facility] 09/03/2024 20:52:47 09/30/2024 text/html ROS as noted in the [facility] 69-year-old male presents for reevaluation. History of chronic ETD with bilateral tubes. Previously noted to have granulation around the outer rim of the right tube. He used Ciprodex. Unfortunately went swimming and got some water in his left ear and feels as though it is wet since then. TORRIE ALONSO MD [address] [facility] [place] [address], [place], [address], [facility] 09/30/2024 17:02:31 10/29/2024 text/html ROS as noted in the [facility] 69-year-old male for reevaluation of the ears. He trialed topical Ciprodex in both ears for granulation and otorrhea after swimming. History of chronic ETD with bilateral tubes. KATI OBANDO MD [address] [facility] [place] [address], [place], [address], [facility] - [facility] 10/30/2024 07:45:47
[2024-11-01 11:34] LABS: MANUAL DIFF FLAG NO
[2024-11-01 11:36] LABS: Hematocrit 38.4 % (42.0-52.0); Hemoglobin 13.3 g/dl (14.0-18.0); Imm Gran Abs Auto 0.02 X10*3/uL (0.00-0.03); Imm Gran Pct Auto 0.3 % (0.0-0.4); Lymphocytes Absolute Auto 1.2 X10*3/uL (1.2-4.9); Mean Corpuscular HGB Conc 34.6 g/dl (31.0-36.0); Mean Corpuscular Hemoglobin 31.9 pg (27.0-33.0); Mean Corpuscular Volume 92.1 fL (80.0-98.0); NRBC Abs Auto 0.000 X10*3/uL (0.0-0.012); NRBC Pct Auto 0.0 /100WBC (0.0-0.2); Platelet Count 252 X10*3/uL (160-400); Red Blood Count 4.17 X10*6/uL (4.60-5.80); White Blood Count 6.5 X10*3/uL (4.8-10.8)
[2024-11-01 12:07] LABS: Appearance Urine Clear; Glucose Urine UA Negative (Negative); PH 5.5 (5.0-9.0); Specific Gravity - Urine 1.015 (1.005-1.025)
[2024-11-01 12:18] LABS: Alanine Aminotransferase 30 U/L (0-40); Albumin Level 4.9 g/dL (3.5-5.0); Alkaline Phosphatase 43 U/L (39-117); Anion Gap 12 (12-20); Aspartate Amino Transferase 27 U/L (5-37); Blood Urea Nitrogen 24 mg/dL (9-16); Calcium 10.0 mg/dL (8.4-10.2); Carbon Dioxide 26 mmol/L (22-29); Chloride 110 mmol/L (96-108); Cholesterol 170 mg/dL (<200); Estimated Glomerular Filt Rate 51; HDL Cholesterol 45 mg/dL (>40); Potassium 4.1 mmol/L (3.3-5.1); Sodium 144 mmol/L (135-145); Total Protein 7.0 g/dL (6.5-8.0); Triglycerides 183 mg/dL (<150)
[2024-11-01 12:48] LABS: Microalbum/Creatinine Ratio Ur 55.0 ug/mg cr (<30)
== END 2024-11-01 08:26 | disposition home or self-care (01) ==
LOC: HO.WFDLDS 08:25
PROVIDERS: PCP Family Medicine; Visit Provider Family Medicine
DX: Z00.00 Encounter for general adult medical examination without abnormal findings (principal); Z12.5 Encounter for screening for malignant neoplasm of prostate; E11.22 Type 2 diabetes mellitus with diabetic chronic kidney disease; I12.9 Hypertensive chronic kidney disease with stage 1 through stage 4 chronic kidney disease, or unspecified chronic kidney disease; N18.9 Chronic kidney disease, unspecified
CPT/HCPCS: 36415; 80053; 80061; 81003; 82043; 82570; 83036; 84153; 84443; 85025; 99212

== ENCOUNTER 2024-11-01 08:25 | Outpatient (AMB) | payer MEDICARE, SELFPAY ==
--- NOTE | 2024-11-01 08:29 | MHC.PC.OV ---
Vital Signs 11/01/24 08:36 Height 5 ft 9.5 in Weight 247 lb 8 oz BMI 36.0 BP 159/78 H Blood Pressure Location Rt brachial Position Sitting Respiration 16 Pulse 70 Pulse Source Pulse Oximeter Temp 98.0 F Temp Source Oral Pulse Oximetry (%) 98 Oxygen Delivery Method Room Air Intake Visit Reasons: f/u DM, HTN Intake Note: patient here for follow up on DM and HTN Direct Chill Caster Required: No Allergies No Known Allergies Allergy (Verified 11/01/24 08:34) Tobacco use date assessed: 11/01/24 Fall risk assessment: No Falls in past year Last assessed Fall Risk: 11/01/24 Dental Screening Dental Screen Date: 11/01/24 Did you have a dental visit in the last 12 months?: Yes Did you have a dental problem in the last 6 months where you did not have access to dental care?: No Was dental information given to patient?: Patient has dentist [facility] Medical History BMI 35.0-35.9,adult No pertinent past medical history Surgical History History of hernia repair Family History Father Kidney failure Mother Congenital heart disease Brother No problems noted. Sister No problems noted. Sister No problems noted. Sister No problems noted. Son No problems noted. Daughter No problems noted. 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 Current occupational exposures/hazards: No Cognitive needs: No Hearing needs: No Vision needs: Yes Questionnaire Thrive Questionnaire Date Thrive assessed: 04/22/24 I am a: Patient What is your living situation today?: I have a steady place to live Within the past 12 months, did the food you bought not last and you didn't have the money to get more?: Never true Within the past 12 months, did you worry whether your food would run out before you got money to buy more?: Never true Do you have trouble paying for medicines?: No Do you have trouble getting transportation to medical appointments?: No Do you have trouble paying your heating and electricity bill?: No Do you have trouble taking care of your child, family member or friend?: No Do you have trouble with day-to-day activities such as bathing, preparing meals, shopping, managing finances, etc.?: No Are you currently unemployed and looking for a job?: No Are you interested in more education?: No Please select the resources that you would like help with: None Currently or been in a relationship where the following occur: No concerns reported THRIVE Score: 0 TONA-7 AMB Questionnaire TONA-7 Date TONA - 7 assessed: 11/03/23 Source: Developed by Drs. Leopoldo Pacheco, Skye Clarke, Charlie Funk and colleagues, with an educational baldomero from [employer] Physical exam (Primary Care) Vital Signs: Last Vital Signs Temp 98.0 F 11/01/24 08:36 Pulse 70 11/01/24 08:36 Resp 16 11/01/24 08:36 BP 159/78 H 11/01/24 08:36 Pulse Ox 98 11/01/24 08:36 Oxygen Delivery Method Room Air 11/01/24 08:36 BMI result Body Mass Index 36.0 Tobacco/Smoking Status: Tobacco use Status Tobacco use date assessed 11/01/24 11/01/24 08:41 Patient Tobacco Use Status Former Tobacco user 11/01/24 08:30 e-Cigarette/Vaping Use Never Used 11/01/24 08:30 Thrive Assessment: Date of Thrive Assessment Date Thrive assessed 04/22/24 11/01/24 08:30 Currently or been in a relationship where the following occur: No concerns reported Coding Level of Care Code Est Pt Level 4 (93286) Diagnoses HTN (hypertension) I10 Diabetes E11.9 CKD (chronic kidney disease) N18.9 Assessment & Plan Assessment & Plan (1) HTN (hypertension): Code(s): I10 - Essential (primary) hypertension Category: Medical Plan: Blood pressure is too high. Goal is less than 140/90 Increasing metoprolol and he will continue amlodipine benazepril as prescribed. (2) Diabetes: Code(s): E11.9 - Type 2 diabetes mellitus without complications Category: Medical Plan: A1c 5.9%. Goal is less than 7.0% Continue current medication Eye exam earlier this year. Up-to-date. (3) CKD (chronic kidney disease): Code(s): N18.9 - Chronic kidney disease, unspecified Category: Medical Plan: Followed by Dr. John Walden Work at good blood pressure control. Blood pressure was too high today and I adjusted his medication. Avoid salt in sodium. Avoid NSAIDs. Orders: Orders Complete Blood Count Auto Diff Today Z00.00 - Encounter for general adult medical examination without abnormal findings Lipid Panel Today Z00.00 - Encounter for general adult medical examination without abnormal findings TSH reflex Free T4 Today Z00.00 - Encounter for general adult medical examination without abnormal findings Comprehensive [place]. Panel Fast Today Z00.00 - Encounter for general adult medical examination without abnormal findings Microalbumin, Random (w Creat) Today I10 - Essential (primary) hypertension Prostate Specific Antigen Scr Today Z12.5 - Encounter for screening for malignant neoplasm of prostate UA CC w/rflx Micro + Cult Today Z00.00 - Encounter for general adult medical examination without abnormal findings Medications: Changed From metoprolol succinate ER 100 mg PO DAILY 30 days 30 tabs 2RF To metoprolol succinate ER 200 mg PO DAILY 30 tabs 2RF 30 days
[2024-11-01 08:36] VITALS: BP 159/78; PULSE 70; RESP 16; TEMP 36.7; O2SAT 98; BMI 36.0
--- OUTSIDE RECORDS SUMMARY | 2024-11-01 08:46 | XMS_ITS | Clinical Summary ---
Author Organization [facility] [place] Address [address] [place] [address] Phone Care Team Providers Care E Merchant Name Role Phone Ricky Iverson MD Primary [...] PO) Take by mouth daily. Active coenzyme E10-mczcfvo E 100-5 mg-unit capsule Take 200 mg by mouth daily. Active ezetimibe (ZETIA) 10 mg tablet take 1 tablet by mouth once daily 02/08/2017 Active fenofibrate (LOFIBRA) 160 mg tablet Take 1 tablet (160 mg total) by mouth daily. Active metoprolol succinate (TOPROL-XL) 100 mg 24 hr tablet Take 1 tablet (100 mg total) by mouth 1 (one) time each day. 11/12/2022 Active glucosam/chond- msm1/C/keegan/bor (GLUCOSAMINE-CH OND-MSM COMPLEX [...] (one) time each day. Super beets Active glipiZIDE (GLUCOTROL XL) 2.5 mg 24 hr tablet Take 1 tablet (2.5 mg total) by mouth 1 (one) time each day. Do not crush, chew, or split. Active Active Problems Problem Noted Date Diagnosed Date Pure hypercholesterolemia 02/12/2024 Primary hypertension 02/12/2024 Family history of premature CAD 02/12/2024 ANJALI (obstructive sleep apnea) 02/12/2024 Metabolic syndrome 03/31/2016 Overview (11/28/2023): Obesity, hypertension, hyperlipidemia, 1/2 PPD x 30 yrs bernardo--03/15/16--55% EF, infeiror soft tissue Echo--03/04/16--mild LVH, ao4.1, EF>60 Encounters Date Type Department Care Team Description 08/14/2024 9:30 AM EDT Ancillary Procedure [facility] [address] [id number] Donal Adams MD Pure hypercholesterolemia ; Primary hypertension; Family history of premature CAD from Last 3 Months Surgical History Surgery Date Site/Laterality Comments HERNIA REPAIR 2009 PROCEDURE:HERNIA REPAIR Medical History Medical History Date Comments Hypertension DX:Hypertension Hyperlipidemia DX:Hyperlipidemi a COPD (chronic obstructive pu lmonary disease) (CMS/HCC V24, CMS/HCC V28) DX:COPD (chronic o bstructive pulmonary disease) ([facility]) Obesity DX:Obesity Family History Medical History Relation [...] Sign Reading Time Taken Comments Blood Pressure 150/94 08/14/2024 9:28 AM EDT Pulse 72 02/12/2024 9:02 AM EST Temperature - - Respiratory Rate - - Oxygen Saturation 97% 02/12/2024 9:02 AM EST Inhaled Oxygen Concentration - - Weight 113 kg (249 lb) 08/14/2024 9:28 AM EDT Height 177.8 cm (5' 10 ) 08/14/2024 9:28 AM EDT Body Mass Index 35.73 08/14/2024 9:28 AM EDT Plan of Treatment Upcoming Encounters Date Type Department Care Team (Late st Contact Info) Description 08/15/2025 9:00 AM EDT Office Visit [facility] [place] [address] [facility] [address] [place] [phone] Donal Adams MD [address] [facility] [address] [place] [address] Health Maintenance Due Date Last Done Comments DTaP,Tdap,and Td Vaccines (1 - Tdap) 06/19/1974 Pneumococcal Vaccine: 50+ Ye ars (1 of 1 - PCV) 06/19/2005 Zoster Vaccines (1 of 2) 06/19/2005 Abdominal Aortic Aneurysm (A AA) Screen 01/15/2022 Cholesterol Screening (Lipid Panel) 01/15/2022 10/18/2016 Colorectal Cancer Screening: Colonoscopy 01/15/2022 Falls Risk Assessment 01/15/2022 Hepatitis C Screening 01/15/2022 Medicare Annual Wellness Visit 01/15/2022 Social Influencers of Health Screening 01/15/2022 Hypertension/CHF/CAD Annual BMP Blood Test 03/12/2023 10/18/2016 Depression Screening 02/07/2024 COVID-19 Vaccine ( - 2023-2 5 season) 2024 Influenza Vaccine (#1) 2024 RSV Immunization Adult Patie nts (1 [...] Procedure Name Priority Date/Time Associated Diagnosis Comments STRESS TEST ONLY EXERCISE Routine 08/14/2024 10:10 AM EDT Pure hypercholesterolemi a Primary hypertension Family history of premature CAD ANNUAL BMP BLOOD TEST Routine 10/18/2016 LIPID PANEL Routine 10/18/2016 from Last 3 Months or Most Recently Relevant to Health Maintenance Results * Exercise stress test (08/14/2024 10:10 AM EDT) Baseline HR 84 bpm CV NOWHERE Baseline SBP 150 mmHg CV NOWHERE Baseline DBP 94 mmHg CV NOWHERE O2 sat rest 98 % CV NOWHERE Target HR 128 bpm CV NOWHERE Anatomical Region Laterality Modality Cardiac Diagnost ic Narrative 08/14/2024 10:10 AM EDT Normal maximal exercise treadmill stress test. The patient walked for 8L00 minutes on a Nick protocol. The patient achieved a heart rate of 151, 100% of APMHR. There was no EKG evidence of ischemia. There was no symptom of angina. There were no significant arrhythmias noted. The patient had good functional capacity. Continued risk factor modification is advised. Warning symptoms requiring cardiac evaluation were discussed. I will plan to see the patient in one year. No medicine changes are recommended at this point. Donal Adams MD [facility] 08/14/2024 10:00 AM EDT Office [phone] Procedure Note Donal Adams MD - 08/14/2024 Normal maximal exercise treadmill stress test. The patient walked for 8L00 minutes on a Nick protocol. The patient achieved a heart rate of 151, 100% of APMHR. There was no EKG evidence of ischemia. There was no symptom of angina. There were no significant arrhythmias noted. The patient had good functional capacity. Continued risk factor modification is advised. Warning symptoms requiring cardiac evaluation were discussed. I will plan to see the patient in one year. No medicine changes are recommended at this point. Donal Adams MD [facility] 08/14/2024 10:00 AM EDT Office [phone] Donal Adams MD CV STRESS PROCEDURES Final Resul t * Annual BMP Blood Test (10/18/2016) Pathologist [facility] Annual BMP Blood Test Abstracted Historical Provider HEALTH MAINTENANCE Final Result * (ABNORMAL) Lipid panel (10/18/2016) [facility] LDL/HDL Ratio 4 <=5 Triglycerides 287(A) <=150 mg/dL Cholesterol 170 <=200 mg/dL HDL 42 >=40 mg/dL LDL Cholesterol 90 <=100 mg/dL Blood Venous blood specimen / Unknown Result [facility] Historical Provider LAB BLOOD ORDERABLES Lashae l Result from Last 3 Months or Most Recently Relevant to Health Maintenance Insurance [employer] Care Teams E Merchant Relationship Specialty Start Date End Date Ricky Iverson MD [address] [place] [address] Dr Nati MA PCP - General 04/21/22
--- OUTSIDE RECORDS SUMMARY | 2024-11-01 08:46 | XMS_ITS | Clinical Summary ---
Author Organization [facility] Address [address] [place] [address] Care Team Providers Care Crude Oil Treater Name Role Phone Ricky Iverson MD Primary Care Provider [phone] Allergies No known active allergies Medications Medication [...] Fall Risk Assessment 06/19/2020 Influenza Vaccine (#1) 2024 RSV Adult > 60+ Yrs or Pregn ant (1 - 1-dose 75+ series) 06/19/2030 Hepatitis B Vaccines Aged Out No long er eligible based on patient's age to complete this topic RSV Ped < 20 months Aged Out No longe r eligible based on patient's age to complete this topic Care Teams Crude Oil Treater Relationship Specialty Start Date End Date Ricky Iverson MD [address] [place] [address] PCP - General Family Medicine 04/21/22
--- OUTSIDE RECORDS SUMMARY | 2024-11-01 08:46 | XMS_ITS ---
Author Name [facility] Organization Unknown History of Medication Use Medication Directions Dispensed Refills Start Date End Date Stat metoprolol succinate (TOPROL-XL) 100 mg 24 hr tablet Take 1 tablet (100 mg total) by mouth 1 (one) time each day. 11/12/2022 active metoprolol succinate (TOPROL-XL) 25 mg 24 hr tablet Take 1 tablet (25 mg total) by mouth daily. 11/12/2022 active icosapent (VASCEPA) capsule 1 g Take 1 capsule (1 g total) by mouth 2 (two) times a day. 10/21/2021 06/08/2023 aborted amLODIPine-benazepril (LOTREL) 5-40 mg per capsule Take 1 capsule by mouth daily. 01/14/2019 active atorvastatin (LIPITOR) 80 mg tablet TAKE 1 TABLET BY MOUTH AT BEDTIME 05/14/2018 active ezetimibe (ZETIA) 10 mg tablet take 1 tablet by mouth once daily 02/08/2017 active ezetimibe (ZETIA) tablet 10 mg take 1 tablet by mouth once daily 02/08/2017 active spironolactone (ALDACTONE) 25 mg tablet Take 1 tablet (25 mg total) by mouth daily. 02/12/2024 aborted aspirin 81 mg EC tablet Take 1 tablet (81 mg total) by mouth daily. active aspirin EC 81 MG tablet Take 1 tablet (81 mg total) by mouth daily. active coenzyme X22-prynzod E 100-5 mg-unit capsule Take 200 mg by mouth daily. active fenofibrate (LOFIBRA) 160 mg tablet Take 1 tablet (160 mg total) by mouth daily. active glipiZIDE (GLUCOTROL XL) 2.5 mg 24 hr tablet Take 1 tablet (2.5 mg total) by mouth 1 (one) time each day. Do not crush, chew, or split. active glucosam/chond-msm1/C /keegan/bor (FXVCDAPSPAB-OUTIO-YC M COMPLEX ORAL) Take by mouth daily. active icosapent ethyL (VASCEPA) 1 gram capsule Take 2 capsules (2 g total) by mouth 1 (one) time each day. active vitamin A 2,400 mcg capsule Take 1 capsule (8,000 Units total) by mouth 1 (one) time each day. active Problems Problem Status Onset Date Problem Type Date of Resolution Source Pure hypercholesterolemia active ProblemAct [facility]_THSFRAN Family history of premature CAD active ProblemAct [facility]_THSFRAN Primary hypertension active ProblemAct [facility]_THSFRAN Essential hypertension active EncounterDiagnosi sAct CTTHNEMG Metabolic syndrome active ProblemAct CT_THSFRAN ANJALI (obstructive sleep apnea) active ProblemAct [facility]_THSFRAN Encounters Encounter Type Encounter Reason Primary Diagnosis Location Date Ambulatory Pure hypercholesterolemia, unspecified Pure hypercholesterolemia, unspecified [facility] 08/14/2024 Ambulatory Follow-up Pure hypercholesterolemia, unspecified [facility] 02/12/2024 Ambulatory [facility] 11/17/2023 Care Team Organization Name Specialty Phone Email Start Date End Da te [facility] 06/01/2024 [facility]2024 [facility]/12/2024
== END 2024-11-01 09:14 | disposition home or self-care (01) ==
LOC: HO.HMCFM 08:26
PROVIDERS: PCP Family Medicine; Visit Provider Family Medicine
DX: I12.9 Hypertensive chronic kidney disease with stage 1 through stage 4 chronic kidney disease, or unspecified chronic kidney disease (principal); E11.9 Type 2 diabetes mellitus without complications; N18.9 Chronic kidney disease, unspecified

== ENCOUNTER 2024-11-04 12:00 | Outpatient (AMB) | payer MEDICARE, SELFPAY ==
--- NOTE | 2024-11-04 12:06 | A.OFFVIS_ITS ---
Intake Vital Signs 11/04/24 12:13 Height 5 ft 9.5 in Weight 248 lb 2 oz BMI 36.1 BP 118/68 Blood Pressure Location Lt brachial Position Sitting Respiration 12 Pulse 68 Pulse Source Pulse Oximeter Temp 97.2 F Temp Source Oral Pulse Oximetry (%) 98 Oxygen Delivery Method Room Air Intake Visit Reasons: Physical / Dr. Iverson's pt. Intake Note: AWV Onion Tier Required: No Allergies No Known Allergies Allergy (Verified 11/04/24 12:07) Do you need a note to return to daycare/school/sports/work: No HPI HPI Comments History of Present Illness Details Here today for AWV. The Medicare Annual Wellness Visit (AWV) is a yearly appointment with a health professional to identify health risks and help reduce them and to create or update a personalized prevention plan. During a Medicare AWV, health professionals should also review any current opioid prescriptions, detect any cognitive impairment, and establish or update medical and family history. 69 y/o M with anemia, CKD3, microalbumin uria, HLD, HTN, obesity, TONA, DM2 with complication, ANJALI on CPAP, former smoker SurgHx: Y FHx: Y SocHx: Y Health Maintenance: See scanned preventative medicine assessment with personalized health plan and screening schedule. Colon: reports UTD [facility] around - i have requested this record Lung Ca screen: ordered today Vaccines: Flu will get at next visit; Tdap 11/04/24, Shingles UTD, PPSV 2017 advised to complete @ pharmacy. AAA screen: active w/ cards EKG: done today NSR with PAC no change Labs 11/01/24 anemia, CKD3, LDL 89, PSA 2.22, microalbuminuria [place] of Care: As documented in chart Visual Acuity: wears glasses last exam April 2024 Hearing Screening: no active issues; active w/ ENT wears hearing aides ACP: HCP unsure; form provided; does not have ACP or MOLST. Reviewed today and given blank forms Dietary/Nutrition/Exercise Edu provided: Y During the course of the visit the patient was educated and counseled about appropriate screening and preventative services. Patient instructions were provided to the patient in written or electronic format. I have reviewed and verified the above information. History of Present Illness The patient is a 69-year-old male presenting for an annual Medicare wellness visit. Type 2 Diabetes Mellitus: - Controlled with glipizide. - Latest A1c is 5.9%. Hyperlipidemia: - Managed by atorvastatin, fenofibrate, and Zetia. Hypertension: - Stable on amlodipine, benazepril, and metoprolol. Obesity: - BMI is 36.1. Obstructive Sleep Apnea: - Utilizing CPAP. Chronic Kidney Disease: - Described as stable. Tobacco Use Disorder: - Former smoker with periodic relapses. Atrial Premature Complexes (PACs): - EKG showed sinus rhythm with PACs, unc hanged since February. Family History - Father diagnosed with prostate cancer. Social History - Former smoker, with a short relapse ab out a year ago. - Retired, lives independently. - Occasionally smokes in stressful situa tions but maintains long periods of abstinence. - Manages own finances and activities of daily living. Health Maintenance - Lung cancer screening discussed; refer ral placed. - Colonoscopy history reviewed, awaiting documentation. - Declined current flu shot, plans to re ceive during next visit with PCP. - Tetanus shot administered. - Pneumococcal vaccine series to be comp leted at pharmacy. - Up-to-date with shingles vaccination. - Completed visual screening; no changes in prescription since last exam in April. - Hearing aids in use; recent evaluation completed. Review of Systems - Cardiovascular: Reports stable blood p ressure. - Pulmonary: Denies breathing issues. - Musculoskeletal: Denies recent falls. - Neurological: Reports no cognitive con cerns or changes. - Ophthalmological: Reports stable visio n. - Hematological: Reports stable chronic anemia. - Endocrine: Reports diabetes well-manag ed. Physical Exam General: Well developed, well nourished, in no acute distress. Appears stated age. Head: Normocephalic, atraumatic. Eyes: Pupils are equal, round and reactive to light and accommodation. Conjunctivae are clear. Scleras nonicteric bilat. Vision grossly normal. Patient wears glasses Ears: TMs clear AU, EACS WNL. Hearing aides bilat, Bilat ET tubes Nose: Patent, without discharge. Neck: No carotid bruit bilat. Supple, no adenopathy or thyromegaly. Breast: Edu on SBE Lungs: Clear to auscultation bilaterally. No rales, rhonchi or wheeze noted. Good air flow in all gannon. Heart: Regular rate and rhythm. No murmurs, click, rubs or gallops are noted Abdomen: Bowel sounds present in all quadrants. The abdomen is soft, nontender, with no masses or organomegaly noted. No hernias are noted. : Deferred. Reviewed CRISTIANO & recommendations Pulses: Peripheral pulses are equal and palpable bilaterally. Extremities: No clubbing, cyanosis nor edema is noted. Neurologic: Gait and station normal. Cranial Nerves 2-12 intact. Motor strength grossly symmetrical and intact. No sensory loss. Balance normal. Skin: No rashes, ulcers, or lesions noted. Turgor is good. Skin color is good. Hair and nails are without abnormalities. Psych: Normal eye contact, affect and mood appropriate, and normal interactions. Patient is alert and appropriate to context. Discussion Notes During the visit, we reviewed the patient's type 2 diabetes management with glipizide, noting his A1c at an optimal 5.9%. Hyperlipidemia treatment with atorvastatin, fenofibrate, and Zetia is ongoing and appropriate given his cholesterol level. His hypertension is managed on amlodipine, benazepril, and metoprolol. We discussed the potential side effects of beta blockers, particularly dizziness, and advised the importance of regular monitoring. The patient was informed about the lung cancer screening due to his smoking history and decision to have a pneumococcal vaccine series completed. We agreed to maintain his CPAP usage for obstructive sleep apnea and addressed preventive care in the form of recommended flu and pneumococcal vaccinations. He consented to a tetanus booster shot today. Patient was given time to ask questions. All questions were answered to their satisfaction. Assessment and Plan 1. Type 2 Diabetes Mellitus - Glipizide continued; control adequate with A1c at 5.9%. 2. Hyperlipidemia - Current therapy maintained. 3. Hypertension - Regimen continued; informed of metopro lol side effects. 4. Obstructive Sleep Apnea - Continue CPAP use. 5. Tobacco Use Disorder - Lung cancer screening referral placed. 6. Obesity - Monitor BMI, encourage lifestyle adjus tments. 7. Chronic Kidney Disease - Maintain current management. 8. Atrial Premature Complexes (PACs) - Status quo; continue with cardiology o versight. Patient Instructions - Continue taking all medications as pre scribed. - Monitor blood pressure regularly at [facility]. 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 - Attend lung cancer screening as schedu led. - Complete pneumococcal vaccine series a t the pharmacy. - Follow up with your primary care physi saroj in three months. - Report any new symptoms or changes to your healthcare provider. Consent Patient was informed and verbally consented to the use of an ambient scribe for clinic note documentation during this visit. An additional 30 minutes was spent addressing the problem(s) noted at todays visit. This includes time spent before the visit reviewing the chart, time spent during the visit, and time spent after the visit on documentation reviewing laboratory results, diagnostic imaging, medications, performing a medically necessary evaluation, counseling on diagnoses, care coordination, ordering appropriate tests, ordering appropriate medications, review of tests performed by other providers, reporting test results with the patient, communication with other healthcare providers. PFSH Medical History OMER (acute kidney injury) Bilateral shoulder pain BMI 35.0-35.9,adult Hyperkalemia Left shoulder pain Muscle twitch Nicotine dependence No pertinent past medical history Smoker Surgical History History of hernia repair Family History Father Kidney failure Mother Congenital heart disease Brother No problems noted. Sister No problems noted. Sister No problems noted. Sister No problems noted. Son No problems noted. Daughter No problems noted. 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 Current occupational exposures/hazards: No Cognitive needs: No Hearing needs: No Vision needs: Yes Questionnaire Medicare Wellness Checkup What is your age?: 65-69 What gender do you identify with?: male During the past 4 weeks, how much have you been bothered by emotional problems such as feeling anxious, depressed, irritable, sad or downhearted, and blue?: not at all During the past 4 weeks, has your physical & emotional health limited your social activities with family, friends, neighbors, or groups?: not at all During the past 4 weeks, how much bodily pain have you generally had?: no pain During the past 4 weeks, was someone available to help you if you needed & wanted help?: yes, as much as I wanted During the past 4 weeks, what was the hardest physical activity you could do for at least 2 minutes?: moderate Can you get to places out of walking distance without help? (For eg., can you travel alone on buses, taxis or drive your car?): Yes Can you go shopping for groceries or clothes without someone's help?: Yes Can you prepare your own meals?: Yes Can you do your housework without help?: Yes Because of any health problems, do you need the help of another person with your personal care needs such as eating, bathing, dressing or getting around the house?: No Can you handle your own money without help?: Yes During the past 4 weeks, how would you rate your health in general?: very good During the past 4 weeks how have things been going for you?: pretty well Are you having difficulties driving your car?: no Do you always fasten your seat belt when you are in a car?: yes, usually During past 4 weeks, have you been bothered by the following: never: Falling or dizzy when standing up, Sexual problems?, Trouble eating well?, Teeth or denture problems?, Problems using the telephone? and Tiredness or fatigue? Have you fallen 2 or more times in the past year?: No Are you afraid of falling?: No Are you a smoker?: no During the past 4 weeks, how many drinks of wine, beer, or other alcoholic beverages did you have?: 2-5 drinks per week Do you exercise for about 20 minutes 3 or more times a week?: yes, some of the time Have you been given information to help with the following?: no: Hazards in your house that might hurt you? and no: Keeping track of your medications? How often do you have trouble taking medicines the way you have been told to take them?: I always take medicine as prescribed How confident are you that you can control & manage most of your health problems?: very confident What is your race?: White Activity of Daily Living Bathing - sponge bath, tub bath or shower: receives no assistance (gets in/out by self, if usual bathing means Dressing - getting clothes from closets & drawers, including inner/outer garments & fasteners.: gets clothes & gets completely dressed without help Toileting - going to the 'toilet room' for urine/bowel elimination & cleaning self/arranging clothes: goes to toilet room, cleans self, arranges clothes without help Continence: controls urination/bowel movements completely by self Feeding: feeds self without help Total Score: 0 Information obtained from: patient Using telephone: independent Traveling: independent Shopping: independent Preparing meals: independent Housework: independent Taking medicine: independent Managing money: independent PHQ-9 Over the last 2 weeks, how often have you been bothered by any of the following problems? 1. Little interest or pleasure in doing things: not at all 2. Feeling down, depressed, or hopeless: not at all 3. Trouble falling or staying asleep, or sleeping too much: not at all 4. Feeling tired or having little energy: not at all 5. Poor appetite or overeating: not at all 6. Feeling bad about yourself - or that you are a failure or have let yourself or your family down: not at all 7. Trouble concentrating on things, such as reading the newspaper or watching television: not at all 8. Moving or speaking so slowly that other people could have noticed. Or the opposite - being so fidgety or restless that you have been moving around a lot more than usual: not at all 9. Thoughts that you would be better off or of hurting yourself in some way: not at all Total score: 0 Depression Screening Interpretation: Negative Depression Screening Done: Yes 40027 - PHQ-9 Billing: Yes Source: Developed by Drs. Leopoldo Pacheco, Skye Clarke, Charlie Funk and colleagues, with an educational baldomero from [employer]. Physical Exam Vital Signs: Last Vital Signs Temp 97.2 F 11/04/24 12:13 Pulse 68 11/04/24 12:13 Resp 12 11/04/24 12:13 BP 118/68 11/04/24 12:13 Pulse Ox 98 11/04/24 12:13 Oxygen Delivery Method Room Air 11/04/24 12:13 BMI result Body Mass Index 36.1 Office Procedures EKG 46622-[id number], Complete Vision Screening Right Eye: 20/40 Left Eye: 20/30 Bilateral: 20/30 Color: Pass Corrected: Pass (wearing glasses) 03023 - Vision Screening Immunizations Boostrix Tdap 2.5 Lf unit-8 mcg-5 Lf/0.5 mL intramuscular syringe Performing Provider: RON Meza [place] [facility] [place] [facility] Administered by: Jayjay Hutson RN on 11/04/24 13:25 Dose Route Admin Location Dispensed Lot Number Expiration Date [employer] 0.5 mL IM Right Deltoid 0.5 mL [id number] 11/29/26 [id number] [employer] Total Dispensed Waste 0.5 mL 0 % VIS Given Date VIS Provided VIS Publication Date 11/04/24 Single Vaccine 20 Eligibility Eligibility Date Funding Source Not [facility] Eligible 11/04/24 Private Assessment & Plan Assessment & Plan (1) Encounter for subsequent annual wellness visit (AWV) in Medicare patient: Onset Date: ~11/04/24 Code(s): Z00.00 - Encounter for general adult medical examination without abnormal findings (2) Essential hypertension: Code(s): I10 - Essential (primary) hypertension (3) Hyperlipidemia: Code(s): E78.5 - Hyperlipidemia, unspecified Qualifiers: Hyperlipidemia type: mixed hyperlipidemia Qualified Code(s): E78.2 - Mixed hyperlipidemia (4) Diabetes: Code(s): E11.9 - Type 2 diabetes mellitus without complications Qualifiers: Chronic kidney disease stage: stage 3 (moderate) Chronic kidney disease stage 3 subtype: stage 3a (GFR 45-59) Diabetes mellitus complication detail: with chronic kidney disease Diabetes mellitus complication status: with kidney complications 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 termite control service representative use Diabetes mellitus type: type 2 Qualified Code(s): E11.22 - Type 2 diabetes mellitus with diabetic chronic kidney disease; N18.31 - Chronic kidney disease, stage 3a (5) CKD (chronic kidney disease): Code(s): N18.9 - Chronic kidney disease, unspecified Qualifiers: Chronic kidney disease stage: stage 3 (moderate) Chronic kidney disease stage 3 subtype: stage 3a (GFR 45-59) Qualified Code(s): N18.31 - Chronic kidney disease, stage 3a (6) Mild anemia: Code(s): D64.9 - Anemia, unspecified (7) Immunization counseling: Code(s): Z71.85 - Encounter for immunization safety counseling (8) ANJALI on CPAP: Comment: Severe degree of sleep apnea. The AHI was 33/hr and oxygen lakshmi was 87%. Code(s): G47.33 - Obstructive sleep apnea (adult) (pediatric) (9) Former smoker: Code(s): Z87.891 - Personal history of nicotine dependence (10) Need for Tdap vaccination: Code(s): Z23 - Encounter for immunization (11) ACP (advance care planning): Code(s): Z71.89 - Other specified counseling Plan . Orders: Orders Hemoglobin A1c 3 Months E11.22 - Type 2 diabetes mellitus with diabetic chronic kidney disease, E78.2 - Mixed hyperlipidemia, I10 - Essential (primary) hypertension, N18.31 - Chronic kidney disease, stage 3a TDaP Immunization Today Z23 - Encounter for immunization Comprehensive Met. Panel 3 Months E11.22 - Type 2 diabetes mellitus with diabetic chronic kidney disease, E78.2 - Mixed hyperlipidemia, I10 - Essential (primary) hypertension, N18.31 - Chronic kidney disease, stage 3a Microalbumin, Random (w Creat) 3 Months E11.22 - Type 2 diabetes mellitus with diabetic chronic kidney disease, E78.2 - Mixed hyperlipidemia, I10 - Essential (primary) hypertension, N18.31 - Chronic kidney disease, stage 3a Lipid Panel 3 Months E11.22 - Type 2 diabetes mellitus with diabetic chronic kidney disease, E78.2 - Mixed hyperlipidemia, I10 - Essential (primary) hypertension, N18.31 - Chronic kidney disease, stage 3a Referrals Lung Cancer Screening Referral Z87.891 - Personal history of nicotine dependence Patient Instructions: Recommend completing your pneumococcal shot series at the pharmacy Health screenings for men You should visit your health care provider regularly, even if you feel healthy. The purpose of these visits is to: Screen for medical issues Assess your risk for future medical problems Encourage a healthy lifestyle Update vaccinations and other preventive care services Help you get to know your provider in case of an illness Information Even if you feel fine, you should still see your provider for regular checkups. These visits can help you avoid problems in the future. For example, the only way to find out if you have high blood pressure is to have it checked regularly. High blood sugar and high cholesterol level also may not have any symptoms in the early stages. Simple blood tests can check for these conditions. There are specific times when you should see your provider or receive specific health screenings. The [place] Preventive Services Task Force publishes a list of recommended screenings. Below are screening guidelines for men ages 40 to 64. BLOOD PRESSURE SCREENING Have your blood pressure checked at least once every year. Watch for blood pr essure screenings in your area. Ask your provider if you can stop in to have your blood pressure checked. Ask your provider if you need your blood pressure checked more often if: You have diabetes, heart disease, kidney problems, or are overweight or have certain other health conditions You have a first-degree relative with high blood pressure You are Black Your blood pressure top number is from 120 to 129 mm Hg, or the bottom number is from 70 to 79 mm Hg If the top number is 130 mm Hg or greater or the bottom number is 80 mm Hg or greater, this is considered stage 1 hypertension. Schedule an appointment with your provider to learn how you can lower your blood pressure. Effects of age on blood pressure CHOLESTEROL SCREENING Cholesterol screening should begin at age 35 for men with no known risk factors for coronary heart disease. Repeat cholesterol screening should take place: Every 5 years for men with normal cholesterol levels More often if changes occur in lifestyle (including weight gain and diet) More often if you have diabetes, heart disease, kidney problems, or certain other conditions COLORECTAL CANCER SCREENING If you are under age 45, talk to your provider about getting screened. You may need to be screened if you have a strong family history of colon cancer or polyps. Screening may also be considered if you have risk factors such as a history of inflammatory bowel disease or polyps. If you are age 45 to 75, you should be screened for colorectal cancer. There are several screening tests available: A stool-based fecal occult blood (gFOBT) or fecal immunochemical test (FIT) every year A stool sDNA test every 1 to 3 years Flexible sigmoidoscopy every 5 years or every 10 years with stool testing FIT done every year CT colonography (virtual colonoscopy) every 5 years Colonoscopy every 10 years You may need a colonoscopy more often if you have risk factors for colorectal cancer, such as: Ulcerative colitis A personal or family history of colorectal cancer A history of growths in your colon called adenomatous polyps DENTAL EXAM Go to the dentist once or twice every year for an exam and cleaning. Your dentist will evaluate if you have a need for more frequent visits. DIABETES SCREENING All adults who do not have risk factors for diabetes should be screened starting at age 35 and repeated every 3 years. If you have other risk factors for diabetes, such as a first degree relative with diabetes, overweight or obesity, high blood pressure, prediabetes, or a history of heart disease, you may be tested more often. If you are overweight and have other risk factors, such as high blood pressure and are planning to become , screening is recommended. EYE EXAM Have an eye exam every 2 to 4 years ages 40 to 54 and every 1 to 3 years ages 55 to 64. Your provider may recommend more frequent eye exams if you have vision problems or glaucoma risk. Have an eye exam that includes an examination of your retina (back of your eye) at least every year if you have diabetes. IMMUNIZATIONS Commonly needed vaccines include: Flu shot: get one every year COVID-19 vaccine: ask your provider what is best for you Tetanus-diphtheria and acellular pertussis (Tdap) vaccine: have as one of your tetanus-diphtheria vaccines if you did not receive it as an adolescent Tetanus-diphtheria: have a booster (or Tdap) every 10 years Varicella vaccine: receive 2 doses if you never had chickenpox or the varicella vaccine and were born in 1979 or after Hepatitis B vaccine: receive 2, 3, or 4 doses, depending on your exact circumstances, if you did not receive these as a child or adolescent, until age 59 Shingles (herpes zoster) vaccine: at or after age 50 Ask your provider if you should receive other immunizations, especially if you have certain medical conditions, such as diabetes or are at increased risk for some diseases such as pneumonia. INFECTIOUS DISEASE SCREENING Screening for hepatitis C: all adults ages 18 to 79 should get a one-time test for hepatitis C. Screening for human immunodeficiency virus (HIV): all people ages 15 to 65 should get a one-time test for HIV. Depending on your lifestyle and medical history, you may need to be screened for infections such as syphilis, chlamydia, and other infections. LUNG CANCER SCREENING You should have an annual screening for lung cancer with low-dose computed tomography (LDCT) if: You are age 50 to 80 years AND You have a 20 pack-year smoking history AND You currently smoke or have quit within the past 15 years OSTEOPOROSIS SCREENING If you are age 50 to 64 and have risk factors for osteoporosis, you should discuss screening with your provider. Risk factors can include long-term steroid use, low body weight, smoking, heavy alcohol use, having a fracture after age 50, or a family history of hip fracture or osteoporosis. Osteoporosis PHYSICAL EXAM All adults should visit their provider from time to time, even if they are healthy. The purpose of these visits is to: Screen for diseases Assess risk of future medical problems Encourage a healthy lifestyle Update vaccinations and other preventive care services Maintain a relationship with a provider in case of an illness Your height, weight, and body mass index (BMI) should be checked at every exam. During your exam, your provider may ask you about: Depression and anxiety Diet and exercise Alcohol and tobacco use Safety, such as use of seat belts and smoke detectors Your medicines and risk for interactions PROSTATE CANCER SCREENING If you're 55 through 69 years old, before having the test, talk to your provider about the pros and cons of having a PSA test. Ask about: Whether screening decreases your chance of dying from prostate cancer. Whether there is any harm from prostate cancer screening, such as side effects from testing or overtreatment of cancer when discovered. Whether you have a higher risk of prostate cancer than others. If you are age 55 or younger, screening is not generally recommended. You should talk with your provider about if you have a higher risk for prostate cancer. Risk factors include: Having a family history of prostate cancer (especially a brother or father) Being If you choose to be tested, the PSA blood test is repeated over time (yearly or less often), though the best frequency is not known. Prostate examinations are no longer routinely done on men with no symptoms. Prostate cancer SKIN EXAM Your provider may check your skin for signs of skin cancer, especially if you're at high risk. People at high risk include those who have had skin cancer before, have close relatives with skin cancer, or have a weakened immune system. TESTICULAR EXAM The [place] Preventive Services Task Force (USPSTF) now recommends against performing testicular self-exams. Doing testicular self-exams has been shown to have little to no benefit. Quality Reporting (2020) Adult ([facility] 138/2/) Smoking risk assessment performed?: Yes Patient Tobacco Use Status: Former Tobacco user Depression screening performed: Yes Screen Results: Yes Negative screen Systolic BP not done?: No Diastolic BP not done?: No BMI screening not done: No BMI High - Follow Up: Yes High-plan Sexual Activity Screening ([facility] 153) Sexually active?: Yes Immunizations ([facility] 147, 117) Annual Influenza Vaccine: Yes Measles Antibody Test: No Mumps Antibody Test: No Rubella Antibody Test: No Varicella Antibody Test: No Anti Hepatitis A IgG Antigen test: No Anti Hepatitis B Virus Surface Ab test: No Fall Risk Screening ([facility] 139) Last assessed Fall Risk: 11/04/24 Fall risk assessment: No Falls in past year Dementia Assessment (CMS 149) Cognitive assessment recorded: Yes Assessment of cognition with standardized tool: Yes (04/05 on 6 CIT ) Depression/Bipolar (159/160/161/177) PHQ-9: Total score: 0 Ophthalmol:Cataracts Visual Acuity (133) Visual acuity exam performed: Yes (see results) Coding Level of Care Code Medicare Subsequent (G0439) Est Pt Level 4 (57184) Diagnoses Encounter for subsequent annual wellness visit (AWV) in Medicare patient Z00.00 Essential hypertension I10 Mixed hyperlipidemia E78.2 Hyperlipidemia type: mixed hyperlipidemia Type 2 diabetes mellitus with stage 3a chronic kidney disease, without long-term current use of insulin E11.22; N18.31 Chronic kidney disease stage: stage 3 (moderate) Chronic kidney disease stage 3 subtype: stage 3a (GFR 45-59) Diabetes mellitus complication detail: with chronic kidney disease Diabetes mellitus complication status: with kidney complications 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 care home use Diabetes mellitus type: type 2 Stage 3a chronic kidney disease N18.31 Chronic kidney disease stage: stage 3 (moderate) Chronic kidney disease stage 3 subtype: stage 3a (GFR 45-59) Mild anemia D64.9 Immunization counseling Z71.85 ANJALI on CPAP G47.33 Former smoker Z87.891 Need for Tdap vaccination Z23 ACP (advance care planning) Z71.89 CPT Codes Advance Care Planning - Time spent: 16-45 minutes ([id number]) EKG - CPT: 90416-Ikjgpywxmetknaxwv, Complete ([id number]) Vision Screening - Vision Screenin - Vision Screening ([id number]) Additional Codes PHQ-9 - 39625 - PHQ-9 Billing: Yes ([id number]) Advance Care Planning Advance Care Planning discussion: Exists, not on file Date of discussion: 11/04/24 Who was present: self Forms completed: Health Care Proxy, MOLST and Living will Time spent: 16-45 minutes Actual minutes spent: 16
[2024-11-04 12:13] VITALS: BP 118/68; PULSE 68; RESP 12; TEMP 36.2; O2SAT 98; BMI 36.1
--- OUTSIDE RECORDS SUMMARY | 2024-11-04 13:22 | XMS_ITS | Data Portability ---
Author Organization [place] - [facility], Allergy Address [address] [place] [address] Care Team Providers Care Cotton Seed Culler Name Role Phone CAPRI POLANCO Primary Care [...] and follow-up in 3 to 4 weeks. [email or web address] Not available 09/30/2024 13:50:27 10/29/2024 10/29/2024 69yo [...] %-0.1 % ear drops,ghislaine pension 2024 025 [facility]acy #[id number], [address] [place], [address], 09/30/2024 13:51:40 ciproflox acin 0.3 % eye drops 2024 025 [facility] #[id number], [address] [place], [address], 08/28/2024 13:34:16 Patient TargetsNo targets recorded. Patient [...] Time Disorder of left Eustachia n tube [id number] 07624 Active 2016 Other specified disorders of Eustachia n tube, left ear; Note: Date Diagnosed : 03/08/2016 10:00 AM (H69.82) Not Available [facility] 4 02:47:47 Impacted cerumen in left ear 17051249483 59832 Active 2016 Impacted cerumen, left ear; Note: Date Diagnosed : 04/05/2016 11:17 AM (H61.22) Not Available [facility] 4 02:47:52 Otitis externa of right ear 18670167729 41808 Active 2016 Other otitis externa, right ear; Note: Date Diagnosed : 7 9:51 AM (H60.8X1) Not Available [facility] 4 02:47:48 Snoring 30300490 Active 2016 Snoring; Note: Date Diagnosed : 7 10:09 AM (R06.83) Not Available [facility] 4 02:47:52 Acute sinusitis 99686193 Active 2017 Acute sinusitis , unspecifi ed; Note: Date Diagnosed : 12/12/2017 9:57 AM (J01.90) Not Available [facility] 4 02:47:45 Impacted cerumen of bilateral ears 71955882041 45396 Active 2018 Impacted cerumen, bilateral ; Note: Date Diagnosed : 07/31/2018 10:13 AM (H61.23) Not Available [facility] 4 02:47:52 Bilateral disorder of Eustachia n tubes 76051094954 98924 Active 2018 Other specified disorders of Eustachia n tube, bilateral ; Note: Date Diagnosed : 07/31/2018 10:14 AM (H69.83) KIM DRUMMOND PA-C [address] [place] [address], [place], [address] , [facility] - [facility] 5 12:07:16 Abnormal auditory perceptio n 45871454 Active 2018 Other abnormal auditory perceptio ns, bilateral ; Note: Date Diagnosed : 07/31/2018 10:15 AM (H93.293) Not Available [facility] 4 02:47:45 Mixed conductiv e and sensorine ural hearing loss, bilateral 399139225 Active 2023 KIA TOPETE, SHARON [address], [place], [address] , [place] - [facility] 4 12:05:14 Bilateral adhesive otitis media of middle ears 74839558891 87591 Active 2023 KATI OBANDO MD [address], [place], [place], [address] , [facility] - [facility] 4 13:46:05 Sensorine ural hearing loss of bilateral ears 967865006 Active 2023 KIM DRUMMOND PA-C [address], [place], [place], [address] , [place] - [facility] 5 12:07:29 Otorrhea of right ear 36134534165 06883 Active 2024 SHAYE SERRANO PA-C [address], [place], [address] , [place] [facility] 5 13:33:40 Otorrhea of bilateral ears 05479504792 26199 Active 2024 SHAYE SERRANO PA-C [address], [place], [place], [address] , [place] - [facility] 5 13:50:52 Problem Notes None recorded. Procedures Surgical History Date Name Laterality Status Provider Name and Address Organization Details Recorded Time Comp Audio with Tymps - 03665 & 63617 completed Paola Ramsay [place] - [facility] 01/17/2024 15:09:47 NASOPHARYNGOSCOPY, SURGICAL, WITH DILATION OF EUSTACHIAN TUBE; BILATERAL (SURG) completed Philip Nance [place] - [facility] 12/22/2023 15:46:47 024 Fiberoptic Nasopharyngoscopy completed KATI OBANDO MD [address], [place], [address], [facility] - [facility] 12/07/2023 13:52:03 024 Comp Audio with Tymps - 74004 & 55041 completed SHARON HOOD [address] [facility] [address], [place], [address], [facility] - [facility] 09/20/2023 12:04:29 024 Cerumen removal without microscope bilat completed SHAYE SERRANO PA-C [address] [facility] [address], [place], [address], [facility] - [facility] 09/20/2023 11:33:24 Imaging Results None recorded. Procedure [...] dose pack 07/31 completed Medicati on ID: [id number] P wilbert shaw By Name: Adi Ewing [...] mg tablet 12/12 completed Medicati on ID: [id number] D uration Value: 90 Reason: () Brand [...] mg tablet 12/06 completed Medicati on ID: [id number] D uration Value: 90 Reason: () Brand [...] topical solution 12/12 completed Medicati on ID: [id number] P wilbert shaw By Name: Adi Ewing nd Name: anneriarmond Neri d Method: E-Prescr ibed Sub s Allowed: subs [place] Speci al Instruct ion: 5 drops to affected ear twice a day Medi cationGe nericNam e: clotrima zole Not Available Not Available Not Available hydrochlo rothiazid e 25 mg tablet 09/19 completed Medicati on ID: [id number] D uration Value: 30 Brand Name: hydrochl [...] layed release 2016 active Medicati on ID: [id number] B rand Name: Aspir-81 Send Method: E-Prescr [...] mg capsule 09/19 completed Medicati on ID: [id number] D uration Value: 90 Brand Name: amlodipi [...] Updated DateTime 08/28/2024 177.8 cm 36.2 kg/m2 708962.[address] [facility] 08/28/2024 13:03:13 Date Recorded Body height Body mass index (BMI) Body weight Provider Name and Address Organization Details Last Updated DateTime 09/30/2024 177.8 cm 34.4 kg/m2 388936.[address] [facility] 09/30/2024 13:19:05 Date Recorded Body height Body mass index (BMI) Body weight Provider Name and Address Organization Details Last Updated DateTime 10/29/2024 177.8 cm 34.4 kg/m2 038949.17 g Cherri Wolfe [facility] 10/29/2024 11:26:02 Date Recorded Body height Body mass index (BMI) Body weight Provider Name and Address Organization Details Last Updated DateTime 01/17/2024 177.8 cm 36.2 kg/m2 676748.28 g Joanie Barak [facility] 01/17/2024 15:21:34 Social History None recorded. Functional Status None recorded. Mental Status None recorded. Family History Nothing Reported. Medical History Condition Response Hypertension Y Past Encounters Encounter ID Performer Location Encounter Start Date Encounter Closed Date Diagnosis/Indication Diagnosis SNOMED-CT Code Diagnosis ICD10 Code Diagnosis IMO Codes Diagnosis Note [id number] SHAYE SERRANO PA-C [facility] [address] [address] 09/20/2023 10:45:58 09/20/2023 12:16:15 Bilateral disorder of Eustachian tubes [id number] 656931 H69.83 Impacted c erumen of bilateral ears 2543816820 994959 H61.23 Mixed cond uctive and sensorineural hearing loss, bilateral 607288111 H90.6 Audiologic al evaluation results: Right ear: Mild sloping to severe mixed hearing loss with excellent word recognitio n. Left ear: Moderate sloping to severe mixed hearing loss with excellent word recognitio n. Tympanomet ry: Right Ear:Type C Left Ear:Type C [id number] KATI OBANDO MD [facility] [address] [address] 12/07/2023 12:56:27 12/07/2023 13:54:32 Bilateral disorder of Eustachian tubes 8047709698 084786 H69.83 Bilateral adhesive otitis media of middle ears 5048132116 165347 H74.13 [id number] SHARON GEE PLUNK[facility] - [address] [address] 12/29/2023 09:05:09 01/01/2024 06:57:56 Mixed conductive and sensorineural hearing loss, bilateral 010876916 H90.6 [id number] KIM DRUMMOND PA-C [facility] [address] [address] 01/17/2024 14:22:08 01/17/2024 16:27:24 Bilateral disorder of Eustachian tubes 7728746150 867474 H69.83 Sensorineu ral hearing loss of bilateral ears 430861946 H90.3 Audiologic al evaluation results:Ri ght ear:Essent ially mild sloping to severe sensorineu ral hearing loss with excellent word recognitio n.Left ear:Essent ially mild sloping to severe sensorineu ral hearing loss with excellent word recognitio n. Tympanomet ry:Right Ear:Type B with large volumeLeft Ear:Type B with large volume [id number] SHAYE SERRANO PA-C [facility] [address] [address] 08/28/2024 12:56:18 08/28/2024 14:14:04 Bilateral adhesive otitis media of middle ears 0486092371 981394 H74.13 Otorrhea of right ear 10 18019987 265366 H92.11 9839556 [id number] SHAYE SERRANO PA-C [facility] [address] [address] 09/30/2024 12:56:39 09/30/2024 13:23:14 Bilateral disorder of Eustachian tubes 8967052761 675546 H69.83 Otorrhea o f bilateral ears 7138971413 807318 H92.13 [id number] KIM DRUMMOND PA-C [facility] [address] [facility] [place] [address] 10/29/2024 11:18:40 10/29/2024 11:39:44 Bilateral disorder of Eustachian tubes 8518414663 155286 H69.83 Otorrhea o f bilateral ears 5654204957 660189 H92.13 [id number] Sensorineu ral hearing loss of bilateral ears 305825234 H90.3 Health Concerns Section Related Observation LastModified by Organization Detai ls LastModified Time None Recorded Concern Status LastModified by Organization Details LastModified Time None Recorded Advance Directives Directive None Recorded Payers Insurance Date Sequence Insurance Name Policy Number Policy Murillo Covered Member ID Murillo Member ID Guarantor Name 10/29/2024 1 [employer] - MEDICARE ADVANTAGE PLAN (MEDICARE REPLACEMENT HMO) [id number] Suzan Min [id number] Suzan Min Notes Date Note Type Note [...] through this office he will be ordering:phonak [id number] or [id number]: 2MDomes: medium open He need sto do some research, but will let me know what he would like to do. ROZINA MULLINS, AUD [address] [facility],[address], [address], [facility] 12/29/2023 10:28:21 01/17/2024 text/html ROS as noted in the [facility] 68 year old male presents s/p BMT with bilateral balloon dilation with Dr. Obando on 12/20/2023. He is doing well post-operatively without concerns. He denies otalgia, otorrhea, or hearing changes. He did have a hearing aid consult with one of our audiologists and is in the process of getting amplification. MIKAEL MCKEON MD 100 [facility],[address], [address], [facility] 01/17/2024 16:43:22 08/28/2024 text/html ROS as noted in the [facility] 69-year-old male with chronic ETD presents for reevaluation. Status post eustachian tube dilation with Dr. Obando 1 year ago. He has been having some fullness of the right ear which is intermittent. Continues to maintain dry ear precaution. Has bilateral hearing aids which he uses with good effect. MALICK RODGERS MD 100 [facility],[address], [address], [facility] 09/03/2024 20:52:47 09/30/2024 text/html ROS as noted in the [facility] 69-year-old male presents for reevaluation. History of chronic ETD with bilateral tubes. Previously noted to have granulation around the outer rim of the right tube. He used Ciprodex. Unfortunately went swimming and got some water in his left ear and feels as though it is wet since then. TORRIE ALONSO MD [address] [facility] [address] [address], [place], [address], [facility] [place] [facility] 09/30/2024 17:02:31 10/29/2024 text/html ROS as noted in the [facility] 69-year-old male for reevaluation of the ears. He trialed topical Ciprodex in both ears for granulation and otorrhea after swimming. History of chronic ETD with bilateral tubes. KATI OBANDO MD [address] [facility] [address] [address], [place], [address], [facility] - [facility] 10/30/2024 07:45:47
== END 2024-11-04 13:25 | disposition home or self-care (01) ==
LOC: HO.HMCFM 12:01
PROVIDERS: PCP Family Medicine; Visit Provider Nurse Practitioner Family
DX: Z00.00 Encounter for general adult medical examination without abnormal findings (principal); I12.9 Hypertensive chronic kidney disease with stage 1 through stage 4 chronic kidney disease, or unspecified chronic kidney disease; E11.22 Type 2 diabetes mellitus with diabetic chronic kidney disease; N18.31 Chronic kidney disease, stage 3a; E78.2 Mixed hyperlipidemia; D64.9 Anemia, unspecified; Z71.85 Encounter for immunization safety counseling; G47.33 Obstructive sleep apnea (adult) (pediatric); Z87.891 Personal history of nicotine dependence; Z23 Encounter for immunization; Z71.89 Other specified counseling

== ENCOUNTER → 2024-11-04 12:00 | Outpatient (BNVA) | payer MEDICARE, SELFPAY | PROVIDERS: PCP Family Medicine; Visit Provider Nurse Practitioner Family | DX: Z00.00 Encounter for general adult medical examination without abnormal findings (principal); G47.33 Obstructive sleep apnea (adult) (pediatric); E66.9 Obesity, unspecified; E11.22 Type 2 diabetes mellitus with diabetic chronic kidney disease; I12.9 Hypertensive chronic kidney disease with stage 1 through stage 4 chronic kidney disease, or unspecified chronic kidney disease; E78.2 Mixed hyperlipidemia; N18.31 Chronic kidney disease, stage 3a; D63.1 Anemia in chronic kidney disease; Z23 Encounter for immunization; Z71.85 Encounter for immunization safety counseling; Z71.89 Other specified counseling; Z87.891 Personal history of nicotine dependence; Z68.36 Body mass index [BMI] 36.0-36.9, adult; Z99.89 Dependence on other enabling machines and devices | CPT/HCPCS: 90471; 90715; 93005; 96127; 99497 ==

== ENCOUNTER 2024-12-16 09:22 | Outpatient (REF) | payer MEDICARE, SELFPAY ==
--- OUTSIDE RECORDS SUMMARY | 2024-12-16 10:18 | XMS_ITS | Clinical Summary ---
Author Organization [facility] Address [address] [place] [address] Care Team Providers Care Senior Marketing Specialist Name Role Phone Ricky Iverson MD Primary Care Provider [phone] Allergies No known active allergies Medications Medication [...] age to complete this topic Care Teams Senior Marketing Specialist Relationship Specialty Start Date End Date Ricky Iverson MD [address] [place] [address] PCP - General Family Medicine 04/21/22
--- OUTSIDE RECORDS SUMMARY | 2024-12-16 10:18 | XMS_ITS | Continuity of Care Document ---
Author Organization [place] - [facility], [facility] Address [address] [place] [address] Care Team Providers Care Linux Developer Name Role Phone COLLIN CAPRI Primary Care [...] Time Disorder of left Eustachia n tube [id number] 57922 Active 2016 Other specified disorders of Eustachia n tube, left ear; Note: Date Diagnosed : 03/08/2016 10:00 AM (H69.82) Not Available [facility] 02:47:47 Impacted cerumen in left ear 98492569804 70307 Active 2016 Impacted cerumen, left ear; Note: Date Diagnosed : 04/05/2016 11:17 AM (H61.22) Not Available [facility] 4 02:47:52 Otitis externa of right ear 44206817102 19615 Active 2016 Other otitis externa, right ear; Note: Date Diagnosed : 7 9:51 AM (H60.8X1) Not Available [facility] 4 02:47:48 Snoring 42014650 Active 2016 Snoring; Note: Date Diagnosed : 7 10:09 AM (R06.83) Not Available [facility] 4 02:47:52 Acute sinusitis 10285871 Active 2017 Acute sinusitis , unspecifi ed; Note: Date Diagnosed : 12/12/2017 9:57 AM (J01.90) Not Available [facility] 4 02:47:45 Impacted cerumen of bilateral ears 34368908931 51256 Active 2018 Impacted cerumen, bilateral ; Note: Date Diagnosed : 07/31/2018 10:13 AM (H61.23) Not Available [facility] 4 02:47:52 Bilateral disorder of Eustachia n tubes 02379941054 75214 Active 2018 Other specified disorders of Eustachia n tube, bilateral ; Note: Date Diagnosed : 07/31/2018 10:14 AM (H69.83) KIM DRUMMOND PA-C [address] [address], [place], [address] , [facility] 5 12:07:16 Abnormal auditory perceptio n 21525076 Active 2018 Other abnormal auditory perceptio ns, bilateral ; Note: Date Diagnosed : 07/31/2018 10:15 AM (H93.293) Not Available [facility] 4 02:47:45 Mixed conductiv e and sensorine ural hearing loss, bilateral 967670086 Active 2023 SHARON HOOD [address] [address], [place], [address] , [facility] 4 12:05:14 Bilateral adhesive otitis media of middle ears 71849946245 13866 Active 2023 KATI OBANDO MD [address] [facility] [place] [address], [facility] [place], [address] , [facility] 4 13:46:05 Sensorine ural hearing loss of bilateral ears 420114498 Active 2023 KIM DRUMMOND PA-C [address] [facility],[place] [address], [facility] [place], [address] , [place] - [facility] 5 12:07:29 Otorrhea of right ear 66283965921 Active 2024 SHAYE SERRANO PA-C [address] [facility] [place],[facility] [address], [facility] [place], [address] , [place] [facility] 5 13:33:40 Otorrhea of bilateral ears 12839165256 Active 2024 SHAYE SERRANO PA-C 100 [facility] 100, [facility] [place], [address] , [place] - [facility] 5 13:50:52 Problem Notes None recorded. Procedures Surgical History Date Name Laterality Status Provider Name and Address Organization Details Recorded Time Comp Audio with Tymps - 57987 & 36698 completed Paola Ramsay [place] - [facility] 01/17/2024 15:09:47 024 NASOPHARYNGOSCOPY, SURGICAL, WITH DILATION OF EUSTACHIAN TUBE; BILATERAL (SURG) completed Philip Nance [place] - [facility] 12/22/2023 15:46:47 024 Fiberoptic Nasopharyngoscopy completed KATI OBANDO MD [address] [facility] [place] [address], [place], [address], [facility] - [facility] 12/07/2023 13:52:03 024 Comp Audio with Tymps - 92908 & 07536 completed SHARON HOOD [address] [facility] [place] [address], [place], [address], [facility] - [facility] 09/20/2023 12:04:29 024 Cerumen removal without microscope bilat completed HARSH VÁZQUEZ-Jame [address] [place] [address],[place] [address], [place], [address], [place] - [facility] 09/20/2023 11:33:24 Imaging Results None recorded. Procedure [...] dose pack 07/31 completed Medicati on ID: [id number] P rescribe d By Name: Enid Gunn M.D. Bra nd Name: Medrol (Corey) Se nd Method: E-Prescr ibed Sub s Allowed: subs OK Speci al Instruct ion: take as instruct ed Medic [facility] ericName : Medrol (Corey) Not Available Not Available Not Available metoprolo l succinate ER 100 mg tablet,ex tended release 24 hr TAKE 1 TABLET BY MOUTH EVERY DAY active Not Available Not Available No t Available bisoprolo l 5 mg-hydroc hlorothia zide 6.25 mg tablet 12/12 completed Medicati on ID: [id number] D uration Value: 90 Reason: () Brand Name: bisoprol ol-hydro chloroth iazide S end Method: E-Prescr ibed Sub s Allowed: subs OK [facility]rol ol-hydro chloroth iazide [...] mg tablet 12/06 completed Medicati on ID: [id number] D uration Value: 90 Reason: () Brand [...] topical solution 12/12 completed Medicati on ID: [id number] P wilbert shaw By Name: Adi Ewing nd Name: kodakarmond phong [place]aw Method: E-Prescr ibed Sub s Allowed: subs OK Speci al Instruct ion: 5 drops to affected ear twice a day Medi cationGe nericNam e: clotrima zole Not Available Not Available Not Available hydrochlo rothiazid e 25 mg tablet 09/19 completed Medicati on ID: [id number] D uration Value: 30 Brand Name: hydrochl [...] layed release 2016 active Medicati on ID: [id number] B rand Name: Aspir-81 Send Method: E-Prescr [...] mg capsule 09/19 completed Medicati on ID: [id number] D uration Value: 90 Brand Name: amlodipi [...] Updated DateTime 10/29/2024 177.8 cm 34.4 kg/m2 157063.17 g Cherri Wolfe [place] - [facility] 10/29/2024 11:26:02 Social History None recorded. Functional Status None recorded. Mental Status None recorded. Family History Nothing Reported. Medical History Condition Response Hypertension Y Past Encounters Encounter ID Performer Location Encounter Start Date Encounter Closed Date Diagnosis/Indication Diagnosis SNOMED-CT Code Diagnosis ICD10 Code Diagnosis IMO Codes Diagnosis Note [id number] SHAYE SERRANO PA-C [facility] [address] [address] 09/30/2024 12:56:39 09/30/2024 13:23:14 Bilateral disorder of Eustachian tubes [id number] 303407 H69.83 Otorrhea o f bilateral ears 1870674887 227888 H92.13 [id number] KIM DRUMMOND PA-C [facility] [address] [address] 10/29/2024 11:18:40 10/29/2024 11:39:44 Bilateral disorder of Eustachian tubes 9741834358 857913 H69.83 Otorrhea o f bilateral ears 5605178496 292505 H92.13 [id number] Sensorineu ral hearing loss of bilateral ears 686078416 H90.3 Health Concerns Section Related Observation LastModified by Organization Detai ls LastModified Time None Recorded Concern Status LastModified by Organization Details LastModified Time None Recorded Payers Encounter Date Sequence Insurance Name Policy Number Policy Murillo Covered Member ID Murillo Member ID Guarantor Name 10/29/2024 1 [employer] - MEDICARE ADVANTAGE PLAN (MEDICARE REPLACEMENT HMO) [id number] Suzan Min [id number] Suzan Min Notes Date Note Type Note Provider Name and Address Organization Details Recorded Time 10/29/2024 text/html ROS as noted in the HPI 69-year-old male for reevaluation of the ears. He trialed topical Ciprodex in both ears for granulation and otorrhea after swimming. History of chronic ETD with bilateral tubes. KATI OBANDO MD [address] [place] [address], [address], [facility] - [facility] 10/30/2024 07:45:47
--- OUTSIDE RECORDS SUMMARY | 2024-12-16 10:19 | XMS_ITS | Continuity of Care Document ---
Author Organization [place] - [facility], [facility] Address [address] [place] [address] Care Team Providers Care Operations Systems Specialist Name Role Phone CAPRI POLANCO Primary Care Provider [phone] Assessment Encounter Date Assessment Date Assessment LastModified by Organization Details LastModified Time 09/30/2024 09/30/2024 69-year-old male presents for reevaluation. [...] and follow-up in 3 to 4 weeks. [email or web address] Not available 09/30/2024 13:50:27 Plan of Treatment Reminders Order Date Submit Date Provider Last Modified By Organization Details Last Modified Time Details Appointments Establish ed 15 2025 09:45A M KIM DRUMMOND PA-C Not available Not available Not available Lab None recorded. Referral None recorded. Procedures None recorded. Surgeries None recorded. Imaging None recorded. Medication Orders Ciprodex 0.3 %-0.1 % ear drops,ghislaine pension 2024 025 [id number], [address] [facility], [place], [address], 09/30/2024 13:51:40 Patient TargetsNo targets recorded. Patient InstructionsNo instructions recorded. Reason for Referral None Reported. Problems Name Problem SNOMED Code Status Onset Date Resolution Date Notes Provider Name and Address Organization Details Recorded Time Disorder of left Eustachia n tube [id number] 08767 Active 2016 Other specified disorders of Eustachia n tube, left ear; Note: Date Diagnosed : 03/08/2016 10:00 AM (H69.82) Not Available [facility] 4 02:47:47 Impacted cerumen in left ear 58228796303 52417 Active 2016 Impacted cerumen, left ear; Note: Date Diagnosed : 04/05/2016 11:17 AM (H61.22) Not Available [facility] 4 02:47:52 Otitis externa of right ear 01616127566 76776 Active 2016 Other otitis externa, right ear; Note: Date Diagnosed : 7 9:51 AM (H60.8X1) Not Available [facility] 4 02:47:48 Snoring 30088874 Active 2016 Snoring; Note: Date Diagnosed : 7 10:09 AM (R06.83) Not Available [facility] 4 02:47:52 Acute sinusitis 81137059 Active 2017 Acute sinusitis , unspecifi ed; Note: Date Diagnosed : 12/12/2017 9:57 AM (J01.90) Not Available [facility] 4 02:47:45 Impacted cerumen of bilateral ears 16193089342 88747 Active 2018 Impacted cerumen, bilateral ; Note: Date Diagnosed : 07/31/2018 10:13 AM (H61.23) Not Available [facility] 4 02:47:52 Bilateral disorder of Eustachia n tubes 97882438509 28278 Active 2018 Other specified disorders of Eustachia n tube, bilateral ; Note: Date Diagnosed : 07/31/2018 10:14 AM (H69.83) KIM DRUMMOND PA-C [address] [place] [address], [place], [address] , [facility] - [facility] 5 12:07:16 Abnormal auditory perceptio n 84492705 Active 2018 Other abnormal auditory perceptio ns, bilateral ; Note: Date Diagnosed : 07/31/2018 10:15 AM (H93.293) Not Available [facility] 4 02:47:45 Mixed conductiv e and sensorine ural hearing loss, bilateral 610679497 Active 2023 SHARON HOOD [address], [place], [address] , [place] - [facility] [place] 4 12:05:14 Bilateral adhesive otitis media of middle ears 64515506205 91616 Active 2023 KATI OBANDO MD [address], [place], [place], [address] , [place] - [facility] [place] 4 13:46:05 Sensorine ural hearing loss of bilateral ears 293552053 Active 2023 KIM DRUMMOND PA-C [address], [place], [place], [address] , [facility] - [facility] [place] 5 12:07:29 Otorrhea of right ear 16755629902 Active 2024 SHAYE SERRANO PA-C [address], [place], [place], [address] , [facility] - [facility] [place] 5 13:33:40 Otorrhea of bilateral ears 45659251073 79504 Active 2024 SHAYE SERRANO PA-C [address], [place], [place], [address] , [place] - [facility] 5 13:50:52 Problem Notes None recorded. Procedures Surgical History Date Name Laterality Status Provider Name and Address Organization Details Recorded Time Comp Audio with Tymps - 04427 & 89951 completed Paola Ramsay [place] - [facility] 01/17/2024 15:09:47 NASOPHARYNGOSCOPY, SURGICAL, WITH DILATION OF EUSTACHIAN TUBE; BILATERAL (SURG) completed Philip Nance [place] - [facility] 12/22/2023 15:46:47 024 Fiberoptic Nasopharyngoscopy completed KATI OBANDO MD [address] [facility] [address], [place], [address], [facility] - [facility] 12/07/2023 13:52:03 024 Comp Audio with Tymps - 36954 & 69140 completed SHARON HOOD [address] [facility] [address], [place], [address], [facility] - [facility] 09/20/2023 12:04:29 024 Cerumen removal without microscope bilat completed SHAYE SERRANO PA-C [address] [facility],[address], [address], [facility] - [facility] 09/20/2023 11:33:24 Imaging Results None recorded. Procedure [...] dose pack 07/31 completed Medicati on ID: [id number] Cassandra shaw By Name: Adi Ewing nd [...] mg tablet 12/12 completed Medicati on ID: [id number] D uration Value: 90 Reason: () Brand [...] mg tablet 12/06 completed Medicati on ID: [id number] D uration Value: 90 Reason: () Brand [...] topical solution 12/12 completed Medicati on ID: [id number] P rescribe d By Name: Adi Ewing nd Name: clotrima phong Neri d Method: E-Prescr ibed Sub s Allowed: subs OK Speci al Instruct ion: 5 drops to affected ear twice a day Medi cationGe nericNam e: clotrima zole Not Available Not Available Not Available hydrochlo rothiazid e 25 mg tablet 09/19 completed Medicati on ID: [id number] D uration Value: 30 Brand Name: hydrochl [...] layed release 2016 active Medicati on ID: [id number] B rand Name: Aspir-81 Send Method: E-Prescr [...] mg capsule 09/19 completed Medicati on ID: [id number] D uration Value: 90 Brand Name: amlodipi [...] Updated DateTime 09/30/2024 177.8 cm 34.4 kg/m2 236505.17 g Cherri Wolfe [place] - [facility] 09/30/2024 13:19:05 Social History None recorded. Functional Status None recorded. Mental Status None recorded. Family History Nothing Reported. Medical History Condition Response Hypertension Y Past Encounters Encounter ID Performer Location Encounter Start Date Encounter Closed Date Diagnosis/Indication Diagnosis SNOMED-CT Code Diagnosis ICD10 Code Diagnosis IMO Codes Diagnosis Note [id number] SHAYE SERRANO PA-C [facility] of [address] [address] 09/30/2024 12:56:39 09/30/2024 13:23:14 Bilateral disorder of Eustachian tubes [id number] 289763 H69.83 Otorrhea o f bilateral ears 9905752416 273533 H92.13 [id number] Health Concerns Section Related Observation LastModified by Organization Detai ls LastModified Time None Recorded Concern Status LastModified by Organization Details LastModified Time None Recorded Payers Encounter Date Sequence Insurance Name Policy Number Policy Murillo Covered Member ID Murillo Member ID Guarantor Name 09/30/2024 1 [employer] - MEDICARE ADVANTAGE PLAN (MEDICARE REPLACEMENT HMO) [id number] Suzan Min [id number] Suzan Min Notes Date Note Type Note Provider Name and Address Organization Details Recorded Time 09/30/2024 text/html ROS as noted in the HPI 69-year-old male presents for reevaluation. History of chronic ETD with bilateral tubes. Previously noted to have granulation around the outer rim of the right tube. He used Ciprodex. Unfortunately went swimming and got some water in his left ear and feels as though it is wet since then. TORRIE ALONSO MD [address] [place] [address], [place], [address], [facility] - [facility] 09/30/2024 17:02:31
--- OUTSIDE RECORDS SUMMARY | 2024-12-16 10:19 | XMS_ITS | Clinical Summary ---
Author Organization [facility] [place] Address [address] [place] [address] Phone Care Team Providers Care Event Sales Representative Name Role Phone Ricky Iverson MD Primary Care Provider [phone] Allergies No known active allergies Medications amLODIPine-sandra [...] PO) Take by mouth daily. Active coenzyme Z96-mpchknh E 100-5 mg-unit capsule Take 200 mg [...] a COPD (chronic obstructive pu lmonary disease) ([facility] V24, [facility] V28) DX:COPD (chronic o bstructive pulmonary disease) ([facility]) Obesity DX:Obesity Family History Medical History Relation [...] EDT Office Visit [facility] [place] [address] [facility] [address] [place] [address] Donal Adams MD [address] [facility] [address] [place] [address] Health Maintenance Due Date Last Done Comments Colorectal Cancer Screening: Colonoscopy 1955 DTaP,Tdap,and Td Vaccines (1 - Tdap) 06/19/1974 Pneumococcal Vaccine: 50+ Ye ars (1 of 1 - PCV) 06/19/2005 Zoster Vaccines (1 of 2) 06/19/2005 Abdominal Aortic Aneurysm (A AA) Screen 01/15/2022 Cholesterol Screening (Lipid Panel) 01/15/2022 10/18/2016 Falls Risk Assessment 01/15/2022 Hepatitis C Screening 01/15/2022 Medicare Annual Wellness Visit 01/15/2022 Social Influencers of Health Screening 01/15/2022 Hypertension/CHF/CAD Annual BMP Blood Test 03/12/2023 10/18/2016 Depression Screening 02/07/2024 COVID-19 Vaccine (1 - 2023-2 5 season) 2024 Influenza Vaccine [...] mg/dL Blood Venous blood specimen / Unknown us Historical Provider LAB BLOOD ORDERABLES Lashae l Result from Last 3 Months or Most Recently Relevant to Health Maintenance Insurance [employer] MEDIC[employer] ADVANTAGE Care Teams Event Sales Representative Relationship Specialty Start Date End Date Ricky Iverson MD [address] [place] [address] Dr [facility] [place], [place] PCP - General 04/21/22
--- OUTSIDE RECORDS SUMMARY | 2024-12-16 10:19 | XMS_ITS | Data Portability ---
Author Organization [place] - [facility], Allergy Address [address] [place] [address] Care Team Providers Care Journeyman Press Operator Name Role Phone CAPRI POLANCO [...] and follow-up in 3 to 4 weeks. [email or web address] Not available 09/30/2024 13:50:27 10/29/2024 10/29/2024 69yo [...] %-0.1 % ear drops,ghislaine pension 2024 025 [facility]Pharmacy #[id number], [address] [place], [address], 09/30/2024 13:51:40 ciproflox acin 0.3 % eye drops 2024 025 [facility] #[id number], [address] [place], [address], 08/28/2024 13:34:16 Patient TargetsNo targets recorded. Patient [...] Time Disorder of left Eustachia n tube [id number] 51603 Active 2016 Other specified disorders of Eustachia n tube, left ear; Note: Date Diagnosed : 03/08/2016 10:00 AM (H69.82) Not Available [facility] 4 02:47:47 Impacted cerumen in left ear 96699536125 51649 Active 2016 Impacted cerumen, left ear; Note: Date Diagnosed : 04/05/2016 11:17 AM (H61.22) Not Available [facility] 4 02:47:52 Otitis externa of right ear 09981115302 23430 Active 2016 Other otitis externa, right ear; Note: Date Diagnosed : 7 9:51 AM (H60.8X1) Not Available [facility] 4 02:47:48 Snoring 06746332 Active 2016 Snoring; Note: Date Diagnosed : 7 10:09 AM (R06.83) Not Available [facility] 4 02:47:52 Acute sinusitis 77794639 Active 2017 Acute sinusitis , unspecifi ed; Note: Date Diagnosed : 12/12/2017 9:57 AM (J01.90) Not Available [facility] 4 02:47:45 Impacted cerumen of bilateral ears 83065397045 30572 Active 2018 Impacted cerumen, bilateral ; Note: Date Diagnosed : 07/31/2018 10:13 AM (H61.23) Not Available [facility] 4 02:47:52 Bilateral disorder of Eustachia n tubes 07964463833 38984 Active 2018 Other specified disorders of Eustachia n tube, bilateral ; Note: Date Diagnosed : 07/31/2018 10:14 AM (H69.83) KIM DRUMMOND PA-C [address] [place] [address], [place], [address] , [facility] - [facility] 5 12:07:16 Abnormal auditory perceptio n 09229169 Active 2018 Other abnormal auditory perceptio ns, bilateral ; Note: Date Diagnosed : 07/31/2018 10:15 AM (H93.293) Not Available [facility] 4 02:47:45 Mixed conductiv e and sensorine ural hearing loss, bilateral 115295887 Active 2023 KIA TOPETE, SHARON [address], [place], [address] , [place] - [facility] 4 12:05:14 Bilateral adhesive otitis media of middle ears 16153942058 76353 Active 2023 KATI OBANDO MD [address], [place], [place], [address] , [facility] - [facility] 4 13:46:05 Sensorine ural hearing loss of bilateral ears 917476615 Active 2023 KIM DRUMMOND PA-C [address], [place], [place], [address] , [place] - [facility] 5 12:07:29 Otorrhea of right ear 60351326584 00409 Active 2024 SHAYE SERRANO PA-C [address], [place], [address] , [place] - [facility] 5 13:33:40 Otorrhea of bilateral ears 17431213813 08447 Active 2024 SHAYE SERRANO PA-C [address], [place], [place], [address] , [place] - [facility] 5 13:50:52 Problem Notes None recorded. Procedures Surgical History Date Name Laterality Status Provider Name and Address Organization Details Recorded Time Comp Audio with Tymps - 49120 & 96581 completed Paola Ramsay [place] - [facility] 01/17/2024 15:09:47 NASOPHARYNGOSCOPY, SURGICAL, WITH DILATION OF EUSTACHIAN TUBE; BILATERAL (SURG) completed Philip Nance [place] - [facility] 12/22/2023 15:46:47 024 Fiberoptic Nasopharyngoscopy completed KATI OBANDO MD [address], [place], [address], [facility] - [facility] 12/07/2023 13:52:03 024 Comp Audio with Tymps - 43709 & 65332 completed SHARON HOOD [address] [facility] [address], [place], [address], [facility] - [facility] 09/20/2023 12:04:29 024 Cerumen removal without microscope bilat completed SHAYE SERRANO PA-C [address] [facility] [address], [place], [address], [facility] dose pack 07/31 completed Medicati on ID: [id number] P wilbert shaw By Name: Adi Ewing [...] mg tablet 12/12 completed Medicati on ID: [id number] D uration Value: 90 Reason: () Brand [...] mg tablet 12/06 completed Medicati on ID: [id number] D uration Value: 90 Reason: () Brand [...] topical solution 12/12 completed Medicati on ID: [id number] P wilbert shaw By Name: Adi Ewing nd Name: anneriarmond Neri d Method: E-Prescr ibed Sub s Allowed: subs OK Speci al Instruct ion: 5 drops to affected ear twice a day Medi cationGe nericNam e: clotrima zole Not Available Not Available Not Available hydrochlo rothiazid e 25 mg tablet 09/19 completed Medicati on ID: [id number] D uration Value: 30 Brand Name: hydrochl [...] layed release 2016 active Medicati on ID: [id number] B rand Name: Aspir-81 Send Method: E-Prescr [...] mg capsule 09/19 completed Medicati on ID: [id number] D uration Value: 90 Brand Name: amlodipi [...] Updated DateTime 08/28/2024 177.8 cm 36.2 kg/m2 541637.28 g Corinna Ck [place] - [facility] 08/28/2024 13:03:13 Date Recorded Body height Body mass index (BMI) Body weight Provider Name and Address Organization Details Last Updated DateTime 09/30/2024 177.8 cm 34.4 kg/m2 604765.17 g Cherri Wolfe [place] - [facility] 09/30/2024 13:19:05 Date Recorded Body height Body mass index (BMI) Body weight Provider Name and Address Organization Details Last Updated DateTime 10/29/2024 177.8 cm 34.4 kg/m2 918781.17 g Cherri Wolfe [facility] 10/29/2024 11:26:02 Date Recorded Body height Body mass index (BMI) Body weight Provider Name and Address Organization Details Last Updated DateTime 01/17/2024 177.8 cm 36.2 kg/m2 691877.28 g Joanie Barak [facility] 01/17/2024 15:21:34 Social History None recorded. Functional Status None recorded. Mental Status None recorded. Family History Nothing Reported. Medical History Condition Response Hypertension Y Past Encounters Encounter ID Performer Location Encounter Start Date Encounter Closed Date Diagnosis/Indication Diagnosis SNOMED-CT Code Diagnosis ICD10 Code Diagnosis IMO Codes Diagnosis Note [id number] SHAYE SERRANO PA-C [facility] [address] [address] 09/20/2023 10:45:58 09/20/2023 12:16:15 Bilateral disorder of Eustachian tubes [id number] 866952 H69.83 Impacted c erumen of bilateral ears 7134252516 698542 H61.23 Mixed cond uctive and sensorineural hearing loss, bilateral 282061150 H90.6 Audiologic al evaluation results: Right ear: Mild sloping to severe mixed hearing loss with excellent word recognitio n. Left ear: Moderate sloping to severe mixed hearing loss with excellent word recognitio n. Tympanomet ry: Right Ear:Type C Left Ear:Type C [id number] KATI OBANDO MD [facility] [address] [address] 12/07/2023 12:56:27 12/07/2023 13:54:32 Bilateral disorder of Eustachian tubes 8276561777 487310 H69.83 Bilateral adhesive otitis media of middle ears 5023699897 624157 H74.13 [id number] SHARON GEE PLUNK[facility] - [address] [address] 12/29/2023 09:05:09 01/01/2024 06:57:56 Mixed conductive and sensorineural hearing loss, bilateral 838563958 H90.6 [id number] KIM DRUMMOND PA-C [facility] [address] [address] 01/17/2024 14:22:08 01/17/2024 16:27:24 Bilateral disorder of Eustachian tubes 9594209511 273538 H69.83 Sensorineu ral hearing loss of bilateral ears 426317926 H90.3 Audiologic al evaluation results:Ri ght ear:Essent ially mild sloping to severe sensorineu ral hearing loss with excellent word recognitio n.Left ear:Essent ially mild sloping to severe sensorineu ral hearing loss with excellent word recognitio n. Tympanomet ry:Right Ear:Type B with large volumeLeft Ear:Type B with large volume [id number] SHAYE SERRANO PA-C [facility] [address] [address] 08/28/2024 12:56:18 08/28/2024 14:14:04 Bilateral adhesive otitis media of middle ears 6295259439 422804 H74.13 Otorrhea of right ear 10 03684040 522104 H92.11 [id number] SHAYE SERRANO PA-C [facility] [address] [address] 09/30/2024 12:56:39 09/30/2024 13:23:14 Bilateral disorder of Eustachian tubes 2565133670 934308 H69.83 Otorrhea o f bilateral ears 2340217167 613741 H92.13 [id number] KIM DRUMMOND PA-C [facility] 100 [facility] [place] [address] 10/29/2024 11:18:40 10/29/2024 11:39:44 Bilateral disorder of Eustachian tubes 3351446629 466160 H69.83 Otorrhea o f bilateral ears 1360537917 560509 H92.13 [id number] Sensorineu ral hearing loss of bilateral ears 754945292 H90.3 Health Concerns Section Related Observation LastModified by Organization Detai ls LastModified Time None Recorded Concern Status LastModified by Organization Details LastModified Time None Recorded Advance Directives Directive None Recorded Payers Insurance Date Sequence Insurance Name Policy Number Policy Murillo Covered Member ID Murillo Member ID Guarantor Name 10/29/2024 1 [employer] - MED[employer]ARE ADVANTAGE PLAN (MEDICARE REPLACEMENT HMO) [id number] Suzan Min [id number] Suzan Min Notes Date Note Type Note [...] through this office he will be ordering:phonak [email or web address] or [email or web address]: 2MDomes: medium open He need sto do some research, but will let me know what he would like to do. ROZINA MULLINS, AUD [address] [facility],[address], [address], [facility] 12/29/2023 10:28:21 01/17/2024 text/html ROS as noted in the [facility] 68 year old male presents s/p BMT with bilateral balloon dilation with Dr. Obando on 12/20/2023. He is doing well post-operatively without concerns. He denies otalgia, otorrhea, or hearing changes. He did have a hearing aid consult with one of our audiologists and is in the process of getting amplification. MIKAEL MCKEON MD 100 [facility],[address], [address], [facility] 01/17/2024 16:43:22 08/28/2024 text/html ROS as noted in the [facility] 69-year-old male with chronic ETD presents for reevaluation. Status post eustachian tube dilation with Dr. Obando 1 year ago. He has been having some fullness of the right ear which is intermittent. Continues to maintain dry ear precaution. Has bilateral hearing aids which he uses with good effect. MALICK RODGERS MD [address] [facility],[address], [address], [facility] 09/03/2024 20:52:47 09/30/2024 text/html ROS as noted in the [facility] 69-year-old male presents for reevaluation. History of chronic ETD with bilateral tubes. Previously noted to have granulation around the outer rim of the right tube. He used Ciprodex. Unfortunately went swimming and got some water in his left ear and feels as though it is wet since then. TORRIE ALONSO MD 100 [facility],[place] [address], [place], [address], [facility] 09/30/2024 17:02:31 10/29/2024 text/html ROS as noted in the [facility] 69-year-old male for reevaluation of the ears. He trialed topical Ciprodex in both ears for granulation and otorrhea after swimming. History of chronic ETD with bilateral tubes. KATI OBANDO MD [address] [facility],[place] [address], [place], [address], [facility] - [facility] 10/30/2024 07:45:47
[2024-12-16 14:19] LABS: Anion Gap 12 (12-20); Blood Urea Nitrogen 19 mg/dL (9-16); Calcium 9.4 mg/dL (8.4-10.2); Carbon Dioxide 24 mmol/L (22-29); Chloride 109 mmol/L (96-108); Estimated Glomerular Filt Rate 59; Potassium 4.1 mmol/L (3.3-5.1); Sodium 141 mmol/L (135-145)
[2024-12-16 14:38] LABS: Appearance Urine Clear; Glucose Urine UA Negative (Negative); PH 6.5 (5.0-9.0); Specific Gravity - Urine 1.020 (1.005-1.025); UMIC TRIGGER UA YES
[2024-12-16 15:24] LABS: Total Protein Urine Random 34 mg/dL (<12)
== END 2024-12-16 09:23 | disposition home or self-care (01) ==
LOC: HO.HKASLDS 09:22
PROVIDERS: PCP Family Medicine; Visit Provider Internal Medicine Hypertension Specialist
DX: I12.9 Hypertensive chronic kidney disease with stage 1 through stage 4 chronic kidney disease, or unspecified chronic kidney disease (principal); N18.9 Chronic kidney disease, unspecified
CPT/HCPCS: 36415; 80048; 81001; 82570; 84156

== ENCOUNTER 2024-12-18 08:38 | Outpatient (AMB) | payer MEDICARE, SELFPAY ==
[2024-12-18 08:47] VITALS: BP 124/70; PULSE 74; O2SAT 98; BMI 36.1
--- NOTE | 2024-12-18 08:47 | HO.NEPHOV_ITS ---
Vital Signs 12/18/24 08:47 Height 5 ft 9.5 in Weight 248 lb BMI 36.1 BP 124/70 Blood Pressure Location Lt brachial Position Sitting Pulse 74 Pulse Source Pulse Oximeter Pulse Oximetry (%) 98 Oxygen Delivery Method Room Air Intake Visit Reasons: 6mon follow-up w/labs Guardian Family Member Required: No Accompanied by: Self / Same As Patient Allergies No Known Allergies Allergy (Verified 12/18/24 08:48) Medication List - Last Reconciled 12/18/24 by Bill Lopez MD amlodipine-benazepril 10-20 mg 1 cap PO DAILY aspirin (Adult Aspirin Regimen) 81 mg PO DAILY atorvastatin 80 mg PO DAILY blood pressure monitor Automatic, Digital. Dx: I10. Daily As directed, 999 days/lifetime clotrimazole-betamethasone 1-0.05 % 1 appl topical BID 14 days ezetimibe 10 mg PO DAILY fenofibrate 160 mg PO DAILY 90 days fluticasone propionate 50 mcg/actuation (Flonase Allergy Relief) 1 spray intranasal Q12H 90 days glipizide 2.5 mg PO DAILY 90 days metoprolol succinate ER 200 mg PO DAILY 30 days HPI Comments Details: Suzan is a pleasant middle-aged man with a history of hypertension for more than 30 years. Overall blood pressure has been well controlled. He was on amlodipine benazepril 5/40 once a day. He was on hydrochlorothiazide which was discontinued about a year ago. He is still on spironolactone 25 mg a day. In August 2021 serum creatinine was 1.29 mg/dL and this was probably his baseline. In October of 2022 serum creatinine was 1.77 and a repeat creatinine was 2.01 and further increased to 2.18 Amlodipine-benazepril has been decreased to 5/20 once a day as of 12/15/2022 and has been referred for further evaluation. Of note he was also found to have hyperkalemia depression 5.7. Suzan tells me that his blood pressure has been well controlled he has no specific complaints today. He has had difficulty urination for quite some time. Last digital examination of the prostate was few years ago. He has been recently diagnosed with obstructive sleep apnea and he uses CPAP. He does wake up in the middle of the night once or twice to urinate. No hematuria. No line pain. No shortness of breath. No cough no hemoptysis. No diarrhea constipation. No rash no fever no weight loss. No joint pain or swelling. 12/28/2022 During his last visit spironolactone was discontinued due to hyperkalemia. He is on a lower dose of benazepril amlodipine. He had a renal ultrasonogram which was unremarkable except for some simple cysts bilaterally and no further reviewed radiological follow-up was recommended. There was no obstruction. Today he is feeling fine without any complaints no shortness of breath no nausea vomiting no urinary symptoms no edema. 03/01/2023. Doing well today ;Complained of sinus issues 08/02/2023. From renal standpoint he is doing well. Spironolactone has been restarted. No specific issues today. He is lost about 25 lb with dieting. 01/24/24; Overall doing well. Gained weight - stopped walking ! Uses CPAP 06/19/24: 69-year-old male presenting for a follow-up in managing chronic kidney disease, hypertension, and type 2 diabetes mellitus. His blood pressure shows occasional variations, generally improving with physical activity. The current antihypertensive regimen includes metoprolol, with spironolactone discontinued for unspecified reasons. The patient's diabetes management began with an adjustment to his medication regimen due to an increase in HbA1c percentage over the winter. He emphasizes a diet low in sugar by avoiding high-sugar foods and being conscious of sugar content in food labels. For obesity management, the patient has considered a gastric sleeve procedure, given the recent weight loss from dietary modifications. His weight reduction strategy involves lowering carbohydrate intake and utilizing a monitored diet. Kidney function has improved, with the functionality rising from 47% to 56% since prior assessments. 12/18/24 The patient is a 69-year-old male presenting with hypertension management. The patient reports that Dr. Iverson adjusted his antihypertensive medication, increasing metoprolol from 100 mg to 200 mg. Blood pressure readings have been variable at home, with systolic values ranging from 120 to 135 mmHg and diastolic values from 65 to 75 mmHg. The patient also has a history of chronic kidney disease, with recent creatinine levels showing improvement from 1.4 mg/dL in July to 1.22 mg/dL currently. His kidney function has improved significantly from an estimated glomerular filtration rate of 27-30% to 59-60%. The patient expresses concern about his father's history of kidney issues in his early 80s. The patient has an intermittent smoking history, having started smoking as a teenager and quitting multiple times over the years. He is scheduled for a lung cancer screening due to this history. [facility] Medical History (Updated 11/14/24 @ 12:05 by Mera Leal PA-C) Eustachian tube dysfunction History of hyperkalemia CKD (chronic kidney disease) Diabetes Hyperlipidemia Essential hypertension Mild anemia PAC (premature atrial contraction) ANJALI on CPAP Personal history of nicotine dependence Muscle twitch Left shoulder pain Bilateral shoulder pain BMI 35.0-35.9,adult Surgical History History of tympanostomy tube placement History of hernia repair Family History Father Kidney failure Mother Congenital heart disease Brother No problems noted. Sister No problems noted. Sister No problems noted. Sister No problems noted. Son No problems noted. Daughter No problems noted. 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 Current occupational exposures/hazards: No Cognitive needs: No Hearing needs: No Vision needs: Yes Physical Exam Vital Signs: Last Vital Signs Pulse 74 12/18/24 08:47 BP 124/70 12/18/24 08:47 Pulse Ox 98 12/18/24 08:47 Oxygen Delivery Method Room Air 12/18/24 08:47 BMI result Body Mass Index 36.1 Const General: comfortable Nutritional Appearance: well nourished Orientation/consciousness: patient oriented x3 HEENT Head: No normal to inspection Mouth: moist mucous membranes Eyes General: appearance normal, both eyes and all related structures Visual Maddox: normal visual maddox by confrontation Neck Neck: Yes supple and Yes no JVD Resp Effort & Inspection: normal respiratory effort and respiratory effort not decreased Auscultation: clear to auscultation bilaterally and no rales Cardio Jugular venous distension: no JVD Palpation: no palpable S3 and no palpable S4 Heart sounds: no rubs GI Inspection: Yes normal to inspection Palpation (GI): Soft to palpation and nontender Percussion: No Fluid wave present Auscultation: normal bowel sounds General: Yes no CVA tenderness Back/Spine/Pelvis Back: no CVA tenderness Skin General skin exam: no rashes or lesions noted Neuro General: patient oriented x3 Extrem General: Yes no pedal edema and No clubbing Results Reviewed Nephrology Results: Hgb, (14.0-18.0) 13.3 g/dl L 11/01/24 WBC, (4.8-10.8) 6.5 X10*3/uL 11/01/24 Plt Count, (160-400) 252 X10*3/uL 11/01/24 Sodium, (135-145) 141 mmol/L 12/16/24 Potassium, (3.3-5.1) 4.1 mmol/L 12/16/24 Chloride, (96-108) 109 mmol/L H 12/16/24 Carbon Dioxide, (22-29) 24 mmol/L 12/16/24 BUN, (9-16) 19 mg/dL H 12/16/24 Creatinine, (0.5-1.4) 1.22 mg/dL 12/16/24 Calcium, (8.4-10.2) 9.4 mg/dL 12/16/24 Urine Protein, (Neg-Trace) 30 (1+) mg/dL H 12/16/24 Urine Creatinine 138.69 mg/dL 12/16/24 Renal US 12/19/22 Assessment & Plan Assessment & Plan (1) Renal failure: Code(s): N19 - Unspecified kidney failure Category: Medical Plan: Middle-aged man with h/o acute kidney injury superimposed on chronic kidney disease. Suzan has chronic kidney disease with a baseline creatinine 1.29 with a EGFR of 56 mL/minute as of August 2021. No lab results are available between August 2021 and October 2022. However he has sustained acute kidney injury with the creatinine bumping up to 2.18 and 2.3. Cr is down to 1.22 The differential diagnosis for acute kidney injury would include Hypoperfusion, No evidence of obstruction based on renal ultrasonogram. No evidence of any active glomerular or interstitial disease at this time based on the bland urinary sediments. Microalbuminuria in a setting of HTN/Obesity Obesity ANJALI HTN- better controlled. Recent increase in BP related to weight gain Plan Keep on benazepril-amlodipine to 11/25. Increase p.o. fluid intake Needs weight loss- Increase physical activities - discussed Continue to hold off on Spironolactone since BP is well controlled. Agree with increasing Metoprolol (2) Hyperkalemia: Code(s): E87.5 - Hyperkalemia Category: Medical Plan: s/p Hyperkalemia in the setting of acute kidney injury while he was on an JOSSELYN inhibitor and spironolactone. Potassium is under control Discussed low-potassium diet. (3) Anemia: Code(s): D64.9 - Anemia, unspecified Category: Medical Plan: Mild anemia. This may be related to CKD. Shall watch hemoglobin for now. (4) HTN (hypertension): Code(s): I10 - Essential (primary) hypertension Category: Medical Plan: Blood pressure is acceptable I encouraged him to stay on low-sodium diet. Discussed weight loss. Orders: Orders Basic Metabolic Panel 6 Months I10 - Essential (primary) hypertension Coding Level of Care Code Est Pt Level 4 (42282) Diagnoses Renal failure N19 Hyperkalemia E87.5 Anemia D64.9 HTN (hypertension) I10
--- OUTSIDE RECORDS SUMMARY | 2024-12-18 09:02 | XMS_ITS | Clinical Summary ---
Author Organization [facility] [employer] [place] Address [address] [place] [address] Phone Care Team Providers Care Scenic Designer Name Role Phone Ricky Iverson MD Primary [...] PO) Take by mouth daily. Active coenzyme N27-aesvsfs E 100-5 mg-unit capsule Take 200 mg [...] a COPD (chronic obstructive pu lmonary disease) ([facility] V24, [facility] V28) DX:COPD (chronic o bstructive pulmonary disease) ([facility]) Obesity DX:Obesity Family History Medical History Relation [...] EDT Office Visit [facility] [address] [facility] [address] [place] [address] Donal Adams MD 19 [facility] [address] [place] [address] Health Maintenance Due Date Last Done Comments [...] Depression Screening 02/07/2024 COVID-19 Vaccine (1 - 2024-2 6 season) 2024 Influenza Vaccine (#1) 2024 RSV [...] [employer] Care Teams Scenic Designer Relationship Specialty Start Date End Date Ricky Iverson MD [address] [place] [address] Dr Blanchard [facility] [place], [place] PCP - General 04/21/22
--- OUTSIDE RECORDS SUMMARY | 2024-12-18 09:02 | XMS_ITS | Clinical Summary ---
Author Organization [facility] Address [address] [place] [address] Care Team Providers Care Cigar Making Machine Operator Name Role Phone Ricky Iverson MD Primary Care Provider [phone] Allergies No known active allergies Medications Medication [...] age to complete this topic Care Teams Cigar Making Machine Operator Relationship Specialty Start Date End Date Ricky Iverson MD [address] [place] [address] PCP - General Family Medicine 04/21/22
== END 2024-12-18 09:04 | disposition home or self-care (01) ==
LOC: HO.HKAS 08:39
PROVIDERS: PCP Family Medicine; Visit Provider Internal Medicine Hypertension Specialist
DX: N19 Unspecified kidney failure (principal); E87.5 Hyperkalemia; D64.9 Anemia, unspecified; I10 Essential (primary) hypertension
CPT/HCPCS: 99214

== ENCOUNTER → 2024-12-18 08:38 | Outpatient (BNVA) | payer MEDICARE, SELFPAY | PROVIDERS: PCP Family Medicine; Visit Provider Internal Medicine Hypertension Specialist | DX: N19 Unspecified kidney failure (principal); I10 Essential (primary) hypertension; E87.5 Hyperkalemia; D64.9 Anemia, unspecified; E66.9 Obesity, unspecified; Z87.891 Personal history of nicotine dependence | CPT/HCPCS: 99212 ==

== ENCOUNTER 2024-12-30 07:54 | Outpatient (AMB) | payer OTHER, SELFPAY ==
[2024-12-30 07:58] VITALS: BP 120/78; PULSE 74; O2SAT 98; BMI 37.0
--- NOTE | 2024-12-30 07:58 | A.OFFVIS_ITS ---
Vital Signs 12/30/24 07:58 Height 5 ft 9.5 in Weight 254 lb 4 oz BMI 37.0 BP 120/78 Blood Pressure Location Rt brachial Position Sitting Pulse 74 Pulse Source Pulse Oximeter Pulse Oximetry (%) 98 Oxygen Delivery Method Room Air Intake Visit Reasons: Follow Up 6mo Intake Note: Patient presents follow up ANJALI. Compliance in chart(87/90days, >=4hrs-66%, Average Usage-5hr 17min, Pressure-11cm, Med Leaks-0.6, AHI-1.0) At time wakes up at 2-3am and hard time falling asleep. Accompanied by: Self / Same As Patient Allergies No Known Allergies Allergy (Verified 12/30/24 08:01) HPI Comments Details: 69 year old male with h/o HTN and ANJALI presents today for a 6 mos f/u visit. ANJALI Compliance Report 09/2024- 12/2024 Reviewed with pt. Total use is 87/90days, >=4hrs-66%, Average Usage-5hr 17min Pressure-11cm, Med Leaks-0.6, AHI-1.0 He has a Stemnion freedom category N30i mask. He says his sleep has improved now he is averaging 5-6 hours on a good night, and feeling rested in the mornings. Some days he still has trouble falling asleep after using the bathroom at night, however he is comfortable using his cpap machine. He denies morning headaches, snoring, and parasomnias. RLS symptoms, he has twitching bilaterally in his legs and it is an uncomfortable sensation, once he moves his legs it subsides. He denies cramps, spasms, pins and or needles. He is active daily and works in the yard, he wants to lose weight, is followed by weight management. 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 He plans to start Zepbound. His memory is good, occasionally will forget tasks, and names but nothing that is noticeable. Mood is good, he drinks 2 beers a night, 3x a week socially. [facility] Medical History Eustachian tube dysfunction History of hyperkalemia CKD (chronic kidney disease) Diabetes Hyperlipidemia Essential hypertension Mild anemia PAC (premature atrial contraction) ANJALI on CPAP Personal history of nicotine dependence Muscle twitch Left shoulder pain Bilateral shoulder pain BMI 35.0-35.9,adult Surgical History History of tympanostomy tube placement History of hernia repair Family History Father Kidney failure Mother Congenital heart disease Brother No problems noted. Sister No problems noted. Sister No problems noted. Sister No problems noted. Son No problems noted. Daughter No problems noted. 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 Current occupational exposures/hazards: No Cognitive needs: No Hearing needs: No Vision needs: Yes Physical Exam Vital Signs: Last Vital Signs Pulse 74 12/30/24 07:58 BP 120/78 12/30/24 07:58 Pulse Ox 98 12/30/24 07:58 Oxygen Delivery Method Room Air 12/30/24 07:58 BMI result Body Mass Index 37.0 Const General: cooperative, comfortable and no acute distress Orientation/consciousness: patient oriented x3 HEENT Face and sinus: Yes face symmetric Eyes Pupils: Equal, round and reactive pupils present Neck Neck: Yes full ROM Resp Effort & Inspection: normal respiratory effort and able to speak in complete sentences Neuro General: patient oriented x3 and moves all extremities Cranial nerves: Yes Facial sensation intact/muscles of mastication intact, Yes Equal, round and reactive pupils present, Yes Normal accommodation reflex present, Yes Normal facial strength present, Yes Midline tongue present, Yes Ability to bilaterally rotate head present and Yes Ability to bilaterally elevate shoulders present Cognition (Neuro): normal cognition Gait exam (Neuro): Normal gait present Motor exam (neuro): 5/5 motor strength present throughout and Normal motor muscle tone present throughout Psych Appearance: grossly normal Thought process: Normal thought process present Thought content: Normal thought content present Results Reviewed Results Reviewed: ANJALI Compliance Report 09/2024- 12/2024 Reviewed with pt. Total use is 87/90days, >=4hrs-66%, Average Usage-5hr 17min Pressure-11cm, Med Leaks-0.6, AHI-1.0 He has a dream pillow freedom category N30i mask. Assessment & Plan Assessment & Plan (1) Sleep apnea: Code(s): G47.30 - Sleep apnea, unspecified Category: Medical Qualifiers: Sleep apnea type: obstructive Qualified Code(s): G47.33 - Obstructive sleep apnea (adult) (pediatric) (2) RLS (restless legs syndrome): Code(s): G25.81 - Restless legs syndrome Category: Medical (3) Muscle twitch: Code(s): R25.3 - Fasciculation Category: Medical Plan ANJALI on cpap and compliant, he washes his mask and tubing daily, changes filters, fills reservoir with distilled water. RLS Start 400mg magnesium at bedtime. Topically can apply magnalife cream, or rls cream. B12 1000mcg sublingual daily. Monitor a1c, and f/u with PCP / weight management as appropriate for Zepbound. F/U in 6 months. Patient Instructions: Sleep Hygiene provided: set a scheduled bedtime and wake time to help regulate the circadian rhythm and balance the release of pituitary hormones. Sleep in a dark room, temperatures below 68 degrees, and no devices n bed. Limit caffeinated products 6 hours prior to bed, and limit fluids 2-4 hours prior to bed. Gentle night yoga, diffusing essential oils, and playing soft music can be relaxing. Coding Level of Care Code Est Pt Level 4 (95652) Diagnoses Obstructive sleep apnea syndrome G47.33 Sleep apnea type: obstructive RLS (restless legs syndrome) G25.81 Muscle twitch R25.3
--- OUTSIDE RECORDS SUMMARY | 2024-12-30 07:58 | XMS_ITS | Data Portability ---
Author Organization [place] - [facility], Allergy Address [address] [place] [address] Care Team Providers Care Dietist Name Role Phone CAPRI POLANCO Primary Care [...] and follow-up in 3 to 4 weeks. [email or web address] Not available 09/30/2024 13:50:27 10/29/2024 10/29/2024 69yo [...] %-0.1 % ear drops,ghislaine pension 2024 025 [facility][id number], [address] [place], [address], 09/30/2024 13:51:40 ciproflox acin 0.3 % eye drops 2024 025 [facility][id number], [address] [place], [address], 08/28/2024 13:34:16 Patient TargetsNo targets recorded. Patient [...] Time Disorder of left Eustachia n tube [id number] 50998 Active 2016 Other specified disorders of Eustachia n tube, left ear; Note: Date Diagnosed : 03/08/2016 10:00 AM (H69.82) Not Available [facility] 4 02:47:47 Impacted cerumen in left ear 37510751644 60706 Active 2016 Impacted cerumen, left ear; Note: Date Diagnosed : 04/05/2016 11:17 AM (H61.22) Not Available [facility] 4 02:47:52 Otitis externa of right ear 15056015438 41117 Active 2016 Other otitis externa, right ear; Note: Date Diagnosed : 7 9:51 AM (H60.8X1) Not Available [facility] 4 02:47:48 Snoring 67334757 Active 2016 Snoring; Note: Date Diagnosed : 7 10:09 AM (R06.83) Not Available [facility] 4 02:47:52 Acute sinusitis 83586981 Active 2017 Acute sinusitis , unspecifi ed; Note: Date Diagnosed : 12/12/2017 9:57 AM (J01.90) Not Available [facility] 4 02:47:45 Impacted cerumen of bilateral ears 62904871902 51675 Active 2018 Impacted cerumen, bilateral ; Note: Date Diagnosed : 07/31/2018 10:13 AM (H61.23) Not Available [facility] 4 02:47:52 Bilateral disorder of Eustachia n tubes 21245956165 83186 Active 2018 Other specified disorders of Eustachia n tube, bilateral ; Note: Date Diagnosed : 07/31/2018 10:14 AM (H69.83) KIM DRUMMOND PA-C [address] [place] [address], [place], [address] , [facility] - [facility] 5 12:07:16 Abnormal auditory perceptio n 30554672 Active 2018 Other abnormal auditory perceptio ns, bilateral ; Note: Date Diagnosed : 07/31/2018 10:15 AM (H93.293) Not Available [facility] 4 02:47:45 Mixed conductiv e and sensorine ural hearing loss, bilateral 605795710 Active 2023 KIA TOPETE, SHARON [address], [place], [address] , [place] - [facility] 4 12:05:14 Bilateral adhesive otitis media of middle ears 14970885113 60471 Active 2023 KATI OBANDO MD [address], [place], [place], [address] , [facility] - [facility] 4 13:46:05 Sensorine ural hearing loss of bilateral ears 588986783 Active 2023 KIM DRUMMOND PA-C [address], [place], [place], [address] , [place] - [facility] 5 12:07:29 Otorrhea of right ear 20197218139 42560 Active 2024 SHAYE SERRANO PA-C [address], [place], [address] , [place] - [facility] 5 13:33:40 Otorrhea of bilateral ears 28356237910 62977 Active 2024 SHAYE SERRANO PA-C [address], [place], [place], [address] , [place] - [facility] 5 13:50:52 Problem Notes None recorded. Procedures Surgical History Date Name Laterality Status Provider Name and Address Organization Details Recorded Time Comp Audio with Tymps - 83314 & 72783 completed Paola Ramsay [place] - [facility] 01/17/2024 15:09:47 NASOPHARYNGOSCOPY, SURGICAL, WITH DILATION OF EUSTACHIAN TUBE; BILATERAL (SURG) completed Philip Nance [place] - [facility] 12/22/2023 15:46:47 024 Fiberoptic Nasopharyngoscopy completed KATI OBANDO MD [address], [place], [address], [facility] - [facility] 12/07/2023 13:52:03 024 Comp Audio with Tymps - 71092 & 54773 completed SHARON HOOD [address] [facility] [address], [place], [address], [facility] - [facility] 09/20/2023 12:04:29 024 Cerumen removal without microscope bilat completed SHAYE SERRANO PA-C [address] [facility] [address], [place], [address], [facility] - [facility] 09/20/2023 11:33:24 Imaging Results None recorded. Procedure [...] dose pack 07/31 completed Medicati on ID: [id number] P wilbert shaw By Name: Adi Ewing [...] mg tablet 12/12 completed Medicati on ID: [id number] D uration Value: 90 Reason: () Brand [...] mg tablet 12/06 completed Medicati on ID: [id number] D uration Value: 90 Reason: () Brand [...] topical solution 12/12 completed Medicati on ID: [id number] P wilbert shaw By Name: Adi Ewing nd Name: anneriarmond Neri d Method: E-Prescr ibed Sub s Allowed: subs OK Speci al Instruct ion: 5 drops to affected ear twice a day Medi cationGe nericNam e: clotrima zole Not Available Not Available Not Available hydrochlo rothiazid e 25 mg tablet 09/19 completed Medicati on ID: [id number] D uration Value: 30 Brand Name: hydrochl [...] layed release 2016 active Medicati on ID: [id number] B rand Name: Aspir-81 Send Method: E-Prescr [...] mg capsule 09/19 completed Medicati on ID: [id number] D uration Value: 90 Brand Name: amlodipi [...] Updated DateTime 08/28/2024 177.8 cm 36.2 kg/m2 531545.28 g Corinna Ck [place] [facility] 08/28/2024 13:03:13 Date Recorded Body height Body mass index (BMI) Body weight Provider Name and Address Organization Details Last Updated DateTime 09/30/2024 177.8 cm 34.4 kg/m2 739412.17 g Cherri Wolfe [place] [facility] 09/30/2024 13:19:05 Date Recorded Body height Body mass index (BMI) Body weight Provider Name and Address Organization Details Last Updated DateTime 10/29/2024 177.8 cm 34.4 kg/m2 260926.17 g Cherri Wolfe [facility] 10/29/2024 11:26:02 Date Recorded Body height Body mass index (BMI) Body weight Provider Name and Address Organization Details Last Updated DateTime 01/17/2024 177.8 cm 36.2 kg/m2 848814.28 g Joanie Barak [facility] 01/17/2024 15:21:34 Social History None recorded. Functional Status None recorded. Mental Status None recorded. Family History Nothing Reported. Medical History Condition Response Hypertension Y Past Encounters Encounter ID Performer Location Encounter Start Date Encounter Closed Date Diagnosis/Indication Diagnosis SNOMED-CT Code Diagnosis ICD10 Code Diagnosis IMO Codes Diagnosis Note [id number] SHAYE SERRANO PA-C [facility] [address] [address] 09/20/2023 10:45:58 09/20/2023 12:16:15 Bilateral disorder of Eustachian tubes [id number] 902931 H69.83 Impacted c erumen of bilateral ears 9623118945 038973 H61.23 Mixed cond uctive and sensorineural hearing loss, bilateral 362129083 H90.6 Audiologic al evaluation results: Right ear: Mild sloping to severe mixed hearing loss with excellent word recognitio n. Left ear: Moderate sloping to severe mixed hearing loss with excellent word recognitio n. Tympanomet ry: Right Ear:Type C Left Ear:Type C [id number] KATI OBANDO MD [facility] [address] [address] 12/07/2023 12:56:27 12/07/2023 13:54:32 Bilateral disorder of Eustachian tubes 2817912386 544473 H69.83 Bilateral adhesive otitis media of middle ears 7767843863 289878 H74.13 [id number] SHARON GEE PLUNKETT - [address] [address] 12/29/2023 09:05:09 01/01/2024 06:57:56 Mixed conductive and sensorineural hearing loss, bilateral 948964315 H90.6 [id number] KIM DRUMMOND PA-C [facility] [address] [address] 01/17/2024 14:22:08 01/17/2024 16:27:24 Bilateral disorder of Eustachian tubes 1913105202 874478 H69.83 Sensorineu ral hearing loss of bilateral ears 531710447 H90.3 Audiologic al evaluation results:Ri ght ear:Essent ially mild sloping to severe sensorineu ral hearing loss with excellent word recognitio n.Left ear:Essent ially mild sloping to severe sensorineu ral hearing loss with excellent word recognitio n. Tympanomet ry:Right Ear:Type B with large volumeLeft Ear:Type B with large volume [id number] SHAYE SERRANO PA-C [facility] [address] [address] 08/28/2024 12:56:18 08/28/2024 14:14:04 Bilateral adhesive otitis media of middle ears 7481911685 944308 H74.13 Otorrhea of right ear 10 22411341 061465 H92.11 6556929 [id number] SHAYE SERRANO PA-C [facility] [address] [address] 09/30/2024 12:56:39 09/30/2024 13:23:14 Bilateral disorder of Eustachian tubes 5552603514 500615 H69.83 Otorrhea o f bilateral ears 8731251867 408067 H92.13 [id number] KIM DRUMMOND PA-C [facility] 100 [facility] [place] [address] 10/29/2024 11:18:40 10/29/2024 11:39:44 Bilateral disorder of Eustachian tubes 6499557739 060948 H69.83 Otorrhea o f bilateral ears 0669962759 722834 H92.13 [id number] Sensorineu ral hearing loss of bilateral ears 209403584 H90.3 Health Concerns Section Related Observation LastModified by Organization Detai ls LastModified Time None Recorded Concern Status LastModified by Organization Details LastModified Time None Recorded Advance Directives Directive None Recorded Payers Insurance Date Sequence Insurance Name Policy Number Policy Murillo Covered Member ID Murillo Member ID Guarantor Name 10/29/2024 1 [employer] MED[employer] ADVANTAGE PLAN (MEDICARE REPLACEMENT HMO) [id number] Suzan Min [id number] Suzan Min Notes Date Note Type Note [...] through this office he will be ordering:phonak [email or web address] or [email or web address]: 2MDomes: medium open He need sto do some research, but will let me know what he would like to do. ROZINA MULLINS, AUD [address] [facility],[address], [address], [facility] 12/29/2023 10:28:21 01/17/2024 text/html ROS as noted in the [facility] 68 year old male presents s/p BMT with bilateral balloon dilation with Dr. Obando on 12/20/2023. He is doing well post-operatively without concerns. He denies otalgia, otorrhea, or hearing changes. He did have a hearing aid consult with one of our audiologists and is in the process of getting amplification. MIKAEL MCKEON MD 100 [facility],[address], [address], [facility] 01/17/2024 16:43:22 08/28/2024 text/html ROS as noted in the [facility] 69-year-old male with chronic ETD presents for reevaluation. Status post eustachian tube dilation with Dr. Obando 1 year ago. He has been having some fullness of the right ear which is intermittent. Continues to maintain dry ear precaution. Has bilateral hearing aids which he uses with good effect. MALICK RODGERS MD 100 [facility],[address], [address], [facility] 09/03/2024 20:52:47 09/30/2024 text/html ROS as noted in the [facility] 69-year-old male presents for reevaluation. History of chronic ETD with bilateral tubes. Previously noted to have granulation around the outer rim of the right tube. He used Ciprodex. Unfortunately went swimming and got some water in his left ear and feels as though it is wet since then. TORRIE ALONSO MD [address] [facility] [place] [address], [place], [address], [facility] 09/30/2024 17:02:31 10/29/2024 text/html ROS as noted in the [facility] 69-year-old male for reevaluation of the ears. He trialed topical Ciprodex in both ears for granulation and otorrhea after swimming. History of chronic ETD with bilateral tubes. KATI OBANDO MD [address] [facility] [place] [address], [place], [address], [facility] - [facility] 10/30/2024 07:45:47
--- OUTSIDE RECORDS SUMMARY | 2024-12-30 07:58 | XMS_ITS | Clinical Summary ---
Author Organization [facility] Associate Director Regulatory Affairs [place] Address [address] [place] [address] Phone Care Team Providers Care Fruit And Vegetable Inspector Name Role Phone Ricky Iverson MD Primary [...] PO) Take by mouth daily. Active coenzyme T61-nbtaite E 100-5 mg-unit capsule Take 200 mg [...] a COPD (chronic obstructive pu lmonary disease) ([facility] V24, [facility] V28) DX:COPD (chronic o [...] EDT Office Visit [facility] [place] [address] [facility] [address] [place] [address] Donal Adams MD 19 [facility] [address] [place] [address] Health Maintenance Due Date Last Done Comments [...] [employer] ADVANTAGE Care Teams Fruit And Vegetable Inspector Relationship Specialty Start Date End Date Ricky Iverson MD [address] [place] [address] Dr Blanchard [facility] [place], [place] PCP - General 04/21/22
--- OUTSIDE RECORDS SUMMARY | 2024-12-30 07:58 | XMS_ITS | Continuity of Care Document ---
Author Organization [place] - [facility], [facility] Address [address] [place] [address] Care Team Providers Care Fairing Worker Name Role Phone CAPRI POLANCO Primary Care [...] and follow-up in 3 to 4 weeks. [email or web address] Not available 09/30/2024 13:50:27 Plan of Treatment [...] %-0.1 % ear drops,ghislaine pension 2024 025 [facility] #[id number], [address] [facility], [place], [address], 09/30/2024 13:51:40 Patient TargetsNo targets recorded. Patient InstructionsNo instructions recorded. Reason for Referral None Reported. Problems Name Problem SNOMED Code Status Onset Date Resolution Date Notes Provider Name and Address Organization Details Recorded Time Disorder of left Eustachia n tube 54230026076 41737 Active 2016 Other specified disorders of Eustachia n tube, left ear; Note: Date Diagnosed : 03/08/2016 10:00 AM (H69.82) Not Available [facility] 4 02:47:47 Impacted cerumen in left ear 45913705826 61308 Active 2016 Impacted cerumen, left ear; Note: Date Diagnosed : 04/05/2016 11:17 AM (H61.22) Not Available [facility] 4 02:47:52 Otitis externa of right ear 26590412901 00473 Active 2016 Other otitis externa, right ear; Note: Date Diagnosed : 7 9:51 AM (H60.8X1) Not Available [facility] 4 02:47:48 Snoring 57239671 Active 2016 Snoring; Note: Date Diagnosed : 7 10:09 AM (R06.83) Not Available [facility] 4 02:47:52 Acute sinusitis 98663644 Active 2017 Acute sinusitis , unspecifi ed; Note: Date Diagnosed : 12/12/2017 9:57 AM (J01.90) Not Available [facility] 4 02:47:45 Impacted cerumen of bilateral ears 29216616576 10579 Active 2018 Impacted cerumen, bilateral ; Note: Date Diagnosed : 07/31/2018 10:13 AM (H61.23) Not Available [facility] 4 02:47:52 Bilateral disorder of Eustachia n tubes 00536647367 93172 Active 2018 Other specified disorders of Eustachia n tube, bilateral ; Note: Date Diagnosed : 07/31/2018 10:14 AM (H69.83) KIM DRUMMOND PA-C [address] [place] [address], [place], [address] , [facility] - [facility] 5 12:07:16 Abnormal auditory perceptio n 23986354 Active 2018 Other abnormal auditory perceptio ns, bilateral ; Note: Date Diagnosed : 07/31/2018 10:15 AM (H93.293) Not Available [facility] 4 02:47:45 Mixed conductiv e and sensorine ural hearing loss, bilateral 771328702 Active 2023 SHARON HOOD [address], [place], [address] , [place] - [facility] 4 12:05:14 Bilateral adhesive otitis media of middle ears 34247797517 11215 Active 2023 KATI OBANDO MD [address], [place], [place], [address] , [place] - [facility] 4 13:46:05 Sensorine ural hearing loss of bilateral ears 952287653 Active 2023 KIM DRUMMOND PA-C [address], [place], [place], [address] , [facility] - [facility] 5 12:07:29 Otorrhea of right ear 34514248872 Active 2024 SHAYE SERRANO PA-C [address], [place], [place], [address] , [facility] - [facility] 5 13:33:40 Otorrhea of bilateral ears 82203437442 48784 Active 2024 SHAYE SERRANO PA-C [address], [place], [place], [address] , [place] - [facility] 5 13:50:52 Problem Notes None recorded. Procedures Surgical History Date Name Laterality Status Provider Name and Address Organization Details Recorded Time Comp Audio with Tymps - 57183 & 53093 completed Paola Ramsay [place] - [facility] 01/17/2024 15:09:47 NASOPHARYNGOSCOPY, SURGICAL, WITH DILATION OF EUSTACHIAN TUBE; BILATERAL (SURG) completed Philip Nance [place] - [facility] 12/22/2023 15:46:47 024 Fiberoptic Nasopharyngoscopy completed KATI OBANDO MD [address] [facility] [address], [place], [address], [facility] - [facility] 12/07/2023 13:52:03 024 Comp Audio with Tymps - 09278 & 81805 completed SHARON HOOD [address] [facility] [address], [place], [address], [facility] - [facility] 09/20/2023 12:04:29 024 Cerumen removal without microscope bilat completed SHAYE SERRANO PA-C [address] [facility],[address], [address], [facility] - [facility] 09/20/2023 11:33:24 Imaging Results None recorded. [...] dose pack 07/31 completed Medicati on ID: [id number] Cassandra shaw By Name: Adi Ewing nd [...] mg tablet 12/12 completed Medicati on ID: [id number] D uration Value: 90 Reason: () Brand [...] mg tablet 12/06 completed Medicati on ID: [id number] D uration Value: 90 Reason: () Brand [...] topical solution 12/12 completed Medicati on ID: [id number] P rescribe d By Name: Adi Ewing nd Name: clotrima phong Neri d Method: E-Prescr ibed Sub s Allowed: subs OK Speci al Instruct ion: 5 drops to affected ear twice a day Medi cationGe nericNam e: clotrima zole Not Available Not Available Not Available hydrochlo rothiazid e 25 mg tablet 09/19 completed Medicati on ID: [id number] D uration Value: 30 Brand Name: hydrochl [...] layed release 2016 active Medicati on ID: [id number] B rand Name: Aspir-81 Send Method: E-Prescr [...] mg capsule 09/19 completed Medicati on ID: [id number] D uration Value: 90 Brand Name: amlodipi [...] Updated DateTime 09/30/2024 177.8 cm 34.4 kg/m2 822422.17 g Cherri Wolfe [place] - [facility] 09/30/2024 13:19:05 Social History None recorded. Functional Status None recorded. Mental Status None recorded. Family History Nothing Reported. Medical History Condition Response Hypertension Y Past Encounters Encounter ID Performer Location Encounter Start Date Encounter Closed Date Diagnosis/Indication Diagnosis SNOMED-CT Code Diagnosis ICD10 Code Diagnosis IMO Codes Diagnosis Note [id number] SHAYE SERRANO PA-C [facility] [address] [address] 09/30/2024 12:56:39 09/30/2024 13:23:14 Bilateral disorder of Eustachian tubes [id number] 287867 H69.83 Otorrhea o f bilateral ears 6998345778 806608 H92.13 [id number] Health Concerns Section Related Observation LastModified by Organization Detai ls LastModified Time None Recorded Concern Status LastModified by Organization Details LastModified Time None Recorded Payers Encounter Date Sequence Insurance Name Policy Number Policy Murillo Covered Member ID Murillo Member ID Guarantor Name 09/30/2024 1 [employer] - MEDICARE ADVANTAGE PLAN (MEDICARE REPLACEMENT HMO) [id number] Suzan Min [id number] Suzan Min Notes Date Note Type Note [...] is wet since then. TORRIE ALONSO MD [address] [place] [address], [place], [address], [facility] - [facility] 09/30/2024 17:02:31
--- OUTSIDE RECORDS SUMMARY | 2024-12-30 07:58 | XMS_ITS | Clinical Summary ---
Author Organization [facility] Address [address] [place] [address] Care Team Providers Care Insurance Plan Specialist Name Role Phone Ricky Iverson MD Primary Care Provider +1- [phone] Allergies No known active allergies Medications Medication [...] age to complete this topic Care Teams Insurance Plan Specialist Relationship Specialty Start Date End Date Ricky Iverson MD [address] [place] [address] PCP - General Family Medicine 04/21/22
--- OUTSIDE RECORDS SUMMARY | 2024-12-30 07:58 | XMS_ITS | Continuity of Care Document ---
Author Organization [place] - [facility], [facility] Address [address] [place] [address] Care Team Providers Care Sludge Mill Operator Name Role Phone COLLIN CARPI Primary Care Provider Assessment Encounter Date Assessment [...] Time Disorder of left Eustachia n tube [id number] 73177 Active 2016 Other specified disorders of Eustachia n tube, left ear; Note: Date Diagnosed : 03/08/2016 10:00 AM (H69.82) Not Available [facility] Impacted cerumen in left ear 66961017662 85763 Active 2016 Impacted cerumen, left ear; Note: Date Diagnosed : 04/05/2016 11:17 AM (H61.22) Not Available [facility] 4 02:47:52 Otitis externa of right ear 68213180712 57743 Active 2016 Other otitis externa, right ear; Note: Date Diagnosed : 7 9:51 AM (H60.8X1) Not Available [facility] 4 02:47:48 Snoring 78721230 Active 2016 Snoring; Note: Date Diagnosed : 7 10:09 AM (R06.83) Not Available [facility] 4 02:47:52 Acute sinusitis 59795921 Active 2017 Acute sinusitis , unspecifi ed; Note: Date Diagnosed : 12/12/2017 9:57 AM (J01.90) Not Available [facility] 4 02:47:45 Impacted cerumen of bilateral ears 96306667419 99320 Active 2018 Impacted cerumen, bilateral ; Note: Date Diagnosed : 07/31/2018 10:13 AM (H61.23) Not Available [facility] 4 02:47:52 Bilateral disorder of Eustachia n tubes 88155848651 59257 Active 2018 Other specified disorders of Eustachia n tube, bilateral ; Note: Date Diagnosed : 07/31/2018 10:14 AM (H69.83) KIM DRUMMOND PA-C [address] [address], [place], [address] , [facility] 5 12:07:16 Abnormal auditory perceptio n 04042344 Active 2018 Other abnormal auditory perceptio ns, bilateral ; Note: Date Diagnosed : 07/31/2018 10:15 AM (H93.293) Not Available [facility] 4 02:47:45 Mixed conductiv e and sensorine ural hearing loss, bilateral 173381611 Active 2023 SHARON HOOD [address] [address], [place], [address] , [facility] 4 12:05:14 Bilateral adhesive otitis media of middle ears 03953568538 36129 Active 2023 KATI OBANDO MD [address] [facility] [address] [address], [facility] [place], [address] , [facility] - [facility] [place] 4 13:46:05 Sensorine ural hearing loss of bilateral ears 332692046 Active 2023 KIM DRUMMOND PA-C [address] [facility],[place] [address], [place] [place], [address] , [place] - [facility] [place] 5 12:07:29 Otorrhea of right ear 78839235637 Active 2024 SHAYE SERRANO PA-C [address] [facility] [address],[facility] [address], [facility] [place], [address] , [place] - [facility] [place] 5 13:33:40 Otorrhea of bilateral ears 82235591935 Active 2024 SHAYE SERRANO PA-C [address] [facility] [address], [facility] [place], [address] , [place] - [facility] [place] 5 13:50:52 Problem Notes None recorded. Procedures Surgical History Date Name Laterality Status Provider Name and Address Organization Details Recorded Time Comp Audio with Tymps - 34119 & 85753 completed Paola Ramsay [place] - [facility] [place] 01/17/2024 15:09:47 024 NASOPHARYNGOSCOPY, SURGICAL, WITH DILATION OF EUSTACHIAN TUBE; BILATERAL (SURG) completed Philip Nance [place] - [facility] [place] 12/22/2023 15:46:47 024 Fiberoptic Nasopharyngoscopy completed KATI OBANDO MD [address] [facility] [address] [address], [place], [address], [facility] - [facility] [place] 12/07/2023 13:52:03 024 Comp Audio with Tymps - 41186 & 05801 completed SHARON HOOD [address] [facility] [address],[place] [address], [place], [address], [facility] - [facility] 09/20/2023 12:04:29 024 Cerumen removal without microscope bilat completed HARSH VÁZQUEZ-Jame [address] [place] [address],[place] [address], [place], [address], [place] - [facility] 09/20/2023 11:33:24 Imaging Results None [...] dose pack 07/31 completed Medicati on ID: [id number] P rescribe d By Name: Enid Gunn M.D. Bra nd Name: Medrol (Corey) Se nd Method: E-Prescr ibed Sub s Allowed: subs OK Speci al Instruct ion: take as instruct ed Medic [facility] ericName : Medrol (Corey) Not Available Not Available Not Available metoprolo l succinate ER 100 mg tablet,ex tended release 24 hr TAKE 1 TABLET BY MOUTH EVERY DAY active Not Available Not Available No t Available bisoprolo l 5 mg-hydroc hlorothia zide 6.25 mg tablet 12/12 completed Medicati on ID: [id number] D uration Value: 90 Reason: () Brand Name: bisoprol ol-hydro chloroth iazide S end Method: E-Prescr ibed Sub s Allowed: subs [place] [facility] bisoprol ol-hydro chloroth iazide Not [...] mg tablet 12/06 completed Medicati on ID: [id number] D uration Value: 90 Reason: () Brand [...] topical solution 12/12 completed Medicati on ID: [id number] P wilbert shaw By Name: Adi Ewing nd Name: kodakarmond phong shaw Method: E-Prescr ibed Sub s Allowed: subs OK Speci al Instruct ion: 5 drops to affected ear twice a day Medi cationGe nericNam e: clotrima zole Not Available Not Available Not Available hydrochlo rothiazid e 25 mg tablet 09/19 completed Medicati on ID: [id number] D uration Value: 30 Brand Name: hydrochl [...] layed release 2016 active Medicati on ID: [id number] B rand Name: Aspir-81 Send Method: E-Prescr [...] mg capsule 09/19 completed Medicati on ID: [id number] D uration Value: 90 Brand Name: amlodipi [...] Updated DateTime 10/29/2024 177.8 cm 34.4 kg/m2 566954.17 g Cherri Wolfe [place] - [facility] 10/29/2024 11:26:02 Social History None recorded. Functional Status None recorded. Mental Status None recorded. Family History Nothing Reported. Medical History Condition Response Hypertension Y Past Encounters Encounter ID Performer Location Encounter Start Date Encounter Closed Date Diagnosis/Indication Diagnosis SNOMED-CT Code Diagnosis ICD10 Code Diagnosis IMO Codes Diagnosis Note [id number] SHAYE SERRANO PA-C [facility] [address] [address] 09/30/2024 12:56:39 09/30/2024 13:23:14 Bilateral disorder of Eustachian tubes 0052612125 046892 H69.83 Otorrhea o f bilateral ears 0356733437 326516 H92.13 [id number] KIM DRUMMOND PA-C [facility] [address] [address] 10/29/2024 11:18:40 10/29/2024 11:39:44 Bilateral disorder of Eustachian tubes 1301718579 938488 H69.83 Otorrhea o f bilateral ears 4256386458 863335 H92.13 [id number] Sensorineu ral hearing loss of bilateral ears 618597380 H90.3 Health Concerns Section Related Observation LastModified by Organization Detai ls LastModified Time None Recorded Concern Status LastModified by Organization Details LastModified Time None Recorded Payers Encounter Date Sequence Insurance Name Policy Number Policy Murillo Covered Member ID Murillo Member ID Guarantor Name 10/29/2024 1 [employer] - MEDICARE ADVANTAGE PLAN (MEDICARE REPLACEMENT HMO) [id number] 12 Suzan Min [id number] Suzan Min Notes Date Note Type Note Provider Name and Address Organization Details Recorded Time 10/29/2024 text/html ROS as noted in the HPI 69-year-old male for reevaluation of the ears. He trialed topical Ciprodex in both ears for granulation and otorrhea after swimming. History of chronic ETD with bilateral tubes. KATI OBANDO MD [address] [place] [address], [address], [facility] - [facility] 10/30/2024 07:45:47
== END 2024-12-30 08:48 | disposition home or self-care (01) ==
LOC: HO.HSMS 07:55
PROVIDERS: PCP Family Medicine; Visit Provider Physician Assistant Medical
DX: G47.33 Obstructive sleep apnea (adult) (pediatric) (principal); G25.81 Restless legs syndrome; R25.3 Fasciculation
CPT/HCPCS: 99214

== ENCOUNTER 2025-01-10 11:11 | Outpatient (AMB) | payer MEDICARE, SELFPAY ==
--- NOTE | 2025-01-10 08:44 | MHC.OFFVIS ---
Intake Visit Reasons: Former Smoker Allergies No Known Allergies Allergy (Verified 12/30/24 08:01) HPI HPI Former Smoker: Details: Initial visit for this 69yo smoker with a 26PYH. Patient started smoking at age 15 for 53 years at 1/2ppd. Quit last year 2023. . Denies marijuana use. Denies second hand smoke exposure. Notes exposure to asbestos and Phosgene gas. 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 . Denies known family history of lung cancer. Denies personal history of cancers. Denies chest CT in last year. . Denies recent travel outside the [place]. Denies recent respiratory illness or recent hospitalization for respiratory issues. Denies testing positive for COVID. Admits receiving COVID Vaccine. . Denies fever, chills, new/worsening cough, hemoptysis, hoarseness or dysphagia. Denies significant chest pain, significant dyspnea or unintentional weight loss. Patient Lung Cancer Screening Questionnaire reviewed with patient by provider. . Shared Decision Making Completed. Patient meets criteria. Discussed in detail with patient, the risk vs benefit of LDCT screening. Patient consents to proceed with scan. Discussed smoking cessation. [facility] Medical History (Updated 01/10/25 @ 11:44 by Mera Leal PA-C) Hyperplastic colon polyp History of umbilical hernia Eustachian tube dysfunction History of hyperkalemia CKD (chronic kidney disease) Diabetes Hyperlipidemia Essential hypertension Mild anemia PAC (premature atrial contraction) ANJALI on CPAP Personal history of nicotine dependence Muscle twitch Left shoulder pain Bilateral shoulder pain Surgical History (Updated 01/10/25 @ 11:36 by Mera Leal PA-C) History of colonoscopy History of umbilical hernia repair History of tympanostomy tube placement History of hernia repair Family History Father Kidney failure Mother Congenital heart disease Brother No problems noted. Sister No problems noted. Sister No problems noted. Sister No problems noted. Son No problems noted. Daughter No problems noted. 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 - Patient meets criteria for LDCT for lung cancer screening purposes and is asymptomatic. - Smoking cessation counseling offered. Patients can always call [phone]. - Will arrange for a LDCT scan of the chest for screening purposes at [facility]. - Risks, benefits, and alternatives were discussed in detail and the patient agrees to proceed. - Risks discussed include but are not limited to: radiation exposure, anxiety during testing and while awaiting results, false negatives, false positives and possibility of additional intervention such as further imaging or surgical procedures for benign disease. - Benefits are obviously detection of lung cancer at an early stage which can lead to improved outcomes. - Discussed the importance of screening program compliance with adherence to yearly LDCT scan as scheduled - or sooner interval scans for personalized screening regimen. - Discussed follow up plan. Our office will send a letter discussing results and if needed set up phone call and office visit based on CT findings. - Patient educated on results categorization and the management decisions for suspicious findings potentially found on the screening LDCT scan. Any patient with a Lung RADS score of 3 or 4 will be reviewed by a multidisciplinary team at [facility] to form a plan of action in regards to scan findings. - If further work up is warranted for a suspicious lung finding this will be followed by the Lung Cancer Screening program in conjunction with the Thoracic Surgery Department at [facility]. - A copy of the office note and LDCT will be sent to the patient's PCP - as well as documentation on any associated further plans of care. - Incidental findings on LDCT are the PCP's responsibility. These findings are indicated with an S finding on the LDCT Assessment. A note discussing the findings will be sent to the PCP who is then responsible for further management. - All questions answered.? Plan OF NOTE FOR PCP: The USPTF recommends all men age 65-75 who have ever smoked have a one-time abdominal ultrasound to screen for AAA. Recommend if not done prior. Coding Level of Care Code Lung Cancer Screening G0296 Diagnoses Personal history of nicotine dependence Z87.891
--- OUTSIDE RECORDS SUMMARY | 2025-01-10 13:42 | XMS_ITS | Clinical Summary ---
Author Organization [facility] [place] Address [address] [place] [address] Phone Care Team Providers Care Cinnamon Grinder Name Role Phone Ricky Iverson MD Primary [...] PO) Take by mouth daily. Active coenzyme M46-honbnts E 100-5 mg-unit capsule Take 200 mg [...] a COPD (chronic obstructive pu lmonary disease) ([facility] V24, [facility] V28) DX:COPD (chronic o bstructive pulmonary disease) ([facility]) [...] EDT Office Visit [facility] [place] [address] [facility] [address] [place] [address] Donal Adams MD [address] [facility] [address] [place] [address] Health Maintenance Due Date Last Done Comments [...] [employer] MEDICARE ADVANTAGE Care Teams Cinnamon Grinder Relationship Specialty Start Date End Date Ricky Iverson MD [address] [place] [address] [facility] [place], [place] PCP - General 04/21/22
--- OUTSIDE RECORDS SUMMARY | 2025-01-10 13:42 | XMS_ITS | Clinical Summary ---
Author Organization [facility] Prior to 07/06/24 Address [address] [place] [address] Care Team Providers Care Cell Changer Name Role Phone Ricky Iverson MD Primary Care Provider +1- [phone] Allergies No known active allergies Medications Medication [...] age to complete this topic Care Teams Cell Changer Relationship Specialty Start Date End Date Ricky Iverson MD [address] [place] [address] PCP - General Family Medicine 04/21/22
== END 2025-01-13 08:45 | disposition home or self-care (01) ==
LOC: HO.HPS 11:12
PROVIDERS: PCP Family Medicine; Referring Provider Family Medicine; Visit Provider Physician Assistant Medical
DX: Z87.891 Personal history of nicotine dependence (principal)
CPT/HCPCS: G0296

== ENCOUNTER 2025-01-10 11:45 | Outpatient (REF) | payer OTHER, SELFPAY ==
--- NOTE | ~2025-01-10 | CT_ITS ---
EXAMINATION: CT LUNG SCREENING HISTORY: Z87.891 - Personal history of nicotine dependence TECHNIQUE: Low dose axial images were obtained from the sternal notch to upper abdomen without IV contrast per standard departmental protocol. Sagittal and coronal reformatted images were also obtained and reviewed. One or more of the following techniques was used for dose reduction: Automated exposure control, adjustment of the mA and/or kV according to patient size, use of iterative reconstruction technique. DLP: 101 mGy-cm COMPARISON: There are no prior studies available for comparison. FINDINGS: Lung nodules: 3 mm right upper lobe nodule axial image 55 series 4. 2 mm right upper lobe nodule axial image 56 series 4. 2 mm peripheral or subpleural right upper lobe nodule axial image 94 series 4. Central airways are clear. Emphysema: none No pleural effusion or pleural thickening. No pneumothorax. Upper normal heart size. Severe coronary artery calcification. No pericardial effusion. Aortic valve calcification. Slightly dilated ascending thoracic aorta measuring 4.2 cm. Additional Chest Findings: No thyroid nodule. No enlarged lymph nodes. No chest wall mass. Visualized upper abdomen: Limited due to low dose technique. Question low attenuation 1 cm lesion exophytic to the lateral upper pole of the right kidney for example axial image 152 series 4. This may represent a cyst. Degenerative changes of the spine. CT/CT lung screening IMPRESSION: Small right upper lobe nodules largest measuring 3 mm. Severe coronary artery calcification. Aortic valve calcification and slightly dilated ascending thoracic aorta measuring 4.2 cm. LUNG-RADS ASSESSMENT: Lung-RADS 2: Benign MANAGEMENT: Continue annual screening with LDCT in 12 months Category S: S S for coronary artery calcification. Electronically signed by: Zo Padron MD 01/13/2025 08:45 AM [facility] [place]
== END 2025-01-10 11:46 | disposition home or self-care (01) ==
LOC: HO.CT 11:45
PROVIDERS: PCP Family Medicine; Visit Provider Physician Assistant Medical
DX: Z87.891 Personal history of nicotine dependence (principal); Z12.2 Encounter for screening for malignant neoplasm of respiratory organs
CPT/HCPCS: 71271; G0296

== ENCOUNTER → 2025-01-10 11:46 | Outpatient (BNV) | payer OTHER, SELFPAY | PROVIDERS: PCP Family Medicine; Visit Provider Radiology Diagnostic Radiology | DX: Z87.891 Personal history of nicotine dependence (principal) | CPT/HCPCS: 71271 ==

== ENCOUNTER 2025-02-04 11:38 | Outpatient (AMB) | payer MEDICARE, SELFPAY ==
--- NOTE | 2025-02-04 11:45 | A.OFFPC_ITS ---
Vital Signs 02/04/25 11:52 Height 5 ft 9.5 in Weight 255 lb BMI 37.1 BP 128/72 Blood Pressure Location Rt brachial Position Sitting Respiration 14 Pulse 84 Pulse Source Pulse Oximeter Temp 98.1 F Temp Source Temporal Artery Scan Pulse Oximetry (%) 96 Oxygen Delivery Method Room Air Intake Visit Reasons: Dr Fox 3 months from now to follow-up hyperten Intake Note: Suzan presents in the office today for a 3 month follow up to hypertension and diabetes. Equity Sales Assistant Required: No Allergies No Known Allergies Allergy (Verified 02/04/25 11:46) Medication List - Last Reconciled 02/04/25 by Ricky Iverson MD amlodipine-benazepril 10-20 mg 1 cap PO DAILY aspirin (Adult Aspirin Regimen) 81 mg PO DAILY atorvastatin 80 mg PO DAILY blood pressure monitor Automatic, Digital. Dx: I10. Daily As directed, 999 days/lifetime clotrimazole-betamethasone 1-0.05 % 1 appl topical BID 14 days ezetimibe 10 mg PO DAILY fenofibrate 160 mg PO DAILY 90 days fluticasone propionate 50 mcg/actuation (Flonase Allergy Relief) 1 spray intranasal Q12H 90 days glipizide 2.5 mg PO DAILY 90 days metoprolol succinate ER 200 mg PO DAILY 30 days Tobacco use date assessed: 02/04/25 Dental Screening Dental Screen Date: 02/04/25 Did you have a dental visit in the last 12 months?: Yes Did you have a dental problem in the last 6 months where you did not have access to dental care?: No Was dental information given to patient?: Patient has dentist HPI Dr Fox 3 months from now to follow-up hyperten HPI Details 69 y/o male presents to . HTN, prediab etes. BP today 128/72, 84p. He is on metoprolol 200mg, amlodipine-benazepril 10-20mg daily. A1c today 5.7%. He is on glipizide 2.5mg daily. Lung cancer screening had looked fine. Reports ongoing knee pain. [facility] Medical History (Updated 02/04/25 @ 12:42 by Ricky Iverson MD) Hyperplastic colon polyp History of umbilical hernia Eustachian tube dysfunction History of hyperkalemia CKD (chronic kidney disease) Diabetes Hyperlipidemia Essential hypertension Mild anemia PAC (premature atrial contraction) ANJALI on CPAP Personal history of nicotine dependence Muscle twitch Left shoulder pain Bilateral shoulder pain Surgical History (Updated 01/10/25 @ 11:36 by Mera Leal PA-C) History of colonoscopy History of umbilical hernia repair History of tympanostomy tube placement History of hernia repair Family History Father Kidney failure Mother Congenital heart disease Brother No problems noted. Sister No problems noted. Sister No problems noted. Sister No problems noted. Son No problems noted. Daughter No problems noted. 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 Current occupational exposures/hazards: No Cognitive needs: No Hearing needs: No Vision needs: Yes Questionnaire Thrive Questionnaire Date Thrive assessed: 04/22/24 I am a: Patient What is your living situation today?: I have a steady place to live Within the past 12 months, did the food you bought not last and you didn't have the money to get more?: Never true Within the past 12 months, did you worry whether your food would run out before you got money to buy more?: Never true Do you have trouble paying for medicines?: No Do you have trouble getting transportation to medical appointments?: No Do you have trouble paying your heating and electricity bill?: No Do you have trouble taking care of your child, family member or friend?: No Do you have trouble with day-to-day activities such as bathing, preparing meals, shopping, managing finances, etc.?: No Are you currently unemployed and looking for a job?: No Are you interested in more education?: No Currently or been in a relationship where the following occur: No concerns reported THRIVE Score: 0 TONA-7 AMB Questionnaire TONA-7 Date TONA - 7 assessed: 11/03/23 Source: Developed by Drs. Leopoldo Pacheco, Skye Clarke, Charlie Funk and colleagues, with an educational baldomero from [employer]. Review of Systems Const Denies chills, Denies fatigue, Denies fever(s), Denies headache(s) and Denies weakness ENT Denies dizziness and Denies headache(s) Card Denies dyspnea Resp Denies cough, Denies dyspnea, Denies wheezing and Denies other (shortness of breath) Musc Details: Knee pain Denies numbness and Denies tingling Neuro Denies dizziness, Denies headache(s), Denies numbness, Denies tingling and Denies weakness Psych Denies anxiety and Denies depression Endo Denies fatigue Aller/Immun Denies wheezing Physical exam (Primary Care) Vital Signs: Last Vital Signs Temp 98.1 F 02/04/25 11:52 Pulse 84 02/04/25 11:52 Resp 14 02/04/25 11:52 BP 128/72 02/04/25 11:52 Pulse Ox 96 02/04/25 11:52 Oxygen Delivery Method Room Air 02/04/25 11:52 BMI result Body Mass Index 37.1 Tobacco/Smoking Status: Tobacco use Status Tobacco use date assessed 02/04/25 02/04/25 11:48 Patient Tobacco Use Status Former Tobacco user 02/04/25 11:48 e-Cigarette/Vaping Use Never Used 02/04/25 11:48 Thrive Assessment: Date of Thrive Assessment Date Thrive assessed 04/22/24 02/04/25 11:48 Currently or been in a relationship where the following occur: No concerns reported Const General: well developed; No acute distress Nutritional Appearance: obese Orientation/consciousness: patient oriented x3 [facility] Head: Yes normocephalic and Yes atraumatic Eyes General: appearance normal, both eyes and all related structures Pupils: Equal, round and reactive pupils present EOM: EOMs intact bilaterally Resp Effort & Inspection: normal respiratory effort Neuro General: patient oriented x3 and gait normal Cranial nerves: Yes Equal, round and reactive pupils present Psych Affect: normal affect Results AMB Hemoglobin A1c AMB Hemoglobin A1c 5.7 % Last Edit by Mellisa Cobos CMA on 02/04/25 11:58 Results Reviewed Results Reviewed: Laboratory Last Values Hgb A1c (Clinic) 5.7 % (4.0-6.0) 02/04/25 11:56 Coding Level of Care Code Est Pt Level 4 (82280) Diagnoses Type 2 diabetes mellitus with stage 3a chronic kidney disease, without long-term current use of insulin E11.22; N18.31 Chronic kidney disease stage: stage 3 (moderate) Chronic kidney disease stage 3 subtype: stage 3a (GFR 45-59) Diabetes mellitus complication detail: with chronic kidney disease Diabetes mellitus complication status: with kidney complications Diabetes mellitus watermaster insulin use: without watermaster use Diabetes mellitus type: type 2 Essential hypertension I10 Coronary artery calcification I25.10 Screening for lung cancer Z12.2 Immunization counseling Z71.85 ANJALI on CPAP G47.33 Class 2 severe obesity due to excess calories with serious comorbidity and body mass index (BMI) of 35.0 to 35.9 in adult E66.812; E66.01; Z68.35 Body mass index: BMI 35.0-35.9 Obesity classification: adult class 2 (BMI 35 - 39.9) Obesity type: due to excess calories Serious obesity comorbidity presence: with serious comorbidity Knee pain M25.569 Assessment & Plan Assessment & Plan (1) Diabetes: Code(s): E11.9 - Type 2 diabetes mellitus without complications Category: Medical Qualifiers: Chronic kidney disease stage: stage 3 (moderate) Chronic kidney disease stage 3 subtype: stage 3a (GFR 45-59) Diabetes mellitus complication detail: with chronic kidney disease Diabetes mellitus complication status: with kidney complications Diabetes mellitus watermaster insulin use: without watermaster use Diabetes mellitus type: type 2 Qualified Code(s): E11.22 - Type 2 diabetes mellitus with diabetic chronic kidney disease; N18.31 - Chronic kidney disease, stage 3a Plan: Prior A1c of 6.6%. A1c today 5.7%. Good control. Goal is less than 7% though he is working on keeping his below 6.5% He would like to try a GLP 1 medication to improve blood sugar control and aid in weight loss. He may also be able to discontinue glipizide soon. Trial Julio. Risks/benefits discussed Eye exam earlier this year. He is up-to-date (2) Essential hypertension: Code(s): I10 - Essential (primary) hypertension Category: Medical Plan: Blood pressure is controlled. Goal is less than 130/80 Improved since increasing metoprolol. Continue current medications (3) Coronary artery calcification: Comment: (Severe coronary artery calcification on 01/10/25 LDCT) Code(s): I25.10 - Atherosclerotic heart disease of [place] coronary artery without angina pectoris Category: Medical Plan: Stable (4) Screening for lung cancer: Code(s): Z12.2 - Encounter for screening for malignant neoplasm of respiratory organs Category: Medical Plan: Screening benign Continue annual screening (5) Immunization counseling: Code(s): Z71.85 - Encounter for immunization safety counseling Category: Medical Plan: Patient can get his high-dose flu shot at pharmacy Can discuss pneumonia shot as well (6) ANJALI on CPAP: Comment: Severe degree of sleep apnea. The AHI was 33/hr and oxygen lakshmi was 87%. Code(s): G47.33 - Obstructive sleep apnea (adult) (pediatric) Category: Medical Plan: Stable on CPAP (7) Obese: Code(s): E66.9 - Obesity, unspecified Category: Medical Qualifiers: Body mass index: BMI 35.0-35.9 Obesity classification: adult class 2 (BMI 35 - 39.9) Obesity type: due to excess calories Serious obesity comorbidity presence: with serious comorbidity Qualified Code(s): E66.812 - Obesity, class 2; E66.01 - Morbid (severe) obesity due to excess calories; Z68.35 - Body mass index [BMI] 35.0-35.9, adult Plan: As above, patient can try Mounjaro (8) Knee pain: Code(s): M25.569 - Pain in unspecified knee Category: Medical Plan: Bilateral knee pain, worse when standing up from a crouch Demonstrated exercises with patient. If not improving will consider physical therapy, imaging and or referral to a specialist Orders: Orders US abdominal aortic aneurysm Today Z13.6 - Encounter for screening for cardiovascular disorders, Z87.891 - Personal history of nicotine dependence Lipid Panel Today Z00.00 - Encounter for general adult medical examination without abnormal findings, Z13.6 - Encounter for screening for cardiovascular disorders TSH reflex Free T4 Today Z00.00 - Encounter for general adult medical examination without abnormal findings, Z13.6 - Encounter for screening for cardiovascular disorders AMB Hemoglobin A1c Today E11.22 - Type 2 diabetes mellitus with diabetic chronic kidney disease, N18.31 - Chronic kidney disease, stage 3a Comprehensive [place]. Panel Fast Today Z00.00 - Encounter for general adult medical examination without abnormal findings, Z13.6 - Encounter for screening for cardiovascular disorders UA CC w/rflx Micro + Cult Today Z00.00 - Encounter for general adult medical examination without abnormal findings, Z13.6 - Encounter for screening for cardiovascular disorders Complete Blood Count Auto Diff Today Z00.00 - Encounter for general adult medical examination without abnormal findings, Z13.6 - Encounter for screening for cardiovascular disorders Medications: New tirzepatide (Mounjaro) for 4 weeks 2.5 mg (0.5 mL) subcut QWEEK 2 mL 3RF 28 days E11.22 - Type 2 diabetes mellitus with diabetic chronic kidney disease, E66.9 - Obesity, unspecified, G47.33 - Obstructive sleep apnea (adult) (pediatric), I25.10 - Atherosclerotic heart disease of [place] coronary artery without angina pectoris, N18.31 - Chronic kidney disease, stage 3a
[2025-02-04 11:52] VITALS: BP 128/72; PULSE 84; RESP 14; TEMP 36.7; O2SAT 96; BMI 37.1
--- OUTSIDE RECORDS SUMMARY | 2025-02-04 15:41 | XMS_ITS | Clinical Summary ---
Author Organization [facility] Prior to 07/06/24 Address [address] [place] [address] Care Team Providers Care [employer]ofin[employer] Laboratory Worker Name Role Phone Ricky Iverson MD Primary Care Provider [phone] Allergies No known active allergies Medications Medication [...] age to complete this topic Care Teams [employer]in[employer] Worker Relationship Specialty Start Date End Date Ricky Iverson MD [address] [place] [address] PCP - General Family Medicine 04/21/22
--- OUTSIDE RECORDS SUMMARY | 2025-02-04 15:41 | XMS_ITS | Data Portability ---
Author Organization [place] - [facility], Allergy Address [address] [place] [address] Care Team Providers Care Switch House Operator Name Role Phone CAPRI POLANCO Primary [...] and follow-up in 3 to 4 weeks. [email or web address] Not available 09/30/2024 13:50:27 10/29/2024 10/29/2024 69yo [...] %-0.1 % ear drops,ghislaine pension 2024 025 [facility] #[id number], [address] [place], [address], 09/30/2024 13:51:40 ciproflox acin 0.3 % eye drops 2024 025 [facility] #[id number], [address] [place], [address], 08/28/2024 13:34:16 Patient TargetsNo targets recorded. Patient [...] Time Disorder of left Eustachia n tube [id number] 20856 Active 2016 Other specified disorders of Eustachia n tube, left ear; Note: Date Diagnosed : 03/08/2016 10:00 AM (H69.82) Not Available [facility] 4 02:47:47 Impacted cerumen in left ear 80571789303 28389 Active 2016 Impacted cerumen, left ear; Note: Date Diagnosed : 04/05/2016 11:17 AM (H61.22) Not Available [facility] 4 02:47:52 Otitis externa of right ear 99516254614 20879 Active 2016 Other otitis externa, right ear; Note: Date Diagnosed : 7 9:51 AM (H60.8X1) Not Available [facility] 4 02:47:48 Snoring 68646027 Active 2016 Snoring; Note: Date Diagnosed : 7 10:09 AM (R06.83) Not Available [facility] 4 02:47:52 Acute sinusitis 25427787 Active 2017 Acute sinusitis , unspecifi ed; Note: Date Diagnosed : 12/12/2017 9:57 AM (J01.90) Not Available [facility] 4 02:47:45 Impacted cerumen of bilateral ears 09189768167 10446 Active 2018 Impacted cerumen, bilateral ; Note: Date Diagnosed : 07/31/2018 10:13 AM (H61.23) Not Available [facility] 4 02:47:52 Bilateral disorder of Eustachia n tubes 50950473856 23044 Active 2018 Other specified disorders of Eustachia n tube, bilateral ; Note: Date Diagnosed : 07/31/2018 10:14 AM (H69.83) KIM DRUMMOND PA-C [address] [place] [address], [place], [address] , [facility] - [facility] 5 12:07:16 Abnormal auditory perceptio n 73458333 Active 2018 Other abnormal auditory perceptio ns, bilateral ; Note: Date Diagnosed : 07/31/2018 10:15 AM (H93.293) Not Available [facility] 4 02:47:45 Mixed conductiv e and sensorine ural hearing loss, bilateral 956878565 Active 2023 KIA TOPETE, SHARON [address], [place], [address] , [place] - [facility] 4 12:05:14 Bilateral adhesive otitis media of middle ears 63408941127 09441 Active 2023 KATI OBANDO MD [address], [place], [place], [address] , [facility] - [facility] 4 13:46:05 Sensorine ural hearing loss of bilateral ears 382913816 Active 2023 KIM DRUMMOND PA-C [address], [place], [place], [address] , [place] - [facility] 5 12:07:29 Otorrhea of right ear 06406182583 10510 Active 2024 SHAYE SERRANO PA-C [address], [place], [address] , [place] - [facility] 5 13:33:40 Otorrhea of bilateral ears 51294311336 03944 Active 2024 SHAYE SERRANO PA-C [address], [place], [place], [address] , [place] [facility] 5 13:50:52 Problem Notes None recorded. Procedures Surgical History Date Name Laterality Status Provider Name and Address Organization Details Recorded Time Comp Audio with Tymps - 55830 & 85499 completed Paola Ramsay [place] - [facility] 01/17/2024 15:09:47 NASOPHARYNGOSCOPY, SURGICAL, WITH DILATION OF EUSTACHIAN TUBE; BILATERAL (SURG) completed Philip Nance [place] - [facility] 12/22/2023 15:46:47 024 Fiberoptic Nasopharyngoscopy completed KATI OBANDO MD [address], [place], [address], [facility] - [facility] 12/07/2023 13:52:03 024 Comp Audio with Tymps - 47595 & 21086 completed SHARON HOOD [address] [facility] [address], [place], [address], [facility] - [facility] 09/20/2023 12:04:29 024 Cerumen removal without microscope bilat completed SHAYE SERRANO PA-C [address] [facility] [address], [place], [address], [facility] - [facility] 09/20/2023 11:33:24 Imaging Results None recorded. Procedure [...] dose pack 07/31 completed Medicati on ID: [id number] P wilbert shaw By Name: Adi Ewing [...] mg tablet 12/12 completed Medicati on ID: [id number] D uration Value: 90 Reason: () Brand [...] mg tablet 12/06 completed Medicati on ID: [id number] D uration Value: 90 Reason: () Brand [...] topical solution 12/12 completed Medicati on ID: [id number] P wilbert shaw By Name: Adi Ewing nd Name: anneriarmond Neri d Method: E-Prescr ibed Sub s Allowed: subs OK Speci al Instruct ion: 5 drops to affected ear twice a day Medi cationGe nericNam e: clotrima zole Not Available Not Available Not Available hydrochlo rothiazid e 25 mg tablet 09/19 completed Medicati on ID: [id number] D uration Value: 30 Brand Name: hydrochl [...] layed release 2016 active Medicati on ID: [id number] B rand Name: Aspir-81 Send Method: E-Prescr [...] mg capsule 09/19 completed Medicati on ID: [id number] D uration Value: 90 Brand Name: amlodipi [...] Updated DateTime 08/28/2024 177.8 cm 36.2 kg/m2 692418.28 g Corinna Ck MD - [facility] 08/28/2024 13:03:13 Date Recorded Body height Body mass index (BMI) Body weight Provider Name and Address Organization Details Last Updated DateTime 09/30/2024 177.8 cm 34.4 kg/m2 212863.17 g Cherri Wolfe MD - [facility] 09/30/2024 13:19:05 Date Recorded Body height Body mass index (BMI) Body weight Provider Name and Address Organization Details Last Updated DateTime 10/29/2024 177.8 cm 34.4 kg/m2 655762.17 g Cherri Wolfe [facility] 10/29/2024 11:26:02 Date Recorded Body height Body mass index (BMI) Body weight Provider Name and Address Organization Details Last Updated DateTime 01/17/2024 177.8 cm 36.2 kg/m2 158825.28 g Joanie Barak [facility] 01/17/2024 15:21:34 Social History None recorded. Functional Status None recorded. Mental Status None recorded. Family History Nothing Reported. Medical History Condition Response Hypertension Y Past Encounters Encounter ID Performer Location Encounter Start Date Encounter Closed Date Diagnosis/Indication Diagnosis SNOMED-CT Code Diagnosis ICD10 Code Diagnosis IMO Codes Diagnosis Note [id number] SHAYE SERRANO PA-C [facility] [address] [address] 09/20/2023 10:45:58 09/20/2023 12:16:15 Bilateral disorder of Eustachian tubes 0160937384 450878 H69.83 Impacted c erumen of bilateral ears 4829648990 040034 H61.23 Mixed cond uctive and sensorineural hearing loss, bilateral 273459717 H90.6 Audiologic al evaluation results: Right ear: Mild sloping to severe mixed hearing loss with excellent word recognitio n. Left ear: Moderate sloping to severe mixed hearing loss with excellent word recognitio n. Tympanomet ry: Right Ear:Type C Left Ear:Type C [id number] KATI OBANDO MD [facility] [address] [address] 12/07/2023 12:56:27 12/07/2023 13:54:32 Bilateral disorder of Eustachian tubes 1874571434 977181 H69.83 Bilateral adhesive otitis media of middle ears 5354735118 910449 H74.13 [id number] SHARON GEE PLUNK[facility] - [address] [address] 12/29/2023 09:05:09 01/01/2024 06:57:56 Mixed conductive and sensorineural hearing loss, bilateral 883137778 H90.6 [id number] KIM DRUMMOND PA-C [facility] [address] [address] 01/17/2024 14:22:08 01/17/2024 16:27:24 Bilateral disorder of Eustachian tubes 8740750580 418591 H69.83 Sensorineu ral hearing loss of bilateral ears 766346460 H90.3 Audiologic al evaluation results:Ri ght ear:Essent ially mild sloping to severe sensorineu ral hearing loss with excellent word recognitio n.Left ear:Essent ially mild sloping to severe sensorineu ral hearing loss with excellent word recognitio n. Tympanomet ry:Right Ear:Type B with large volumeLeft Ear:Type B with large volume [id number] SHAYE SERRANO PA-C [facility] [address] [address] 08/28/2024 12:56:18 08/28/2024 14:14:04 Bilateral adhesive otitis media of middle ears 7683030052 928240 H74.13 Otorrhea of right ear 10 87827879 332103 H92.11 9924521 [id number] SHAYE SERRANO PA-C [facility] [address] [address] 09/30/2024 12:56:39 09/30/2024 13:23:14 Bilateral disorder of Eustachian tubes 4932045219 051538 H69.83 Otorrhea o f bilateral ears 9071518896 072013 H92.13 0837018 [id number] KIM DRUMMOND PA-C [facility] [address] [facility] [place] [address] 10/29/2024 11:18:40 10/29/2024 11:39:44 Bilateral disorder of Eustachian tubes 5865985342 105597 H69.83 Otorrhea o f bilateral ears 6545629642 270711 H92.13 [id number] Sensorineu ral hearing loss of bilateral ears 635776536 H90.3 Health Concerns Section Related Observation LastModified by Organization Detai ls LastModified Time None Recorded Concern Status LastModified by Organization Details LastModified Time None Recorded Advance Directives Directive None Recorded Payers Insurance Date Sequence Insurance Name Policy Number Policy Murillo Covered Member ID Murillo Member ID Guarantor Name 10/29/2024 1 [employer] - MEDICARE ADVANTAGE PLAN (MEDICARE REPLACEMENT HMO) [id number] Suzan Min [id number] Suzan Min Notes Date Note Type Note [...] through this office he will be ordering:phonak [email or web address] or [email or web address]: 2MDomes: medium open He need sto do some research, but will let me know what he would like to do. ROZINA MULLINS, AUD [address] [facility],[address], [address], [facility] 12/29/2023 10:28:21 01/17/2024 text/html ROS as noted in the [facility] 68 year old male presents s/p BMT with bilateral balloon dilation with Dr. Obando on 12/20/2023. He is doing well post-operatively without concerns. He denies otalgia, otorrhea, or hearing changes. He did have a hearing aid consult with one of our audiologists and is in the process of getting amplification. MIKAEL MCKEON MD 100 [facility],[address], [address], [facility] 01/17/2024 16:43:22 08/28/2024 text/html ROS as noted in the [facility] 69-year-old male with chronic ETD presents for reevaluation. Status post eustachian tube dilation with Dr. Obando 1 year ago. He has been having some fullness of the right ear which is intermittent. Continues to maintain dry ear precaution. Has bilateral hearing aids which he uses with good effect. MALICK RODGERS MD 100 [facility],[address], [address], [facility] 09/03/2024 20:52:47 09/30/2024 text/html ROS as noted in the [facility] 69-year-old male presents for reevaluation. History of chronic ETD with bilateral tubes. Previously noted to have granulation around the outer rim of the right tube. He used Ciprodex. Unfortunately went swimming and got some water in his left ear and feels as though it is wet since then. TORRIE ALONSO MD [address] [facility] [place] [address], [place], [address], [facility] 09/30/2024 17:02:31 10/29/2024 text/html ROS as noted in the [facility] 69-year-old male for reevaluation of the ears. He trialed topical Ciprodex in both ears for granulation and otorrhea after swimming. History of chronic ETD with bilateral tubes. KATI OBANDO MD [address] [facility] [place] [address], [place], [address], [facility] - [facility] 10/30/2024 07:45:47
--- OUTSIDE RECORDS SUMMARY | 2025-02-04 15:41 | XMS_ITS | Clinical Summary ---
Author Organization [facility] [place] Address [address] [place] [address] Phone Care Team Providers Care Deli Associate Name Role Phone Ricky Iverson MD Primary [...] PO) Take by mouth daily. Active coenzyme F72-gnoktaq E 100-5 mg-unit capsule Take 200 mg [...] a COPD (chronic obstructive pu lmonary disease) ([facility] V24, [facility] V28) DX:COPD (chronic o bstructive pulmonary disease) ([facility]) Obesity DX:Obesity Family History Medical History [...] on file Sexual Orientation Not on file Last Filed Vital Signs [...] EDT Office Visit [facility] [place] [address] [facility] [address] [place] [address] Donal Adams MD [address] [facility] [address] [place] [address] Health Maintenance Due Date Last Done Comments [...] Final Result * (ABNORMAL) Lipid panel (10/18/2016) Pathologist [facility] LDL/HDL Ratio 4 <=5 Triglycerides 287(A) <=150 mg/dL Cholesterol 170 <=200 mg/dL HDL 42 >=40 mg/dL LDL Cholesterol 90 <=100 mg/dL Blood Venous blood specimen / Unknown Historical Provider LAB BLOOD ORDERABLES Lashae l Result from Last 3 Months or Most Recently Relevant to Health Maintenance Insurance [employer] MEDIC[employer] ADVANTAGE Care Teams Deli Associate Relationship Specialty Start Date End Date Ricky Iverson MD [address] [place] [address] Dr Blanchard [address] [place] [address] [place] PCP - General 04/21/22
== END 2025-02-04 12:36 | disposition home or self-care (01) ==
LOC: HO.HMCFM 11:39
PROVIDERS: PCP Family Medicine; Visit Provider Family Medicine
DX: E11.22 Type 2 diabetes mellitus with diabetic chronic kidney disease (principal); N18.31 Chronic kidney disease, stage 3a; E66.01 Morbid (severe) obesity due to excess calories; Z68.35 Body mass index [BMI] 35.0-35.9, adult; I10 Essential (primary) hypertension; I25.10 Atherosclerotic heart disease of native coronary artery without angina pectoris; G47.33 Obstructive sleep apnea (adult) (pediatric); M25.561 Pain in right knee; M25.562 Pain in left knee; Z12.2 Encounter for screening for malignant neoplasm of respiratory organs

== ENCOUNTER → 2025-02-04 11:38 | Outpatient (BNVA) | payer MEDICARE, SELFPAY | PROVIDERS: PCP Family Medicine; Visit Provider Family Medicine | DX: E11.22 Type 2 diabetes mellitus with diabetic chronic kidney disease (principal); I12.9 Hypertensive chronic kidney disease with stage 1 through stage 4 chronic kidney disease, or unspecified chronic kidney disease; Z18.31 Retained animal quills or spines; E66.01 Morbid (severe) obesity due to excess calories; Z68.35 Body mass index [BMI] 35.0-35.9, adult; M25.561 Pain in right knee; M25.562 Pain in left knee; I25.10 Atherosclerotic heart disease of native coronary artery without angina pectoris; G47.33 Obstructive sleep apnea (adult) (pediatric); Z99.89 Dependence on other enabling machines and devices; Z13.6 Encounter for screening for cardiovascular disorders; Z87.891 Personal history of nicotine dependence; Z79.899 Other long term (current) drug therapy; Z79.84 Long term (current) use of oral hypoglycemic drugs | CPT/HCPCS: 83036; 99212 ==